=== PATIENT | female | born 1955 | race Caucasian/White ===

== ENCOUNTER 2023-11-01 14:22 | Outpatient (OUT) | payer OTHER, SELFPAY ==
--- NOTE | 2023-11-01 | CONS_ITS ---
CONSULTATION DATE: 11/01/2023 TO: Christi Galvan M.D. CHIEF COMPLAINT: Includes severe left sided buttock pain, left leg pain. HISTORY OF PRESENT ILLNESS: Review of systems, past medical/surgical history were obtained and documented on the health questionnaire and is available upon request. She is a 68-year-old female, reports having pain over the last one and a half years. It occurred spontaneously and increased gradually to its present state. She now has 5-7/10 pain which is sharp, burning in character, increased with activities such as standing and walking and performing transitioning maneuvers. She feels most comfortable in the semi-recumbent position. Denies any change in bowel and bladder habits. Reports that she has some progressive tingling and numbness, as well as weakness of her left lower extremity. This is not new but slightly progressive since the onset of her symptoms one and a half years ago. Since her symptoms started, she has been undergoing a home supervised exercise program. She has undergone activity modification. She is intolerant to nonsteroidal agents and has been using nabumetone and Flexeril to help control pain symptoms, as well as Tylenol intermittently. Her TIO on today?s visit was 28%. She has also been undergoing physical therapy in [place] for her current pain symptoms. EXAM: Her examination is notable for patient having hypoesthesia along the right L5 dermatome, 3/5 strength of her right extensor hallucis. Straight leg raise is positive at approximately 90 degrees. No signs consistent with myelopathy. She had dysesthesia and hypoesthesia over the distribution of the left superior gluteal nerve, and she had significant myofascial spasm of the lumbar paravertebral muscles occurring bilaterally. IMPRESSION: Our impression is patient with chronic pain secondary to left L5 radiculopathy, left superior gluteal nerve neuritis. RECOMMENDATIONS: I have recommended left superior gluteal nerve injection under fluoroscopic guidance. Proceed with a lumbosacral MRI to determine if there is a mechanical etiology to her L5 radicular process. I have asked her to start aquatic therapy, and I have gone over the details of the procedure with the patient. All her questions answered. She agrees to proceed with the outlined plan. As part of providing excellent, safe, comprehensive care, the following was completed at our patient's visit: 1. A medication reconciliation and review to ensure accurate knowledge of current/active medications, including asking our patients to inform us about any ifoy-lcj-xorabxn medications or herbal remedies/nutritional supplements/alternative remedies. 2. A review to specifically ensure our patients have had annual screening for: elevated body mass index (BMI, see intake chart for exact total), tobacco use, screening for depression, and screening for unhealthy alcohol use. When screening is concerning, patients are provided with education and the specific recommendation to discuss the concerning health issue and treatment options with their primary care provider. SHAHEED
== END 2023-11-01 14:23 | disposition home or self-care (01) ==
LOC: PM 14:23
PROVIDERS: Visit Provider Anesthesiology Pain Medicine
DX: M54.16 Radiculopathy, lumbar region (principal); G62.9 Polyneuropathy, unspecified
CPT/HCPCS: G0463

== ENCOUNTER 2023-11-15 14:47 | Outpatient (OUT) | payer OTHER, SELFPAY ==
--- NOTE | 2023-11-15 14:50 | MR_ITS ---
[address] [address] Patient Name: KAMALJIT ZAVALA MRN: [id number]:[id number] date: 1955 Sex: F Assigned Patient Location: MRI Current Patient Location: Accession/Order Number: [id number] Exam Date: 11/15/2023 15:00 Report Date: 11/16/2023 07:09 At the request of: OLIVIA MCLEAN Procedure: MR lumbar spine wo con EXAMINATION: MR lumbar spine wo con HISTORY: Lumbar Neuritis COMPARISON: No relevant comparison available. TECHNIQUE: A variety of imaging planes and parameters were utilized for visualization of suspected pathology. FINDINGS: For the purposes of numbering, sagittal T2 image # 8 extends from the T10 vertebral body superiorly to the S2 level inferiorly. PARASPINAL AREA: Normal with no visible mass. BONES: Normal alignment with no acute fracture or spondylolisthesis. Mild heterogeneous marrow signal likely age-related changes. Extension of intervertebral disc through the superior endplate of T11, Schmorl's node. Mild to moderate degenerative spondylosis and facet osteoarthropathy CORD/CAUDA EQUINA: Normal caliber, contour, and signal intensity. DISC LEVELS: 12-L1: Early degenerative disc disease is present without focal protrusion or neural impingement. L1-L2: Moderate degenerative disc disease is present without visible neural impingement. L2-L3: Moderate degenerative disc disease is present without visible neural impingement. L3-L4: Moderate degenerative disc disease is present without visible neural impingement. L4-L5: Moderate degenerative disc disease is present without visible neural impingement. L5-S1: Severe disc space narrowing and disc desiccation. Posterior broad-based disc herniation of the protrusion type extending posteriorly up to 4.8 mm. This abuts but does not efface the nerves. No central or foraminal stenosis MR/MR lumbar spine wo con IMPRESSION: Moderate degenerative changes most significant at L5-S1 where there is a moderate-sized posterior broad-based disc herniation Electronically authenticated by: CATHIE REED Date: 11/16/2023 07:09
== END 2023-11-15 14:48 | disposition home or self-care (01) ==
LOC: MRI 14:47
PROVIDERS: Visit Provider Anesthesiology Pain Medicine
DX: M54.16 Radiculopathy, lumbar region (principal); M51.36 Other intervertebral disc degeneration, lumbar region
CPT/HCPCS: 72148

== ENCOUNTER 2023-11-22 08:48 | Day surgery (SDC) | payer OTHER, SELFPAY ==
[2023-11-22 09:02] VITALS: BP 135/91; PULSE 74; TEMP 36.2; O2SAT 98
[2023-11-22 09:55] VITALS: BP 119/61; PULSE 74; O2SAT 98
[2023-11-22] MEDS: BUPIVACAINE HCL 0.25% PF 25 MG/10 ML VIAL 4 ML INJ (09:57)
[2023-11-22 09:58] VITALS: BP 116/64; PULSE 74; O2SAT 98
--- NOTE | 2023-11-22 10:15 | W.PM.PROCNOT ---
Date of procedure: 11/22/23 Pre-op diagnosis: Left superior gluteal neuritis Post-op diagnosis: same as pre-op Procedure: left Superior gluteal nerve block, diagnostic Performed under fluoroscopic guidance Immediate complications none Anesthesia: none Solution used for injection: In each syringe, 2 milliliters 0.25% Marcaine 2.5 mL is used for injection for each side Time out process compliant After informed consent obtained patient was brought to the procedure room placed in the prone position skin overlying the area was prepped and draped in a sterile fashion using betadine. 25 gauge spinal needle Insert over each of the target areas identified in fluoroscopy corresponding needles were advanced Under fluoroscopic guidance until the target/targets encountered, no indication of intravascular or Intraneuronal needle tip placement. Solution injected.needles removed post procedurally. patient transferred to recovery room in stable condition to be discharged home after meeting criteria Anesthesia: Local Surgeon: Jerry Concepcion Condition: stable
== END 2023-11-22 10:02 | disposition home or self-care (01) ==
PROVIDERS: Visit Provider Anesthesiology Pain Medicine
DX: G57.82 Other specified mononeuropathies of left lower limb (principal)
CPT/HCPCS: 64450

== ENCOUNTER 2023-12-01 09:31 | Outpatient (OUT) | payer OTHER, SELFPAY ==
--- NOTE | 2023-12-01 09:30 | P.CN_ITS ---
Consult Note: HPI Data of Consult Patient: known to practice within the last 3 years Requesting Physician: Guerda Reyes NP Primary Care Provider: Non-Staff Physician, MD Consult Narrative Narrative: She is a 68-year-old female, reports having pain over the last one and a half years. It occurred spontaneously and increased gradually to its present state. She now has 5-7/10 pain which is sharp, burning in character, increased with activities such as standing and walking and performing transitioning maneuvers. She feels most comfortable in the semi-recumbent position. Denies any change in bowel and bladder habits. Reports that she has some progressive tingling and numbness, as well as weakness of her left lower extremity. This is not new but slightly progressive since the onset of her symptoms one and a half years ago. Since her symptoms started, she has been undergoing a home supervised exercise program. She has undergone activity modification. She is intolerant to nonsteroidal agents and has been using nabumetone and Flexeril to help control pain symptoms, as well as Tylenol intermittently. Her TIO on today?s visit was 29%. She has also been undergoing physical therapy in [place] for her current pain symptoms. Recently underwent left superior gluteal nerve block with no significant improvement. Recently underwent lumbar MRI which is consistent with multilevel degenerative changes and disc degeneration, most significant at L5-S1 with broad based disc herniation. cc:: CC: Guerda Reyes NP [facility] Medical History (Updated 12/01/23 @ 10:27 by Guerda Reyes NP) Acid reflux ?K21.9 - Gastro-esophageal reflux disease without esophagitis (ICD-10) Irregular heart beat ?I49.9 - Cardiac arrhythmia, unspecified (ICD-10) Surgical History History of repair of left rotator cuff ?Z98.890 - Other specified postprocedural states (ICD-10) History of total left knee replacement ?Z96.652 - Presence of left artificial knee joint (ICD-10) History of total right knee replacement ?Z96.651 - Presence of right artificial knee joint (ICD-10) History of section ?Z98.891 - History of uterine scar from previous surgery (ICD-10) Meds Home Medications and Allergies Home Medications ?Medication ?Instructions ?Recorded ?Confirmed ?Type cyclobenzaprine 10 mg tablet 10 mg PO DAILY 11/02/23 11/22/23 History multivitamin 1 tab PO DAILY 11/02/23 11/22/23 History nabumetone 500 mg tablet 500 mg PO BID 11/02/23 11/22/23 History omega-3 fatty acids 500 mg PO DAILY 11/02/23 11/02/23 History omeprazole 20 mg capsule,delayed 20 mg PO DAILY 11/02/23 11/22/23 History release Allergies Allergy/AdvReac Type Severity Reaction Status Date / Time Sulfa (Sulfonamide Allergy Unknown Verified 11/22/23 09:07 Antibiotics) Exam Constitutional Documenting provider has reviewed patient's vital signs: yes Common normals: no apparent distress, oriented x3, healthy appearing, alert and well nourished General appearance: cooperative HENMT Common normals: normocephalic, hearing grossly normal bilaterally and moist oral mucous membranes Head and scalp: normocephalic Eye Common normals: PERRL Pupil: PERRL Neck & C-Spine Common normals: full ROM General: normal visual inspection Chest Common normals: inspection of chest normal Respiratory Common normals: normal respiratory effort, no retractions and no use of accessory muscles Back & Pelvis Lumbar spine/lower back: ROM limited, pain with ROM and straight leg raise positive left Sacroiliac joints: SI joint(s) abnormal Other: left positive wilfredo(patricks), gaenslens, thigh thrust, compression test decreased sensation following left L4,5 and S1 pattern strength 5/5 in BLE Extremity Common normals: normal to inspection and full ROM Neuro Common normals: oriented x3, CN's II-XII intact bilaterally, moves all extremities, no focal motor deficits, no sensory deficits noted and deep tendon reflexes 2+ bilaterally Sensorium/orientation: alert Motor exam: strength 5/5 throughout and no movement abnormalities noted Psych Common normals: mental status grossly normal, thought process normal, cooperative, affect normal, speech normal and activity/motor behavior normal Speech: normal speech Thought process: normal thought process Assessment and Plan Assessment and Plan (1) Lumbar radiculopathy: (2) Lumbar degenerative disc disease: (3) Unspecified mononeuropathy of left lower limb: Plan L5-S1 PRATIK under fluoroscopy, risks vs benefits reviewed. all questions answered continue HEP as tolerated continue current medications f/u 2 weeks after PRATIK
== END 2023-12-01 09:32 | disposition home or self-care (01) ==
LOC: PM 09:31
PROVIDERS: Visit Provider Nurse Practitioner
DX: M54.16 Radiculopathy, lumbar region (principal); M51.36 Other intervertebral disc degeneration, lumbar region
CPT/HCPCS: G0463

== ENCOUNTER 2023-12-06 08:36 | Day surgery (SDC) | payer OTHER, SELFPAY ==
[2023-12-06 08:48] VITALS: BP 140/95; PULSE 84; TEMP 36.1; O2SAT 95
[2023-12-06 09:40] VITALS: BP 140/77; PULSE 75; O2SAT 93
[2023-12-06] MEDS: LIDOCAINE HCL 2% PF 100 MG/5 ML VIAL 2 ML INJ (09:42)
[2023-12-06] MEDS: 0.9 % SODIUM CHLORIDE 10 ML SYRINGE - SALINE FLUSH 2 ML INJ (09:42)
[2023-12-06] MEDS: IOHEXOL 240 MG/ML - 10 ML VIAL 24 MG INJ (09:42)
[2023-12-06] MEDS: METHYLPREDNISOLONE ACETATE 40 MG/ML VIAL 10 MG INJ (09:42)
[2023-12-06] MEDS: BUPIVACAINE HCL 0.25% PF 25 MG/10 ML VIAL 2 ML INJ (09:42)
[2023-12-06 09:43] VITALS: BP 141/83; PULSE 78; O2SAT 91
--- NOTE | 2023-12-06 09:49 | P.ON_ITS ---
Date of procedure: 12/06/23 Pre-op diagnosis: Lumbar radiculopathy Post-op diagnosis: same as pre-op Procedure: Lumbar 5/Sacral 1 Epidural Steroid Injection Under fluoroscopic guidance Immediate complications none Solution used for injection: Marcaine 0.25% 2mL, 2cc Normal saline, Depo-Medrol 80mg Omnipaque 3 mL Anesthesia local 2% lidocaine up to 4ml Timeout process compliant After informed consent obtained. Patient brought to the procedure room placed in the prone position. Skin overlying the area was prepped and draped in a sterile fashion using betadine. 25 gauge needle used to raise a skin wheel with local anesthetic over the target area identified under fluoroscopy. A 17 gauge Touhy needle Was inserted over the anesthetized area and directed towards the inter- space under fluoroscopic guidance. Epidural space was identified with loss of resistance technique to air. Needle Tip placement confirmed with injection of contrast solution. Steroid solution was then injected. Anesthesia: Local Surgeon: Jerry Concepcion Condition: stable Disposition: PACU
== END 2023-12-06 09:48 | disposition home or self-care (01) ==
LOC: SURGOUT 08:37
PROVIDERS: Visit Provider Anesthesiology Pain Medicine
DX: M54.16 Radiculopathy, lumbar region (principal)
CPT/HCPCS: 62323; J1010; Q9966

== ENCOUNTER 2023-12-14 13:32 | Outpatient (OUT) | payer OTHER, SELFPAY ==
--- NOTE | 2023-12-14 13:57 | P.CN_ITS ---
Consult Note: HPI Data of Consult Patient: known to practice within the last 3 years Requesting Physician: Guerda Reyes NP Primary Care Provider: Non-Staff Physician, MD Consult Narrative Narrative: She is a 68-year-old female, reports having pain over the last one and a half years. It occurred spontaneously and increased gradually to its present state. She now has 5-7/10 pain which is sharp, burning in character, increased with activities such as standing and walking and performing transitioning maneuvers. She feels most comfortable in the semi-recumbent position. Denies any change in bowel and bladder habits. Since her symptoms started, she has been undergoing a home supervised exercise program. She has undergone activity modification. She is intolerant to nonsteroidal agents and has been using nabumetone and Flexeril to help control pain symptoms, as well as Tylenol intermittently. Her TIO on today?s visit was 26%. She has also been undergoing physical therapy in [place] for her current pain symptoms. Recently underwent left superior gluteal nerve block with no significant improvement. Recently underwent lumbar MRI which is consistent with multilevel degenerative changes and disc degeneration, most significant at L5-S1 with broad based disc herniation. Reporting 60% improvement in pain and functional ability as a result of L5/S1 PRATIK. Continues to have moderate to severe intermittent axial low back pain. Today pain 6/10, increasing to 10/10 riding in the car and standing for extended periods of time. cc:: CC: Guerda Reyes NP Review of Systems ROS Status of ROS 10 or more systems reviewed and unremark able except as noted in history and below [facility] Medical History (Updated 12/14/23 @ 13:59 by Guerda Reyes NP) Acid reflux ?K21.9 - Gastro-esophageal reflux disease without esophagitis (ICD-10) Irregular heart beat ?I49.9 - Cardiac arrhythmia, unspecified (ICD-10) Surgical History History of repair of left rotator cuff ?Z98.890 - Other specified postprocedural states (ICD-10) History of total left knee replacement ?Z96.652 - Presence of left artificial knee joint (ICD-10) History of total right knee replacement ?Z96.651 - Presence of right artificial knee joint (ICD-10) History of section ?Z98.891 - History of uterine scar from previous surgery (ICD-10) Meds Home Medications and Allergies Home Medications ?Medication ?Instructions ?Recorded ?Confirmed ?Type cyclobenzaprine 10 mg tablet 10 mg PO DAILY 11/02/23 12/06/23 History multivitamin 1 tab PO DAILY 11/02/23 12/06/23 History nabumetone 500 mg tablet 500 mg PO BID 11/02/23 12/06/23 History omega-3 fatty acids 500 mg PO DAILY 11/02/23 12/06/23 History omeprazole 20 mg capsule,delayed 20 mg PO DAILY 11/02/23 12/06/23 History release glucosamine-chondroitin 500 mg-400 1 cap PO DAILY 12/01/23 12/06/23 History mg capsule biotin 1 mg capsule 1 mg PO DAILY 12/06/23 12/06/23 History lactobacillus combination no.4 3 3,000 mmu cells PO DAILY 12/06/23 12/06/23 History billion cell capsule (Probiotic) Allergies Allergy/AdvReac Type Severity Reaction Status Date / Time Sulfa (Sulfonamide Allergy Unknown Verified 12/06/23 08:51 Antibiotics) Exam Constitutional Documenting provider has reviewed patient's vital signs: yes Common normals: no apparent distress, oriented x3, healthy appearing, alert and well nourished General appearance: cooperative HENAL Common normals: normocephalic, hearing grossly normal bilaterally and moist oral mucous membranes Head and scalp: normocephalic Eye Common normals: PERRL Pupil: PERRL Neck & C-Spine Common normals: full ROM General: normal visual inspection Chest Common normals: inspection of chest normal Respiratory Common normals: normal respiratory effort, no retractions and no use of accessory muscles Back & Pelvis Lumbar spine/lower back: normal to inspection, ROM limited, pain with ROM and straight leg raise negative bilaterally Sacroiliac joints: SI joints normal Other: bilateral positive facet loading strength 5/5 in BLE sensation intact BLE Neuro Common normals: oriented x3, CN's II-XII intact bilaterally, moves all extremities, no focal motor deficits, no sensory deficits noted and deep tendon reflexes 2+ bilaterally Sensorium/orientation: alert Motor exam: strength 5/5 throughout and no movement abnormalities noted Psych Common normals: mental status grossly normal, thought process normal, cooperative, affect normal, speech normal and activity/motor behavior normal Speech: normal speech Thought process: normal thought process Results Additional Findings Additional findings: If on a controlled substance or opioids, I have checked an [place] report on this patient and there are no aberrancies noted in the prescribing history.??If on a controlled substance or opioid a drug screen was completed and reviewed within the last year, and if there has not been a drug screen completed we ordered one today to monitor higher risk, state monitored pain medication use. As part of providing excellent, safe, comprehensive care, the following was completed at our patient's visit: 1. A medication reconciliation and review to ensure accurate knowledge of current/active medications, including asking our patients to inform us about any [id number] medications or herbal remedies/nutritional supplements/alternative remedies. 2. A review to specifically ensure our patients have had annual screening for screening for depression, screening for tobacco use, and screening for unhealthy alcohol use. For concerning screenings had a discussion with the patient, provided patient education, and recommended follow-up with primary care provider when appropriate. If patient noted with a risk of falling, they received education on strength, gait, and balance training to prevent future risk of falling. Assessment and Plan Assessment and Plan (1) Lumbar spondylosis: (2) Myofascial pain: (3) Lumbar degenerative disc disease: (4) Lumbar radiculopathy: Plan bilateral L4-5 L5-S1 facet medial branch block x2 under fluoroscopy, risks vs benefits reviewed, working towards thermal RFA continue flexeril 10mg BID, 90 day supply provided, for myofascial pain/spasms f/u after each injection
== END 2023-12-14 13:33 | disposition home or self-care (01) ==
PROVIDERS: Visit Provider Nurse Practitioner
DX: M47.816 Spondylosis without myelopathy or radiculopathy, lumbar region (principal); M79.18 Myalgia, other site; M51.36 Other intervertebral disc degeneration, lumbar region; M54.16 Radiculopathy, lumbar region
CPT/HCPCS: G0463

== ENCOUNTER 2023-12-20 07:06 | Day surgery (SDC) | payer OTHER, SELFPAY ==
[2023-12-20 07:13] VITALS: BP 140/92; PULSE 78; TEMP 36.2; O2SAT 98
[2023-12-20 08:15] VITALS: BP 151/89; BP 157/89; PULSE 70; PULSE 75; O2SAT 98; O2SAT 99
[2023-12-20] MEDS: BUPIVACAINE HCL 0.25% PF 25 MG/10 ML VIAL 6 ML INJ (08:19)
--- NOTE | 2023-12-20 09:18 | W.PM.PROCNOT ---
Date of procedure: 12/20/23 Pre-op diagnosis: Lumbar spondylosis Post-op diagnosis: same as pre-op Procedure: Bilateral Lumbar 4/5, 5/sacral 1 medial branch block Preop diagnosis includes pain secondary to spondylosis, Postop diagnosis same Under fluoroscopic guidance Solution injected: 2milliliters Marcaine 0.25% Anesthesia :none Immediate complications none Time out process compliant After informed consent obtained from the patient placed in the Prone proposition . area was prepped and draped in a sterile fashion using betadine .25 gauge spinal needle inserted over each of the above mentioned target areas . [place] were directed towards the target under fluoroscopic guidance . after encountering each of the targets , no indication of intravascular intraneuronal or intrathecal needle tip placement. Then 0 .5 to 1 Milliliter was injected at each level. [place] removed postoperatively. patient transferred to recovery in stable condition to be discharged home after meeting criteria Anesthesia: Local Surgeon: Jerry Concepcion Condition: stable
== END 2023-12-20 08:23 | disposition home or self-care (01) ==
LOC: SURGOUT 07:07
PROVIDERS: Visit Provider Anesthesiology Pain Medicine
DX: M47.816 Spondylosis without myelopathy or radiculopathy, lumbar region (principal)
CPT/HCPCS: 64493; 64494; J0665

== ENCOUNTER 2023-12-22 10:10 | Outpatient (OUT) | payer OTHER, SELFPAY ==
--- OUTSIDE RECORDS SUMMARY | 2023-12-22 10:24 | XMS_ITS | CCD ---
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 Name Role Phone IAN, RYAN Unavailable Unavailable HOUSE, RYAN Unavailable Unavailable HOUSE, RYAN Unavailable Unavailable CATHIE REED V Unavailable Unavailable HOUSE, RYAN Unavailable Unavailable House Ryan PERERA Primary Care Provider VIJAYA HUNTER Admitting Unavailable VIJAYA HUNTER Attending Unavailable RYAN SOSA Primary Care Unavailable FEROZ COOK Attending Unavailable ROSY, NATALIE Primary Care Unavailable SUSAN MINER Attending Unavailable SKYLAR NÚÑEZ Attending Unavailable KAMALJIT ORR Attending Unavailable SUSAN MINER Attending Unavailable NIYASKYLAR SANABRIA Attending Unavailable SKYLAR NÚÑEZ Referring Unavailable [facility] Primary Care Unavailable VIJAYA HUNTER Referring Unavailable [facility] Primary Care Unavailable RYAN SOSA Referring Unavailable [facility] Primary Care Unavailable Allergies Allergy Classification Reported Allergen(s) Allergy Type Date of Onset Reaction(s) Facility (3 sources) Sulfonamides (Antibiotic); Translations: [SULFA (SULFONAMIDE ANTIBIOTICS)] Propensity to adverse reactions to drug 1 [facility] Medications Current Medications Medication Drug Class(es) Dates Sig (Normalized) Sig (Original) acetaminophen 325 mg oral tablet (1 source) take 1 tablet by mouth every six hours as needed for pain acetaminophen (TYLENOL) 325 mg tablet Take 1 tablet (325 mg total) by mouth every 6 (six) hours as needed for pain. 0 Active acetaminophen 325 mg / HYDROcodone bitartrate 5 mg oral tablet (1 source) Opioid Agonist Start: 09-28-2022 HYDROcodone-acetami nophen (NORCO) 5-325 mg per tablet Indications: Post-operative pain Take 1 tablet by mouth 2 (two) times a day as needed for pain. Max Daily Amount: 2 tablets 14 tablet 0 09/28/2022 Active ascorbic acid 100 mg oral tablet (1 source) Vitamin C take 1 tablet by mouth in the morning ascorbic acid, vitamin C, (VITAMIN C) 100 MG tablet Take 1 tablet (100 mg total) by mouth in the morning. 0 Active aspirin 81 mg delayed release oral tablet (1 source) Platelet Aggregation Inhibitor, Nonsteroidal Anti-inflammatory Drug Start: 08-29-2022 take 1 tablet by mouth once daily in the morning, then take 1 tablet by mouth once daily at bedtime aspirin 81 mg Indications: Primary osteoarthritis of right knee TAKE ONE TABLET BY MOUTH EVERY MORNING AND TAKE ONE TABLET BY MOUTH EVERY NIGHT AT BEDTIME START TAKING ONE DAY FOLLOWING YOUR JOINT REPLACEMENT 60 tablet 0 08/29/2022 Active b complex vitamins capsule (1 source) take 1 capsule by mouth in the morning b complex vitamins capsule Take 1 capsule by mouth in the morning. 0 Active biotin 1 mg chewable tablet (1 source) biotin 1,000 mcg tablet,chewable Chew 1 tablet and swallow daily. 0 Active Calcium Carbonate / vitamin D3 (1 source) take 1 tablet by mouth once daily calcium carbonate/vitamin D3 (CALCIUM 500 + D ORAL) Take 1 tablet by mouth daily. 0 Active chondroitin sulfates 400 mg / glucosamine hydrochloride 500 mg oral tablet (1 source) take 1 tablet by mouth in the morning glucosamine-chondro itin 500-400 mg tablet Take 1 tablet by mouth in the morning. 0 Active cyclobenzaprine hydrochloride 10 mg oral tablet (1 source) Muscle Relaxant Start: 02-01-2021 take 1 tablet by mouth in the morning cyclobenzaprine (FLEXERIL) 10 mg tablet Take 1 tablet (10 mg total) by mouth in the morning. 0 02/01/2021 Active famotidine 10 mg oral tablet (1 source) Histamine-2 Receptor Antagonist take 1 tablet by mouth once daily famotidine (PEPCID) 10 mg tablet Take 1 tablet (10 mg total) by mouth nightly. 0 Active flecainide acetate 50 mg oral tablet (1 source) Antiarrhythmic Start: 03-02-2023 flecainide (TAMBOCOR) 50 mg tablet Indications: SVT (supraventricular tachycardia) TAKE 1 TABLET IN THE MORNING AND 1 TABLET BEFOREBEDTIME 180 tablet 1 03/02/2023 Active lysine 500 mg oral tablet (1 source) take 1 tablet by mouth in the morning lysine 500 mg tablet Take 1 tablet (500 mg total) by mouth in the morning. 0 Active magnesium oxide 200 mg oral tablet (1 source) take 2 tablets by mouth in the morning magnesium oxide 200 mg magnesium tablet Take 2 tablets by mouth in the morning. 0 Active meloxicam 15 mg oral tablet (1 source) Nonsteroidal Anti-inflammatory Drug Start: 08-29-2022 meloxicam (MOBIC) 15 mg tablet Indications: Primary osteoarthritis of both knees TAKE ONE TABLET BY MOUTH EVERY MORNING STARTING DAY ONE FOLLOWING JOINT REPLACEMENT 30 tablet 0 08/29/2022 Active methocarbamol 500 mg oral tablet (1 source) Muscle Relaxant Start: 02-02-2021 take 1 tablet by mouth in the morning methocarbamoL (ROBAXIN) 500 mg tablet Take 1 tablet (500 mg total) by mouth in the morning. 0 02/02/2021 Active Multivitamin preparation (1 source) take 1 tablet by mouth once daily multivitamin (MULTIPLE VITAMINS ORAL) Take 1 tablet by mouth daily. 0 Active nabumetone 500 mg oral tablet (1 source) Nonsteroidal Anti-inflammatory Drug take 1 tablet by mouth in the morning, then take 1 tablet by mouth at bedtime nabumetone (RELAFEN) 500 mg tablet Take 1 tablet (500 mg total) by mouth in the morning and 1 tablet (500 mg total) before bedtime. 0 Active [id number]-DNP-FISH OIL-L.CASEI ORAL (1 source) take 1 capsule by mouth once daily [id number]-ROG-KRH-FISH OIL-L.CASEI ORAL Take 1 capsule by mouth daily. 0 Active omeprazole 20 mg delayed release oral capsule (1 source) Proton Pump Inhibitor take 1 capsule by mouth in the morning omeprazole (PriLOSEC) 20 mg capsule Take 1 capsule (20 mg total) by mouth in the morning. Takes in am. 0 Active potassium gluconate 2.5 meq oral tablet (1 source) take 1 tablet by mouth in the morning potassium 99 mg tablet Take 1 tablet (99 mg total) by mouth in the morning. 0 Active psyllium husk (METAMUCIL ORAL) (1 source) take 1 dose by mouth in the morning psyllium husk (METAMUCIL ORAL) Take 1 Dose by mouth in the morning. 0 Active Turmeric extract (1 source) take 1 tablet by mouth once daily as needed TURMERIC ORAL Take 1 tablet by mouth daily as needed. 0 Active vitamin a 2.4 mg oral capsule (1 source) Vitamin A take 1 capsule by mouth in the morning vitamin A 8000 UNIT capsule Take 1 capsule (8,000 Units total) by mouth in the morning. 0 Active Problems Active Problems Problem Classification Problem Date Documented Date Episodic/Chronic Cardiac dysrhythmias (3 sources) Supraventricular tachycardia; Translations: [SVT (supraventricular tachycardia)] Onset: 05-01-2021 05-01-2021 Chronic Genitourinary symptoms and ill-defined conditions (1 source) Stress incontinence (female) (male); Translations: [Stress incontinence (female) (male)] Onset: 10-07-2023 Chronic Genitourinary symptoms and ill-defined conditions (1 source) Other difficulties with micturition; Translations: [Other difficulties with micturition] Onset: 10-07-2023 Episodic Malaise and fatigue (1 source) Other fatigue; Translations: [Other fatigue] Onset: 10-07-2023 Episodic Osteoarthritis (2 sources) Primary gonarthrosis, bilateral; Translations: [Bilateral primary osteoarthritis of knee] Onset: 03-03-2021 03-03-2021 Chronic Other connective tissue disease (1 source) History of total knee arthroplasty; Translations: [Presence of left artificial knee joint] Onset: 09-30-2021 09-30-2021 Chronic Other connective tissue disease (1 source) Pain in right toe(s); Translations: [Pain in right toe(s)] Onset: 10-07-2023 Episodic Other connective tissue disease (1 source) Pain in left toe(s); Translations: [Pain in left toe(s)] Onset: 10-07-2023 Episodic Other nutritional; endocrine; and metabolic disorders (1 source) Body mass index 30+ - obesity; Translations: [Obesity, unspecified] Onset: 04-09-2021 04-09-2021 Chronic Other nutritional; endocrine; and metabolic disorders (1 source) Obesity; Translations: [Obesity, unspecified] Onset: 11-23-2021 11-23-2021 Chronic Other nutritional; endocrine; and metabolic disorders (1 source) Body mass index (BMI) 34.0-34.9, adult; Translations: [Body mass index (BMI) 34.0-34.9, adult] Onset: 10-07-2023 Chronic Unclassified (7 sources) Encounter for screening mammogram for malignant neoplasm of breast; Translations: [Encounter for screening for diabetes mellitus] Onset: 03-21-2018 Episodic Unclassified (1 source) Family history of malignant neoplasm of other organs or systems; Translations: [FAM HX MALIG NEOPLASM OTH ORGN/SYS] Onset: 04-03-2018 Episodic Unclassified (1 source) Supraventricular tachycardia, unspecified; Translations: [Supraventricular tachycardia, unspecified] Onset: 07-20-2023 Unclassified (1 source) Rapid Heart Rate Onset: 11-17-2023 Past or Other Problems Problem Classification Problem Date Documented Da te Episodic/Chronic Cardiac dysrhythmias (2 sources) Palpitations; Translations: [Palpitations] Onset: 02-27-2021 02-27-2021 Episodic Other lower respiratory disease (1 source) Dyspnea; Translations: [Shortness of breath] Onset: 02-27-2021 02-27-2021 Episodic Syncope (1 source) Vasovagal syncope; Translations: [Syncope and collapse] Onset: 02-27-2021 02-27-2021 Episodic Results Test Name Value Interpretation Reference Range Facil ity BASIC METABOLIC PANLon 11-03 Anion gap [Moles/Vol] 9 mmol/L Normal 5-15 [facility] Comment on above: Performed By: #### C FREDERIC [facility], #### [facility] ([id number]) [address], [address] [place] [address] Calcium [Mass/Vol] 9.4 mg/dL Normal 8.5-10.5 [facility] Comment on above: Performed By: #### C TRU DE LA GARZA, #### [facility] ([id number]) [address], [address] [place] [address] Chloride [Moles/Vol] 102 mmol/L Normal 98-109 [facility] Comment on above: Performed By: #### TRU Sousa BCA, #### [facility] ([id number]) [address], [address] [place] [address] CO2 [Moles/Vol] 28 mmol/L Normal 22-32 [facility] Comment on above: Performed By: #### C TRU DE LA GARZA, #### [facility] ([id number]) [address], [address] [place] [address] Creatinine [Mass/Vol] 0.79 mg/dL Normal 0.40-1.00 [facility] Comment on above: Result Comment: METH OD TRACEABLE TO IDMS STANDARD Performed By: #### C TRU DE LA GARZA, #### [facility] ([id number]) [address], [address] [place] [address] GFR/1.73 sq M.predicted among non-blacks MDRD (S/P/Bld) [Vol rate/Area] 82 mL/min/{1.73_m2} Normal >59 [facility] Comment on above: Result Comment: Reported eGFR is based on the CKD-EPI 2020 equation that does not use a race coefficient. Performed By: #### C TRU DE LA GARZA, #### [facility] ([id number]) [address], [address] [place] [address] Glucose [Mass/Vol] 80 mg/dL Normal 65-99 [facility] Comment on above: Performed By: #### TRU Sousa BCA, #### [facility] ([id number]) [address], [address] [place] [address] Potassium [Moles/Vol] 3.9 mmol/L Normal 3.5-5.0 [facility] Comment on above: Performed By: #### C TRU DE LA GARZA, #### [facility] ([id number]) [address], [address] [place] [address] Sodium [Moles/Vol] 139 mmol/L Normal 134-146 [facility] Comment on above: Performed By: #### TRU Sousa BCA, #### [facility] ([id number]) [address], [address] [place] [address] Urea nitrogen [Mass/Vol] 12 mg/dL Normal 5-27 [facility] Comment on above: Performed By: #### TRU Sousa BCA, 41191-8 #### [facility] ([id number]) [address], [address] [place] [address] CBC AND AUTO DIFFon 11-04-19 24 ABSOLUTE BASOPHIL 0.0 X10E9/L Normal 0.0-0.2 [facility] Comment on above: Performed By: #### TRU Sousa BCA, #### [facility] ([id number]) [address] [place] [address] ABSOLUTE NEUTROPHIL 5.9 X10E9/L Normal 1.5-6.6 [facility] Comment on above: Performed By: #### TRU Sousa BCA, #### [facility] ([id number]) [address], [facility] [address] [place] [address] Basophils/100 WBC (Bld) 0.4 % Normal [facility] Comment on above: Performed By: #### TRU Sousa BCA, #### [facility] ([id number]) [address] [address] [place] [address] Eosinophils (Bld) [#/Vol] 0.2 10*3/uL Normal 0.0-0.4 [facility] Comment on above: Performed By: #### TRU Sousa BCA, #### [facility] ([id number]) [address], [facility] [address] [place] [address] Eosinophils/100 WBC (Bld) 1.8 % Normal [facility] Comment on above: Performed By: #### TRU Sousa BCA, #### [facility] ([id number]) [address], [address] [place] [address] Erythrocyte distribution width (RBC) [Ratio] 14.0 % Normal 11.5-15.0 [facility] Comment on above: Performed By: #### Lars DE LA GARZA [facility], #### [facility] ([id number]) [address], [facility] [address] [place] [address] Hematocrit (Bld) [Volume fraction] 40.4 % Normal 35-47 [facility] Comment on above: Performed By: #### TRU Sousa BCA, #### [facility] ([id number]) [address], [facility] [address] [place] [address] Hemoglobin (Bld) [Mass/Vol] 13.7 g/dL Normal 11.7-15.5 [facility] Comment on above: Performed By: #### TRU Sousa BCA, #### [facility] ([id number]) [address], [facility] [address] [place] [address] Lymphocytes (Bld) [#/Vol] 1.7 10*3/uL Normal 1.0-3.5 [facility] Comment on above: Performed By: #### Lars DE LA GARZA [facility], #### [facility] ([id number]) [address], [facility] [address] [place] [address] Lymphocytes/100 WBC (Bld) 20.5 % Normal [facility] Comment on above: Performed By: #### TRU Sousa BCA, #### [facility] ([id number]) [address], [address] [place] [address] MCH (RBC) [Entitic mass] 32.4 pg Normal 27-34 [facility] Comment on above: Performed By: #### TRU Sousa BCA, #### [facility] ([id number]) [address], [address] [place] [address] MCHC (RBC) [Mass/Vol] 34.0 g/dL Normal 32-36 [facility] Comment on above: Performed By: #### TRU Sousa BCA, #### [facility] ([id number]) [address], [address] [place] [address] MCV (RBC) [Entitic vol] 95 fL Normal 80-100 [facility] Comment on above: Performed By: #### TRU Sousa BCA, #### [facility] ([id number]) [address], [address] [place] [address] Monocytes (Bld) [#/Vol] 0.7 10*3/uL Normal 0-0.9 [facility] Comment on above: Performed By: #### TRU Sousa BCA, #### [facility] ([id number]) [address], [address] [place] [address] Monocytes/100 WBC (Bld) 7.9 % Normal [facility] Comment on above: Performed By: #### TRU Sousa BCA, #### [facility] ([id number]) [address] [place] [address] Neutrophils/100 WBC (Bld) 69.4 % Normal [facility] Comment on above: Performed By: #### TRU Sousa BCA, #### [facility] ([id number]) [address], [address] [place] [address] Platelet mean volume (Bld) [Entitic vol] 8.1 fL Normal 7-12 [facility] Comment on above: Performed By: #### TRU Sousa BCA, #### [facility] ([id number]) [address], [address] [place] [address] Platelets (Bld) [#/Vol] 262 10*3/uL Normal 150-450 [facility] Comment on above: Performed By: #### Lars DE LA GARZA [facility], #### [facility] ([id number]) [address], [address] [place] [address] RBC COUNT 4.24 X10E12/L Normal 3.80-5.20 [facility] Comment on above: Performed By: #### Lars DE LA GARZA [facility], #### [facility] ([id number]) [address], [address] [place] [address] WBC (Bld) [#/Vol] 8.5 10*3/uL Normal 4.0-11.0 [facility] Comment on above: Performed By: #### TRU Sousa BCA, #### [facility] ([id number]) [address], [address] [place] [address] MAGNESIUMon 11-04-2023 Magnesium [Mass/Vol] 1.8 mg/dL Normal 1.8-2.6 [facility] Comment on above: Performed By: #### TRU Sousa BCA, 20587-4 #### [facility] ([id number]) [address], [address] [place] [address] COMPLETE BLOOD COUNTon 10-06 Erythrocyte distribution width (RBC) [Ratio] 14.1 % Normal 11.5-15.0 [facility] Comment on above: Performed By: #### C MARIA VICTORIA CMP, 42336-4, 3083-, THYR #### [facility] ([id number]) [address], [address] [place] [address] Hematocrit (Bld) [Volume fraction] 41.0 % Normal 35-47 [facility] Comment on above: Performed By: #### Lars BC CMP, 22837-9, 3084-1, THYR #### [facility] ([id number]) [address], [address] [place] [address] Hemoglobin (Bld) [Mass/Vol] 13.7 g/dL Normal 11.7-15.5 [facility] Comment on above: Performed By: #### C BC, CMP, 74506-2, 3084-1, THYR #### [facility] ([id number]) [address], [address] [place] [address] MCH (RBC) [Entitic mass] 32.1 pg Normal 27-34 [facility] Comment on above: Performed By: #### Lars BC, CMP, 00941-4, 4-, THYR #### [facility] ([id number]) [address], [address] [place] [address] MCHC (RBC) [Mass/Vol] 33.5 g/dL Normal 32-36 [facility] Comment on above: Performed By: #### Lars BC, CMP, 32383-4, 4-, THYR #### [facility] ([id number]) [address], [address] [place] [address] MCV (RBC) [Entitic vol] 96 fL Normal 80-100 [facility] Comment on above: Performed By: #### Lars BC, CMP, 61901-0, 4-, THYR #### [facility] ([id number]) [address], [address] [place] [address] Platelet mean volume (Bld) [Entitic vol] 7.9 fL Normal 7-12 [facility] Comment on above: Performed By: #### Lars BC, CMP, 15900-7, 3084-, THYR #### [facility] ([id number]) [address], [address] [place] [address] Platelets (Bld) [#/Vol] 240 10*3/uL Normal 150-450 [facility] Comment on above: Performed By: #### Lars BC, CMP, 41827-7, 3084-1, THYR #### [facility] ([id number]) [address], [address] [place] [address] RBC COUNT 4.29 X10E12/L Normal 3.80-5.20 [facility] Comment on above: Performed By: #### C BC, CMP, 09062-9, 3084-1, THYR #### [facility] ([id number]) [address], [address] [place] [address] WBC (Bld) [#/Vol] 4.2 10*3/uL Normal 4.0-11.0 [facility] Comment on above: Performed By: #### C BC, CMP, 47343-9, 3084-1, THYR #### [facility] ([id number]) [address] [place] [address] COMPREHENSIVE METABOLIC PANE Perfecto 10-07-2023 Albumin [Mass/Vol] 4.2 g/dL Normal 3.2-5.3 [facility] Comment on above: Performed By: #### C BC, CMP, 48013-0, 3084-1, THYR #### [facility] ([id number]) [address], [address] [place] [address] ALP [Catalytic activity/Vol] 69 U/L Normal 39-130 [facility] Comment on above: Performed By: #### C BC, CMP, 35286-1, 3084-1, THYR #### [facility] ([id number]) [address], [address] [place] [address] ALT [Catalytic activity/Vol] 22 U/L Normal 0-31 [facility] Comment on above: Performed By: #### C BC, CMP, 97971-1, 3084-1, THYR #### [facility] ([id number]) [address], [address] [place] [address] Anion gap [Moles/Vol] 6 mmol/L Normal 5-15 [facility] Comment on above: Performed By: #### C BC, [facility], 24071-7, 3084-1, THYR #### [facility] ([id number]) [address], [address] [place] [address] AST [Catalytic activity/Vol] 24 U/L Normal 0-41 [facility] Comment on above: Performed By: #### C BC, [facility], 41702-7, 4-, THYR #### [facility] ([id number]) [address], [address] [place] [address] Bilirubin [Mass/Vol] 0.5 mg/dL Normal 0.3-1.2 [facility] Comment on above: Performed By: #### C BC, CMP, 80595-7, 4-, THYR #### [facility] ([id number]) [address], [address] [place] [address] Calcium [Mass/Vol] 9.3 mg/dL Normal 8.5-10.5 [facility] Comment on above: Performed By: #### C MARIA VICTORIA, [facility], 89424-5, 3083-, THYR #### [facility] ([id number]) [address], [address] [place] [address] Chloride [Moles/Vol] 103 mmol/L Normal 98-109 [facility] Comment on above: Performed By: #### Lars BC, [facility], 54281-5, 3083-, THYR #### [facility] ([id number]) [address], [address] [place] [address] CO2 [Moles/Vol] 31 mmol/L Normal 22-32 [facility] Comment on above: Performed By: #### C BC, CMP, 92317-0, 3084-1, THYR #### [facility] ([id number]) [address], [address] [place] [address] Creatinine [Mass/Vol] 0.72 mg/dL Normal 0.40-1.00 [facility] Comment on above: Result Comment: METH OD TRACEABLE TO IDMS STANDARD Performed By: #### Lars IRENE CMP, 30628-6, 3083-, THYR #### [facility] ([id number]) [address], [address] [place] [address] eGFR (CKD-EPI) NON-RACE DEPENDENT >90 Normal >59 [facility] Comment on above: Result Comment: Reported eGFR is based on the CKD-EPI 2020 equation that does not use a race coefficient. Performed By: #### C ANGELICA IRENE, 59636-0, 3083-, THYR #### [facility] ([id number]) [address], [address] [place] [address] Glucose [Mass/Vol] 77 mg/dL Normal 65-99 [facility] Comment on above: Performed By: #### Lars IRENE CMP, 64695-2, 3083-07, THYR #### [facility] ([id number]) [address], [address] [place] [address] Potassium [Moles/Vol] 3.9 mmol/L Normal 3.5-5.0 [facility] Comment on above: Performed By: #### Lars IRENE CMP, 37950-2, 3083-, THYR #### [facility] ([id number]) [address], [address] [place] [address] Protein [Mass/Vol] 6.9 g/dL Normal 6.0-8.0 [facility] Comment on above: Performed By: #### Lars IRENE CMP, 26551-0, 3083-, THYR #### [facility] ([id number]) [address], [address] [place] [address] Sodium [Moles/Vol] 140 mmol/L Normal 134-146 [facility] Comment on above: Performed By: #### Lars IRENE CMP, 03009-6, 3083-, THYR #### [facility] ([id number]) [address], [address] [place] [address] Urea nitrogen [Mass/Vol] 13 mg/dL Normal 5-27 [facility] Comment on above: Performed By: ###Deborah Sousa BC, CMP, 37375-1, 3084-, THYR #### [facility] ([id number]) [address] [place] [address] Lipid 1996 panelon 4 Cholesterol [Mass/Vol] 197 mg/dL Normal 150-200 [facility] Comment on above: Performed By: ###Deborah IRENE, [facility], 97321-6, 3083-, THYR #### [facility] ([id number]) [address] [place] [address] Cholesterol in HDL [Mass/Vol] 76 mg/dL Normal >39 [facility] Comment on above: Result Comment: HDL <40 mg/dL - High Risk HDL > or = 40mg/dL- Desirable HDL >60 mg/dL - Negative Risk Performed By: ###Deborah Sousa BC, CMP, 24434-4, 3083-, THYR #### [facility] ([id number]) [address] [place] [address] Cholesterol in LDL [Mass/Vol] 108 mg/dL Normal <130 [facility] Comment on above: Result Comment: LDL <100 mg/dL - Desirable LDL >160 mg/dL - High Risk Performed By: #### Lars BC, CMP, 84880-9, 4-, THYR #### [facility] ([id number]) [address], [address] [place] [address] Cholesterol in VLDL [Mass/Vol] 13 mg/dL Normal 0-30 [facility] Comment on above: Performed By: #### Lars BC, [facility], 50090-3, 3084-1, THYR #### [facility] ([id number]) [address], [address] [place] [address] CHOLESTEROL:HDL 2.6 Normal 1.0-5.0 [facility] Comment on above: Performed By: #### Lars IRENE, [facility], 42454-6, 3084-1, THYR #### [facility] ([id number]) [address], [address] [place] [address] Triglyceride [Mass/Vol] 65 mg/dL Normal 27-150 [facility] Comment on above: Performed By: #### Lars BC, [facility], 88602-9, 3084-1, THYR #### [facility] ([id number]) [address], [address] [place] [address] THYROID PROFILEon 10-07-2023 Free T4 [Mass/Vol] 1.05 ng/dL Normal 0.61-1.60 [facility] Comment on above: Performed By: #### Lars IRENE, [facility], 41034-8, 3084-1, THYR #### [facility] ([id number]) [address], [address] [place] [address] TSH 1.03 uIU/mL Normal 0.49-4.67 [facility] Comment on above: Performed By: #### Lars BC, [facility], 16193-3, 3084-1, THYR #### [facility] ([id number]) [address], [address] [place] [address] URIC ACIDon 10-07-2023 Urate [Mass/Vol] 6.4 mg/dL Normal 2.6-7.2 [facility] Comment on above: Performed By: #### C BC, CMP, 74919-2, 3084-1, THYR #### [facility] ([id number]) [address], [address] [place] [address] URINALYSISon 10-07-2023 Bilirubin Ql (U) Negative Normal NEG [facility] BLOOD/HGB Negative Normal NEG [facility] Color (U) YELLOW Normal YELLOW [facility] Glucose Ql (U) Negative Normal NEG [facility] Ketones Ql (U) Negative Normal NEG [facility] Leukocyte esterase Test strip Ql (U) Negative Normal NEG [facility] MUCOUS PRESENT Abnormal NONE [facility] Nitrite Ql (U) Negative Normal NEG [facility] pH (U) 8.0 [pH] Normal 5.0-8.5 [facility] Protein Ql (U) Negative Normal NEG [facility] R.B.CELLS 1 /hpf Normal 0-5 [facility] Specific gravity (U) [Rel density] 1.013 Normal 1.003-1.035 [facility] SQUAMOUS EPITHELIUM <1 Normal 0-5 [facility] TURBIDITY HAZY Abnormal CLEAR [facility] Urobilinogen (U) [Mass/Vol] mg/dL Normal <1.1 [facility] W.B.CELLS 0 /hpf Normal 0-5 [facility] XR Hip Bilateral w/Pelvison 11-12-2022 XR Hip Bilateral w/Pelvis COMPARISON: NONE. PELVIS FINDINGS: There are no lytic or sclerotic bone lesions. The femoral heads are located. There is no acute fracture or subluxation. There are no radiopaque foreign bodies. IMPRESSION: There are no acute osseous changes. Report reported and signed by JOSE JUAN LEWIS on 11/12/2022 0956 Normal [facility] XR Spine Lumbar 4+ Views*on 11-12-2022 XR Spine Lumbar 4+ Views* COMPARISON: NONE. FINDINGS: There are no lytic or sclerotic lesions. There is no acute fracture or subluxation. The humeral head is located. The AC joint and the clavicle are unremarkable. The visualized portions of the lung, ribs, and chest wall soft tissues are unremarkable. IMPRESSION: There are no acute osseous changes. Report reported and signed by JOSE JUAN LEWIS on 11/12/2022 1023 Normal [facility] MG MAMM SCREEN NIEVES W CADon 0 03-21-2018 MG MAMM SCREEN NIEVES W CAD [address] [place] [address] Patient: KAMALJIT ZAVALA Exam Date: 03/21/2018DOB: 1955 Gender:F : DR RYAN SOSA Admission #: [id number] : Order #: [id number] HERE TO VIEW EXAM RADIOLOGY REPORT PROCEDURE: MAMMOGRAM BILATERAL SCREENING DIGITAL WITH COMPUTER AIDED DETECTION COMPARISON: MG MAMM SCREEN NIEVES W CAD, 09/11/2013. MG MAMM SCREEN NIEVES W CAD, 07/03/2015. INDICATIONS: Screening mammography Calculator Name NCI Breast Cancer Risk Assessment Tool 5 Year Breast Cancer Risk 2.00%Lifetime Breast Cancer Risk 9.70%Personal Breast Cancer NoPersonal Ovarian Cancer NoTreatments NoneFamily Cancers Sister with bile duct cancer at age 59. LOCATION: [facility] BREAST COMPOSITION: Scattered fibroglandular densities (25-50% glandular). FINDINGS: DIAGNOSTIC CATEGORY 1--NEGATIVE ASSESSMENT. Scattered benign-appearing calcifications are present. RIGHT BREAST: No significant suspicious finding. LEFT BREAST: No significant suspicious finding. RECOMMENDATIONS: ROUTINE MAMMOGRAM AND CLINICAL EVALUATION. PLEASE NOTE: A NORMAL MAMMOGRAM DOES NOT EXCLUDE THE POSSIBILITY OF BREAST CANCER. A CLINICALLY SUSPICIOUS PALPABLE LUMP SHOULD BE BIOPSIED. Dictated by: Cathie Reed M.D. on 03/21/2018 at 15:22 Approved by: Cathie Reed M.D. on 03/21/2018 at 15:25 [facility] Encounters Encounter Date Encounter Type Care Provider Facility Start: 11-17-2023 End: 11-17-2023 ambulatory RYAN SOSA [facility] Start: 11-11-2023 End: 11-11-2023 ambulatory SKYLAR NÚÑEZ Not Available Start: 11-10-2023 End: 11-10-2023 [facility] Start: 11-10-2023 End: 11-10-2023 ambulatory VIJAYA HUNTER [facility] Start: 11-04-2023 End: 11-05-2023 ambulatory VIJAYA HUNTER [facility] Start: 11-04-2023 Encounter for prepro cedural cardiovascular examination SKYLARTIKA NÚÑEZ [facility] Start: 10-07-2023 End: 10-08-2023 ambulatory SKYLAR NÚÑEZ [facility] Start: 09-01-2023 End: 09-01-2023 ambulatory SUSAN MINER Not Available Start: 08-02-2023 End: 08-02-2023 ambulatory SKYLAR NÚÑEZ Not Available Start: 07-18-2023 Telephone encounter Neva Low LPN [facility] Comment on above: EP Surgery Start: 06-08-2023 End: 06-08-2023 ambulatory KAMALJIT ORR Not Available Start: 05-18-2023 End: 05-18-2023 ambulatory SUSAN MINER Not Available Start: 09-07-2021 Patient encounter status Neva torres LPN [facility] Work Phone: Start: 03-21-2018 End: 03-22-2018 Patient encounter [facility] Facility: Plan of Treatment Date Care Activity Detail Author Start: 11-16-2025 DTaP,Tdap and Td Vaccines (2 - Td or Tdap) DTaP,Tdap and Td Vaccines (2 - Td or Tdap) [facility] Start: 02-05-2024 Adult BMI Screening Adult BMI Screening [facility] Start: 10-26-2023 Tobacco Screening Tobacco Screening [facility] Start: 03-04-2023 COVID-19 Vaccine ( season) COVID-19 Vaccine ( season) [facility] Start: 03-04-2023 Influenza vaccination Influenza Vaccine [facility] Start: 12-03-2022 Administration of varicella zoster vaccine Zoster (Shingles) Vaccine (2 of 2) [facility] Start: 2021 Fall Risk Screening Fall Risk Screening [facility] Start: 1974 Adult BMI Follow Up Plan Adult BMI Follow Up Plan [facility] Start: 1968 [facility] Start: 1955 Medicare Annual Wellness Visit Medicare Annual Wellness Visit [facility] Immunizations Immunization Date Immunization Notes Care Provider Wanda kim 10-08-2022 influenza virus vacc ine, unspecified formulation Neva Low [employer] [facility] 10-08-2022 zoster vaccine, unspecified formulation Neva Low [facility] Payers Date Payer Category Payer Medicare [id number] 2021 Medicare ANTH MEDICARE ANTH MEDICARE ADVANTAGE [id number] 2021-Present [phone] [address] [place] [address] [id number] 2021 Medicare [id number] 1955 Unknown [id number] 1955 Unknown [id number] [id number] 1955 Unknown [id number] [id number] 1955 Unknown [id number] 1955 Unknown [id number] [id number] 1955 Unknown [id number] [id number] 1955 Unknown [id number] [id number] 1955 Unknown [id number] [id number] 1955 Unknown [id number] [id number] 1955 Unknown [id number] [id number] 1955 Unknown [id number] [id number] Unknown [id number] Social History Date Type Detail Facility Start: [facility]12[facility]22 [facility] Start: 08-12-2022 Tobacco use and exposure Smokeless tobacco non-user [facility] Start: 02-04-2023 Alcohol intake Lifetime non-d marissa (finding) [facility] Start: 08-14-2020 End: 10-25-2022 History of Social function [facility] Start: 08-14-2020 End: 10-25-2022 Tobacco use panel [facility] Housing Instability Unknown [facility] Start: 1955 Sex Assigned At Female [facility] Start: 08-26-2022 Gender identity Identifies as female gender (finding) [facility] Start: 08-26-2022 Sexual orientation Heterosexual (fin ding) [facility] Medical Equipment Procedure Code Equipment Code Equipment Origin al Text Equipment Identifier Dates Cement Bn Bio 40 gm Rpl [id number] - [id number] - [id number] Start: 09-15-2021 Cement Bn Bio 40 gm Rpl [id number] - [id number] Start: 08-26-2022 Surface Artc 11m m Persona 6-9 Cd Kn Lt Pe Post Stab - [id number] - [id number] Start: 09-15-2021 Surface Artc 11m m Persona 6-9 Cd Kn Rt Vivacit-E Post Stab - [id number] Start: 08-26-2022 Baseplate Tib 5d D Kn Lt Cmnt Stm Persona Tiv Strl - [id number] - [id number] Start: 09-15-2021 Baseplate Tib 5d D Kn Rt Cmnt Stm Persona Tiv Strl - [id number] Start: 08-26-2022 Goals Date Patient Goal Desired Activity /State Personal health goal Comment on above: Formatting of this n ote might be different from the original. Evaluation of progress towards goal: Current discharge plan is home with [facility] and support of spouse. - Mckenna Najera RN 09/15/21 12:29 PM Note 07-18-2023 Telephone Encounter - Neva Low LPN - 07/18/2023 1:33 PM ESTTelephone Encounter - Vijaya Hunter MD - 07/18/2023 1:33 PM EST Note Date & Type Note Facility 07-18-2023 Miscellaneous Notes Formattin g of this note might be different from the original. JRANDELL Received a call from pt and she would like to proceed with ablation you discussed. Please review and advise thank you Okay to schedule SVT ablation with me, next available. NPO after midnight, okay for clear 6 hours prior, MAC sedation, routine preoperative labs, CARTO EAM. Hold flecainide for 3 days prior to procedure. No other meds held. documented in this encounter [facility] Telephone encounter Note 07-18-2023 Telephone Encounter - Neva Low LPN - 07/18/2023 1:33 PM EST Note Date & Type Note Facility 07-18-2023 Telephone encount er Note RO Received a call from pt and she would like to proceed with ablation you discussed. Please review and advise thank you [facility] Telephone encounter Note 07-18-2023 Telephone Encounter - Vijaya Hunter MD - 07/18/2023 1:33 PM EST Note Date & Type Note Facility 07-18-2023 Telephone encounter Note Okay to schedule SVT ablation with me, next available. NPO after midnight, okay for clear 6 hours prior, MAC sedation, routine preoperative labs, CARTO EAM. Hold flecainide for 3 days prior to procedure. No other meds held. [facility] Work Phone: Instructions Note Date & Type Note Facility Instructions Not on filedocumented in this en counter [facility] Summary Purpose Family History No Family History Records FoundNo Family History Records FoundNo Family History Records FoundNo Family History Records FoundNo Family History Records Found Advance Directives No Advanced Directives Records FoundNo Advanced Directives Records FoundNo Advanced Directives Records FoundNo Advanced Directives Records FoundNo Advanced Directives Records Found Additional Source Comments INFORMATION SOURCE (unrecogn ized section and content) DATE CREATED AUTHOR 04/17/2018 [facility] pital DATE CREATED AUTHOR AUTHOR'S ORGANIZ ATION 11/13/2022 [facility] DATE CREATED AUTHOR AUTHOR'S ORGANIZ ATION 11/12/2023 [facility] DATE CREATED AUTHOR AUTHOR'S ORGANIZ ATION 11/13/2023 [facility] EPIC DATE CREATED AUTHOR AUTHOR'S ORGANIZ ATION 11/20/2023 [facility] Reason for Visit (unrecogniz ed section and content) Reason Onset Date Comments EP Surgery 07/18/2023 Care Teams (unrecognized sec tion and content) 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 This clinical summary was aggregated from multiple sources. Caution should be exercised in using it in the provision of clinical care. This summary normalizes information from multiple sources, and as a consequence, information in this document may materially change the coding, format and clinical context of patient data. In addition, data may be omitted in some cases. CLINICAL DECISIONS SHOULD BE BASED ON THE PRIMARY CLINICAL RECORDS. [facility] [employer] [facility]. provides no warranty or guarantee of the accuracy or completeness of information in this document.
--- NOTE | 2023-12-22 10:35 | P.CN_ITS ---
Consult Note: HPI Data of Consult Patient: known to practice within the last 3 years Requesting Physician: Guerda Reyes NP Primary Care Provider: Non-Staff Physician, MD Consult Narrative Narrative: She is a 68-year-old female, reports having pain over the last one and a half years. It occurred spontaneously and increased gradually to its present state. She now has 5-7/10 pain which is sharp, burning in character, increased with activities such as standing and walking and performing transitioning maneuvers. She feels most comfortable in the semi-recumbent position. Denies any change in bowel and bladder habits. Since her symptoms started, she has been undergoing a home supervised exercise program. She has undergone activity modification. She is intolerant to nonsteroidal agents and has been using nabumetone and Flexeril to help control pain symptoms, as well as Tylenol intermittently. Her TIO on today?s visit was 33%. She has also been undergoing physical therapy in [place] for her current pain symptoms. Recently underwent lumbar MRI which is consistent with multilevel degenerative changes and disc degeneration, most significant at L5-S1 with broad based disc herniation. Reporting 60% improvement in pain and functional ability as a result of L5/S1 PRATIK. Continues to have moderate to severe intermittent axial low back pain. Today pain 4/10, increasing to 10/10 riding in the car and standing for extended periods of time. Most recent bilateral l4-5 l5-s1 mbb #1 provided >80% improvement in pain and functional ability immediately following and hours after. cc:: CC: Guerda Reyes NP Review of Systems ROS Status of ROS 10 or more systems reviewed and unremark able except as noted in history and below Musculoskeletal Reports: back pain and joint pain PFSH PFS Medical History (Updated 12/14/23 @ 13:59 by Guerda Reyes NP) Acid reflux ?K21.9 - Gastro-esophageal reflux disease without esophagitis (ICD-10) Irregular heart beat ?I49.9 - Cardiac arrhythmia, unspecified (ICD-10) Surgical History History of repair of left rotator cuff ?Z98.890 - Other specified postprocedural states (ICD-10) History of total left knee replacement ?Z96.652 - Presence of left artificial knee joint (ICD-10) History of total right knee replacement ?Z96.651 - Presence of right artificial knee joint (ICD-10) History of section ?Z98.891 - History of uterine scar from previous surgery (ICD-10) Meds Home Medications and Allergies Home Medications ?Medication ?Instructions ?Recorded ?Confirmed ?Type multivitamin 1 tab PO DAILY 11/02/23 12/20/23 History nabumetone 500 mg tablet 500 mg PO BID 11/02/23 12/20/23 History omega-3 fatty acids 500 mg PO DAILY 11/02/23 12/20/23 History omeprazole 20 mg capsule,delayed 20 mg PO DAILY 11/02/23 12/20/23 History release glucosamine-chondroitin 500 mg-400 1 cap PO DAILY 12/01/23 12/20/23 History mg capsule biotin 1 mg capsule 1 mg PO DAILY 12/06/23 12/20/23 History lactobacillus combination no.4 3 3,000 mmu cells PO DAILY 12/06/23 12/20/23 History billion cell capsule (Probiotic) cyclobenzaprine 10 mg tablet 10 mg PO BID #180 tabs 12/14/23 12/20/23 Rx Allergies Allergy/AdvReac Type Severity Reaction Status Date / Time Sulfa (Sulfonamide Allergy Unknown Verified 12/20/23 07:17 Antibiotics) Exam Constitutional Documenting provider has reviewed patient's vital signs: yes Common normals: no apparent distress, oriented x3, healthy appearing, alert and well nourished General appearance: cooperative [facility] Common normals: normocephalic, hearing grossly normal bilaterally and moist oral mucous membranes Head and scalp: normocephalic Eye Common normals: PERRL Pupil: PERRL Neck & C-Spine Common normals: full ROM General: normal visual inspection Chest Common normals: inspection of chest normal Respiratory Common normals: normal respiratory effort, no retractions and no use of accessory muscles Back & Pelvis Lumbar spine/lower back: normal to inspection, ROM limited, pain with ROM and straight leg raise negative bilaterally Sacroiliac joints: SI joints normal Other: bilateral positive facet loading strength 5/5 in BLE sensation intact BLE Neuro Common normals: oriented x3, CN's II-XII intact bilaterally, moves all extremities, no focal motor deficits, no sensory deficits noted and deep tendon reflexes 2+ bilaterally Sensorium/orientation: alert Motor exam: strength 5/5 throughout and no movement abnormalities noted Psych Common normals: mental status grossly normal, thought process normal, cooperative, affect normal, speech normal and activity/motor behavior normal Speech: normal speech Thought process: normal thought process Results Additional Findings Additional findings: If on a controlled substance or opioids, I have checked an [place] report on this patient and there are no aberrancies noted in the prescribing history.??If on a controlled substance or opioid a drug screen was completed and reviewed within the last year, and if there has not been a drug screen completed we ordered one today to monitor higher risk, state monitored pain medication use. As part of providing excellent, safe, comprehensive care, the following was completed at our patient's visit: 1. A medication reconciliation and review to ensure accurate knowledge of current/active medications, including asking our patients to inform us about any [id number] medications or herbal remedies/nutritional montes pplements/alternative remedies. 2. A review to specifically ensure our patients have had annual screening for screening for depression, screening for tobacco use, and screening for unhealthy alcohol use. For concerning screenings had a discussion with the patient, provided patient education, and recommended follow-up with primary care provider when appropriate. If patient noted with a risk of falling, they received education on strength, gait, and balance training to prevent future risk of falling. Assessment and Plan Assessment and Plan (1) Lumbar spondylosis: (2) Myofascial pain: (3) Lumbar degenerative disc disease: (4) Lumbar radiculopathy: Plan bilateral L4-5 L5-S1 facet medial branch block x2 under fluoroscopy, risks vs benefits reviewed, working towards thermal RFA continue flexeril 10mg BID, 90 day supply provided, for myofascial pain/spasms start gabapentin 100mg HS f/u after each injection
== END 2023-12-22 10:11 | disposition home or self-care (01) ==
PROVIDERS: Visit Provider Nurse Practitioner
DX: M47.816 Spondylosis without myelopathy or radiculopathy, lumbar region (principal); M79.18 Myalgia, other site; M51.36 Other intervertebral disc degeneration, lumbar region; M54.16 Radiculopathy, lumbar region
CPT/HCPCS: G0463

== ENCOUNTER 2024-01-17 08:25 | Day surgery (SDC) | payer OTHER, SELFPAY ==
--- OUTSIDE RECORDS SUMMARY | 2024-01-17 08:32 | XMS_ITS | CCD ---
Author Organization [facility] Care Team Providers Care House Supervisor Name Role Phone IAN, RYAN Unavailable Unavailable HOUSE, RYAN Unavailable Unavailable HOUSE, RYAN Unavailable Unavailable CATHIE REED V Unavailable Unavailable HOUSE, RYAN Unavailable Unavailable House Ryan PERERA Primary Care Provider VIJAYA HUNTER Admitting Unavailable VIJAYA HUNTER Attending Unavailable RYAN SOSA Primary Care Unavailable FEROZ COKO Attending Unavailable ROSY, NATALIE B Primary Care Unavailable SUSAN MINER Attending Unavailable NIYA, SKYLAR Pacheco Attending Unavailable KAMALJIT ORR Attending Unavailable RUSSUSAN HAWTHORNE Attending Unavailable NIYA, SKYLAR Pacheco Attending Unavailable SKYLAR NÚÑEZ Referring Unavailable WONDERLY, NATALIE B Primary Care Unavailable VIJAYA HUNTER Referring Unavailable WONDERLY, NATALIE B Primary Care Unavailable RYAN SOSA Referring Unavailable WONDERLY, NATALIE B Primary Care Unavailable WONDERLY, NATALIE B Referring Unavailable WONDERLY, NATALIE B Primary Care Unavailable Allergies Allergy Classification Reported Allergen(s) Allergy Type Date of Onset Reaction(s) Facility (3 sources) Sulfonamides (Antibiotic); Translations: [SULFA (SULFONAMIDE ANTIBIOTICS)] Propensity to adverse reactions to drug 1 [facility] Medications Current Medications Medication Drug Class(es) [...] (500 mg total) before bedtime. 0 Active [id number]-CMO-FISH OIL-L.CASEI ORAL (1 source) take 1 capsule by mouth once daily [id number]-SPN-JCR-FISH OIL-L.CASEI ORAL Take 1 capsule by mouth [...] [Stress incontinence (female) (male)] Onset: 10-07-2023 Chronic Osteoarthritis (2 sources) Primary gonarthrosis, bilateral; Translations: [Bilateral primary osteoarthritis of knee] Onset: 03-03-2021 03-03-2021 Chronic Other connective tissue disease (1 source) History of total knee arthroplasty; Translations: [Presence of left artificial knee joint] Onset: 09-30-2021 09-30-2021 Chronic Other nutritional; endocrine; and metabolic disorders (1 source) Body mass index 30+ - obesity; Translations: [Obesity, unspecified] Onset: 04-09-2021 04-09-2021 Chronic Other nutritional; endocrine; and metabolic disorders (1 source) Obesity; Translations: [Obesity, unspecified] Onset: 11-23-2021 11-23-2021 Chronic Other nutritional; endocrine; and metabolic disorders (1 source) Body mass index (BMI) 34.0-34.9, adult; Translations: [Body mass index (BMI) 34.0-34.9, adult] Onset: 10-07-2023 Chronic Residual codes; unclassified (1 source) Asymptomatic menopausal state; Translations: [Asymptomatic menopausal state] Onset: 01-09-2024 Episodic Unclassified (1 source) Family history of [...] Palpitations; Translations: [Palpitations] Onset: 02-27-2021 02-27-2021 Episodic Genitourinary symptoms and ill-defined conditions (1 source) Other difficulties with micturition; Translations: [Other difficulties with micturition] Onset: 10-07-2023 Episodic Malaise and fatigue (1 source) Other fatigue; Translations: [Other fatigue] Onset: 10-07-2023 Episodic Other connective tissue disease (1 source) Pain in right toe(s); Translations: [Pain in right toe(s)] Onset: 10-07-2023 Episodic Other connective tissue disease (1 source) Pain in left toe(s); Translations: [Pain in left toe(s)] Onset: 10-07-2023 Episodic Other lower respiratory disease (1 source) Dyspnea; Translations: [Shortness of breath] Onset: 02-27-2021 02-27-2021 Episodic Syncope (1 source) Vasovagal syncope; Translations: [Syncope and collapse] Onset: 02-27-2021 02-27-2021 Episodic Unclassified (7 sources) Encounter for screening mammogram for malignant neoplasm of breast; Translations: [Encounter for screening for diabetes mellitus] Onset: 03-21-2018 Episodic Results Test Name Value Interpretation Reference Range Facil ity DEXA SCAN CENTRAL SKELETALon 01-10-2024 DEXA SCAN CENTRAL SKELETAL DEXA SCAN CENTRAL SKELETAL Bone densitometry: HISTORY: Postmenopausal osteoporosis screening. L1-L4 T score is 0.3 and Z score is 1.0. Left femoral neck T score is -0.4 and Z score is 0.7. Right femoral neck T score is -0.1 and Z score is 0.9. 10 year probability of osteoid fractures 7%. 10 year probability hip fracture 0.3%. IMPRESSION: Negative exam. Finalized by Tio Peterson MD on 01/10/2024 1:35 PM Normal [facility] BASIC METABOLIC PANLon 11-03 Anion gap [Moles/Vol] 9 mmol/L Normal 5-15 [facility] Comment on above: Performed By: #### C BCA, BMP, #### [facility] ([id number]) [address], [address] [place] [address] Calcium [Mass/Vol] 9.4 mg/dL Normal 8.5-10.5 [facility] Comment on above: Performed By: #### C [facility] [place], #### [facility] ([id number]) [address], [address] [place] [address] Chloride [Moles/Vol] 102 mmol/L Normal 98-109 [facility] Comment on above: Performed By: #### C [facility] [place], #### [facility] ([id number]) [address], [address] [place] [address] CO2 [Moles/Vol] 28 mmol/L Normal 22-32 [facility] Comment on above: Performed By: #### Lars DE LA GARZA [facility] [place], #### [facility] ([id number]) [address], [address] [place] [address] Creatinine [Mass/Vol] 0.79 mg/dL Normal 0.40-1.00 [facility] Comment on above: Result Comment: METH OD TRACEABLE TO IDMS STANDARD Performed By: #### Lars DE LA GARZA [facility] [place], #### [facility] ([id number]) [address], [address] [place] [address] GFR/1.73 sq M.predicted among non-blacks MDRD (S/P/Bld) [Vol rate/Area] 82 mL/min/{1.73_m2} Normal >59 [facility] Comment on above: Result Comment: Reported eGFR is based on the CKD-EPI 2020 equation that does not use a race coefficient. Performed By: #### C TRU DE LA GARZA, #### [facility] ([id number]) [address], [address] [place] [address] Glucose [Mass/Vol] 80 mg/dL Normal 65-99 [facility] Comment on above: Performed By: #### C [facility] [place], #### [facility] ([id number]) [address], [address] [place] [address] Potassium [Moles/Vol] 3.9 mmol/L Normal 3.5-5.0 [facility] Comment on above: Performed By: #### Lars DE LA GARZA [facility] [place], #### [facility] ([id number]) [address], [address] [place] [address] Sodium [Moles/Vol] 139 mmol/L Normal 134-146 [facility] Comment on above: Performed By: #### Lars DE LA GARZA [facility] [place], #### [facility] ([id number]) [address], [address] [place] [address] Urea nitrogen [Mass/Vol] 12 mg/dL Normal 5-27 [facility] Comment on above: Performed By: #### Lars DE LA GARZA [facility] [place], #### [facility] ([id number]) [address], [address] [place] [address] CBC AND AUTO DIFFon 05-03-20 24 ABSOLUTE BASOPHIL 0.0 X10E9/L Normal 0.0-0.2 [facility] Comment on above: Performed By: #### Lars DE LA GARZA [facility] [place], #### [facility] ([id number]) [address], [address] [place] [address] ABSOLUTE NEUTROPHIL 5.9 X10E9/L Normal 1.5-6.6 [facility] Comment on above: Performed By: #### TRU Sousa BCA, #### [facility] ([id number]) [address], [address] [place] [address] Basophils/100 WBC (Bld) 0.4 % Normal [facility] Comment on above: Performed By: #### C TRU DE LA GARZA, #### [facility] ([id number]) [address] [address] [place] [address] Eosinophils (Bld) [#/Vol] 0.2 10*3/uL Normal 0.0-0.4 [facility] Comment on above: Performed By: #### Lars DE LA GARZA [facility] [place], #### [facility] ([id number]) [address], [facility] [address] [place] [address] Eosinophils/100 WBC (Bld) 1.8 % Normal [facility] Comment on above: Performed By: #### C [facility], [facility] [place], #### [facility] ([id number]) [address] [address] [address] [place] [address] Erythrocyte distribution width (RBC) [Ratio] 14.0 % Normal 11.5-15.0 [facility] Comment on above: Performed By: #### Lars DE LA GARZA [facility] [place], #### [facility] ([id number]) [address] [address] [place] [address] Hematocrit (Bld) [Volume fraction] 40.4 % Normal 35-47 [facility] Comment on above: Performed By: #### Lars DE LA GARZA [facility] [place], #### [facility] ([id number]) [address] [address] [place] [address] Hemoglobin (Bld) [Mass/Vol] 13.7 g/dL Normal 11.7-15.5 [facility] Comment on above: Performed By: #### C [facility], [facility] [place], #### [facility] ([id number]) [address] [address] [place] [address] Lymphocytes (Bld) [#/Vol] 1.7 10*3/uL Normal 1.0-3.5 [facility] Comment on above: Performed By: #### Lars DE LA GARZA [facility] [place], #### [facility] ([id number]) [address], [address] [place] [address] Lymphocytes/100 WBC (Bld) 20.5 % Normal [facility] Comment on above: Performed By: #### Lars DE LA GARZA [facility] [place], #### [facility] ([id number]) [address], [address] [place] [address] MCH (RBC) [Entitic mass] 32.4 pg Normal 27-34 [facility] Comment on above: Performed By: #### TRU Sousa BCA, #### [facility] ([id number]) [address] [place] [address] MCHC (RBC) [Mass/Vol] 34.0 g/dL Normal 32-36 [facility] Comment on above: Performed By: #### TRU Sousa BCA, #### [facility] ([id number]) [address] [place] [address] MCV (RBC) [Entitic vol] 95 fL Normal 80-100 [facility] Comment on above: Performed By: #### TRU Sousa BCA, #### [facility] ([id number]) [address], [address] [place] [address] Monocytes (Bld) [#/Vol] 0.7 10*3/uL Normal 0-0.9 [facility] Comment on above: Performed By: #### TRU Sousa BCA, #### [facility] ([id number]) [address], [address] [place] [address] Monocytes/100 WBC (Bld) 7.9 % Normal [facility] Comment on above: Performed By: #### TRU Sousa BCA, #### [facility] ([id number]) [address], [address] [place] [address] Neutrophils/100 WBC (Bld) 69.4 % Normal [facility] Comment on above: Performed By: #### TRU Sousa BCA, #### [facility] ([id number]) [address], [facility] [address] [place] [address] Platelet mean volume (Bld) [Entitic vol] 8.1 fL Normal 7-12 [facility] Comment on above: Performed By: #### TRU Sousa BCA, #### [facility] ([id number]) [address], [facility] [address] [place] [address] Platelets (Bld) [#/Vol] 262 10*3/uL Normal 150-450 [facility] Comment on above: Performed By: #### TRU Sousa BCA, #### [facility] ([id number]) [address], [facility] [address] [place] [address] RBC COUNT 4.24 X10E12/L Normal 3.80-5.20 [facility] Comment on above: Performed By: #### TRU Sousa BCA, #### [facility] ([id number]) [address], [facility] [address] [place] [address] WBC (Bld) [#/Vol] 8.5 10*3/uL Normal 4.0-11.0 [facility] Comment on above: Performed By: #### TRU Sousa BCA, #### [facility] ([id number]) [address], [facility] [address] [place] [address] MAGNESIUMon 11-04-2023 Magnesium [Mass/Vol] 1.8 mg/dL Normal 1.8-2.6 [facility] Comment on above: Performed By: #### TRU Sousa BCA, #### [facility] ([id number]) [address], [address] [place] [address] COMPLETE BLOOD COUNTon 10-06 Erythrocyte distribution width (RBC) [Ratio] 14.1 % Normal 11.5-15.0 [facility] Comment on above: Performed By: #### C BC, CMP, 80304-6, 3083-, THYR #### [facility] ([id number]) [address], [address] [place] [address] Hematocrit (Bld) [Volume fraction] 41.0 % Normal 35-47 [facility] Comment on above: Performed By: #### C BC, CMP, 68291-3, 3083-, THYR #### [facility] ([id number]) [address], [facility] [address] [place] [address] Hemoglobin (Bld) [Mass/Vol] 13.7 g/dL Normal 11.7-15.5 [facility] Comment on above: Performed By: #### Lars BC, CMP, 38415-2, 3083-07, THYR #### [facility] ([id number]) [address], [address] [place] [address] MCH (RBC) [Entitic mass] 32.1 pg Normal 27-34 [facility] Comment on above: Performed By: #### Lars BC, CMP, 59318-0, 3083-07, THYR #### [facility] ([id number]) [address], [address] [place] [address] MCHC (RBC) [Mass/Vol] 33.5 g/dL Normal 32-36 [facility] Comment on above: Performed By: #### C BC, CMP, 75324-1, 3083-, THYR #### [facility] ([id number]) [address], [address] [place] [address] MCV (RBC) [Entitic vol] 96 fL Normal 80-100 [facility] Comment on above: Performed By: #### C BC, CMP, 55721-1, 3083-, THYR #### [facility] ([id number]) [address], [address] [place] [address] Platelet mean volume (Bld) [Entitic vol] 7.9 fL Normal 7-12 [facility] Comment on above: Performed By: #### C BC, CMP, 45685-7, 3084-1, THYR #### [facility] ([id number]) [address], [address] [place] [address] Platelets (Bld) [#/Vol] 240 10*3/uL Normal 150-450 [facility] Comment on above: Performed By: #### Lars BC, CMP, 07664-7, 3084-1, THYR #### [facility] ([id number]) [address] [address] [place] [address] RBC COUNT 4.29 X10E12/L Normal 3.80-5.20 [facility] Comment on above: Performed By: #### Lars BC, CMP, 85613-8, 3084-1, THYR #### [facility] ([id number]) [address] [address] [place] [address] WBC (Bld) [#/Vol] 4.2 10*3/uL Normal 4.0-11.0 [facility] Comment on above: Performed By: #### Lars BC, CMP, 93577-9, 3084-1, THYR #### [facility] ([id number]) [address], [address] [place] [address] COMPREHENSIVE METABOLIC PANE Perfecto 10-07-2023 Albumin [Mass/Vol] 4.2 g/dL Normal 3.2-5.3 [facility] Comment on above: Performed By: #### C BC, CMP, 66388-3, 3084-1, THYR #### [facility] ([id number]) [address], [address] [place] [address] ALP [Catalytic activity/Vol] 69 U/L Normal 39-130 [facility] Comment on above: Performed By: #### C BC, CMP, 94376-8, 3084-1, THYR #### [facility] ([id number]) [address], [address] [place] [address] ALT [Catalytic activity/Vol] 22 U/L Normal 0-31 [facility] Comment on above: Performed By: #### C BC, CMP, 20761-8, 3084-1, THYR #### [facility] ([id number]) [address], [address] [place] [address] Anion gap [Moles/Vol] 6 mmol/L Normal 5-15 [facility] Comment on above: Performed By: #### Lars BC, CMP, 68969-4, 3084-1, THYR #### [facility] ([id number]) [address], [address] [place] [address] AST [Catalytic activity/Vol] 24 U/L Normal 0-41 [facility] Comment on above: Performed By: #### C BC, CMP, 52141-6, 3084-1, THYR #### [facility] ([id number]) [address], [address] [place] [address] Bilirubin [Mass/Vol] 0.5 mg/dL Normal 0.3-1.2 [facility] Comment on above: Performed By: #### C BC, CMP, 72662-9, 3084-1, THYR #### [facility] ([id number]) [address], [address] [place] [address] Calcium [Mass/Vol] 9.3 mg/dL Normal 8.5-10.5 [facility] Comment on above: Performed By: #### C BC, CMP, 67605-4, 3084-1, THYR #### [facility] ([id number]) [address], [address] [place] [address] Chloride [Moles/Vol] 103 mmol/L Normal 98-109 [facility] Comment on above: Performed By: #### Lars IRENE [facility], 91083-4, 3083-, THYR #### [facility] ([id number]) [address], [address] [place] [address] CO2 [Moles/Vol] 31 mmol/L Normal 22-32 [facility] Comment on above: Performed By: #### Lars IRENE [facility], 57282-2, 3083-, THYR #### [facility] ([id number]) [address], [address] [place] [address] Creatinine [Mass/Vol] 0.72 mg/dL Normal 0.40-1.00 [facility] Comment on above: Result Comment: METH OD TRACEABLE TO IDMS STANDARD Performed By: #### Lars IRENE [facility], 63346-2, 3083-07, THYR #### [facility] ([id number]) [address], [address] [place] [address] eGFR (CKD-EPI) NON-RACE DEPENDENT >90 Normal >59 [facility] Comment on above: Result Comment: Reported eGFR is based on the CKD-EPI 2020 equation that does not use a race coefficient. Performed By: #### Lars IRENE [facility], 20781-2, 3083-07, THYR #### [facility] ([id number]) [address], [address] [place] [address] Glucose [Mass/Vol] 77 mg/dL Normal 65-99 [facility] Comment on above: Performed By: #### Lars IRENE [facility], 43420-0, 3083-07, THYR #### [facility] ([id number]) [address], [address] [place] [address] Potassium [Moles/Vol] 3.9 mmol/L Normal 3.5-5.0 [facility] Comment on above: Performed By: #### C BC, [facility], 86985-5, 3084-1, THYR #### [facility] ([id number]) [address], [facility] [address] [place] [address] Protein [Mass/Vol] 6.9 g/dL Normal 6.0-8.0 [facility] Comment on above: Performed By: #### Lars BC, [facility], 54701-8, 3084-1, THYR #### [facility] ([id number]) [address], [address] [place] [address] Sodium [Moles/Vol] 140 mmol/L Normal 134-146 [facility] Comment on above: Performed By: #### Lars BC, [facility], 51609-1, 3084-1, THYR #### [facility] ([id number]) [address], [facility] [address] [place] [address] Urea nitrogen [Mass/Vol] 13 mg/dL Normal 5-27 [facility] Comment on above: Performed By: #### Lars IRENE, [facility], 04338-4, 3084-1, THYR #### [facility] ([id number]) [address], [address] [place] [address] Lipid 1996 panelon 4 Cholesterol [Mass/Vol] 197 mg/dL Normal 150-200 [facility] Comment on above: Performed By: #### Lars BC, [facility], 24075-3, 3084-1, THYR #### [facility] ([id number]) [address], [address] [place] [address] Cholesterol in HDL [Mass/Vol] 76 mg/dL Normal >39 [facility] Comment on above: Result Comment: HDL <40 mg/dL - High Risk HDL > or = 40mg/dL- Desirable HDL >60 mg/dL - Negative Risk Performed By: #### Lars BC, CMP, 07840-5, 3084-1, THYR #### [facility] ([id number]) [address], [address] [place] [address] Cholesterol in LDL [Mass/Vol] 108 mg/dL Normal <130 [facility] Comment on above: Result Comment: LDL <100 mg/dL - Desirable LDL >160 mg/dL - High Risk Performed By: #### Lars BC, CMP, 56354-7, 3084-1, THYR #### [facility] ([id number]) [address], [address] [place] [address] Cholesterol in VLDL [Mass/Vol] 13 mg/dL Normal 0-30 [facility] Comment on above: Performed By: #### Lars BC, [facility], 52350-5, 3084-1, THYR #### [facility] ([id number]) [address], [facility] [address] [place] [address] CHOLESTEROL:HDL 2.6 Normal 1.0-5.0 [facility] Comment on above: Performed By: #### Lars BC, [facility], 82621-0, 3084-1, THYR #### [facility] ([id number]) [address], [address] [place] [address] Triglyceride [Mass/Vol] 65 mg/dL Normal 27-150 [facility] Comment on above: Performed By: #### Lars BC, CMP, 19726-9, 3084-1, THYR #### [facility] ([id number]) [address], [address] [place] [address] THYROID PROFILEon 10-07-2023 Free T4 [Mass/Vol] 1.05 ng/dL Normal 0.61-1.60 [facility] Comment on above: Performed By: #### C BC, [facility], 16403-9, 3084-1, THYR #### [facility] ([id number]) [address], [address] [place] [address] TSH 1.03 uIU/mL Normal 0.49-4.67 [facility] Comment on above: Performed By: #### C , [facility], 61462-7, 3084-1, THYR #### [facility] ([id number]) [address] [place] [address] URIC ACIDon 10-07-2023 Urate [Mass/Vol] 6.4 mg/dL Normal 2.6-7.2 [facility] Comment on above: Performed By: #### C MARIA VICTORIA, [facility], 11201-4, 3084-1, THYR #### [facility] ([id number]) [address] [place] [address] URINALYSISon 10-07-2023 Bilirubin Ql (U) Negative Normal NEG [facility] BLOOD/HGB Negative Normal NEG [facility] Color (U) YELLOW Normal YELLOW [facility] Glucose Ql (U) Negative Normal NEG [facility] Ketones Ql (U) Negative Normal NEG [facility] Leukocyte esterase Test strip Ql (U) Negative Normal NEG [facility] MUCOUS PRESENT Abnormal NONE [facility] Nitrite Ql (U) Negative Normal NEG [facility] pH (U) 8.0 [pH] Normal 5.0-8.5 [facility] Protein Ql (U) Negative Normal NEG [facility] R.B.CELLS 1 /hpf Normal 0-5 [facility] Specific gravity (U) [Rel density] 1.013 Normal 1.003-1.035 [facility] SQUAMOUS EPITHELIUM <1 Normal 0-5 [facility] TURBIDITY HAZY Abnormal CLEAR [facility] Urobilinogen (U) [Mass/Vol] mg/dL Normal <1.1 [facility] W.B.CELLS 0 /hpf Normal 0-5 [facility] XR Hip Bilateral w/Pelvison 11-12-2022 XR Hip Bilateral w/Pelvis COMPARISON: NONE. PELVIS FINDINGS: There are no lytic or sclerotic bone lesions. The femoral heads are located. There is no acute fracture or subluxation. There are no radiopaque foreign bodies. IMPRESSION: There are no acute osseous changes. Report reported and signed by JOSE JUAN LEWIS on 11/12/2022 0956 Normal [facility] XR Spine Lumbar 4+ Views*on 11-12-2022 XR [...] JOSE JUAN LEWIS on 11/12/2022 1023 Normal [facility] [employer] MG MAMM SCREEN NIEVES W CADon 0 03-21-2018 MG MAMM SCREEN NIEVES W CAD [address] [place] [address] Patient: KAMALJIT ZAVALA Exam Date: 03/21/2018DOB: 1955 Gender:F : DR RYAN SOSA Admission #: [id number] : Order #: [id number] HERE TO VIEW EXAM RADIOLOGY REPORT PROCEDURE: [...] bile duct cancer at age 60. LOCATION: [facility] BREAST COMPOSITION: Scattered fibroglandular densities (25-50% glandular). [...] Cathie Reed M.D. on 03/21/2018 at 15:25 [facility] Encounters Encounter Date Encounter Type Care Provider Facility Start: 01-09-2024 End: 01-09-2024 ambulatory NATALIE GALLEGOS [facility] Start: 11-17-2023 End: 11-17-2023 ambulatory RYAN SOSA [facility] Start: 11-11-2023 End: 11-11-2023 ambulatory SKYLAR NÚÑEZ Not Available Start: 11-10-2023 End: 11-10-2023 [facility] Start: 11-10-2023 End: 11-10-2023 ambulatory VIJAYA Cornell [facility] Start: 11-04-2023 End: 11-04-2023 ambulatory VIJAYA Cornell [facility] Start: 11-04-2023 Encounter for prepro cedural cardiovascular examination [facility] Start: 10-07-2023 End: 10-07-2023 [facility] Start: 09-01-2023 End: 09-01-2023 ambulatory SUSAN MINER Not Available Start: 08-02-2023 End: 08-02-2023 ambulatory SKYLAR NÚÑEZ Not Available Start: 07-18-2023 Telephone encounter Neva Low CLINIC LPN [facility] Comment on above: EP Surgery Start: 06-08-2023 End: 06-08-2023 ambulatory KAMALJIT ORR Not Available Start: 05-18-2023 End: 05-18-2023 ambulatory SUSAN MINER Not Available Start: 09-07-2021 Patient encounter status Neva torres LPN [facility] Work Phone: Start: 03-21-2018 End: 03-22-2018 Patient encounter [facility] Facility:H1 Plan of Treatment Date Care Activity Detail Author Start: 11-16-2025 DTaP,Tdap and Td Vaccines (2 - Td or Tdap) DTaP,Tdap and Td Vaccines (2 - Td or Tdap) [facility] Start: 02-05-2024 Adult BMI Screening Adult BMI Screening [facility] Start: 10-26-2023 Tobacco Screening Tobacco Screening [facility] Start: 03-04-2023 COVID-19 Vaccine ( season) COVID-19 Vaccine ( season) [facility] Start: 03-04-2023 Influenza vaccination Influenza Vaccine [facility] Start: 12-03-2022 Administration of varicella zoster vaccine Zoster (Shingles) Vaccine (2 of 2) [facility] Start: 2021 Fall Risk Screening Fall Risk Screening [facility] Start: 1974 Adult BMI Follow Up Plan Adult BMI Follow Up Plan [facility] Start: 1968 Depression Screening Depression Screening [facility] Start: 1955 Medicare Annual Wellness Visit Medicare Annual Wellness Visit [facility] Immunizations Immunization Date Immunization Notes Care Provider Fa cility 10-08-2022 influenza virus vacc ine, unspecified formulation Neva Low LPN [facility] 10-08-2022 zoster vaccine, unspecified formulation [facility] Payers Date Payer Category Payer Medicare [id number] 2021 Medicare ANTHEM MEDICARE [facility] MEDICARE ADVANTAGE [id number] 2021-Present [phone] [address] [place] [address] [id number] 2021 Medicare [id number] 1955 Unknown [id number] 1955 Unknown [id number] [id number] 1955 Unknown [id number] [id number]86 1955 Unknown [id number] [id number]59 1955 Unknown [id number] 2.16.840.1.712629.3.579.2.1259 1955 Unknown [id number] 2.16.840.1.435927.3.579.2.1259 1955 Unknown [id number] 2.16.840.1.171062.3.579.2.1259 1955 Unknown [id number] 2.16.840.1.155509.3.579.2.1259 1955 Unknown [id number] 2.16.840.1.651725.3.579.2.1286 1955 Unknown [id number] 2.16.840.1.413465.3.579.2.1286 1955 Unknown [id number] 2.16.840.1.793423.3.579.2.1286 1955 Unknown [id number] [id number] Unknown [id number] Social History Date Type Detail Facility Start: 08-12-2022 Tobacco smoking stat [facility] Never smoked tobacco [facility] Start: 08-12-2022 Tobacco use and exposure Smokeless tobacco non-user [facility] Start: 02-04-2023 Alcohol intake Lifetime non-d marissa (finding) [facility] Start: 08-14-2020 End: 10-25-2022 History of Social function [facility] Start: 08-14-2020 End: 10-25-2022 Tobacco use panel [facility] Housing Instability Unknown [facility] Start: 1955 Sex Assigned At Female [facility] Start: 08-26-2022 Gender identity Identifies as female gender (finding) [facility] Start: 08-26-2022 Sexual orientation Heterosexual (fin ding) [facility] Medical Equipment Procedure Code Equipment Code Equipment Origin al Text Equipment Identifier Dates Cement Bn Bio 40 gm Rpl [id number] - [id number] - [id number] Start: 09-15-2021 Cement Bn Bio 40 gm Rpl [id number] - [id number] Start: 08-26-2022 Surface Artc 11m m Persona 6-9 Cd Kn Lt Pe Post Stab - [id number] - [id number] Start: 09-15-2021 Surface Artc 11m m Persona 6-9 Cd Kn Rt Vivacit-E Post Stab - [id number] Start: 08-26-2022 Baseplate Tib 5d D Kn Lt Cmnt Stm Persona Tiv Strl - [id number] - [id number] Start: 09-15-2021 Baseplate Tib 5d D Kn Rt Cmnt Stm Persona Tiv Strl - [id number] Start: 08-26-2022 Goals Date Patient Goal Desired Activity /State Personal health goal Comment on above: Formatting of this n ote might be different from the original. Evaluation of progress towards goal: Current discharge plan is home with [facility] and support of spouse. - Mckenna Najera RN 09/15/21 12:29 PM Note 07-18-2023 Telephone Encounter - Neva Low LPN - 07/18/2023 1:33 PM ESTTelephone Encounter - Vijaya Hunter MD - 07/18/2023 1:33 PM EST Note Date & Type Note Facility 07-18-2023 Miscellaneous Notes Formattin g of this note might be different from the original. [facility] Received a call from pt and she would like to proceed with ablation you discussed. Please review and advise thank you Okay to schedule SVT ablation with me, next available. NPO after midnight, okay for clear 6 hours prior, MAC sedation, routine preoperative labs, CARTO EAM. Hold flecainide for 3 days prior to procedure. No other meds held. documented in this encounter [facility] Telephone encounter Note 07-18-2023 Telephone Encounter - Neva Low LPN - 07/18/2023 1:33 PM EST Note Date & Type Note Facility 07-18-2023 Telephone encount er Note JZL Received a call from pt and she would like to proceed with ablation you discussed. Please review and advise thank you [facility] Telephone encounter Note 07-18-2023 Telephone Encounter - Vijaya Hunter MD - 07/18/2023 1:33 PM EST Note Date & Type Note Facility 07-18-2023 Telephone encounter Note Okay to schedule SVT ablation with me, next available. NPO after midnight, okay for clear 6 hours prior, MAC sedation, routine preoperative labs, CARTO EAM. Hold flecainide for 3 days prior to procedure. No other meds held. [facility] Work Phone: Instructions Note Date & Type Note Facility Instructions Not on filedocumented in this en counter [facility] Summary Purpose Family History No Family [...] and content) DATE CREATED AUTHOR 04/17/2018 [facility] DATE CREATED AUTHOR AUTHOR'S ORGANIZ ATION 11/13/2022 [facility] DATE CREATED AUTHOR AUTHOR'S ORGANIZ ATION 11/12/2023 [facility] DATE CREATED AUTHOR AUTHOR'S ORGANIZ ATION 11/13/2023 [facility] DATE CREATED AUTHOR AUTHOR'S ORGANIZ ATION 01/16/2024 [facility] Reason for Visit (unrecogniz ed section and content) Reason Onset Date Comments EP Surgery 07/18/2023 Care Teams (unrecognized sec tion and content) House Supervisor Relationship Specialty Start Date End Date Ryan Sosa DO [address] [place] [address] PCP - General 05/02/18 FOR RECORDS PERTAINING [...] BE BASED ON THE PRIMARY CLINICAL RECORDS. [employer] [facility]. provides no warranty or guarantee of the accuracy or completeness of information in this document.
[2024-01-17 08:50] VITALS: BP 135/94; PULSE 76; TEMP 36.2; O2SAT 98
[2024-01-17 09:34] VITALS: BP 152/84; PULSE 79; O2SAT 95
[2024-01-17] MEDS: BUPIVACAINE HCL 0.25% PF 25 MG/10 ML VIAL 6 ML INJ (09:37)
[2024-01-17 09:38] VITALS: BP 146/85; PULSE 74; O2SAT 94
--- NOTE | 2024-01-17 09:48 | W.PM.PROCNOT ---
Date of procedure: 01/17/24 Pre-op diagnosis: lumbar spondylosis Post-op diagnosis: same as pre-op Procedure: Bilateral Lumbar 4/5, 5/sacral 1 medial branch block Preop diagnosis includes pain secondary to spondylosis, Postop diagnosis same Under fluoroscopic guidance Solution injected: 2milliliters Marcaine 0.25% Anesthesia :none Immediate complications none Time out process compliant After informed consent obtained from the patient placed in the Prone proposition . area was prepped and draped in a sterile fashion using betadine .25 gauge spinal needle inserted over each of the above mentioned target areas . [place] were directed towards the target under fluoroscopic guidance . after encountering each of the targets , no indication of intravascular intraneuronal or intrathecal needle tip placement. Then 0 .5 to 1 Milliliter was injected at each level. [place] removed postoperatively. patient transferred to recovery in stable condition to be discharged home after meeting criteria Anesthesia: Local Surgeon: Jerry Concepcion Condition: stable
== END 2024-01-17 09:44 | disposition home or self-care (01) ==
LOC: SURGOUT 08:25
PROVIDERS: Visit Provider Anesthesiology Pain Medicine
DX: M47.816 Spondylosis without myelopathy or radiculopathy, lumbar region (principal)
CPT/HCPCS: 64493; 64494; J0665

== ENCOUNTER 2024-01-18 09:21 | Outpatient (OUT) | payer OTHER, SELFPAY ==
--- OUTSIDE RECORDS SUMMARY | 2024-01-18 09:39 | XMS_ITS | CCD ---
Author Organization [facility] ion Partnership [facility] Care Team Providers Care Registered Public Surveyor Name Role Phone IAN, RYAN Unavailable Unavailable HOUSE, RYAN Unavailable Unavailable HOUSE, RYAN Unavailable Unavailable CATHIE REED V Unavailable Unavailable HOUSE, RYAN Unavailable Unavailable House Ryan PERERA Primary Care Provider VIJAYA HUNTER Admitting Unavailable VIJAYA HUNTER Attending Unavailable RYAN SOSA Primary Care Unavailable FEROZ COOK Attending Unavailable ROSY, NATALIE B Primary Care [...] Propensity to adverse reactions to drug 1 [facility] Medications Current Medications Medication Drug Class(es) [...] (500 mg total) before bedtime. 0 Active [id number]-ENA-FISH OIL-L.CASEI ORAL (1 source) take 1 capsule by mouth once daily RIYO6-XPQ-HIU-FISH OIL-L.CASEI ORAL Take 1 capsule by mouth [...] Peterson MD on 01/10/2024 1:35 PM Normal [facility] BASIC METABOLIC PANLon 11-03 Anion gap [Moles/Vol] 9 mmol/L Normal 5-[address] [facility] Comment on above: Performed By: #### C BCA, BMP, #### [facility] ([id number]) [address], [address] [place] [address] Calcium [Mass/Vol] 9.4 mg/dL Normal 8.5-10.5 [facility] Comment on above: Performed By: #### C FREDERIC [facility], #### [facility] ([id number]) [address], [address] [place] [address] Chloride [Moles/Vol] 102 mmol/L Normal 98-[address] [facility] Comment on above: Performed By: #### C FREDERIC [facility], #### [facility] ([id number]) [address], [address] [place] [address] CO2 [Moles/Vol] 28 mmol/L Normal 22-[address] [facility] Comment on above: Performed By: #### Lars DE LA GARZA [facility], #### [facility] ([id number]) [address], [address] [place] [address] Creatinine [Mass/Vol] 0.79 mg/dL Normal 0.40-1.[address] [facility] Comment on above: Result Comment: METH OD TRACEABLE TO IDMS STANDARD Performed By: #### Lars DE LA GARZA [facility], #### [facility] ([id number]) [address], [address] [place] [address] GFR/1.73 sq M.predicted among non-blacks MDRD (S/P/Bld) [Vol rate/Area] 82 mL/min/{1.73_m2} Normal >[address] [facility] Comment on above: Result Comment: Reported eGFR is based on the CKD-EPI 2020 equation that does not use a race coefficient. Performed By: #### C TRU DE LA GARZA, #### [facility] ([id number]) [address], [address] [place] [address] Glucose [Mass/Vol] 80 mg/dL Normal 65-99 [facility] Comment on above: Performed By: #### C FREDERIC [facility], #### [facility] ([id number]) [address], [address] [place] [address] Potassium [Moles/Vol] 3.9 mmol/L Normal 3.5-5.[address] [facility] Comment on above: Performed By: #### Lars DE LA GARZA [facility], #### [facility] ([id number]) [address], [address] [place] [address] Sodium [Moles/Vol] 139 mmol/L Normal 134-146 [facility] Comment on above: Performed By: #### Lars DE LA GARZA [facility], #### [facility] ([id number]) [address], [address] [place] [address] Urea nitrogen [Mass/Vol] 12 mg/dL Normal 5-[address] [facility] Comment on above: Performed By: #### Lars DE LA GARZA [facility], #### [facility] ([id number]) [address], [address] [place] [address] CBC AND AUTO DIFFon 05-03-20 24 ABSOLUTE BASOPHIL 0.0 X10E9/L Normal 0.0-0.2 [facility] Comment on above: Performed By: #### Lars DE LA GARZA [facility], #### [facility] ([id number]) [address], [address] [place] [address] ABSOLUTE NEUTROPHIL 5.9 X10E9/L Normal 1.5-6.6 [facility] Comment on above: Performed By: #### TRU Sousa BCA, #### [facility] ([id number]) [address], [address] [place] [address] Basophils/100 WBC (Bld) 0.4 % Normal [facility] Comment on above: Performed By: #### C TRU DE LA GARZA, #### [facility] ([id number]) [address] [address] [place] [address] Eosinophils (Bld) [#/Vol] 0.2 10*3/uL Normal 0.0-0.[address] [facility] Comment on above: Performed By: #### Lars DE LA GARZA [facility], #### [facility] ([id number]) [address], [facility] [address] [place] [address] Eosinophils/100 WBC (Bld) 1.8 % Normal [facility] Comment on above: Performed By: #### C FREDERIC, [facility], #### [facility] ([id number]) [address] [address] [place] [address] Erythrocyte distribution width (RBC) [Ratio] 14.0 % Normal 11.5-15.[address] [facility] Comment on above: Performed By: #### Lars DE LA GARZA [facility], #### [facility] ([id number]) [address] [address] [place] [address] Hematocrit (Bld) [Volume fraction] 40.4 % Normal 35-[address] [facility] Comment on above: Performed By: #### Lars DE LA GARZA [facility], #### [facility] ([id number]) [address] [address] [place] [address] Hemoglobin (Bld) [Mass/Vol] 13.7 g/dL Normal 11.7-15.[address] [facility] Comment on above: Performed By: #### C FREDERIC, [facility], #### [facility] ([id number]) [address] [address] [place] [address] Lymphocytes (Bld) [#/Vol] 1.7 10*3/uL Normal 1.0-3.[address] [facility] Comment on above: Performed By: #### Lars DE LA GARZA [facility], #### [facility] ([id number]) [address], [address] [place] [address] Lymphocytes/100 WBC (Bld) 20.5 % Normal [facility] Comment on above: Performed By: #### Lars DE LA GARZA [facility], #### [facility] ([id number]) [address], [address] [place] [address] MCH (RBC) [Entitic mass] 32.4 pg Normal 27-[address] [facility] Comment on above: Performed By: #### TRU Sousa BCA, #### [facility] ([id number]) [address], [address] [place] [address] MCHC (RBC) [Mass/Vol] 34.0 g/dL Normal 32-[address] [facility] Comment on above: Performed By: #### TRU Sousa BCA, #### [facility] ([id number]) [address], [address] [place] [address] MCV (RBC) [Entitic vol] 95 fL Normal 80-[address] [facility] Comment on above: Performed By: #### TRU Sousa BCA, #### [facility] ([id number]) [address], [address] [place] [address] Monocytes (Bld) [#/Vol] 0.7 10*3/uL Normal 0-0.[address] [facility] Comment on above: Performed By: #### TRU Sousa BCA, #### [facility] ([id number]) [address], [address] [place] [address] Monocytes/100 WBC (Bld) 7.9 % Normal [facility] Comment on above: Performed By: #### TRU Sousa BCA, #### [facility] ([id number]) [address], [address] [place] [address] Neutrophils/100 WBC (Bld) 69.4 % Normal [facility] Comment on above: Performed By: #### TRU Sousa BCA, #### [facility] ([id number]) [address], [facility] [address] [place] [address] Platelet mean volume (Bld) [Entitic vol] 8.1 fL Normal 7-[address] [facility] Comment on above: Performed By: #### TRU Sousa BCA, #### [facility] ([id number]) [address], [facility] [address] [place] [address] Platelets (Bld) [#/Vol] 262 10*3/uL Normal 150-[address] [facility] Comment on above: Performed By: #### TRU Sousa BCA, #### [facility] ([id number]) [address], [facility] [address] [place] [address] RBC COUNT 4.24 X10E12/L Normal 3.80-5.[address] [facility] Comment on above: Performed By: #### TRU Sousa BCA, #### [facility] ([id number]) [address], [facility] [address] [place] [address] WBC (Bld) [#/Vol] 8.5 10*3/uL Normal 4.0-11.0 [facility] Comment on above: Performed By: #### TRU Sousa BCA, #### [facility] ([id number]) [address], [facility] [address] [place] [address] MAGNESIUMon 11-04-2023 Magnesium [Mass/Vol] 1.8 mg/dL Normal 1.8-2.[address] [facility] Comment on above: Performed By: #### TRU Sousa BCA, #### [facility] ([id number]) [address], [address] [place] [address] COMPLETE BLOOD COUNTon 10-06 Erythrocyte distribution width (RBC) [Ratio] 14.1 % Normal 11.5-15.[address] [facility] Comment on above: Performed By: #### C BC, CMP, 22537-7, 3083-, THYR #### [facility] ([id number]) [address], [address] [place] [address] Hematocrit (Bld) [Volume fraction] 41.0 % Normal 35-[address] [facility] Comment on above: Performed By: #### C BC, CMP, 06401-9, 3083-, THYR #### [facility] ([id number]) [address], [facility] [address] [place] [address] Hemoglobin (Bld) [Mass/Vol] 13.7 g/dL Normal 11.7-15.[address] [facility] Comment on above: Performed By: #### Lars BC, CMP, 33092-2, 3083-07, THYR #### [facility] ([id number]) [address], [address] [place] [address] MCH (RBC) [Entitic mass] 32.1 pg Normal 27-[address] [facility] Comment on above: Performed By: #### Lars BC, CMP, 37197-3, 3083-07, THYR #### [facility] ([id number]) [address], [address] [place] [address] MCHC (RBC) [Mass/Vol] 33.5 g/dL Normal 32-[address] [facility] Comment on above: Performed By: #### C BC, CMP, 18226-4, 3083-, THYR #### [facility] ([id number]) [address], [address] [place] [address] MCV (RBC) [Entitic vol] 96 fL Normal 80-[address] [facility] Comment on above: Performed By: #### C BC, CMP, 61452-0, 3083-, THYR #### [facility] ([id number]) [address], [address] [place] [address] Platelet mean volume (Bld) [Entitic vol] 7.9 fL Normal 7-[address] [facility] Comment on above: Performed By: #### C BC, CMP, 80941-8, 3084-1, THYR #### [facility] ([id number]) [address], [address] [place] [address] Platelets (Bld) [#/Vol] 240 10*3/uL Normal 150-[address] [facility] Comment on above: Performed By: #### Lars BC, CMP, 39419-1, 3084-1, THYR #### [facility] ([id number]) [address] [address] [place] [address] RBC COUNT 4.29 X10E12/L Normal 3.80-5.[address] [facility] Comment on above: Performed By: #### Lars BC, CMP, 20816-9, 3084-1, THYR #### [facility] ([id number]) [address] [address] [place] [address] WBC (Bld) [#/Vol] 4.2 10*3/uL Normal 4.0-11.0 [facility] Comment on above: Performed By: #### Lars BC, CMP, 05444-3, 3084-1, THYR #### [facility] ([id number]) [address], [address] [place] [address] COMPREHENSIVE METABOLIC PANE Perfecto 10-07-2023 Albumin [Mass/Vol] 4.2 g/dL Normal 3.2-5.3 [facility] Comment on above: Performed By: #### C BC, CMP, 28856-0, 3084-1, THYR #### [facility] ([id number]) [address], [address] [place] [address] ALP [Catalytic activity/Vol] 69 U/L Normal 39-[address] [facility] Comment on above: Performed By: #### C BC, CMP, 32477-7, 3084-1, THYR #### [facility] ([id number]) [address], [address] [place] [address] ALT [Catalytic activity/Vol] 22 U/L Normal 0-[address] [facility] Comment on above: Performed By: #### C BC, CMP, 65898-6, 3084-1, THYR #### [facility] ([id number]) [address], [address] [place] [address] Anion gap [Moles/Vol] 6 mmol/L Normal 5-[address] [facility] Comment on above: Performed By: #### Lars BC, CMP, 41714-3, 3084-1, THYR #### [facility] ([id number]) [address], [address] [place] [address] AST [Catalytic activity/Vol] 24 U/L Normal 0-[address] [facility] Comment on above: Performed By: #### C BC, CMP, 30457-4, 3084-1, THYR #### [facility] ([id number]) [address], [address] [place] [address] Bilirubin [Mass/Vol] 0.5 mg/dL Normal 0.3-1.[address] [facility] Comment on above: Performed By: #### C BC, CMP, 17839-3, 3084-1, THYR #### [facility] ([id number]) [address], [address] [place] [address] Calcium [Mass/Vol] 9.3 mg/dL Normal 8.5-10.5 [facility] Comment on above: Performed By: #### C BC, CMP, 93013-3, 3084-1, THYR #### [facility] ([id number]) [address], [address] [place] [address] Chloride [Moles/Vol] 103 mmol/L Normal 98-[address] [facility] Comment on above: Performed By: #### Lars IRENE [facility], 10430-7, 3083-, THYR #### [facility] ([id number]) [address], [address] [place] [address] CO2 [Moles/Vol] 31 mmol/L Normal 22-[address] [facility] Comment on above: Performed By: #### Lars IRENE [facility], 39430-9, 3083-, THYR #### [facility] ([id number]) [address], [address] [place] [address] Creatinine [Mass/Vol] 0.72 mg/dL Normal 0.40-1.[address] [facility] Comment on above: Result Comment: METH OD TRACEABLE TO IDMS STANDARD Performed By: #### Lars IRENE [facility], 90720-4, 3083-07, THYR #### [facility] ([id number]) [address], [address] [place] [address] eGFR (CKD-EPI) NON-RACE DEPENDENT >90 Normal >[address] [facility] Comment on above: Result Comment: Reported eGFR is based on the CKD-EPI 2020 equation that does not use a race coefficient. Performed By: #### Lars IRENE [facility], 37082-9, 3083-07, THYR #### [facility] ([id number]) [address], [address] [place] [address] Glucose [Mass/Vol] 77 mg/dL Normal 65-99 [facility] Comment on above: Performed By: #### Lars IRENE [facility], 27628-4, 3083-07, THYR #### [facility] ([id number]) [address], [address] [place] [address] Potassium [Moles/Vol] 3.9 mmol/L Normal 3.5-5.[address] [facility] Comment on above: Performed By: #### C BC, [facility], 18277-0, 3084-1, THYR #### [facility] ([id number]) [address], [facility] [address] [place] [address] Protein [Mass/Vol] 6.9 g/dL Normal 6.0-8.0 [facility] Comment on above: Performed By: #### Lars BC, [facility], 26859-8, 3084-1, THYR #### [facility] ([id number]) [address], [address] [place] [address] Sodium [Moles/Vol] 140 mmol/L Normal 134-146 [facility] Comment on above: Performed By: #### Lars BC, [facility], 54728-6, 3084-1, THYR #### [facility] ([id number]) [address], [facility] [address] [place] [address] Urea nitrogen [Mass/Vol] 13 mg/dL Normal 5-[address] [facility] Comment on above: Performed By: #### Lars IRENE, [facility], 54845-6, 3084-1, THYR #### [facility] ([id number]) [address], [address] [place] [address] Lipid 1996 panelon 4 Cholesterol [Mass/Vol] 197 mg/dL Normal 150-[address] [facility] Comment on above: Performed By: #### Lars BC, [facility], 33352-9, 3084-1, THYR #### [facility] ([id number]) [address], [address] [place] [address] Cholesterol in HDL [Mass/Vol] 76 mg/dL Normal >[address] [facility] Comment on above: Result Comment: HDL <40 mg/dL - High Risk HDL > or = 40mg/dL- Desirable HDL >60 mg/dL - Negative Risk Performed By: #### Lars BC, CMP, 93189-8, 3084-1, THYR #### [facility] ([id number]) [address], [address] [place] [address] Cholesterol in LDL [Mass/Vol] 108 mg/dL Normal <[address] [facility] Comment on above: Result Comment: LDL <100 mg/dL - Desirable LDL >160 mg/dL - High Risk Performed By: #### Lars BC, CMP, 04413-8, 3084-1, THYR #### [facility] ([id number]) [address], [address] [place] [address] Cholesterol in VLDL [Mass/Vol] 13 mg/dL Normal 0-[address] [facility] Comment on above: Performed By: #### Lars BC, [facility], 14955-3, 3084-1, THYR #### [facility] ([id number]) [address], [facility] [address] [place] [address] CHOLESTEROL:HDL 2.6 Normal 1.0-5.[address] [facility] Comment on above: Performed By: #### Lars BC, [facility], 45077-1, 3084-1, THYR #### [facility] ([id number]) [address], [address] [place] [address] Triglyceride [Mass/Vol] 65 mg/dL Normal 27-[address] [facility] Comment on above: Performed By: #### Lars BC, CMP, 59196-1, 3084-1, THYR #### [facility] ([id number]) [address], [address] [place] [address] THYROID PROFILEon 10-07-2023 Free T4 [Mass/Vol] 1.05 ng/dL Normal 0.61-1.60 [facility] Comment on above: Performed By: #### C BC, [facility], 82720-8, 3084-1, THYR #### [facility] ([id number]) [address], [address] [place] [address] TSH 1.03 uIU/mL Normal 0.49-4.[address] [facility] Comment on above: Performed By: #### C , [facility], 77646-5, 3084-1, THYR #### [facility] ([id number]) [address] [facility], [address] [place] [address] URIC ACIDon 10-07-2023 Urate [Mass/Vol] 6.4 mg/dL Normal 2.6-7.2 [facility] Comment on above: Performed By: #### C MARIA VICTORIA, [facility], 19989-6, 3084-1, THYR #### [facility] ([id number]) [address], [address] [place] [address] URINALYSISon 10-07-2023 Bilirubin Ql (U) Negative Normal NEG [facility] BLOOD/HGB Negative Normal NEG [facility] Color (U) YELLOW Normal YELLOW [facility] Glucose Ql (U) Negative Normal NEG [facility] Ketones Ql (U) Negative Normal NEG [facility] Leukocyte esterase Test strip Ql (U) Negative Normal NEG [facility] MUCOUS PRESENT Abnormal NONE [facility] Nitrite Ql (U) Negative Normal NEG [facility] pH (U) 8.0 [pH] Normal 5.0-8.[address] [facility] Protein Ql (U) Negative Normal NEG [facility] R.B.CELLS 1 /hpf Normal 0-[address] [facility] Specific gravity (U) [Rel density] 1.013 Normal 1.003-1.[address] [facility] SQUAMOUS EPITHELIUM <1 Normal 0-5 [facility] TURBIDITY HAZY Abnormal CLEAR [facility] Urobilinogen (U) [Mass/Vol] mg/dL Normal <1.[address] [facility] W.B.CELLS 0 /hpf Normal 0-[address] [facility] XR Hip Bilateral w/Pelvison 11-12-2022 XR Hip Bilateral w/Pelvis COMPARISON: NONE. PELVIS FINDINGS: There are no lytic or sclerotic bone lesions. The femoral heads are located. There is no acute fracture or subluxation. There are no radiopaque foreign bodies. IMPRESSION: There are no acute osseous changes. Report reported and signed by JOSE JUAN LEWIS on 11/12/2022 0956 Normal [facility] XR Spine Lumbar 4+ Views*on 11-12-2022 XR [...] JOSE JUAN LEWIS on 11/12/2022 1023 Normal [facility] Home Demonstration Agent MG MAMM SCREEN NIEVES W CADon 0 03-21-2018 MG MAMM SCREEN NIEVES W CAD [address] [place] [address] Patient: KAMALJIT ZAVALA Exam Date: 03/21/2018DOB: 1955 Gender:F : DR RYAN SOSA Admission #: [id number] : Order #: [id number] HERE TO VIEW EXAM RADIOLOGY REPORT PROCEDURE: [...] bile duct cancer at age 60. LOCATION: [facility] BREAST COMPOSITION: Scattered fibroglandular densities (25-50% glandular). [...] Cathie Reed M.D. on 03/21/2018 at 15:25 [facility] Encounters Encounter Date Encounter Type Care Provider Facility Start: 01-09-2024 End: 01-09-2024 ambulatory NATALIE GALLEGOS [facility] Start: 11-17-2023 End: 11-17-2023 ambulatory RYAN SOSA [facility] Start: 11-11-2023 End: 11-11-2023 ambulatory SKYLAR NÚÑEZ Not Available Start: 11-10-2023 End: 11-10-2023 [facility] Start: 11-10-2023 End: 11-10-2023 ambulatory VIJAYA [facility] Start: 11-04-2023 End: 11-04-2023 ambulatory VIJAYA [facility] Start: 11-04-2023 Encounter for prepro cedural cardiovascular examination [facility] Start: 10-07-2023 End: 10-07-2023 [facility] Start: 09-01-2023 End: 09-01-2023 ambulatory SUSAN MINER Not Available Start: 08-02-2023 End: 08-02-2023 ambulatory SKYLAR NÚÑEZ Not Available Start: 07-18-2023 Telephone encounter Neva Low [employer] OPERATOR [facility] Comment on above: EP Surgery Start: 06-08-2023 End: 06-08-2023 ambulatory KAMALJIT ORR Not Available Start: 05-18-2023 End: 05-18-2023 ambulatory SUSAN MINER Not Available Start: 09-07-2021 Patient encounter status Neva torres LPN [facility] [employer] Work Phone: Start: 03-21-2018 End: 03-22-2018 Patient encounter [facility] Facility:[id number] Plan of Treatment Date Care Activity Detail Author Start: 11-16-2025 DTaP,Tdap and Td Vaccines (2 - Td or Tdap) DTaP,Tdap and Td Vaccines (2 - Td or Tdap) [facility] Start: 02-05-2024 Adult BMI Screening Adult BMI Screening [facility] Start: 10-26-2023 Tobacco Screening Tobacco Screening [facility] Start: 03-04-2023 COVID-19 Vaccine ( season) COVID-19 Vaccine ( season) [facility] Start: 03-04-2023 Influenza vaccination Influenza Vaccine [facility] Start: 12-03-2022 Administration of varicella zoster vaccine Zoster (Shingles) Vaccine (2 of 2) [facility] Start: 2021 Fall Risk Screening Fall Risk Screening [facility] Start: 1974 Adult BMI Follow Up Plan Adult BMI Follow Up Plan [facility] Start: 1968 Depression Screening Depression Screening [facility] Start: 1955 Medicare Annual Wellness Visit Medicare Annual Wellness Visit [facility] Immunizations Immunization Date Immunization Notes Care Provider Fa cility 10-08-2022 influenza virus vacc ine, unspecified formulation Neva Low LPN [facility] 10-08-2022 zoster vaccine, unspecified formulation [facility] Payers Date Payer Category Payer Medicare [id number] 2021 Medicare ANTHEM MEDICARE [facility] MEDIC[facility] ADVANTAGE [id number] 2021-Present [phone] [address] [place] [address] [id number] 2021 Medicare [id number] 1955 Unknown [id number] [id number]86 1955 Unknown [id number] 2.16.840.1.702485.3.579.2.1286 1956 Unknown [id number] 2.16.840.1.857121.3.579.2.1286 1956 Unknown [id number] 2.16.840.1.325554.3.579.2.1259 1956 Unknown [id number] 2.16.840.1.426897.3.579.2.1259 1956 Unknown [id number] 2.16.840.1.298023.3.579.2.1259 1956 Unknown [id number] 2.16.840.1.799941.3.579.2.1259 1956 Unknown [id number] 2.16.840.1.161982.3.579.2.1259 1956 Unknown [id number] 2.16.840.1.722898.3.579.2.1286 1956 Unknown [id number] 2.16.840.1.445159.3.579.2.1286 1956 Unknown [id number] 2.16.840.1.636002.3.579.2.1286 1956 Unknown [id number] 2.16.840.1.153065.3.579.2.1286 Unknown [id number] Social History Date Type Detail Facility Start: 08-12-[address] [facility] Never smoked tobacco [facility] Start: 08-12-2022 Tobacco use and exposure Smokeless tobacco non-user [facility] Start: 02-04-2023 Alcohol intake Lifetime non-d marissa (finding) [facility] Start: 08-14-2020 End: 10-25-2022 History of Social function [facility] Start: 08-14-2020 End: 10-25-2022 Tobacco use panel [facility] Housing Instability Unknown [facility] Start: 1955 Sex Assigned At Female [facility] Start: 08-26-2022 Gender identity Identifies as female gender (finding) [facility] Start: 08-26-2022 Sexual orientation Heterosexual (fin ding) [facility] Medical Equipment Procedure Code Equipment Code Equipment Origin al Text Equipment Identifier Dates Cement Bn Bio 40 gm Rpl [id number] - [id number] - [id number] Start: 09-15-2021 Cement Bn Bio 40 gm Rpl [id number] - [id number] Start: 08-26-2022 Surface Artc 11m m Persona 6-9 Cd Kn Lt Pe Post Stab - [id number] - [id number] Start: 09-15-2021 Surface Artc 11m m Persona 6-9 Cd Kn Rt Vivacit-E Post Stab - [id number] Start: 08-26-2022 Baseplate Tib 5d D Kn Lt Cmnt Stm Persona Tiv Strl - [id number] - [id number] Start: 09-15-2021 Baseplate Tib 5d D Kn Rt Cmnt Stm Persona Tiv Strl - [id number] Start: 08-26-2022 Goals Date Patient Goal Desired Activity /State Personal health goal Comment on above: Formatting of this n ote might be different from the original. Evaluation of progress towards goal: Current discharge plan is home with [facility] and support of spouse. - Mckenna Najera [...] other meds held. documented in this encounter [employer] Telephone encounter Note 07-18-2023 Telephone Encounter - Neva Low LPN - 07/18/2023 1:33 PM EST Note Date & Type Note Facility 07-18-2023 Telephone encount er Note [facility] Received a call from pt and she would like to proceed with ablation you discussed. Please review and advise thank you [employer] Telephone encounter Note 07-18-2023 Telephone Encounter - Vijaya Hunter MD - 07/18/2023 1:33 PM EST Note Date & Type Note Facility 07-18-2023 Telephone encounter Note Okay to schedule SVT ablation with me, next available. NPO after midnight, okay for clear 6 hours prior, MAC sedation, routine preoperative labs, CARTO EAM. Hold flecainide for 3 days prior to procedure. No other meds held. [employer] Work Phone: Instructions Note Date & Type Note Facility Instructions Not on filedocumented in this en counter [employer] Summary Purpose Family History No Family [...] content) DATE CREATED AUTHOR 04/17/2018 [facility] pitmi DATE CREATED AUTHOR AUTHOR'S ORGANIZ ATION 11/13/2022 [facility] dical Specialist DATE CREATED AUTHOR AUTHOR'S ORGANIZ ATION 11/12/2023 [facility] DATE CREATED AUTHOR AUTHOR'S ORGANIZ ATION 11/13/2023 [facility] dical Specialists [facility] DATE CREATED AUTHOR AUTHOR'S ORGANIZ ATION 01/16/2024 [facility] Reason for Visit (unrecogniz ed section and content) Reason Onset Date Comments EP Surgery 07/18/2023 Care Teams (unrecognized sec tion and content) Registered Public Surveyor Relationship Specialty Start Date End Date Ryan Sosa DO [address] [place] [address] PCP - General 05/02/18 FOR RECORDS PERTAINING [...] BE BASED ON THE PRIMARY CLINICAL RECORDS. [employer]. provides no warranty or guarantee of the accuracy or completeness of information in this document.
--- NOTE | 2024-01-18 09:43 | PM.CN ---
Consult Note: HPI Data of Consult Patient: known to practice within the last 3 years Requesting Physician: Guerda Reyes NP Primary Care Provider: Non-Staff Physician, MD Consult Narrative Narrative: She is a 68-year-old female, reports having pain over the last one and a half years. It occurred spontaneously and increased gradually to its present state. She now has 5-7/10 pain which is sharp, burning in character, increased with activities such as standing and walking and performing transitioning maneuvers. She feels most comfortable in the semi-recumbent position. Denies any change in bowel and bladder habits. Since her symptoms started, she has been undergoing a home supervised exercise program. She has undergone activity modification. She is intolerant to nonsteroidal agents and has been using nabumetone and Flexeril to help control pain symptoms, as well as Tylenol intermittently. Her TOI on today?s visit was 33%. She has also been undergoing physical therapy in [place] for her current pain symptoms. Recently underwent lumbar MRI which is consistent with multilevel degenerative changes and disc degeneration, most significant at L5-S1 with broad based disc herniation. Continues to have moderate to severe intermittent axial low back pain. Today pain 4/10, increasing to 10/10 riding in the car and standing for extended periods of time. Most recent bilateral l4-5 l5-s1 mbb #1 and #2 provided >80% improvement in pain and functional ability immediately following and hours after. cc:: CC: Guerda Reyes NP Review of Systems ROS Status of ROS 10 or more systems reviewed and unremarkable except as noted in history and below Musculoskeletal Reports: back pain PFSH PFSH Medical History Acid reflux ?K21.9 - Gastro-esophageal reflux disease without esophagitis (ICD-10) Irregular heart beat ?I49.9 - Cardiac arrhythmia, unspecified (ICD-10) Surgical History History of repair of left rotator cuff ?Z98.890 - Other specified postprocedural states (ICD-10) History of total left knee replacement ?Z96.652 - Presence of left artificial knee joint (ICD-10) History of total right knee replacement ?Z96.651 - Presence of right artificial knee joint (ICD-10) History of section ?Z98.891 - History of uterine scar from previous surgery (ICD-10) Meds Home Medications and Allergies Home Medications ?Medication ?Instructions ?Recorded ?Confirmed ?Type multivitamin 1 tab PO DAILY 11/02/23 01/17/24 History nabumetone 500 mg tablet 500 mg PO BID 11/02/23 01/17/24 History omega-3 fatty acids 500 mg PO DAILY 11/02/23 01/17/24 History omeprazole 20 mg capsule,delayed 20 mg PO DAILY 11/02/23 01/17/24 History release glucosamine-chondroitin 500 mg-400 1 cap PO DAILY 12/01/23 01/17/24 History mg capsule biotin 1 mg capsule 1 mg PO DAILY 12/06/23 01/17/24 History lactobacillus combination no.4 3 3,000 mmu cells PO DAILY 12/06/23 01/17/24 History billion cell capsule (Probiotic) cyclobenzaprine 10 mg tablet 10 mg PO BID #180 tabs 12/14/23 01/17/24 Rx gabapentin 100 mg capsule 100 mg PO .qhs #30 caps 12/22/23 01/17/24 Rx gabapentin 100 mg capsule 100 mg PO BEDTIME #30 caps 12/22/23 01/17/24 Rx Allergies Allergy/AdvReac Type Severity Reaction Status Date / Time Sulfa (Sulfonamide Allergy Unknown Hives Verified 01/17/24 08:45 Antibiotics) Exam Constitutional Documenting provider has reviewed patient's vital signs: yes Common normals: no apparent distress, oriented x3, healthy appearing, alert and well nourished General appearance: cooperative [facility] Common normals: normocephalic, hearing grossly normal bilaterally and moist oral mucous membranes Head and scalp: normocephalic Eye Common normals: PERRL Pupil: PERRL Neck & C-Spine Common normals: full ROM General: normal visual inspection Chest Common normals: inspection of chest normal Respiratory Common normals: normal respiratory effort, no retractions and no use of accessory muscles Back & Pelvis Lumbar spine/lower back: normal to inspection, ROM limited, pain with ROM and straight leg raise negative bilaterally Sacroiliac joints: SI joints normal Other: bilateral positive facet loading strength 5/5 in BLE sensation intact BLE Neuro Common normals: oriented x3, CN's II-XII intact bilaterally, moves all extremities, no focal motor deficits, no sensory deficits noted and deep tendon reflexes 2+ bilaterally Sensorium/orientation: alert Motor exam: strength 5/5 throughout and no movement abnormalities noted Psych Common normals: mental status grossly normal, thought process normal, cooperative, affect normal, speech normal and activity/motor behavior normal Speech: normal speech Thought process: normal thought process Results Additional Findings Additional findings: If on a controlled substance or opioids, I have checked an [place]AR[place] report on this patient and there are no aberrancies noted in the prescribing history.??If on a controlled substance or opioid a drug screen was completed and reviewed within the last year, and if there has not been a drug screen completed we ordered one today to monitor higher risk, state monitored pain medication use. As part of providing excellent, safe, comprehensive care, the following was completed at our patient's visit: 1. A medication reconciliation and review to ensure accurate knowledge of current/active medications, including asking our patients to inform us about any fcal-abd-uhhyucr medications or herbal remedies/nutritional supplements/alternative remedies. 2. A review to specifically ensure our patients have had annual screening for screening for depression, screening for tobacco use, and screening for unhealthy alcohol use. For concerning screenings had a discussion with the patient, provided patient education, and recommended follow-up with primary care provider when appropriate. If patient noted with a risk of falling, they received education on strength, gait, and balance training to prevent future risk of falling. Assessment and Plan Assessment and Plan (1) Lumbar spondylosis: (2) Myofascial pain: (3) Lumbar degenerative disc disease: (4) Lumbar radiculopathy: Plan left then right L4-5 L5-S1 facet medial branch thermal RFA under fluoroscopy, to be completed with 10mg PO valium 30-60mins prior to procedure increase gabapentin 100mg BID continue flexeril 10mg BID, 90 day supply provided, for myofascial pain/spasms f/u 1 month after RFAs complete
== END 2024-01-18 09:22 | disposition home or self-care (01) ==
LOC: PM 09:21
PROVIDERS: Visit Provider Nurse Practitioner
DX: M47.816 Spondylosis without myelopathy or radiculopathy, lumbar region (principal); M79.18 Myalgia, other site; M51.36 Other intervertebral disc degeneration, lumbar region; M54.16 Radiculopathy, lumbar region
CPT/HCPCS: G0463

== ENCOUNTER 2024-01-31 09:10 | Day surgery (SDC) | payer OTHER, SELFPAY ==
--- OUTSIDE RECORDS SUMMARY | 2024-01-31 09:21 | XMS_ITS | CCD ---
Author Organization [facility] Care Team Providers Care Federal Appellate Clerk Name Role Phone IAN, RYAN Unavailable Unavailable [...] Propensity to adverse reactions to drug 1 [facility] Medications Current Medications Medication Drug Class(es) [...] (500 mg total) before bedtime. 0 Active KRVI2-QKW-FFG-FISH OIL-L.CASEI ORAL (1 source) take 1 capsule by mouth once daily DQLF9-MXL-GTC-FISH OIL-L.CASEI ORAL Take 1 capsule by mouth [...] Peterson MD on 01/10/2024 1:35 PM Normal [facility] BASIC METABOLIC PANLon 11-03 Anion gap [Moles/Vol] 9 mmol/L Normal 5-15 [facility] Comment on above: Performed By: #### C BCA, BMP, #### [facility] ([id number]) [address], [address] [place] [address] Calcium [Mass/Vol] 9.4 mg/dL Normal 8.5-10.[address] [facility] Comment on above: Performed By: #### C FREDERIC [facility], #### [facility] ([id number]) [address], [address] [place] [address] Chloride [Moles/Vol] 102 mmol/L Normal 98-109 [facility] Comment on above: Performed By: #### C FR[facility]ERIC [facility], #### [facility] ([id number]) [address], [address] [place] [address] CO2 [Moles/Vol] 28 mmol/L Normal 22-32 [facility] Comment on above: Performed By: #### Lars DE LA GARZA [facility], #### [facility] ([id number]) [address], [address] [place] [address] Creatinine [Mass/Vol] 0.79 mg/dL Normal 0.40-1.00 [facility] Comment on above: Result Comment: METH OD TRACEABLE TO IDMS STANDARD Performed By: #### Lars DE LA GARZA [facility], #### [facility] ([id number]) [address], [address] [place] [address] GFR/1.73 sq M.predicted among non-blacks MDRD (S/P/Bld) [Vol rate/Area] 82 mL/min/{1.73_m2} Normal >59 [facility] Comment on above: Result Comment: Reported eGFR is based on the CKD-EPI 2020 equation that does not use a race coefficient. Performed By: #### C TRU DE LA GARZA, #### [facility] ([id number]) [address], [address] [place] [address] Glucose [Mass/Vol] 80 mg/dL Normal 65-[address] [facility] Comment on above: Performed By: #### C FR[facility]ERIC [facility], #### [facility] ([id number]) [address], [address] [place] [address] Potassium [Moles/Vol] 3.9 mmol/L Normal 3.5-5.0 [facility] Comment on above: Performed By: #### Lars DE LA GARZA [facility], #### [facility] ([id number]) [address], [address] [place] [address] Sodium [Moles/Vol] 139 mmol/L Normal 134-[address] [facility] Comment on above: Performed By: #### Lars DE LA GARZA [facility], #### [facility] ([id number]) [address], [address] [place] [address] Urea nitrogen [Mass/Vol] 12 mg/dL Normal 5-27 [facility] Comment on above: Performed By: #### Lars DE LA GARZA [facility], #### [facility] ([id number]) [address], [address] [place] [address] CBC AND AUTO DIFFon 05-03-20 24 ABSOLUTE BASOPHIL 0.0 X10E9/L Normal 0.0-0.[address] [facility] Comment on above: Performed By: #### Lars DE LA GARZA [facility], #### [facility] ([id number]) [address], [address] [place] [address] ABSOLUTE NEUTROPHIL 5.9 X10E9/L Normal 1.5-6.6 [facility] Comment on above: Performed By: #### TRU Sousa BCA, #### [facility] ([id number]) [address], [address] [place] [address] Basophils/100 WBC (Bld) 0.4 % Normal [facility] Comment on above: Performed By: #### C TRU DE LA GARZA, #### [facility] ([id number]) [address] [address] [place] [address] Eosinophils (Bld) [#/Vol] 0.2 10*3/uL Normal 0.0-0.4 [facility] Comment on above: Performed By: #### Lars DE LA GARZA [facility], #### [facility] ([id number]) [address], [facility] [address] [place] [address] Eosinophils/100 WBC (Bld) 1.8 % Normal [facility] Comment on above: Performed By: #### C FREDERIC, [facility], #### [facility] ([id number]) [address] [address] [place] [address] Erythrocyte distribution width (RBC) [Ratio] 14.0 % Normal 11.5-15.0 [facility] Comment on above: Performed By: #### Lars DE LA GARZA [facility], #### [facility] ([id number]) [address] [address] [place] [address] Hematocrit (Bld) [Volume fraction] 40.4 % Normal 35-47 [facility] Comment on above: Performed By: #### Lars DE LA GARZA [facility], #### [facility] ([id number]) [address] [address] [place] [address] Hemoglobin (Bld) [Mass/Vol] 13.7 g/dL Normal 11.7-15.5 [facility] Comment on above: Performed By: #### C FREDERIC, [facility], #### [facility] ([id number]) [address] [address] [place] [address] Lymphocytes (Bld) [#/Vol] 1.7 10*3/uL Normal 1.0-3.5 [facility] Comment on above: Performed By: #### Lars DE LA GARZA [facility], #### [facility] ([id number]) [address], [address] [place] [address] Lymphocytes/100 WBC (Bld) 20.5 % Normal [facility] Comment on above: Performed By: #### Lars DE LA GARZA [facility], #### [facility] ([id number]) [address], [address] [place] [address] MCH (RBC) [Entitic mass] 32.4 pg Normal 27-34 [facility] Comment on above: Performed By: #### TRU Sousa BCA, #### [facility] ([id number]) [address], [address] [place] [address] MCHC (RBC) [Mass/Vol] 34.0 g/dL Normal 32-36 [facility] Comment on above: Performed By: #### TRU Sousa BCA, #### [facility] ([id number]) [address], [address] [place] [address] MCV (RBC) [Entitic vol] 95 fL Normal 80-100 [facility] Comment on above: Performed By: #### TRU Sousa BCA, #### [facility] ([id number]) [address], [address] [place] [address] Monocytes (Bld) [#/Vol] 0.7 10*3/uL Normal 0-0.9 [facility] Comment on above: Performed By: #### TRU Sousa BCA, #### [facility] ([id number]) [address], [address] [place] [address] Monocytes/100 WBC (Bld) 7.9 % Normal [facility] Comment on above: Performed By: #### TRU Sousa BCA, #### [facility] ([id number]) [address], [address] [place] [address] Neutrophils/100 WBC (Bld) 69.4 % Normal [facility] Comment on above: Performed By: #### TRU Sousa BCA, #### [facility] ([id number]) [address], [facility] [address] [place] [address] Platelet mean volume (Bld) [Entitic vol] 8.1 fL Normal 7-12 [facility] Comment on above: Performed By: #### TRU Sousa BCA, #### [facility] ([id number]) [address], [facility] [address] [place] [address] Platelets (Bld) [#/Vol] 262 10*3/uL Normal 150-450 [facility] Comment on above: Performed By: #### TRU Sousa BCA, #### [facility] ([id number]) [address], [facility] [address] [place] [address] RBC COUNT 4.24 X10E12/L Normal 3.80-5.20 [facility] Comment on above: Performed By: #### TRU Sousa BCA, #### [facility] ([id number]) [address], [facility] [address] [place] [address] WBC (Bld) [#/Vol] 8.5 10*3/uL Normal 4.0-11.[address] [facility] Comment on above: Performed By: #### TRU Sousa BCA, #### [facility] ([id number]) [address], [facility] [address] [place] [address] MAGNESIUMon 11-04-2023 Magnesium [Mass/Vol] 1.8 mg/dL Normal 1.8-2.6 [facility] Comment on above: Performed By: #### TRU Sousa BCA, #### [facility] ([id number]) [address], [address] [place] [address] COMPLETE BLOOD COUNTon 10-06 Erythrocyte distribution width (RBC) [Ratio] 14.1 % Normal 11.5-15.0 [facility] Comment on above: Performed By: #### C BC, CMP, 74601-7, 3083-, THYR #### [facility] ([id number]) [address], [address] [place] [address] Hematocrit (Bld) [Volume fraction] 41.0 % Normal 35-47 [facility] Comment on above: Performed By: #### C BC, CMP, 74619-9, 3083-, THYR #### [facility] ([id number]) [address], [facility] [address] [place] [address] Hemoglobin (Bld) [Mass/Vol] 13.7 g/dL Normal 11.7-15.5 [facility] Comment on above: Performed By: #### Lars BC, CMP, 76570-6, 3083-07, THYR #### [facility] ([id number]) [address], [address] [place] [address] MCH (RBC) [Entitic mass] 32.1 pg Normal 27-34 [facility] Comment on above: Performed By: #### Lars BC, CMP, 10507-0, 3083-07, THYR #### [facility] ([id number]) [address], [address] [place] [address] MCHC (RBC) [Mass/Vol] 33.5 g/dL Normal 32-36 [facility] Comment on above: Performed By: #### C BC, CMP, 16935-4, 3083-, THYR #### [facility] ([id number]) [address], [address] [place] [address] MCV (RBC) [Entitic vol] 96 fL Normal 80-100 [facility] Comment on above: Performed By: #### C BC, CMP, 43849-6, 3083-, THYR #### [facility] ([id number]) [address], [address] [place] [address] Platelet mean volume (Bld) [Entitic vol] 7.9 fL Normal 7-12 [facility] Comment on above: Performed By: #### C BC, CMP, 97343-9, 3084-1, THYR #### [facility] ([id number]) [address], [address] [place] [address] Platelets (Bld) [#/Vol] 240 10*3/uL Normal 150-450 [facility] Comment on above: Performed By: #### Lars BC, CMP, 33261-3, 3084-1, THYR #### [facility] ([id number]) [address] [address] [place] [address] RBC COUNT 4.29 X10E12/L Normal 3.80-5.20 [facility] Comment on above: Performed By: #### Lars BC, CMP, 76172-2, 3084-1, THYR #### [facility] ([id number]) [address] [address] [place] [address] WBC (Bld) [#/Vol] 4.2 10*3/uL Normal 4.0-11.[address] [facility] Comment on above: Performed By: #### Lars BC, CMP, 61765-9, 3084-1, THYR #### [facility] ([id number]) [address], [address] [place] [address] COMPREHENSIVE METABOLIC PANE Perfecto 10-07-2023 Albumin [Mass/Vol] 4.2 g/dL Normal 3.2-5.[address] [facility] Comment on above: Performed By: #### C BC, CMP, 63474-4, 3084-1, THYR #### [facility] ([id number]) [address], [address] [place] [address] ALP [Catalytic activity/Vol] 69 U/L Normal 39-130 [facility] Comment on above: Performed By: #### C BC, CMP, 34460-0, 3084-1, THYR #### [facility] ([id number]) [address], [address] [place] [address] ALT [Catalytic activity/Vol] 22 U/L Normal 0-31 [facility] Comment on above: Performed By: #### C BC, CMP, 40210-0, 3084-1, THYR #### [facility] ([id number]) [address], [address] [place] [address] Anion gap [Moles/Vol] 6 mmol/L Normal 5-15 [facility] Comment on above: Performed By: #### Lars BC, CMP, 11284-0, 3084-1, THYR #### [facility] ([id number]) [address], [address] [place] [address] AST [Catalytic activity/Vol] 24 U/L Normal 0-41 [facility] Comment on above: Performed By: #### C BC, CMP, 94640-0, 3084-1, THYR #### [facility] ([id number]) [address], [address] [place] [address] Bilirubin [Mass/Vol] 0.5 mg/dL Normal 0.3-1.2 [facility] Comment on above: Performed By: #### C BC, CMP, 09062-8, 3084-1, THYR #### [facility] ([id number]) [address], [address] [place] [address] Calcium [Mass/Vol] 9.3 mg/dL Normal 8.5-10.[address] [facility] Comment on above: Performed By: #### C BC, CMP, 96267-2, 3084-1, THYR #### [facility] ([id number]) [address], [address] [place] [address] Chloride [Moles/Vol] 103 mmol/L Normal 98-109 [facility] Comment on above: Performed By: #### Lars IRENE [facility], 89930-9, 3083-, THYR #### [facility] ([id number]) [address], [address] [place] [address] CO2 [Moles/Vol] 31 mmol/L Normal 22-32 [facility] Comment on above: Performed By: #### Lars IRENE [facility], 81827-7, 3083-, THYR #### [facility] ([id number]) [address] [place] [address] Creatinine [Mass/Vol] 0.72 mg/dL Normal 0.40-1.00 [facility] Comment on above: Result Comment: METH OD TRACEABLE TO IDMS STANDARD Performed By: #### Lars IRENE [facility], 20785-8, 3083-07, THYR #### [facility] ([id number]) [address], [address] [place] [address] eGFR (CKD-EPI) NON-RACE DEPENDENT >90 Normal >59 [facility] Comment on above: Result Comment: Reported eGFR is based on the CKD-EPI 2020 equation that does not use a race coefficient. Performed By: #### Lars IRENE [facility], 06719-4, 3083-07, THYR #### [facility] ([id number]) [address] [place] [address] Glucose [Mass/Vol] 77 mg/dL Normal 65-[address] [facility] Comment on above: Performed By: #### Lars IRENE [facility], 21972-3, 3083-07, THYR #### [facility] ([id number]) [address], [address] [place] [address] Potassium [Moles/Vol] 3.9 mmol/L Normal 3.5-5.0 [facility] Comment on above: Performed By: #### C BC, [facility], 85231-9, 3084-1, THYR #### [facility] ([id number]) [address], [facility] [address] [place] [address] Protein [Mass/Vol] 6.9 g/dL Normal 6.0-8.[address] [facility] Comment on above: Performed By: #### Lars BC, [facility], 02131-1, 3084-1, THYR #### [facility] ([id number]) [address] [place] [address] Sodium [Moles/Vol] 140 mmol/L Normal 134-[address] [facility] Comment on above: Performed By: #### Lars BC, [facility], 95954-6, 3084-1, THYR #### [facility] ([id number]) [address], [facility] [address] [place] [address] Urea nitrogen [Mass/Vol] 13 mg/dL Normal 5-27 [facility] Comment on above: Performed By: #### Lars IRENE, [facility], 44364-1, 3084-1, THYR #### [facility] ([id number]) [address], [address] [place] [address] Lipid 1996 panelon 4 Cholesterol [Mass/Vol] 197 mg/dL Normal 150-200 [facility] Comment on above: Performed By: #### Lars BC, [facility], 37991-5, 3084-1, THYR #### [facility] ([id number]) [address] [place] [address] Cholesterol in HDL [Mass/Vol] 76 mg/dL Normal >39 [facility] Comment on above: Result Comment: HDL <40 mg/dL - High Risk HDL > or = 40mg/dL- Desirable HDL >60 mg/dL - Negative Risk Performed By: #### Lars BC, CMP, 51678-7, 3084-1, THYR #### [facility] ([id number]) [address] [place] [address] Cholesterol in LDL [Mass/Vol] 108 mg/dL Normal <130 [facility] Comment on above: Result Comment: LDL <100 mg/dL - Desirable LDL >160 mg/dL - High Risk Performed By: #### Lars BC, CMP, 07715-2, 3084-1, THYR #### [facility] ([id number]) [address], [address] [place] [address] Cholesterol in VLDL [Mass/Vol] 13 mg/dL Normal 0-30 [facility] Comment on above: Performed By: #### Lars BC, [facility], 89381-2, 3084-1, THYR #### [facility] ([id number]) [address], [facility] [address] [place] [address] CHOLESTEROL:HDL 2.6 Normal 1.0-5.0 [facility] Comment on above: Performed By: #### Lars BC, [facility], 93962-4, 3084-1, THYR #### [facility] ([id number]) [address] [place] [address] Triglyceride [Mass/Vol] 65 mg/dL Normal 27-150 [facility] Comment on above: Performed By: #### Lars BC, CMP, 69121-4, 3084-1, THYR #### [facility] ([id number]) [address], [address] [place] [address] THYROID PROFILEon 10-07-2023 Free T4 [Mass/Vol] 1.05 ng/dL Normal 0.61-1.[address] [facility] Comment on above: Performed By: #### C BC, [facility], 41690-1, 3084-1, THYR #### [facility] ([id number]) [address] [place] [address] TSH 1.03 uIU/mL Normal 0.49-4.67 [facility] Comment on above: Performed By: #### C , [facility], 46373-9, 3084-1, THYR #### [facility] ([id number]) [address] [facility], [address] [place] [address] URIC ACIDon 10-07-2023 Urate [Mass/Vol] 6.4 mg/dL Normal 2.6-7.2 [facility] Comment on above: Performed By: #### C MARIA VICTORIA, [facility], 97194-8, 3084-1, THYR #### [facility] ([id number]) [address] [place] [address] URINALYSISon 10-07-2023 Bilirubin Ql (U) Negative Normal NEG [facility] BLOOD/HGB Negative Normal NEG [facility] Color (U) YELLOW Normal YELLOW [facility] Glucose Ql (U) Negative Normal NEG [facility] Ketones Ql (U) Negative Normal NEG [facility] Leukocyte esterase Test strip Ql (U) Negative Normal NEG [facility] MUCOUS PRESENT Abnormal NONE [facility] Nitrite Ql (U) Negative Normal NEG [facility] pH (U) 8.0 [pH] Normal 5.0-8.5 [facility] Protein Ql (U) Negative Normal NEG [facility] R.B.CELLS 1 /hpf Normal 0-5 [facility] Specific gravity (U) [Rel density] 1.013 Normal 1.003-1.035 [facility] SQUAMOUS EPITHELIUM <1 Normal 0-5 [facility] TURBIDITY HAZY Abnormal CLEAR [facility] Urobilinogen (U) [Mass/Vol] mg/dL Normal <1.1 [facility] W.B.CELLS 0 /hpf Normal 0-5 [facility] XR Hip Bilateral w/Pelvison 11-12-2022 XR Hip Bilateral w/Pelvis COMPARISON: NONE. PELVIS FINDINGS: There are no lytic or sclerotic bone lesions. The femoral heads are located. There is no acute fracture or subluxation. There are no radiopaque foreign bodies. IMPRESSION: There are no acute osseous changes. Report reported and signed by JOSE JUAN LEWIS on 11/12/2022 0956 Normal [facility] XR Spine Lumbar 4+ Views*on 11-12-2022 [...] JOSE JUAN LEWIS on 11/12/2022 1023 Normal [facility] [employer] Person MG MAMM SCREEN NIEVES W CADon 0 03-21-2018 MG MAMM SCREEN NIEVES W CAD [address] [place] [address] Patient: KAMALJIT ZAVALA Exam Date: 03/21/2018DOB: 1955 Gender:F : DR RYAN SOSA Admission #: [id number] : Order #: [id number] HERE TO VIEW EXAM RADIOLOGY REPORT PROCEDURE: [...] bile duct cancer at age 60. LOCATION: [facility] BREAST COMPOSITION: Scattered fibroglandular densities (25-50% [...] Cathie Reed M.D. on 03/21/2018 at 15:25 [facility] Encounters Encounter Date Encounter Type Care Provider Facility Start: 01-09-2024 End: 01-09-2024 ambulatory NATALIE GALLEGOS [facility] Start: 11-17-2023 End: 11-17-2023 ambulatory RYAN SOSA [facility] Start: 11-11-2023 End: 11-11-2023 ambulatory SKYLAR NÚÑEZ Not Available Start: 11-10-2023 End: 11-10-2023 [facility] Start: 11-10-2023 End: 11-10-2023 ambulatory VIJAYA [facility] Start: 11-04-2023 End: 11-04-2023 ambulatory VIJAYA [facility] Start: 11-04-2023 Encounter for prepro cedural cardiovascular examination [facility] Start: 10-07-2023 End: 10-07-2023 [facility] Start: 09-01-2023 End: 09-01-2023 ambulatory SUSAN MINER Not Available Start: 08-02-2023 End: 08-02-2023 ambulatory SKYLAR NÚÑEZ Not Available Start: 07-18-2023 Telephone encounter Neva Low CYLINDER FILLER [facility] Comment on above: EP Surgery Start: 06-08-2023 End: 06-08-2023 ambulatory KAMALJIT ORR Not Available Start: 05-18-2023 End: 05-18-2023 ambulatory SUSAN MINER Not Available Start: 09-07-2021 Patient encounter status Neva torres LPN [facility] [employer] Work Phone: Start: 03-21-2018 End: 03-22-2018 Patient encounter [facility] Facility:[facility] Plan of Treatment Date Care Activity Detail Author Start: 11-16-2025 DTaP,Tdap and Td Vaccines (2 - Td or Tdap) DTaP,Tdap and Td Vaccines (2 - Td or Tdap) [facility] Start: 02-05-2024 Adult BMI Screening [facility] [place] Start: 10-26-2023 Tobacco Screening Tobacco Screening [facility] Start: 03-04-2023 COVID-19 Vaccine ( season) COVID-19 Vaccine ( season) [facility] Start: 03-04-2023 Influenza vaccination Influenza Vaccine [facility] Start: 12-03-2022 Administration of varicella zoster vaccine Zoster (Shingles) Vaccine (2 of 2) [facility] Start: 2021 Fall Risk Screening Fall Risk Screening [facility] Start: 1974 Adult BMI Follow Up Plan Adult BMI Follow Up Plan [facility] Start: 1968 Depression Screening Depression Screening [facility] Start: 1955 Medicare Annual Wellness Visit Medicare Annual Wellness Visit [facility] Immunizations Immunization Date Immunization Notes Care Provider Fa cility 10-08-2022 influenza virus vacc ine, unspecified formulation Neva Low LPN [facility] 10-08-2022 zoster vaccine, unspecified formulation [facility] Payers Date Payer Category Payer Medicare [id number] 2021 Medicare ANTHEM MEDICARE [facility] MEDICARE ADVANTAGE [id number] 2021-Present [phone] [address] [place] [address] [id number] 2021 Medicare [id number] 1955 Unknown [id number] [id number]86 1956 Unknown [id number] 2.16.840.1.869340.3.579.2.1286 1956 Unknown [id number] 2.16.840.1.829128.3.579.2.1286 1956 Unknown [id number] 2.16.840.1.157002.3.579.2.1259 1956 Unknown [id number] 2.16.840.1.972837.3.579.2.1259 1956 Unknown [id number] 2.16.840.1.136170.3.579.2.1259 1956 Unknown [id number] 2.16.840.1.315722.3.579.2.1259 1956 Unknown [id number] 2.16.840.1.482747.3.579.2.1259 1956 Unknown [id number] 2.16.840.1.095403.3.579.2.1286 1956 Unknown [id number] 2.16.840.1.281614.3.579.2.1286 1956 Unknown [id number] 2.16.840.1.089247.3.579.2.1286 1956 Unknown [id number] 2.16.840.1.105968.3.579.2.1286 Unknown [id number] Social History Date Type Detail Facility Start: 08-12-2022 Tobacco smoking stat [facility] Never smoked tobacco [facility] Start: 08-12-2022 Tobacco use and exposure Smokeless tobacco non-user [facility] Start: 02-04-2023 Alcohol intake Lifetime non-d marissa (finding) [facility] Start: 08-14-2020 End: 10-25-2022 History of Social function [facility] Start: 08-14-2020 End: 10-25-2022 Tobacco use panel [facility] Housing Instability Unknown [facility] Start: 1955 Sex Assigned At Female P [facility] Start: 08-26-2022 Gender identity Identifies as female gender (finding) [facility] Start: 08-26-2022 Sexual orientation Heterosexual (fin ding) [facility] Medical Equipment Procedure Code Equipment Code Equipment Origin al Text Equipment Identifier Dates Cement Bn Bio 40 gm Rpl [id number] - [id number] - [id number] Start: 09-15-2021 Cement Bn Bio 40 gm Rpl [id number] - [id number] Start: 08-26-2022 Surface Artc 11m m Persona 6-9 Cd Kn Lt Pe Post Stab - [id number] - [id number] Start: 09-15-2021 Surface Artc 11m m Persona 6-9 Cd Kn Rt Vivacit-E Post Stab - [id number] Start: 08-26-2022 Baseplate Tib 5d D Kn Lt Cmnt Stm Persona Tiv Strl - [id number] - [id number] Start: 09-15-2021 Baseplate Tib 5d D Kn Rt Cmnt Stm Persona Tiv Strl - [id number] Start: 08-26-2022 Goals Date Patient Goal Desired Activity /State Personal health goal Comment on above: Formatting of this n ote might be different from the original. Evaluation of progress towards goal: Current discharge plan is home with [facility] and support of spouse. - Mckenna Najera [...] other meds held. documented in this encounter [employer] Telephone encounter Note 07-18-2023 Telephone Encounter - Neva Low LPN - 07/18/2023 1:33 PM EST Note Date & Type Note Facility 07-18-2023 Telephone encount er Note [facility] Received a call from pt and she would like to proceed with ablation you discussed. Please review and advise thank you [employer] Telephone encounter Note 07-18-2023 Telephone Encounter - Vijaya Hunter MD - 07/18/2023 1:33 PM EST Note Date & Type Note Facility 07-18-2023 Telephone encounter Note Okay to schedule SVT ablation with me, next available. NPO after midnight, okay for clear 6 hours prior, MAC sedation, routine preoperative labs, CARTO EAM. Hold flecainide for 3 days prior to procedure. No other meds held. [employer] Work Phone: Instructions Note Date & Type Note Facility Instructions Not on filedocumented in this en counter [employer] Summary Purpose Family History No Family [...] content) DATE CREATED AUTHOR 04/17/2018 [facility] DATE CREATED AUTHOR AUTHOR'S ORGANIZ ATION 11/13/2022 [facility] dical Specialist DATE CREATED AUTHOR AUTHOR'S ORGANIZ ATION 11/12/2023 [facility] DATE CREATED AUTHOR AUTHOR'S ORGANIZ ATION 11/13/2023 [facility] dical Specialists [facility] DATE CREATED AUTHOR AUTHOR'S ORGANIZ ATION 01/16/[address] [facility] Reason for Visit (unrecogniz ed section and content) Reason Onset Date Comments EP Surgery 07/18/2023 Care Teams (unrecognized sec tion and content) [employer] Appellate [employer] Relationship Specialty Start Date End Date Ryan Sosa DO [address] [place] [address] PCP - General 05/02/18 FOR RECORDS PERTAINING [...] BE BASED ON THE PRIMARY CLINICAL RECORDS. [employer] [facility]. provides no warranty or guarantee of the accuracy or completeness of information in this document.
[2024-01-31 09:23] VITALS: BP 137/98; PULSE 75; TEMP 36.1; O2SAT 97
[2024-01-31 10:01] VITALS: BP 156/88; PULSE 76; O2SAT 96
[2024-01-31 10:02] VITALS: BP 148/81; PULSE 74; O2SAT 97
[2024-01-31] MEDS: BUPIVACAINE HCL 0.25% PF 25 MG/10 ML VIAL 4 ML INJ (10:14)
[2024-01-31] MEDS: METHYLPREDNISOLONE ACETATE 40 MG/ML VIAL INJ (10:14)
[2024-01-31] MEDS: LIDOCAINE HCL 2% 400 MG/20 ML MDV 6 ML INJ (10:15)
--- NOTE | 2024-01-31 10:31 | W.PM.PROCNOT ---
Date of procedure: 01/31/24 Pre-op diagnosis: Lumbar spondylosis Post-op diagnosis: same as pre-op Procedure: Left lumbar 4-5, 5-S1 Radiofrequency ablation Under fluoroscopic guidance Rhizotomy was created using radio frequency ablation at 80?C for 90 seconds 1 to 2 lesions created at each site. Post lesioning injection of 2 mL each of 0.25% Marcaine and 2% lidocaine with Depo-Medrol 40mg. 0.5 to 1 mL injected at each site Anesthesia local 2% lidocaine for Anesthesia Other: local Timeout process compliant After informed consent obtained.Patient brought to the procedure room placed in the prone position skin overlying the area was prepped and draped in a sterile fashion using betadine. 25 gauge needle was used to create a skin wheal over each of the targeted areas utilizing 2% lidocaine. A rhizotomy needle with a 10 mm active tip was inserted over each of the anesthetized areas and directed towards each of the medial branches accomplished under fluoroscopic guidance. after encountering the same we had positive sensory stimulation, negative motor stimulation was noted. lesions were then created. Post lesioning, steroid solution was injected needles removed. Patient was transferred to recovery room in stable condition to be discharged home after meeting criteria. Anesthesia: Local Surgeon: Jerry Concepcion Condition: stable Disposition: PACU
== END 2024-01-31 10:18 | disposition home or self-care (01) ==
LOC: SURGOUT 09:11
PROVIDERS: Visit Provider Anesthesiology Pain Medicine
DX: M47.816 Spondylosis without myelopathy or radiculopathy, lumbar region (principal)
CPT/HCPCS: 64635; 64636; J0665; J1010

== ENCOUNTER 2024-02-07 08:52 | Day surgery (SDC) | payer OTHER, SELFPAY ==
--- OUTSIDE RECORDS SUMMARY | 2024-02-07 08:55 | XMS_ITS | CCD ---
Author Organization [facility] ion Partnership [facility] Care Team Providers Care Assistant Professor Of Anthropology Name Role Phone IAN, RYAN Unavailable Unavailable [...] to adverse reactions to drug 1 [facility] Medications Current Medications Medication [...] (500 mg total) before bedtime. 0 Active DQLL2-VSP-OYD-FISH OIL-L.CASEI ORAL (1 source) take 1 capsule by mouth once daily WHCS7-CVH-NAG-FISH OIL-L.CASEI ORAL Take 1 capsule by mouth [...] Peterson MD on 01/10/2024 1:35 PM Normal [facility] BASIC METABOLIC PANLon 11-03 Anion gap [Moles/Vol] 9 mmol/L Normal 5-15 [facility] Comment on above: Performed By: #### C BCA, BMP, #### [facility] ([id number]) [address], [address] [place] [address] Calcium [Mass/Vol] 9.4 mg/dL Normal 8.5-10.5 [facility] Comment on above: Performed By: #### C FREDERIC [facility], #### [facility] ([id number]) [address], [address] [place] [address] Chloride [Moles/Vol] 102 mmol/L Normal 98-109 [facility] Comment on above: Performed By: #### C [facility]IC [facility], #### [facility] ([id number]) [address], [address] [place] [address] CO2 [Moles/Vol] 28 mmol/L Normal 22-32 [facility] Comment on above: Performed By: #### Lars DE LA GARZA [facility], #### [facility] ([id number]) [address], [address] [place] [address] Creatinine [Mass/Vol] 0.79 mg/dL Normal 0.40-1.00 [facility] Comment on above: Result Comment: METH OD TRACEABLE TO IDMS STANDARD Performed By: #### Lars DE LA GARZA [facility], #### [facility] ([id number]) [address], [address] [place] [address] GFR/1.73 sq M.predicted among non-blacks MDRD (S/P/Bld) [Vol rate/Area] 82 mL/min/{1.73_m2} Normal >59 [facility] Comment on above: Result Comment: Reported eGFR is based on the CKD-EPI 2020 equation that does not use a race coefficient. Performed By: #### C TRU DE LA GARZA, #### [facility] ([id number]) [address], [address] [place] [address] Glucose [Mass/Vol] 80 mg/dL Normal 65-99 [facility] Comment on above: Performed By: #### C [facility], #### [facility] ([id number]) [address], [address] [place] [address] Potassium [Moles/Vol] 3.9 mmol/L Normal 3.5-5.0 [facility] Comment on above: Performed By: #### Lars DE LA GARZA [facility], #### [facility] ([id number]) [address], [address] [place] [address] Sodium [Moles/Vol] 139 mmol/L Normal 134-146 [facility] Comment on above: Performed By: #### Lars DE LA GARZA [facility], #### [facility] ([id number]) [address], [address] [place] [address] Urea nitrogen [Mass/Vol] 12 mg/dL Normal 5-27 [facility] Comment on above: Performed By: #### Lars DE LA GARZA [facility], #### [facility] ([id number]) [address], [address] [place] [address] CBC AND AUTO DIFFon 05-03-20 24 ABSOLUTE BASOPHIL 0.0 X10E9/L Normal 0.0-0.2 [facility] Comment on above: Performed By: #### Lars DE LA GARZA [facility], #### [facility] ([id number]) [address], [address] [place] [address] ABSOLUTE NEUTROPHIL 5.9 X10E9/L Normal 1.5-6.6 [facility] Comment on above: Performed By: #### TRU Sousa BCA, #### [facility] ([id number]) [address], [address] [place] [address] Basophils/100 WBC (Bld) 0.4 % Normal [facility] Comment on above: Performed By: #### C TRU DE LA GARZA, #### [facility] ([id number]) [address] [address] [place] [address] Eosinophils (Bld) [#/Vol] 0.2 10*3/uL Normal 0.0-0.4 [facility] Comment on above: Performed By: #### Lars DE LA GARZA [facility], #### [facility] ([id number]) [address], [facility] [address] [place] [address] Eosinophils/100 WBC (Bld) 1.8 % Normal [facility] Comment on above: Performed By: #### C FREDERIC, [facility], #### [facility] ([id number]) [address] [address] [place] [address] Erythrocyte distribution width (RBC) [Ratio] 14.0 % Normal 11.5-15.0 [facility] Comment on above: Performed By: #### Lars DE LA GARZA [facility], #### [facility] ([id number]) [address] [address] [place] [address] Hematocrit (Bld) [Volume fraction] 40.4 % Normal 35-47 [facility] Comment on above: Performed By: #### Lars DE LA GARZA [facility], #### [facility] ([id number]) [address] [address] [place] [address] Hemoglobin (Bld) [Mass/Vol] 13.7 g/dL Normal 11.7-15.5 [facility] Comment on above: Performed By: #### C FREDERIC, [facility], #### [facility] ([id number]) [address] [address] [place] [address] Lymphocytes (Bld) [#/Vol] 1.7 10*3/uL Normal 1.0-3.5 [facility] Comment on above: Performed By: #### Lars DE LA GARZA [facility], #### [facility] ([id number]) [address], [address] [place] [address] Lymphocytes/100 WBC (Bld) 20.5 % Normal [facility] Comment on above: Performed By: #### Lars DE LA GARZA [facility], #### [facility] ([id number]) [address], [address] [place] [address] MCH (RBC) [Entitic mass] 32.4 pg Normal 27-34 [facility] Comment on above: Performed By: #### TRU Sousa BCA, #### [facility] ([id number]) [address], [address] [place] [address] MCHC (RBC) [Mass/Vol] 34.0 g/dL Normal 32-36 [facility] Comment on above: Performed By: #### TRU Sousa BCA, #### [facility] ([id number]) [address] [place] [address] MCV (RBC) [Entitic vol] 95 fL Normal 80-100 [facility] Comment on above: Performed By: #### TRU Sousa BCA, #### [facility] ([id number]) [address], [address] [place] [address] Monocytes (Bld) [#/Vol] 0.7 10*3/uL Normal 0-0.9 [facility] Comment on above: Performed By: #### TRU Sousa BCA, #### [facility] ([id number]) [address], [address] [place] [address] Monocytes/100 WBC (Bld) 7.9 % Normal [facility] Comment on above: Performed By: #### TRU Sousa BCA, #### [facility] ([id number]) [address], [address] [place] [address] Neutrophils/100 WBC (Bld) 69.4 % Normal [facility] Comment on above: Performed By: #### TRU Sousa BCA, #### [facility] ([id number]) [address], [facility] [address] [place] [address] Platelet mean volume (Bld) [Entitic vol] 8.1 fL Normal 7-12 [facility] Comment on above: Performed By: #### TRU Sousa BCA, #### [facility] ([id number]) [address], [facility] [address] [place] [address] Platelets (Bld) [#/Vol] 262 10*3/uL Normal 150-450 [facility] Comment on above: Performed By: #### TRU Sousa BCA, #### [facility] ([id number]) [address], [facility] [address] [place] [address] RBC COUNT 4.24 X10E12/L Normal 3.80-5.20 [facility] Comment on above: Performed By: #### TRU Sousa BCA, #### [facility] ([id number]) [address], [facility] [address] [place] [address] WBC (Bld) [#/Vol] 8.5 10*3/uL Normal 4.0-11.0 [facility] Comment on above: Performed By: #### TRU Sousa BCA, #### [facility] ([id number]) [address], [facility] [address] [place] [address] MAGNESIUMon 11-04-2023 Magnesium [Mass/Vol] 1.8 mg/dL Normal 1.8-2.6 [facility] Comment on above: Performed By: #### TRU Sousa BCA, #### [facility] ([id number]) [address], [address] [place] [address] COMPLETE BLOOD COUNTon 10-06 Erythrocyte distribution width (RBC) [Ratio] 14.1 % Normal 11.5-15.0 [facility] Comment on above: Performed By: #### C BC, CMP, 74503-9, 3083-, THYR #### [facility] ([id number]) [address], [address] [place] [address] Hematocrit (Bld) [Volume fraction] 41.0 % Normal 35-47 [facility] Comment on above: Performed By: #### C BC, CMP, 86121-2, 3083-, THYR #### [facility] ([id number]) [address], [facility] [address] [place] [address] Hemoglobin (Bld) [Mass/Vol] 13.7 g/dL Normal 11.7-15.5 [facility] Comment on above: Performed By: #### Lars BC, CMP, 51641-5, 3083-07, THYR #### [facility] ([id number]) [address], [address] [place] [address] MCH (RBC) [Entitic mass] 32.1 pg Normal 27-34 [facility] Comment on above: Performed By: #### Lars BC, CMP, 95214-2, 3083-07, THYR #### [facility] ([id number]) [address], [address] [place] [address] MCHC (RBC) [Mass/Vol] 33.5 g/dL Normal 32-36 [facility] Comment on above: Performed By: #### C BC, CMP, 19688-7, 3083-, THYR #### [facility] ([id number]) [address], [address] [place] [address] MCV (RBC) [Entitic vol] 96 fL Normal 80-100 [facility] Comment on above: Performed By: #### C BC, CMP, 75309-7, 3083-, THYR #### [facility] ([id number]) [address], [address] [place] [address] Platelet mean volume (Bld) [Entitic vol] 7.9 fL Normal 7-12 [facility] Comment on above: Performed By: #### C BC, CMP, 56873-8, 3084-1, THYR #### [facility] ([id number]) [address], [address] [place] [address] Platelets (Bld) [#/Vol] 240 10*3/uL Normal 150-450 [facility] Comment on above: Performed By: #### Lars BC, CMP, 21914-3, 3084-1, THYR #### [facility] ([id number]) [address] [address] [place] [address] RBC COUNT 4.29 X10E12/L Normal 3.80-5.20 [facility] Comment on above: Performed By: #### Lars BC, CMP, 89792-1, 3084-1, THYR #### [facility] ([id number]) [address] [address] [place] [address] WBC (Bld) [#/Vol] 4.2 10*3/uL Normal 4.0-11.0 [facility] Comment on above: Performed By: #### Lars BC, CMP, 13455-5, 3084-1, THYR #### [facility] ([id number]) [address], [address] [place] [address] COMPREHENSIVE METABOLIC PANE Perfecto 10-07-2023 Albumin [Mass/Vol] 4.2 g/dL Normal 3.2-5.3 [facility] Comment on above: Performed By: #### C BC, CMP, 77305-2, 3084-1, THYR #### [facility] ([id number]) [address], [address] [place] [address] ALP [Catalytic activity/Vol] 69 U/L Normal 39-130 [facility] Comment on above: Performed By: #### C BC, CMP, 34037-2, 3084-1, THYR #### [facility] ([id number]) [address], [address] [place] [address] ALT [Catalytic activity/Vol] 22 U/L Normal 0-31 [facility] Comment on above: Performed By: #### C BC, CMP, 53326-5, 3084-1, THYR #### [facility] ([id number]) [address], [address] [place] [address] Anion gap [Moles/Vol] 6 mmol/L Normal 5-15 [facility] Comment on above: Performed By: #### Lars BC, CMP, 90625-4, 3084-1, THYR #### [facility] ([id number]) [address], [address] [place] [address] AST [Catalytic activity/Vol] 24 U/L Normal 0-41 [facility] Comment on above: Performed By: #### C BC, CMP, 22910-4, 3084-1, THYR #### [facility] ([id number]) [address], [address] [place] [address] Bilirubin [Mass/Vol] 0.5 mg/dL Normal 0.3-1.2 [facility] Comment on above: Performed By: #### C BC, CMP, 87645-6, 3084-1, THYR #### [facility] ([id number]) [address], [address] [place] [address] Calcium [Mass/Vol] 9.3 mg/dL Normal 8.5-10.5 [facility] Comment on above: Performed By: #### C BC, CMP, 51456-3, 3084-1, THYR #### [facility] ([id number]) [address], [address] [place] [address] Chloride [Moles/Vol] 103 mmol/L Normal 98-109 [facility] Comment on above: Performed By: #### Lars IRENE [facility], 95471-4, 3083-, THYR #### [facility] ([id number]) [address], [address] [place] [address] CO2 [Moles/Vol] 31 mmol/L Normal 22-32 [facility] Comment on above: Performed By: #### Lars IRENE [facility], 25342-3, 3083-, THYR #### [facility] ([id number]) [address], [address] [place] [address] Creatinine [Mass/Vol] 0.72 mg/dL Normal 0.40-1.00 [facility] Comment on above: Result Comment: METH OD TRACEABLE TO IDMS STANDARD Performed By: #### Lars IRENE [facility], 29331-5, 3083-07, THYR #### [facility] ([id number]) [address], [address] [place] [address] eGFR (CKD-EPI) NON-RACE DEPENDENT >90 Normal >59 [facility] Comment on above: Result Comment: Reported eGFR is based on the CKD-EPI 2020 equation that does not use a race coefficient. Performed By: #### Lars IRENE [facility], 16411-9, 3083-07, THYR #### [facility] ([id number]) [address], [address] [place] [address] Glucose [Mass/Vol] 77 mg/dL Normal 65-99 [facility] Comment on above: Performed By: #### Lars IRENE [facility], 36985-5, 3083-07, THYR #### [facility] ([id number]) [address], [address] [place] [address] Potassium [Moles/Vol] 3.9 mmol/L Normal 3.5-5.0 [facility] Comment on above: Performed By: #### C BC, [facility], 18441-2, 3084-1, THYR #### [facility] ([id number]) [address], [facility] [address] [place] [address] Protein [Mass/Vol] 6.9 g/dL Normal 6.0-8.0 [facility] Comment on above: Performed By: #### Lars BC, [facility], 82308-4, 3084-1, THYR #### [facility] ([id number]) [address] [place] [address] Sodium [Moles/Vol] 140 mmol/L Normal 134-146 [facility] Comment on above: Performed By: #### Lars BC, [facility], 66713-2, 3084-1, THYR #### [facility] ([id number]) [address], [facility] [address] [place] [address] Urea nitrogen [Mass/Vol] 13 mg/dL Normal 5-27 [facility] Comment on above: Performed By: #### Lars IRENE, [facility], 63683-4, 3084-1, THYR #### [facility] ([id number]) [address], [address] [place] [address] Lipid 1996 panelon 4 Cholesterol [Mass/Vol] 197 mg/dL Normal 150-200 [facility] Comment on above: Performed By: #### Lars BC, [facility], 20628-7, 3084-1, THYR #### [facility] ([id number]) [address], [address] [place] [address] Cholesterol in HDL [Mass/Vol] 76 mg/dL Normal >39 [facility] Comment on above: Result Comment: HDL <40 mg/dL - High Risk HDL > or = 40mg/dL- Desirable HDL >60 mg/dL - Negative Risk Performed By: #### Lars BC, CMP, 06938-1, 3084-1, THYR #### [facility] ([id number]) [address], [address] [place] [address] Cholesterol in LDL [Mass/Vol] 108 mg/dL Normal <130 [facility] Comment on above: Result Comment: LDL <100 mg/dL - Desirable LDL >160 mg/dL - High Risk Performed By: #### Lars BC, CMP, 16114-1, 3084-1, THYR #### [facility] ([id number]) [address], [address] [place] [address] Cholesterol in VLDL [Mass/Vol] 13 mg/dL Normal 0-30 [facility] Comment on above: Performed By: #### Lars BC, [facility], 03416-6, 3084-1, THYR #### [facility] ([id number]) [address], [facility] [address] [place] [address] CHOLESTEROL:HDL 2.6 Normal 1.0-5.0 [facility] Comment on above: Performed By: #### Lars BC, [facility], 02323-8, 3084-1, THYR #### [facility] ([id number]) [address], [address] [place] [address] Triglyceride [Mass/Vol] 65 mg/dL Normal 27-150 [facility] Comment on above: Performed By: #### Lars BC, CMP, 06480-4, 3084-1, THYR #### [facility] ([id number]) [address], [address] [place] [address] THYROID PROFILEon 10-07-2023 Free T4 [Mass/Vol] 1.05 ng/dL Normal 0.61-1.60 [facility] Comment on above: Performed By: #### C BC, [facility], 20447-9, 3084-1, THYR #### [facility] ([id number]) [address], [address] [place] [address] TSH 1.03 uIU/mL Normal 0.49-4.67 [facility] Comment on above: Performed By: #### C , [facility], 02409-6, 3084-1, THYR #### [facility] ([id number]) [address] [facility] [place] [address] URIC ACIDon 10-07-2023 Urate [Mass/Vol] 6.4 mg/dL Normal 2.6-7.2 [facility] Comment on above: Performed By: #### C MARIA VICTORIA, [facility], 48157-0, 3084-1, THYR #### [facility] ([id number]) [address] [place] [address] URINALYSISon 10-07-2023 Bilirubin Ql (U) Negative Normal NEG [facility] BLOOD/HGB Negative Normal NEG [facility] Color (U) YELLOW Normal YELLOW [facility] Glucose Ql (U) Negative Normal NEG [facility] Ketones Ql (U) Negative Normal NEG [facility] Leukocyte esterase Test strip Ql (U) Negative Normal NEG [facility] MUCOUS PRESENT Abnormal NONE [facility] Nitrite Ql (U) Negative Normal NEG [facility] pH (U) 8.0 [pH] Normal 5.0-8.5 [facility] Protein Ql (U) Negative Normal NEG [facility] R.B.CELLS 1 /hpf Normal 0-5 [facility] Specific gravity (U) [Rel density] 1.013 Normal 1.003-1.035 [facility] SQUAMOUS EPITHELIUM <1 Normal 0-5 [facility] TURBIDITY HAZY Abnormal CLEAR [facility] Urobilinogen (U) [Mass/Vol] mg/dL Normal <1.1 [facility] W.B.CELLS 0 /hpf Normal 0-5 [facility] XR Hip Bilateral w/Pelvison 11-12-2022 XR Hip Bilateral w/Pelvis COMPARISON: NONE. PELVIS FINDINGS: There are no lytic or sclerotic bone lesions. The femoral heads are located. There is no acute fracture or subluxation. There are no radiopaque foreign bodies. IMPRESSION: There are no acute osseous changes. Report reported and signed by JOSE JUAN LEWIS on 11/12/2022 0956 Normal [facility] XR Spine Lumbar 4+ Views*on 11-12-2022 XR [...] JOSE JUAN LEWIS on 11/12/2022 1023 Normal [facility] Special Education Administrator MG MAMM SCREEN NIEVES W CADon 0 03-21-2018 MG MAMM SCREEN NIEVES W CAD [address] [place] [address] Patient: KAMALJIT ZAVALA Exam Date: 03/21/2018DOB: 1955 Gender:F : DR RYAN SOSA Admission #: [id number] : Order #: [id number] HERE TO VIEW EXAM RADIOLOGY REPORT PROCEDURE: [...] bile duct cancer at age 60. LOCATION: [facility] BREAST COMPOSITION: Scattered fibroglandular densities (25-50% glandular). [...] Cathie Reed M.D. on 03/21/2018 at 15:25 [facility] Encounters Encounter Date Encounter Type Care Provider Facility Start: 01-09-2024 End: 01-09-2024 ambulatory NATALIE GALLEGOS [facility] Start: 11-17-2023 End: 11-17-2023 ambulatory RYAN SOSA [facility] Start: 11-11-2023 End: 11-11-2023 ambulatory SKYLAR NÚÑEZ Not Available Start: 11-10-2023 End: 11-10-2023 [facility] Start: 11-10-2023 End: 11-10-2023 ambulatory VIJAYA [facility] Start: 11-04-2023 End: 11-04-2023 ambulatory VIJAYA [facility] Start: 11-04-2023 Encounter for prepro cedural cardiovascular examination [facility] Start: 10-07-2023 End: 10-07-2023 [facility] Start: 09-01-2023 End: 09-01-2023 ambulatory SUSAN MINER Not Available Start: 08-02-2023 End: 08-02-2023 ambulatory SKYLAR NÚÑEZ Not Available Start: 07-18-2023 Telephone encounter Neva Low SENIOR PROGRAM MANAGER [facility] Comment on above: EP Surgery Start: 06-08-2023 End: 06-08-2023 ambulatory KAMALJIT ORR Not Available Start: 05-18-2023 End: 05-18-2023 ambulatory SUSAN MINER Not Available Start: 09-07-2021 Patient encounter status Neva torres LPN [facility] [facility] Work Phone: Start: 03-21-2018 End: 03-22-2018 Patient encounter [facility] Facility:H1 Plan of Treatment Date Care Activity Detail Author Start: 11-16-2025 DTaP,Tdap and Td Vaccines (2 - Td or Tdap) DTaP,Tdap and Td Vaccines (2 - Td or Tdap) [facility] Start: 02-05-2024 Adult BMI Screening Adult BMI Screening [facility] Start: 10-26-2023 Tobacco Screening Tobacco Screening [facility] Start: 03-04-2023 COVID-19 Vaccine ( season) COVID-19 Vaccine ( season) [facility] Start: 03-04-2023 Influenza vaccination Influenza Vaccine [facility] Start: 12-03-2022 Administration of varicella zoster vaccine Zoster (Shingles) Vaccine (2 of 2) [facility] Start: 2021 Fall Risk Screening Fall Risk Screening [facility] Start: 1974 Adult BMI Follow Up Plan Adult BMI Follow Up Plan [facility] Start: 1968 Depression Screening Depression Screening [facility] Start: 1955 Medicare Annual Wellness Visit Medicare Annual Wellness Visit [facility] Immunizations Immunization Date Immunization Notes Care Provider Fa cility 10-08-2022 influenza virus vacc ine, unspecified formulation Neva Low LPN [facility] 10-08-2022 zoster vaccine, unspecified formulation [facility] Payers Date Payer Category Payer Medicare [id number] 2021 Medicare ANTHEM MEDICARE [facility] MEDICARE ADVANTAGE [id number] 2021-Present [phone] [id number] [place] [address] [id number] 2021 Medicare [id number] 1955 Unknown [id number] 1956 Unknown [id number] 2.16.840.1.811571.3.579.2.1286 1956 Unknown [id number] 2.16.840.1.333844.3.579.2.1286 1956 Unknown [id number] 2.16.840.1.631365.3.579.2.1259 1956 Unknown [id number] 2.16.840.1.039489.3.579.2.1259 1956 Unknown [id number] 2.16.840.1.632519.3.579.2.1259 1956 Unknown [id number] 2.16.840.1.587795.3.579.2.1259 1956 Unknown [id number] 2.16.840.1.768333.3.579.2.1259 1956 Unknown [id number] 1955 Unknown [id number] 1955 Unknown [id number] 1955 Unknown [id number] Unknown [id number] Social History Date Type Detail Facility Start: 08-12-2022 Tobacco smoking stat [facility] Never smoked tobacco [facility] Start: 08-12-2022 Tobacco use and exposure Smokeless tobacco non-user [facility] Start: 02-04-2023 Alcohol intake Lifetime non-d marissa (finding) [facility] Start: 08-14-2020 End: 10-25-2022 History of Social function [facility] Start: 08-14-2020 End: 10-25-2022 Tobacco use panel [facility] Housing Instability Unknown [facility] Start: 1955 Sex Assigned At Female P [facility] Start: 08-26-2022 Gender identity Identifies as female gender (finding) [facility] Start: 08-26-2022 Sexual orientation Heterosexual (fin ding) [facility] Medical Equipment Procedure Code Equipment Code Equipment Origin al Text Equipment Identifier Dates Cement Bn Bio 40 gm Rpl [id number] - [id number] - [id number] Start: 09-15-2021 Cement Bn Bio 40 gm Rpl [id number] - [id number] Start: 08-26-2022 Surface Artc 11m m Persona 6-9 Cd Kn Lt Pe Post Stab - [id number] - [id number] Start: 09-15-2021 Surface Artc 11m m Persona 6-9 Cd Kn Rt Vivacit-E Post Stab - [id number] Start: 08-26-2022 Baseplate Tib 5d D Kn Lt Cmnt Stm Persona Tiv Strl - [id number] - [id number] Start: 09-15-2021 Baseplate Tib 5d D Kn Rt Cmnt Stm Persona Tiv Strl - [id number] Start: 08-26-2022 Goals Date Patient Goal Desired Activity /State Personal health goal Comment on above: Formatting of this n ote might be different from the original. Evaluation of progress towards goal: Current discharge plan is home with [facility] and support of spouse. - Mckenna Najera [...] other meds held. documented in this encounter [employer] Telephone encounter Note 07-18-2023 Telephone Encounter - Neva Low LPN - 07/18/2023 1:33 PM EST Note Date & Type Note Facility 07-18-2023 Telephone encount er Note [facility] Received a call from pt and she would like to proceed with ablation you discussed. Please review and advise thank you [facility] Telephone encounter Note 07-18-2023 Telephone Encounter - Vijaya Hunter MD - 07/18/2023 1:33 PM EST Note Date & Type Note Facility 07-18-2023 Telephone encounter Note Okay to schedule SVT ablation with me, next available. NPO after midnight, okay for clear 6 hours prior, MAC sedation, routine preoperative labs, CARTO EAM. Hold flecainide for 3 days prior to procedure. No other meds held. [employer] Work Phone: Instructions Note Date & Type Note Facility Instructions Not on filedocumented in this en counter [facility] Summary Purpose Family History No Family [...] content) DATE CREATED AUTHOR 04/17/2018 [facility] pitri DATE CREATED AUTHOR AUTHOR'S ORGANIZ ATION 11/13/2022 [facility] dical Specialist DATE CREATED AUTHOR AUTHOR'S ORGANIZ ATION 11/12/2023 [facility] DATE CREATED AUTHOR AUTHOR'S ORGANIZ ATION 11/13/2023 [facility] dical Specialists [facility] DATE CREATED AUTHOR AUTHOR'S ORGANIZ ATION 01/16/2024 [facility] Reason for Visit (unrecogniz ed section and content) Reason Onset Date Comments EP Surgery 07/18/2023 Care Teams (unrecognized sec tion and content) 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 [employer] [facility]. provides no warranty or guarantee of the accuracy or completeness of information in this document.
[2024-02-07 09:00] VITALS: BP 131/82; PULSE 69; TEMP 36.4; O2SAT 98
[2024-02-07 09:27] VITALS: BP 138/88; PULSE 74; O2SAT 95
[2024-02-07 09:29] VITALS: BP 139/88; PULSE 72; O2SAT 93
[2024-02-07] MEDS: METHYLPREDNISOLONE ACETATE 40 MG/ML VIAL INJ (09:41)
[2024-02-07] MEDS: BUPIVACAINE HCL 0.25% PF 25 MG/10 ML VIAL 4 ML INJ (09:41)
[2024-02-07] MEDS: LIDOCAINE HCL 2% 400 MG/20 ML MDV 11 ML INJ (09:41)
--- NOTE | 2024-02-07 09:44 | W.PM.PROCNOT ---
Date of procedure: 02/07/24 Pre-op diagnosis: Lumbar spondylosis Post-op diagnosis: same as pre-op Procedure: Right Lumbar 4/5, 5/sacral 1 Radiofrequency ablation Under fluoroscopic guidance Rhizotomy was created using radio frequency ablation at 80?C for 90 seconds 1 to 2 lesions created at each site. Post lesioning injection of 2 mL each of 0.25% Marcaine and 2% lidocaine with Depo-Medrol 40mg. 0.5 to 1 mL injected at each site IV in place no If Intravenous fluids: NS at KVO Anesthesia local 2% lidocaine for Anesthesia Other: local Timeout process compliant After informed consent obtained.Patient brought to the procedure room placed in the prone position skin overlying the area was prepped and draped in a sterile fashion using betadine. 25 gauge needle was used to create a skin wheal over each of the targeted areas utilizing 2% lidocaine. A rhizotomy needle with a 10 mm active tip was inserted over each of the anesthetized areas and directed towards each of the medial branches accomplished under fluoroscopic guidance. after encountering the same we had positive sensory stimulation, negative motor stimulation was noted. lesions were then created. Post lesioning, steroid solution was injected needles removed. Patient was transferred to recovery room in stable condition to be discharged home after meeting criteria. Anesthesia: Local Surgeon: Jerry Concepcion Condition: stable
== END 2024-02-07 09:47 | disposition home or self-care (01) ==
LOC: SURGOUT 08:52
PROVIDERS: Visit Provider Anesthesiology Pain Medicine
DX: M47.816 Spondylosis without myelopathy or radiculopathy, lumbar region (principal)
CPT/HCPCS: 64635; 64636; J0665; J1010

== ENCOUNTER 2024-03-14 13:59 | Outpatient (OUT) | payer OTHER, SELFPAY ==
--- NOTE | 2024-03-14 15:27 | PM.CN ---
Consult Note: HPI Data of Consult Patient: known to practice within the last 3 years Requesting Physician: Guerda Reyes NP Primary Care Provider: Non-Staff Physician, MD Consult Narrative Narrative: She is a 68-year-old female, reports having pain over the last one and a half years. It occurred spontaneously and increased gradually to its present state. She now has 5-7/10 pain which is sharp, burning in character, increased with activities such as standing and walking and performing transitioning maneuvers. She feels most comfortable in the semi-recumbent position. Denies any change in bowel and bladder habits. Since her symptoms started, she has been undergoing a home supervised exercise program. She has undergone activity modification. She is intolerant to nonsteroidal agents and has been using nabumetone and Flexeril to help control pain symptoms, as well as Tylenol intermittently. Her TIO on today?s visit was 33%. She has also been undergoing physical therapy in [place] for her current pain symptoms. Recently underwent lumbar MRI which is consistent with multilevel degenerative changes and disc degeneration, most significant at L5-S1 with broad based disc herniation. Continues to have moderate to severe intermittent axial low back pain. Today pain 7/10, increasing to 10/10 riding in the car and standing for extended periods of time. Most recent right and left L4-5 L5-S1 rfa providing 30% improvement ongoing. patient noticing increase in left buttock and leg pain as well as sharp shock pains in LLE. pt has a hx of lumbar radiculopathy that responds well the L5-S1 PRATIK, >50% improvement for 3 months from prior injection. cc:: CC: Guerda Reyes NP Review of Systems ROS Status of ROS 10 or more systems reviewed and unremarkable except as noted in history and below Musculoskeletal Reports: back pain and extremity pain PFSH PFSH Medical History Acid reflux ?K21.9 - Gastro-esophageal reflux disease without esophagitis (ICD-10) Irregular heart beat ?I49.9 - Cardiac arrhythmia, unspecified (ICD-10) Surgical History History of repair of left rotator cuff ?Z98.890 - Other specified postprocedural states (ICD-10) History of total left knee replacement ?Z96.652 - Presence of left artificial knee joint (ICD-10) History of total right knee replacement ?Z96.651 - Presence of right artificial knee joint (ICD-10) History of section ?Z98.891 - History of uterine scar from previous surgery (ICD-10) Meds Home Medications and Allergies Home Medications ?Medication ?Instructions ?Recorded ?Confirmed ?Type multivitamin 1 tab PO DAILY 11/02/23 02/07/24 History nabumetone 500 mg tablet 500 mg PO BID 11/02/23 02/07/24 History omega-3 fatty acids 500 mg PO DAILY 11/02/23 02/07/24 History omeprazole 20 mg capsule,delayed 20 mg PO DAILY 11/02/23 02/07/24 History release glucosamine-chondroitin 500 mg-400 1 cap PO DAILY 12/01/23 02/07/24 History mg capsule biotin 1 mg capsule 1 mg PO DAILY 12/06/23 02/07/24 History lactobacillus combination no.4 3 3,000 mmu cells PO DAILY 12/06/23 02/07/24 History billion cell capsule (Probiotic) cyclobenzaprine 10 mg tablet 10 mg PO BID #180 tabs 12/14/23 02/07/24 Rx gabapentin 100 mg capsule 100 mg PO BEDTIME #30 caps 12/22/23 02/07/24 Rx diazepam 10 mg tablet (Valium) 10 mg PO ONCE PRN sedation 01/31/24 02/07/24 History Allergies Allergy/AdvReac Type Severity Reaction Status Date / Time Sulfa (Sulfonamide Allergy Unknown Hives Verified 02/07/24 09:05 Antibiotics) Exam Constitutional Documenting provider has reviewed patient's vital signs: yes Common normals: no apparent distress, oriented x3, healthy appearing, alert and well nourished General appearance: cooperative [facility] Common normals: normocephalic, hearing grossly normal bilaterally and moist oral mucous membranes Head and scalp: normocephalic Eye Common normals: PERRL Pupil: PERRL Neck & C-Spine Common normals: full ROM General: normal visual inspection Chest Common normals: inspection of chest normal Respiratory Common normals: normal respiratory effort, no retractions and no use of accessory muscles Back & Pelvis Lumbar spine/lower back: ROM limited, pain with ROM and straight leg raise positive left Sacroiliac joints: SI joint(s) abnormal Other: left positive wilfredo(patricks), gaenslens, thigh thrust, compression test decreased sensation following left L4,5 and S1 pattern strength 5/5 in BLE Extremity Common normals: normal to inspection and full ROM Neuro Common normals: oriented x3, CN's II-XII intact bilaterally, moves all extremities, no focal motor deficits, no sensory deficits noted and deep tendon reflexes 2+ bilaterally Sensorium/orientation: alert Motor exam: strength 5/5 throughout and no movement abnormalities noted Psych Common normals: mental status grossly normal, thought process normal, cooperative, affect normal, speech normal and activity/motor behavior normal Speech: normal speech Thought process: normal thought process Results Additional Findings Additional findings: If on a controlled substance or opioids, I have checked an [place] report on this patient and there are no aberrancies noted in the prescribing history.??If on a controlled substance or opioid a drug screen was completed and reviewed within the last year, and if there has not been a drug screen completed we ordered one today to monitor higher risk, state monitored pain medication use. As part of providing excellent, safe, comprehensive care, the following was completed at our patient's visit: 1. A medication reconciliation and review to ensure accurate knowledge of current/active medications, including asking our patients to inform us about any [id number] medications or herbal remedies/nutritional supplements/alternative remedies. 2. A review to specifically ensure our patients have had annual screening for screening for depression, screening for tobacco use, and screening for unhealthy alcohol use. For concerning screenings had a discussion with the patient, provided patient education, and recommended follow-up with primary care provider when appropriate. If patient noted with a risk of falling, they received education on strength, gait, and balance training to prevent future risk of falling. Assessment and Plan Assessment and Plan (1) Lumbar radiculopathy: (2) Lumbar degenerative disc disease: (3) Lumbar spondylosis: (4) Myofascial pain: Plan at this time increase flexeril 10mg TID PRN pain spasms increase gabapentin 100mg BID repeat L5-S1 PRATIK under fluoroscopy, previous l5-s1 PRATIK provided >50% improvement greater than 3 months, risks vs benefits reviewed handicap plaque provided as patient is not able to walk more than 150 feet without severe pain f/u 2 weeks after PRATIK
== END 2024-03-14 14:00 | disposition home or self-care (01) ==
LOC: PM 13:59
PROVIDERS: Visit Provider Nurse Practitioner
DX: M54.16 Radiculopathy, lumbar region (principal); M51.36 Other intervertebral disc degeneration, lumbar region; M47.816 Spondylosis without myelopathy or radiculopathy, lumbar region; M79.18 Myalgia, other site
CPT/HCPCS: G0463

== ENCOUNTER 2024-04-03 07:56 | Day surgery (SDC) | payer OTHER, SELFPAY ==
--- OUTSIDE RECORDS SUMMARY | 2024-04-03 08:02 | XMS_ITS | CCD ---
Author Organization [facility] Care Team Providers Care Technical Programs Manager Name Role Phone HOUSE, RYAN Unavailable Unavailable HOUSE, RYAN Unavailable Unavailable HOUSE, RYAN Unavailable Unavailable CATHIE REED V Unavailable Unavailable HOUSE, RYAN Unavailable Unavailable House Ryan PERERA Primary Care Provider VIJAYA HUNTER Admitting Unavailable VIJAYA HUNTER Attending Unavailable HOUSE, RYAN Montalvo Primary Care Unavailable FEROZ COOK Attending Unavailable WONDERLY, NATALIE B Primary Care Unavailable SUSAN MINER Attending Unavailable NIYA, SKYLAR Pacheco Attending Unavailable KAMALJIT ORR Attending Unavailable RUSHER, SUSAN Pacheco Attending Unavailable NIYA, SKYLAR Pacheco Attending Unavailable SKYLAR NÚÑEZ Referring Unavailable WONDERLY, NATALIE B Primary Care Unavailable VIJAYA HUNTER Referring Unavailable WONDERLY, NATALIE B Primary Care Unavailable IAN, RYAN Montalvo Referring Unavailable WONDERLY, NATALIE B Primary Care Unavailable WONDERLY, NATALIE B Referring Unavailable WONDERLY, NATALIE B Primary Care Unavailable VIJAYA HUNTER Attending Unavailable HOUSERYAN Referring Unavailable WONDERLY, NATALIE B Primary Care Unavailable VIJAYA HUNTER Attending Unavailable VIJAYA HUNTER Referring Unavailable WONDERLY, NATALIE B Primary Care Unavailable Allergies Allergy Classification Reported Allergen(s) Allergy Type Date of Onset Reaction(s) Facility (3 sources) Sulfonamides (Antibiotic); Translations: [SULFA (SULFONAMIDE ANTIBIOTICS)] Propensity to adverse reactions to drug 1 Rash [facility] Medications Current Medications Medication Drug Class(es) [...] (500 mg total) before bedtime. 0 Active SROU1-IHK-ZNE-FISH OIL-L.CASEI ORAL (1 source) take 1 capsule by mouth once daily CHWV9-QHR-CLY-FISH OIL-L.CASEI ORAL Take 1 capsule by mouth [...] [SVT (supraventricular tachycardia)] Onset: 05-01-2021 05-01-2021 Chronic Cardiac dysrhythmias (5 sources) Palpitations; Translations: [Palpitations] Onset: 02-27-2021 02-27-2021 [...] knee joint] Onset: 09-30-2021 09-30-2021 Chronic Other lower respiratory disease (2 sources) Dyspnea; Translations: [Shortness of breath] Onset: 02-27-2021 02-27-2021 Episodic Other nutritional; endocrine; and metabolic disorders [...] NEOPLASM OTH ORGN/SYS] Onset: 04-03-2018 Episodic Unclassified (2 sources) Supraventricular tachycardia, unspecified; Translations: [Supraventricular tachycardia, unspecified] Onset: 07-20-2023 Unclassified (1 source) Rapid Heart Rate Onset: 11-17-2023 Past or Other Problems Problem Classification Problem Date Documented Da te Episodic/Chronic Genitourinary symptoms and ill-defined conditions (1 source) [...] [Pain in left toe(s)] Onset: 10-07-2023 Episodic Syncope (1 source) Vasovagal syncope; Translations: [...] Peterson MD on 01/10/2024 1:35 PM Normal [facility] BASIC METABOLIC PANLon 11-03 Anion gap [Moles/Vol] 9 mmol/L Normal 5-15 [facility] Comment on above: Performed By: #### C TRU DE LA GARZA, #### [facility] ([id number]) [address], [address] [place] [address] Calcium [Mass/Vol] 9.4 mg/dL Normal 8.5-10.5 [facility] Comment on above: Performed By: #### C TRU DE LA GARZA, #### [facility] ([id number]) [address], [address] [place] [address] Chloride [Moles/Vol] 102 mmol/L Normal 98-109 [facility] Comment on above: Performed By: #### TRU Sousa BCA, #### [facility] ([id number]) [address], [address] [place] [address] CO2 [Moles/Vol] 28 mmol/L Normal 22-32 [facility] Comment on above: Performed By: #### TRU Sousa BCA, #### [facility] ([id number]) [address], [address] [place] [address] Creatinine [Mass/Vol] 0.79 mg/dL Normal 0.40-1.00 [facility] Comment on above: Result Comment: METH OD TRACEABLE TO IDMS STANDARD Performed By: #### TRU Sousa BCA, #### [facility] ([id number]) [address], [address] [place] [address] GFR/1.73 sq M.predicted among non-blacks MDRD (S/P/Bld) [Vol rate/Area] 82 mL/min/{1.73_m2} Normal >59 [facility] Comment on above: Result Comment: Reported eGFR is based on the CKD-EPI 2020 equation that does not use a race coefficient. Performed By: #### TRU Sousa BCA, #### [facility] ([id number]) [address], [address] [place] [address] Glucose [Mass/Vol] 80 mg/dL Normal 65-99 [facility] Comment on above: Performed By: #### Lars DE LA GARZA [facility], 22616-7 #### [facility] ([id number]) [address], [address] [place] [address] Potassium [Moles/Vol] 3.9 mmol/L Normal 3.5-5.0 [facility] Comment on above: Performed By: #### TRU Sousa BCA, 22277-6 #### [facility] ([id number]) [address], [address] [place] [address] Sodium [Moles/Vol] 139 mmol/L Normal 134-146 [facility] Comment on above: Performed By: #### TRU Sousa BCA, #### [facility] ([id number]) [address], [address] [place] [address] Urea nitrogen [Mass/Vol] 12 mg/dL Normal 5-27 [facility] Comment on above: Performed By: #### TRU Sousa BCA, #### [facility] ([id number]) [address], [address] [place] [address] CBC AND AUTO DIFFon 11-04-19 24 ABSOLUTE BASOPHIL 0.0 X10E9/L Normal 0.0-0.2 [facility] Comment on above: Performed By: #### TRU Sousa BCA, #### [facility] ([id number]) [address], [address] [place] [address] ABSOLUTE NEUTROPHIL 5.9 X10E9/L Normal 1.5-6.[address] [facility] Comment on above: Performed By: #### TRU Sousa BCA, #### [facility] ([id number]) [address], [address] [place] [address] Basophils/100 WBC (Bld) 0.4 % Normal [facility] Comment on above: Performed By: #### TRU Sousa BCA, #### [facility] ([id number]) [address], [facility] [address] [place] [address] Eosinophils (Bld) [#/Vol] 0.2 10*3/uL Normal 0.0-0.4 [facility] Comment on above: Performed By: #### TRU Sousa BCA, #### [facility] ([id number]) [address], [facility] [address] [place] [address] Eosinophils/100 WBC (Bld) 1.8 % Normal [facility] Comment on above: Performed By: #### TRU Sousa BCA, #### [facility] ([id number]) [address], [facility] [address] [place] [address] Erythrocyte distribution width (RBC) [Ratio] 14.0 % Normal 11.5-15.0 [facility] Comment on above: Performed By: #### TRU Sousa BCA, #### [facility] ([id number]) [address], [facility] [address] [place] [address] Hematocrit (Bld) [Volume fraction] 40.4 % Normal 35-47 [facility] Comment on above: Performed By: #### TRU Sousa BCA, #### [facility] ([id number]) [address], [facility] [address] [place] [address] Hemoglobin (Bld) [Mass/Vol] 13.7 g/dL Normal 11.7-15.5 [facility] Comment on above: Performed By: #### TRU Sousa BCA, #### [facility] ([id number]) [address], [facility] [address] [place] [address] Lymphocytes (Bld) [#/Vol] 1.7 10*3/uL Normal 1.0-3.5 [facility] Comment on above: Performed By: #### TRU Sousa BCA, #### [facility] ([id number]) [address], [address] [place] [address] Lymphocytes/100 WBC (Bld) 20.5 % Normal [facility] Comment on above: Performed By: #### TRU Sousa BCA, #### [facility] ([id number]) [address] [place] [address] MCH (RBC) [Entitic mass] 32.4 pg Normal 27-34 [facility] Comment on above: Performed By: #### TRU Sousa BCA, #### [facility] ([id number]) [address], [address] [place] [address] MCHC (RBC) [Mass/Vol] 34.0 g/dL Normal 32-36 [facility] Comment on above: Performed By: #### TRU Sousa BCA, #### [facility] ([id number]) [address], [address] [place] [address] MCV (RBC) [Entitic vol] 95 fL Normal 80-100 [facility] Comment on above: Performed By: #### TRU Sousa BCA, #### [facility] ([id number]) [address], [address] [place] [address] Monocytes (Bld) [#/Vol] 0.7 10*3/uL Normal 0-0.9 [facility] Comment on above: Performed By: #### TRU Sousa BCA, #### [facility] ([id number]) [address], [address] [place] [address] Monocytes/100 WBC (Bld) 7.9 % Normal [facility] Comment on above: Performed By: #### TRU Suosa BCA, #### [facility] ([id number]) [address], [address] [place] [address] Neutrophils/100 WBC (Bld) 69.4 % Normal [facility] Comment on above: Performed By: #### TRU Sousa BCA, #### [facility] ([id number]) [address], [facility] [address] [place] [address] Platelet mean volume (Bld) [Entitic vol] 8.1 fL Normal 7-12 [facility] Comment on above: Performed By: #### TRU Sousa BCA, #### [facility] ([id number]) [address], [facility] [address] [place] [address] Platelets (Bld) [#/Vol] 262 10*3/uL Normal 150-450 [facility] Comment on above: Performed By: #### TRU Sousa BCA, #### [facility] ([id number]) [address] [address] [place] [address] RBC COUNT 4.24 X10E12/L Normal 3.80-5.20 [facility] Comment on above: Performed By: #### TRU Sousa BCA, #### [facility] ([id number]) [address] [address] [place] [address] WBC (Bld) [#/Vol] 8.5 10*3/uL Normal 4.0-11.0 [facility] Comment on above: Performed By: #### TRU Sousa BCA, #### [facility] ([id number]) [address] [address] [place] [address] MAGNESIUMon 11-04-2023 Magnesium [Mass/Vol] 1.8 mg/dL Normal 1.8-2.6 [facility] Comment on above: Performed By: #### TRU Sousa BCA, #### [facility] ([id number]) [address], [address] [place] [address] COMPLETE BLOOD COUNTon 10-06 Erythrocyte distribution width (RBC) [Ratio] 14.1 % Normal 11.5-15.0 [facility] Comment on above: Performed By: #### Lars BC, [facility], 99631-3, 3084-1, THYR #### [facility] ([id number]) [address], [address] [place] [address] Hematocrit (Bld) [Volume fraction] 41.0 % Normal 35-47 [facility] Comment on above: Performed By: #### Lars BC, [facility], 68874-4, 3084-, THYR #### [facility] ([id number]) [address], [facility] [address] [place] [address] Hemoglobin (Bld) [Mass/Vol] 13.7 g/dL Normal 11.7-15.5 [facility] Comment on above: Performed By: #### Lars IRENE, [facility], 53390-8, 4-, THYR #### [facility] ([id number]) [address], [address] [place] [address] MCH (RBC) [Entitic mass] 32.1 pg Normal 27-34 [facility] Comment on above: Performed By: #### Lars BC, CMP, 75788-3, 3083-, THYR #### [facility] ([id number]) [address], [address] [place] [address] MCHC (RBC) [Mass/Vol] 33.5 g/dL Normal 32-36 [facility] Comment on above: Performed By: #### Lars BC, CMP, 30852-7, 3084-1, THYR #### [facility] ([id number]) [address], [address] [place] [address] MCV (RBC) [Entitic vol] 96 fL Normal 80-100 [facility] Comment on above: Performed By: #### C BC, CMP, 30393-9, 3084-1, THYR #### [facility] ([id number]) [address], [address] [place] [address] Platelet mean volume (Bld) [Entitic vol] 7.9 fL Normal 7-12 [facility] Comment on above: Performed By: #### C BC, CMP, 34325-4, 3084-1, THYR #### [facility] ([id number]) [address], [facility] [address] [place] [address] Platelets (Bld) [#/Vol] 240 10*3/uL Normal 150-450 [facility] Comment on above: Performed By: #### Lars BC, CMP, 74518-2, 3084-1, THYR #### [facility] ([id number]) [address], [address] [place] [address] RBC COUNT 4.29 X10E12/L Normal 3.80-5.20 [facility] Comment on above: Performed By: #### Lars BC, CMP, 13600-4, 3084-1, THYR #### [facility] ([id number]) [address] [address] [place] [address] WBC (Bld) [#/Vol] 4.2 10*3/uL Normal 4.0-11.0 [facility] Comment on above: Performed By: #### C BC, CMP, 86798-7, 3084-1, THYR #### [facility] ([id number]) [address], [facility] [address] [place] [address] COMPREHENSIVE METABOLIC PANE Perfecto 10-07-2023 Albumin [Mass/Vol] 4.2 g/dL Normal 3.2-5.3 [facility] Comment on above: Performed By: #### C BC, CMP, 68417-6, 3084-1, THYR #### [facility] ([id number]) [address], [address] [place] [address] ALP [Catalytic activity/Vol] 69 U/L Normal 39-130 [facility] Comment on above: Performed By: #### C BC, CMP, 27497-3, 3084-1, THYR #### [facility] ([id number]) [address], [address] [place] [address] ALT [Catalytic activity/Vol] 22 U/L Normal 0-31 [facility] Comment on above: Performed By: #### C BC, CMP, 84816-4, 3084-1, THYR #### [facility] ([id number]) [address], [address] [place] [address] Anion gap [Moles/Vol] 6 mmol/L Normal 5-15 [facility] Comment on above: Performed By: #### Lars BC, CMP, 49559-8, 3084-1, THYR #### [facility] ([id number]) [address], [address] [place] [address] AST [Catalytic activity/Vol] 24 U/L Normal 0-41 [facility] Comment on above: Performed By: #### Lars BC, CMP, 01659-1, 3084-1, THYR #### [facility] ([id number]) [address], [address] [place] [address] Bilirubin [Mass/Vol] 0.5 mg/dL Normal 0.3-1.2 [facility] Comment on above: Performed By: #### C BC, CMP, 41151-2, 3084-1, THYR #### [facility] ([id number]) [address], [address] [place] [address] Calcium [Mass/Vol] 9.3 mg/dL Normal 8.5-10.5 [facility] Comment on above: Performed By: #### C BC, CMP, 81554-7, 3084-1, THYR #### [facility] ([id number]) [address], [address] [place] [address] Chloride [Moles/Vol] 103 mmol/L Normal 98-109 [facility] Comment on above: Performed By: #### C BC, CMP, 22065-2, 3084-1, THYR #### [facility] ([id number]) [address], [address] [place] [address] CO2 [Moles/Vol] 31 mmol/L Normal 22-32 [facility] Comment on above: Performed By: #### C BC, CMP, 19211-2, 3084-1, THYR #### [facility] ([id number]) [address], [address] [place] [address] Creatinine [Mass/Vol] 0.72 mg/dL Normal 0.40-1.00 [facility] Comment on above: Result Comment: METH OD TRACEABLE TO IDMS STANDARD Performed By: #### C BC, [facility], 43786-1, 3084-1, THYR #### [facility] ([id number]) [address], [address] [place] [address] eGFR (CKD-EPI) NON-RACE DEPENDENT >90 Normal >59 [facility] Comment on above: Result Comment: Reported eGFR is based on the CKD-EPI 2020 equation that does not use a race coefficient. Performed By: #### C BC, CMP, 50092-7, 3084-1, THYR #### [facility] ([id number]) [address], [address] [place] [address] Glucose [Mass/Vol] 77 mg/dL Normal 65-99 [facility] Comment on above: Performed By: #### C BC, CMP, 25921-0, 3084-1, THYR #### [facility] ([id number]) [address], [address] [place] [address] Potassium [Moles/Vol] 3.9 mmol/L Normal 3.5-5.0 [facility] Comment on above: Performed By: #### Lars BC, [facility], 16897-4, 3084-1, THYR #### [facility] ([id number]) [address], [address] [place] [address] Protein [Mass/Vol] 6.9 g/dL Normal 6.0-8.0 [facility] Comment on above: Performed By: #### Lars BC, [facility], 16436-5, 3084-1, THYR #### [facility] ([id number]) [address], [address] [place] [address] Sodium [Moles/Vol] 140 mmol/L Normal 134-146 [facility] Comment on above: Performed By: #### Lars BC, [facility], 02489-8, 3084-1, THYR #### [facility] ([id number]) [address], [address] [place] [address] Urea nitrogen [Mass/Vol] 13 mg/dL Normal 5-27 [facility] Comment on above: Performed By: #### Lars BC, [facility], 98218-2, 3084-1, THYR #### [facility] ([id number]) [address], [address] [place] [address] Lipid 1996 panelon 4 Cholesterol [Mass/Vol] 197 mg/dL Normal 150-200 [facility] Comment on above: Performed By: #### Lars BC, [facility], 46147-1, 3084-1, THYR #### [facility] ([id number]) [address], [address] [place] [address] Cholesterol in HDL [Mass/Vol] 76 mg/dL Normal >39 [facility] Comment on above: Result Comment: HDL <40 mg/dL - High Risk HDL > or = 40mg/dL- Desirable HDL >60 mg/dL - Negative Risk Performed By: #### Lars BC, [facility], 48508-2, 3084-1, THYR #### [facility] ([id number]) [address] [place] [address] Cholesterol in LDL [Mass/Vol] 108 mg/dL Normal <130 [facility] Comment on above: Result Comment: LDL <100 mg/dL - Desirable LDL >160 mg/dL - High Risk Performed By: ###Deborah Sousa BC, [facility], 10818-2, 3084-1, THYR #### [facility] ([id number]) [address] [place] [address] Cholesterol in VLDL [Mass/Vol] 13 mg/dL Normal 0-30 [facility] Comment on above: Performed By: ###Deborah Sousa BC, [facility], 37481-4, 3084-1, THYR #### [facility] ([id number]) [address] [place] [address] CHOLESTEROL:HDL 2.6 Normal 1.0-5.0 [facility] Comment on above: Performed By: #### Lars BC, [facility], 84806-0, 3084-1, THYR #### [facility] ([id number]) [address], [address] [place] [address] Triglyceride [Mass/Vol] 65 mg/dL Normal 27-150 [facility] Comment on above: Performed By: ###Deborah Sousa BC, CMP, 26852-8, 3084-1, THYR #### [facility] ([id number]) [address], [address] [place] [address] THYROID PROFILEon 10-07-2023 Free T4 [Mass/Vol] 1.05 ng/dL Normal 0.61-1.60 [facility] Comment on above: Performed By: #### C MARIA VICTORIA, [facility], 80459-9, 3084-1, THYR #### [facility] ([id number]) [address], [address] [place] [address] TSH 1.03 uIU/mL Normal 0.49-4.67 [facility] Comment on above: Performed By: #### C , [facility], 86470-4, 3084-1, THYR #### [facility] ([id number]) [address], [address] [place] [address] URIC ACIDon 10-07-2023 Urate [Mass/Vol] 6.4 mg/dL Normal 2.6-7.2 [facility] Comment on above: Performed By: #### C , [facility], 19073-2, 3084-1, THYR #### [facility] ([id number]) [address], [address] [place] [address] URINALYSISon 10-07-2023 Bilirubin Ql (U) Negative Normal NEG [facility] BLOOD/HGB Negative Normal NEG [facility] Color (U) YELLOW Normal YELLOW [facility] Glucose Ql (U) Negative Normal NEG [facility] Ketones Ql (U) Negative Normal NEG [facility] Leukocyte esterase Test strip Ql (U) Negative Normal NEG [facility] MUCOUS PRESENT Abnormal NONE [facility] Nitrite Ql (U) Negative Normal NEG [facility] pH (U) 8.0 [pH] Normal 5.0-8.5 [facility] Protein Ql (U) Negative Normal NEG [facility] R.B.CELLS 1 /hpf Normal 0-5 [facility] Specific gravity (U) [Rel density] 1.013 Normal 1.003-1.035 [facility] SQUAMOUS EPITHELIUM <1 Normal 0-5 [facility] TURBIDITY HAZY Abnormal CLEAR [facility] Urobilinogen (U) [Mass/Vol] mg/dL Normal <1.1 [facility] W.B.CELLS 0 /hpf Normal 0-5 [facility] XR Hip Bilateral w/Pelvison 11-12-2022 XR Hip Bilateral w/Pelvis COMPARISON: NONE. PELVIS FINDINGS: There are no lytic or sclerotic bone lesions. The femoral heads are located. There is no acute fracture or subluxation. There are no radiopaque foreign bodies. IMPRESSION: There are no acute osseous changes. Report reported and signed by JOSE JUAN LEWIS on 11/12/2022 0956 Normal [facility] [employer] XR Spine Lumbar 4+ Views*on 11-12-2022 XR [...] JOSE JUAN LEWIS on 11/12/2022 1023 Normal [facility] [employer] MG MAMM SCREEN NIEVES W CADon 0 03-21-2018 MG MAMM SCREEN NIEVES W [address] [place] [address] Patient: KAMALJIT ZAVALA Exam Date: 03/21/2018DOB: 1955 Gender:F : DR RYAN SOSA Admission #: [id number] : Order #: [id number] HERE TO VIEW EXAM RADIOLOGY REPORT PROCEDURE: [...] bile duct cancer at age 60. LOCATION: [facility] BREAST COMPOSITION: Scattered fibroglandular densities (25-50% [...] Cathie Reed M.D. on 03/21/2018 at 15:25 [facility] Encounters Encounter Date Encounter Type Care Provider Facility Start: 03-16-2024 End: 03-16-[address] [facility] Start: 02-22-2024 End: 02-22-2024 [facility] VIJAYA [facility] Start: 01-09-2024 End: 01-09-[address] [facility] Start: 11-17-2023 End: 11-17-[address] [facility] Start: 11-11-2023 End: 11-11-2023 ambulatory SKYLAR NÚÑEZ Not Available Start: 11-10-2023 End: 11-10-2023 ambulatory FEROZ Al[place] [facility] Start: 11-10-2023 End: 11-10-2023 ambulatory VIJAYA [facility] Start: 11-04-2023 End: 11-04-[address] [facility] Start: 11-04-2023 Encounter for prepro cedural cardiovascular examination SKYLAR [facility] Start: 10-07-2023 End: 10-07-2023 [place]ulatory [place] [facility] Start: 09-01-2023 End: 09-01-2023 ambulatory SUSAN MINER Not Available Start: 08-02-2023 End: 08-02-2023 ambulatory SKYLAR NÚÑEZ Not Available Start: 07-18-2023 Telephone encounter Neva Low LPN [facility] Comment on above: EP Surgery Start: 06-08-2023 End: 06-08-2023 ambulatory KAMALJIT ORR Not Available Start: 05-18-2023 End: 05-18-2023 ambulatory SUSAN MINER Not Available Start: 09-07-2021 Patient encounter status Neva Hawa torres LPN [facility] Work Phone: Start: 03-21-2018 End: 03-22-2018 Patient encounter [facility] Facility: Procedures Date Procedure Procedure Detail Performing Clinician Start: 02-22-2024 Follow-up visit Follow-up VIJAYA HUNTER Plan of Treatment Date Care Activity Detail Author Start: 11-16-2025 DTaP,Tdap and Td Vaccines (2 - Td or Tdap) DTaP,Tdap and Td Vaccines (2 - Td or Tdap) [facility] Start: 02-05-2024 Adult BMI Screening Adult BMI Screening [facility] Start: 10-26-2023 Tobacco Screening Tobacco Screening [facility] Start: 03-04-2023 COVID-19 Vaccine ( season) COVID-19 Vaccine ( season) [facility] Start: 03-04-2023 Influenza vaccination Influenza Vaccine [facility] Start: 12-03-2022 Administration of varicella zoster vaccine Zoster (Shingles) Vaccine (2 of 2) [facility] Start: 2021 Fall Risk Screening Fall Risk Screening [facility] Start: 1974 Adult BMI Follow Up Plan Adult BMI Follow Up Plan [facility] Start: 1968 Depression Screening [facility] [facility]: 1955 Medicare Annual Wellness Visit Medicare Annual Wellness Visit [facility] Immunizations Immunization Date Immunization Notes Care Provider Fa cility 10-08-2022 influenza virus vacc ine, unspecified formulation Neva Low LPN [facility] 10-08-2022 zoster vaccine, unspecified formulation Neva Low LPN [facility] Payers Date Payer Category Payer Medicare [id number] 2021 Medicare ANTH MEDICARE ANTHEM MEDICARE ADVANTAGE [id number] 2021-Present [phone] [address] [place] [address] [id number] 2021 Medicare [id number] 1955 Unknown [id number] 2.16.840.1.442690.3.579.2.1286 1956 Unknown [id number] 2.16.840.1.355623.3.579.2.128 1956 Unknown [id number] 2.16.840.1.662901.3.579.2.1286 1956 Unknown [id number] 2.16.840.1.115568.3.579.2.1258 1956 Unknown [id number] 2.16.840.1.157173.3.579.2.9 1956 Unknown [id number] 2.16.840.1.335287.3.579.2.1258 1956 Unknown [id number] 2.16.840.1.222995.3.579.2.1259 1956 Unknown [id number] 2.16.840.1.631437.3.579.2.125 1956 Unknown [id number] 2.16.840.1.543999.3.579.2.1286 1956 Unknown [id number] 2.16.840.1.779812.3.579.2.128 1956 Unknown [id number] 2.16.840.1.375255.3.579.2.128 1956 Unknown [id number] 2.16.840.1.283501.3.579.2.1285 1956 Unknown [id number] 2.16.840.1.736200.3.579.2.1286 1956 Unknown [id number] 2.16.840.1.162280.3.579.2.1286 Unknown [id number] Social History Date Type Detail Facility Start: 08-12-2022 Tobacco smoking stat us NHIS Never smoked tobacco [facility] Start: 08-12-2022 Tobacco use and exposure Smokeless tobacco non-user [facility] Start: 02-04-2023 Alcohol intake Lifetime non-d marissa (finding) [facility] Start: 08-14-2020 End: 10-25-2022 History of Social function [facility] Start: 08-14-2020 End: 10-25-2022 Tobacco use panel [facility] Housing Instability Unknown [facility] Start: 1955 Sex Assigned At Female P [facility] Start: 08-26-2022 Gender identity Identifies as female gender (finding) [facility] Start: 08-26-2022 Sexual orientation Heterosexual (susanne mason) [facility] Medical Equipment Procedure Code Equipment Code Equipment Origin al Text Equipment Identifier Dates Cement Bn Bio 40 gm Rpl [id number] - [id number] - [id number] Start: 09-15-2021 Cement Bn Bio 40 gm Rpl [id number] - [id number] Start: 08-26-2022 Surface Artc 11m m Persona 6-9 Cd Kn Lt Pe Post Stab - [id number] - [id number] Start: 09-15-2021 Surface Artc 11m m Persona 6-9 Cd Kn Rt Vivacit-E Post Stab - [id number] Start: 08-26-2022 Baseplate Tib 5d D Kn Lt Cmnt Stm Persona Tiv Strl - [id number] - [id number] Start: 09-15-2021 Baseplate Tib 5d D Kn Rt Cmnt Stm Persona Tiv Strl - [id number] Start: 08-26-2022 Goals Date Patient Goal Desired Activity /State Personal health goal Comment on above: Formatting of this n ote might be different from the original. Evaluation of progress towards goal: Current discharge plan is home with [facility] and support of spouse. - Mckenna Najera RN 09/15/21 12:29 PM Note 07-18-2023 Telephone Encounter - Neva Low LPN - 07/18/2023 1:33 PM ESTTelephone Encounter - Vijaya Hunter MD - 07/18/2023 1:33 PM EST Note Date & Type Note Facility 07-18-2023 Miscellaneous Notes Formattin g of this note might be different from the original. RO Received a call from pt and she would like to proceed with ablation you discussed. Please review and advise thank you Okay to schedule SVT ablation with me, next available. NPO after midnight, okay for clear 6 hours prior, MAC sedation, routine preoperative labs, CARTO EAM. Hold flecainide for 3 days prior to procedure. No other meds held. [facility] Note 07-18-2023 Telephone Encounter - Neva Low LPN - 07/18/2023 1:33 PM EST Note Date & Type Note Facility 07-18-2023 Telephone encount er Note RO Received a call from pt and she would like to proceed with ablation you discussed. Please review and advise [facility] you [facility] Tele[facility] encounter Note 07-18-2023 Telephone Encounter - Vijaya Hunter MD - 07/18/2023 1:33 PM EST Note Date & Type Note Facility 07-18-2023 Telephone encounter Note Okay to schedule SVT ablation with me, next available. NPO after midnight, okay for clear 6 hours prior, MAC sedation, routine preoperative labs, CARTO EAM. Hold flecainide for 3 days prior to procedure. No other meds held. [email or web address] Work Phone: Instructions Note Date & Type Note Facility Instructions Not on filedocumented in this en counter [facility] Summary Purpose Family History No Family [...] and content) DATE CREATED AUTHOR 04/17/2018 [facility] DATE CREATED AUTHOR AUTHOR'S ORGANIZ ATION 11/13/2022 [facility] dical Specialist DATE CREATED AUTHOR AUTHOR'S ORGANIZ ATION 11/12/2023 [facility] DATE CREATED AUTHOR AUTHOR'S ORGANIZ ATION 11/13/2023 [facility] dical Specialists EPIC DATE CREATED AUTHOR AUTHOR'S ORGANIZ ATION 03/18/2024 [facility] Reason for Visit (unrecogniz ed section and content) Reason Onset Date Comments EP Surgery 07/18/2023 Care Teams (unrecognized sec tion and content) 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 [facility] [employer] [facility]. provides no warranty or guarantee of the accuracy or completeness of information in this document.
[2024-04-03 08:13] VITALS: BP 135/93; PULSE 90; TEMP 36.3; O2SAT 97
[2024-04-03 08:57] VITALS: BP 137/89; PULSE 86; O2SAT 92
[2024-04-03 09:00] VITALS: BP 131/82; PULSE 83; O2SAT 91
[2024-04-03] MEDS: 0.9 % SODIUM CHLORIDE 10 ML SYRINGE - SALINE FLUSH 2 ML INJ (09:03)
[2024-04-03] MEDS: BUPIVACAINE HCL 0.25% PF 25 MG/10 ML VIAL 2 ML INJ (09:03)
[2024-04-03] MEDS: IOHEXOL 240 MG/ML - 10 ML VIAL 24 MG INJ (09:03)
[2024-04-03] MEDS: METHYLPREDNISOLONE ACETATE 80 MG/ML VIAL INJ (09:04)
[2024-04-03] MEDS: LIDOCAINE HCL 2% PF 100 MG/5 ML VIAL 1 ML INJ (09:04)
--- NOTE | 2024-04-03 09:42 | P.ON_ITS ---
Date of procedure: 04/03/24 Pre-op diagnosis: Lumbar radiculopathy Post-op diagnosis: same as pre-op Procedure: Lumbar 5/sacral 1 Epidural Steroid Injection Under fluoroscopic guidance Immediate complications none Solution used for injection: Marcaine 0.25% 2mL, 2cc Normal saline, Depo-Medrol 80mg Omnipaque 3 mL Anesthesia local 2% lidocaine up to 4ml Timeout process compliant After informed consent obtained. Patient brought to the procedure room placed in the prone position. Skin overlying the area was prepped and draped in a sterile fashion using betadine. 25 gauge needle used to raise a skin wheel with local anesthetic over the target area identified under fluoroscopy. A 17 gauge Touhy needle Was inserted over the anesthetized area and directed towards the inter- space under fluoroscopic guidance. Epidural space was identified with loss of resistance technique to air. Needle Tip placement confirmed with injection of contrast solution in AP and Lateral views. Steroid solution was then injected. Anesthesia: Local Surgeon: Jerry Concepcion Condition: stable
== END 2024-04-03 09:07 | disposition home or self-care (01) ==
LOC: SURGOUT 07:57
PROVIDERS: Visit Provider Anesthesiology Pain Medicine
DX: M54.16 Radiculopathy, lumbar region (principal)
CPT/HCPCS: 62323; J0665; J1010; Q9966

== ENCOUNTER 2024-04-12 14:03 | Outpatient (OUT) | payer OTHER, SELFPAY ==
--- OUTSIDE RECORDS SUMMARY | 2024-04-12 14:19 | XMS_ITS | CCD ---
Author Organization [facility] Care Team Providers Care Monitoring Manager Name Role Phone HOUSE, RYAN Unavailable [...] (500 mg total) before bedtime. 0 Active [id number]-JID-CSN-FISH OIL-L.CASEI ORAL (1 source) take 1 capsule by mouth once daily OKCX8-JIZ-EVW-FISH OIL-L.CASEI ORAL Take 1 capsule by mouth [...] 0.3%. IMPRESSION: Negative exam. Finalized by Tio Peetrson MD on 01/10/2024 1:35 PM Normal [facility] BASIC METABOLIC PANLon 11-03 Anion gap [Moles/Vol] 9 mmol/L Normal 5-15 [facility] Comment on above: Performed By: #### C TRU DE LA GARZA, #### [facility] ([id number]) [address], [address] [place] [address] Calcium [Mass/Vol] 9.4 mg/dL Normal 8.5-10.5 [facility] Comment on above: Performed By: #### C TRU DE LA GARZA, #### [facility] ([id number]) [address], [address] [place] [address] Chloride [Moles/Vol] 102 mmol/L Normal 98-109 [facility] Comment on above: Performed By: #### TRU Sousa BCA, #### [facility] ([id number]) [address], [address] [place] [address] CO2 [Moles/Vol] 28 mmol/L Normal 22-32 [facility] Comment on above: Performed By: #### TRU Sousa BCA, #### [facility] ([id number]) [address], [address] [place] [address] Creatinine [Mass/Vol] 0.79 mg/dL Normal 0.40-1.00 [facility] Comment on above: Result Comment: METH OD TRACEABLE TO IDMS STANDARD Performed By: #### TRU Sousa BCA, #### [facility] ([id number]) [address], [address] [place] [address] GFR/1.73 sq M.predicted among non-blacks MDRD (S/P/Bld) [Vol rate/Area] 82 mL/min/{1.73_m2} Normal >59 [facility] Comment on above: Result Comment: Reported eGFR is based on the CKD-EPI 2020 equation that does not use a race coefficient. Performed By: #### TRU Sousa BCA, #### [facility] ([id number]) [address], [address] [place] [address] Glucose [Mass/Vol] 80 mg/dL Normal 65-99 [facility] Comment on above: Performed By: #### Lars DE LA GARZA [facility], 60553-5 #### [facility] ([id number]) [address], [address] [place] [address] Potassium [Moles/Vol] 3.9 mmol/L Normal 3.5-5.0 [facility] Comment on above: Performed By: #### TRU Sousa BCA, 44714-4 #### [facility] ([id number]) [address] [place] [address] Sodium [Moles/Vol] 139 mmol/L Normal 134-146 [facility] Comment on above: Performed By: #### TRU Sousa BCA, #### [facility] ([id number]) [address], [address] [place] [address] Urea nitrogen [Mass/Vol] 12 mg/dL Normal 5-27 [facility] Comment on above: Performed By: #### TRU Sousa BCA, #### [facility] ([id number]) [address] [place] [address] CBC AND AUTO DIFFon 11-04-19 24 ABSOLUTE BASOPHIL 0.0 X10E9/L Normal 0.0-0.2 [facility] Comment on above: Performed By: #### TRU Sousa BCA, #### [facility] ([id number]) [address], [address] [place] [address] ABSOLUTE NEUTROPHIL 5.9 X10E9/L Normal 1.5-6.6 [facility] Comment on above: Performed By: #### TRU Sousa BCA, #### [facility] ([id number]) [address], [address] [place] [address] Basophils/100 WBC (Bld) 0.4 % Normal [facility] Comment on above: Performed By: #### TRU Sousa BCA, #### [facility] ([id number]) [address], [facility] [address] [place] [address] Eosinophils (Bld) [#/Vol] 0.2 10*3/uL Normal 0.0-0.4 [facility] Comment on above: Performed By: #### TRU Sousa BCA, #### [facility] ([id number]) [address], [facility] [address] [place] [address] Eosinophils/100 WBC (Bld) 1.8 % Normal [facility] Comment on above: Performed By: #### TRU Sousa BCA, #### [facility] ([id number]) [address], [facility] [address] [place] [address] Erythrocyte distribution width (RBC) [Ratio] 14.0 % Normal 11.5-15.0 [facility] Comment on above: Performed By: #### TRU Sousa BCA, #### [facility] ([id number]) [address], [facility] [address] [place] [address] Hematocrit (Bld) [Volume fraction] 40.4 % Normal 35-47 [facility] Comment on above: Performed By: #### TRU Sousa BCA, #### [facility] ([id number]) [address], [facility] [address] [place] [address] Hemoglobin (Bld) [Mass/Vol] 13.7 g/dL Normal 11.7-15.5 [facility] Comment on above: Performed By: #### TRU Sousa BCA, #### [facility] ([id number]) [address], [facility] [address] [place] [address] Lymphocytes (Bld) [#/Vol] 1.7 10*3/uL Normal 1.0-3.5 [facility] Comment on above: Performed By: #### TRU Sousa BCA, #### [facility] ([id number]) [address], [address] [place] [address] Lymphocytes/100 WBC (Bld) 20.5 % Normal [facility] Comment on above: Performed By: #### TRU Sousa BCA, #### [facility] ([id number]) [address], [address] [place] [address] MCH (RBC) [Entitic mass] 32.4 pg Normal 27-34 [facility] Comment on above: Performed By: #### TRU Sousa BCA, #### [facility] ([id number]) [address], [address] [place] [address] MCHC (RBC) [Mass/Vol] 34.0 g/dL Normal 32-36 [facility] Comment on above: Performed By: #### TRU Sousa BCA, #### [facility] ([id number]) [address], [address] [place] [address] MCV (RBC) [Entitic vol] 95 fL Normal 80-100 [facility] Comment on above: Performed By: #### TRU Sousa BCA, #### [facility] ([id number]) [address], [address] [place] [address] Monocytes (Bld) [#/Vol] 0.7 10*3/uL Normal 0-0.9 [facility] Comment on above: Performed By: #### TRU Sousa BCA, #### [facility] ([id number]) [address], [address] [place] [address] Monocytes/100 WBC (Bld) 7.9 % Normal [facility] Comment on above: Performed By: #### TRU Sousa BCA, #### [facility] ([id number]) [address], [address] [place] [address] Neutrophils/100 WBC (Bld) 69.4 % Normal [facility] Comment on above: Performed By: #### TRU Sousa BCA, #### [facility] ([id number]) [address], [facility] [address] [place] [address] Platelet mean volume (Bld) [Entitic vol] 8.1 fL Normal 7-12 [facility] Comment on above: Performed By: #### TRU Sousa BCA, #### [facility] ([id number]) [address], [facility] [address] [place] [address] Platelets (Bld) [#/Vol] 262 10*3/uL Normal 150-450 [facility] Comment on above: Performed By: #### TRU Sousa BCA, #### [facility] ([id number]) [address] [address] [place] [address] RBC COUNT 4.24 X10E12/L Normal 3.80-5.20 [facility] Comment on above: Performed By: #### TRU Sousa BCA, #### [facility] ([id number]) [address] [address] [place] [address] WBC (Bld) [#/Vol] 8.5 10*3/uL Normal 4.0-11.0 [facility] Comment on above: Performed By: #### TRU Sousa BCA, #### [facility] ([id number]) [address] [address] [place] [address] MAGNESIUMon 11-04-2023 Magnesium [Mass/Vol] 1.8 mg/dL Normal 1.8-2.6 [facility] Comment on above: Performed By: #### TRU Sousa BCA, #### [facility] ([id number]) [address], [address] [place] [address] COMPLETE BLOOD COUNTon 10-06 Erythrocyte distribution width (RBC) [Ratio] 14.1 % Normal 11.5-15.0 [facility] Comment on above: Performed By: #### Lars BC, [facility], 05489-9, 3084-1, THYR #### [facility] ([id number]) [address], [address] [place] [address] Hematocrit (Bld) [Volume fraction] 41.0 % Normal 35-47 [facility] Comment on above: Performed By: #### Lars BC, [facility], 43561-2, 3084-, THYR #### [facility] ([id number]) [address], [facility] [address] [place] [address] Hemoglobin (Bld) [Mass/Vol] 13.7 g/dL Normal 11.7-15.5 [facility] Comment on above: Performed By: #### Lars IRENE, [facility], 34847-2, 4-, THYR #### [facility] ([id number]) [address], [address] [place] [address] MCH (RBC) [Entitic mass] 32.1 pg Normal 27-34 [facility] Comment on above: Performed By: #### Lars BC, CMP, 43077-6, 3083-, THYR #### [facility] ([id number]) [address], [address] [place] [address] MCHC (RBC) [Mass/Vol] 33.5 g/dL Normal 32-36 [facility] Comment on above: Performed By: #### Lars BC, CMP, 49249-1, 3084-1, THYR #### [facility] ([id number]) [address], [address] [place] [address] MCV (RBC) [Entitic vol] 96 fL Normal 80-100 [facility] Comment on above: Performed By: #### C BC, CMP, 25567-5, 3084-1, THYR #### [facility] ([id number]) [address], [address] [place] [address] Platelet mean volume (Bld) [Entitic vol] 7.9 fL Normal 7-12 [facility] Comment on above: Performed By: #### C BC, CMP, 69620-7, 3084-1, THYR #### [facility] ([id number]) [address], [facility] [address] [place] [address] Platelets (Bld) [#/Vol] 240 10*3/uL Normal 150-450 [facility] Comment on above: Performed By: #### Lars BC, CMP, 25006-1, 3084-1, THYR #### [facility] ([id number]) [address], [address] [place] [address] RBC COUNT 4.29 X10E12/L Normal 3.80-5.20 [facility] Comment on above: Performed By: #### Lars BC, CMP, 15340-1, 3084-1, THYR #### [facility] ([id number]) [address] [address] [place] [address] WBC (Bld) [#/Vol] 4.2 10*3/uL Normal 4.0-11.0 [facility] Comment on above: Performed By: #### C BC, CMP, 47075-1, 3084-1, THYR #### [facility] ([id number]) [address], [facility] [address] [place] [address] COMPREHENSIVE METABOLIC PANE Perfecto 10-07-2023 Albumin [Mass/Vol] 4.2 g/dL Normal 3.2-5.3 [facility] Comment on above: Performed By: #### C BC, CMP, 17769-5, 3084-1, THYR #### [facility] ([id number]) [address], [address] [place] [address] ALP [Catalytic activity/Vol] 69 U/L Normal 39-130 [facility] Comment on above: Performed By: #### C BC, CMP, 57571-3, 3084-1, THYR #### [facility] ([id number]) [address], [address] [place] [address] ALT [Catalytic activity/Vol] 22 U/L Normal 0-31 [facility] Comment on above: Performed By: #### C BC, CMP, 76595-3, 3084-1, THYR #### [facility] ([id number]) [address], [address] [place] [address] Anion gap [Moles/Vol] 6 mmol/L Normal 5-15 [facility] Comment on above: Performed By: #### Lars BC, CMP, 86688-9, 3084-1, THYR #### [facility] ([id number]) [address], [address] [place] [address] AST [Catalytic activity/Vol] 24 U/L Normal 0-41 [facility] Comment on above: Performed By: #### Lars BC, CMP, 80677-8, 3084-1, THYR #### [facility] ([id number]) [address], [address] [place] [address] Bilirubin [Mass/Vol] 0.5 mg/dL Normal 0.3-1.2 [facility] Comment on above: Performed By: #### C BC, CMP, 67114-0, 3084-1, THYR #### [facility] ([id number]) [address], [address] [place] [address] Calcium [Mass/Vol] 9.3 mg/dL Normal 8.5-10.5 [facility] Comment on above: Performed By: #### C BC, CMP, 56881-1, 3084-1, THYR #### [facility] ([id number]) [address], [address] [place] [address] Chloride [Moles/Vol] 103 mmol/L Normal 98-109 [facility] Comment on above: Performed By: #### C BC, CMP, 41296-2, 3084-1, THYR #### [facility] ([id number]) [address], [address] [place] [address] CO2 [Moles/Vol] 31 mmol/L Normal 22-32 [facility] Comment on above: Performed By: #### C BC, CMP, 51352-0, 3084-1, THYR #### [facility] ([id number]) [address], [address] [place] [address] Creatinine [Mass/Vol] 0.72 mg/dL Normal 0.40-1.00 [facility] Comment on above: Result Comment: METH OD TRACEABLE TO IDMS STANDARD Performed By: #### C BC, [facility], 33713-1, 3084-1, THYR #### [facility] ([id number]) [address], [address] [place] [address] eGFR (CKD-EPI) NON-RACE DEPENDENT >90 Normal >59 [facility] Comment on above: Result Comment: Reported eGFR is based on the CKD-EPI 2020 equation that does not use a race coefficient. Performed By: #### C BC, CMP, 66707-9, 3084-1, THYR #### [facility] ([id number]) [address], [address] [place] [address] Glucose [Mass/Vol] 77 mg/dL Normal 65-99 [facility] Comment on above: Performed By: #### C BC, CMP, 46095-9, 3084-1, THYR #### [facility] ([id number]) [address], [address] [place] [address] Potassium [Moles/Vol] 3.9 mmol/L Normal 3.5-5.0 [facility] Comment on above: Performed By: #### Lars BC, [facility], 23572-1, 3084-1, THYR #### [facility] ([id number]) [address], [address] [place] [address] Protein [Mass/Vol] 6.9 g/dL Normal 6.0-8.0 [facility] Comment on above: Performed By: #### Lars BC, [facility], 02152-5, 3084-1, THYR #### [facility] ([id number]) [address], [address] [place] [address] Sodium [Moles/Vol] 140 mmol/L Normal 134-146 [facility] Comment on above: Performed By: #### Lars BC, [facility], 23304-0, 3084-1, THYR #### [facility] ([id number]) [address], [address] [place] [address] Urea nitrogen [Mass/Vol] 13 mg/dL Normal 5-27 [facility] Comment on above: Performed By: #### Lars BC, [facility], 56081-4, 3084-1, THYR #### [facility] ([id number]) [address], [address] [place] [address] Lipid 1996 panelon 4 Cholesterol [Mass/Vol] 197 mg/dL Normal 150-200 [facility] Comment on above: Performed By: #### Lars BC, [facility], 04036-1, 3084-1, THYR #### [facility] ([id number]) [address], [address] [place] [address] Cholesterol in HDL [Mass/Vol] 76 mg/dL Normal >39 [facility] Comment on above: Result Comment: HDL <40 mg/dL - High Risk HDL > or = 40mg/dL- Desirable HDL >60 mg/dL - Negative Risk Performed By: #### Lars BC, [facility], 64969-9, 3084-1, THYR #### [facility] ([id number]) [address], [address] [place] [address] Cholesterol in LDL [Mass/Vol] 108 mg/dL Normal <130 [facility] Comment on above: Result Comment: LDL <100 mg/dL - Desirable LDL >160 mg/dL - High Risk Performed By: ###Deborah Sousa BC, [facility], 42791-9, 3084-1, THYR #### [facility] ([id number]) [address], [address] [place] [address] Cholesterol in VLDL [Mass/Vol] 13 mg/dL Normal 0-30 [facility] Comment on above: Performed By: ###Deborah Sousa BC, [facility], 85524-0, 3084-1, THYR #### [facility] ([id number]) [address], [address] [place] [address] CHOLESTEROL:HDL 2.6 Normal 1.0-5.0 [facility] Comment on above: Performed By: #### Lars BC, [facility], 82626-7, 3084-1, THYR #### [facility] ([id number]) [address], [address] [place] [address] Triglyceride [Mass/Vol] 65 mg/dL Normal 27-150 [facility] Comment on above: Performed By: ###Deborah Sousa BC, CMP, 07386-6, 3084-1, THYR #### [facility] ([id number]) [address], [address] [place] [address] THYROID PROFILEon 10-07-2023 Free T4 [Mass/Vol] 1.05 ng/dL Normal 0.61-1.60 [facility] Comment on above: Performed By: #### C MARIA VICTORIA, [facility], 98083-2, 3084-1, THYR #### [facility] ([id number]) [address], [address] [place] [address] TSH 1.03 uIU/mL Normal 0.49-4.67 [facility] Comment on above: Performed By: #### C , [facility], 04762-6, 3084-1, THYR #### [facility] ([id number]) [address], [address] [place] [address] URIC ACIDon 10-07-2023 Urate [Mass/Vol] 6.4 mg/dL Normal 2.6-7.2 [facility] Comment on above: Performed By: #### C , [facility], 96561-8, 3084-1, THYR #### [facility] ([id number]) [address], [address] [place] [address] URINALYSISon 10-07-2023 Bilirubin Ql (U) Negative Normal NEG [facility] BLOOD/HGB Negative Normal NEG [facility] Color (U) YELLOW Normal YELLOW [facility] Glucose Ql (U) Negative Normal NEG [facility] Ketones Ql (U) Negative Normal NEG [facility] Leukocyte esterase Test strip Ql (U) Negative Normal NEG [facility] MUCOUS PRESENT Abnormal NONE [facility] Nitrite Ql (U) Negative Normal NEG [facility] pH (U) 8.0 [pH] Normal 5.0-8.5 [facility] Protein Ql (U) Negative Normal NEG [facility] R.B.CELLS 1 /hpf Normal 0-5 [facility] Specific gravity (U) [Rel density] 1.013 Normal 1.003-1.035 [facility] SQUAMOUS EPITHELIUM <1 Normal 0-5 [facility] TURBIDITY HAZY Abnormal CLEAR [facility] Urobilinogen (U) [Mass/Vol] mg/dL Normal <1.1 [facility] W.B.CELLS 0 /hpf Normal 0-5 [facility] XR Hip Bilateral w/Pelvison 11-12-2022 XR Hip Bilateral w/Pelvis COMPARISON: NONE. PELVIS FINDINGS: There are no lytic or sclerotic bone lesions. The femoral heads are located. There is no acute fracture or subluxation. There are no radiopaque foreign bodies. IMPRESSION: There are no acute osseous changes. Report reported and signed by JOSE JUAN LEWIS on 11/12/2022 0956 Normal [facility] XR Spine Lumbar 4+ Views*on 11-12-2022 XR [...] JOSE JUAN LEWIS on 11/12/2022 1023 Normal [facility] MG MAMM SCREEN NIEVES W CADon 0 03-21-2018 MG MAMM SCREEN NIEVES W [address] [place] [address] Patient: KAMALJIT ZAVALA Exam Date: 03/21/2018DOB: 1955 Gender:F : DR RYAN SOSA Admission #: [id number] : Order #: [id number] HERE TO VIEW EXAM RADIOLOGY REPORT PROCEDURE: [...] bile duct cancer at age 60. LOCATION: [facility] BREAST COMPOSITION: Scattered fibroglandular densities (25-50% [...] Cathie Reed M.D. on 03/21/2018 at 15:25 [facility] Encounters Encounter Date Encounter Type Care Provider Facility Start: 03-16-2024 End: 03-16-2024 ambulatory VIJAYA [facility] Start: 02-22-2024 End: 02-22-2024 [facility] VIJAYA [facility] Start: 01-09-2024 End: 01-09-2024 ambulatory NATALIE GALLEGOS [facility] Start: 11-17-2023 End: 11-17-2023 ambulatory RYAN SOSA [facility] Start: 11-11-2023 End: 11-11-2023 ambulatory SKYLAR NÚÑEZ Not Available Start: 11-10-2023 End: 11-10-2023 ambulatory FEROZ Alton [facility] Start: 11-10-2023 End: 11-10-2023 ambulatory VIJAYA [facility] Start: 11-04-2023 End: 11-04-2023 ambulatory VIJAYA [facility] Start: 11-04-2023 Encounter for prepro cedural cardiovascular examination SKYLAR [facility] Start: 10-07-2023 End: 10-07-2023 ambulatory FULTON Tara [facility] Start: 09-01-2023 End: 09-01-2023 ambulatory SUSAN MINER Not Available Start: 08-02-2023 End: 08-02-2023 ambulatory SKYLAR NÚÑEZ Not Available Start: 07-18-2023 Telephone encounter Neva Low LPN [facility] Comment on above: EP Surgery Start: 06-08-2023 End: 06-08-2023 ambulatory KAMALJIT ORR Not Available Start: 05-18-2023 End: 05-18-2023 ambulatory SUSAN MINER Not Available Start: 09-07-2021 Patient encounter status Neva Hawa torres LPN [facility] Work Phone: Start: 03-21-2018 End: 03-22-2018 Patient encounter [facility] Facility: Procedures Date Procedure Procedure Detail Performing Clinician Start: 02-22-2024 Follow-up visit Follow-up VIJAYA HUNTER Plan of Treatment Date Care Activity Detail Author Start: 11-16-2025 DTaP,Tdap and Td Vaccines (2 - Td or Tdap) DTaP,Tdap and Td Vaccines (2 - Td or Tdap) [facility] Start: 02-05-2024 Adult BMI Screening Adult BMI Screening [facility] Start: 10-26-2023 Tobacco Screening Tobacco Screening [facility] Start: 03-04-2023 COVID-19 Vaccine ( season) COVID-19 Vaccine ( season) [facility] Start: 03-04-2023 Influenza vaccination Influenza Vaccine [facility] Start: 12-03-2022 Administration of varicella zoster vaccine Zoster (Shingles) Vaccine (2 of 2) [facility] Start: 2021 Fall Risk Screening Fall Risk Screening [facility] Start: 1974 Adult BMI Follow Up Plan Adult BMI Follow Up Plan [facility] Start: 1968 Depression Screening Depression Screening [facility] Start: 1955 Medicare Annual Wellness Visit Medicare Annual Wellness Visit [facility] Immunizations Immunization Date Immunization Notes Care Provider Fa cility 10-08-2022 influenza virus vacc ine, unspecified formulation Neva Low LPN [facility] 10-08-2022 zoster vaccine, unspecified formulation Neva Low LPN [facility] Payers Date Payer Category Payer Medicare [id number] 2021 Medicare ANTH MEDICARE ANTHEM MEDICARE ADVANTAGE [id number] 2021-Present [phone] [address] [place] [address] [id number] 2021 Medicare [id number] 1955 Unknown [id number] 2.16.840.1.351119.3.579.2.1286 1955 Unknown [id number] 2.16.840.1.011894.3.579.2.128 1955 Unknown [id number] 2.16.840.1.423085.3.579.2.1286 1955 Unknown [id number] 2.16.840.1.745643.3.579.2.1258 1955 Unknown [id number] 2.16.840.1.486986.3.579.2.9 1955 Unknown [id number] 2.16.840.1.882069.3.579.2.1258 1955 Unknown [id number] 2.16.840.1.061713.3.579.2.1259 1955 Unknown [id number] 2.16.840.1.436739.3.579.2.125 1956 Unknown [id number] 2.16.840.1.636827.3.579.2.1286 1956 Unknown [id number] 2.16.840.1.457349.3.579.2.128 1956 Unknown [id number] 2.16.840.1.092221.3.579.2.128 1956 Unknown [id number] 2.16.840.1.156102.3.579.2.1285 1956 Unknown [id number] 2.16.840.1.185871.3.579.2.1286 1956 Unknown [id number] 2.16.840.1.435019.3.579.2.1286 Unknown [id number] Social History Date Type Detail Facility Start: 08-12-2022 Tobacco smoking stat us NHIS Never smoked tobacco [facility] Start: 08-12-2022 Tobacco use and exposure Smokeless tobacco non-user [facility] Start: 02-04-2023 Alcohol intake Lifetime non-d marissa (finding) [facility] Start: 08-14-2020 End: 10-25-2022 History of Social function [facility] Start: 08-14-2020 End: 10-25-2022 Tobacco use panel [facility] Housing Instability Unknown [facility] Start: 1955 Sex Assigned At Female P [facility] Start: 08-26-2022 Gender identity Identifies as female gender (finding) [facility] Start: 08-26-2022 Sexual orientation Heterosexual (susanne mason) [facility] Medical Equipment Procedure Code Equipment Code Equipment Origin al Text Equipment Identifier Dates [employer] Bio 40 gm Rpl [id number] - [id number] - [id number] Start: 09-15-2021 Cement Bn Bio 40 gm Rpl [id number] - [id number] Start: 08-26-2022 Surface Artc 11m m Persona 6-9 Cd Kn Lt Pe Post Stab - [id number] - [id number] Start: 09-15-2021 Surface Artc 11m m Persona 6-9 Cd Kn Rt Vivacit-E Post Stab - [id number] Start: 08-26-2022 Baseplate Tib 5d D Kn Lt Cmnt Stm Persona Tiv Strl - [id number] - [id number] Start: 09-15-2021 Baseplate Tib 5d D Kn Rt Cmnt Stm Persona Tiv Strl - [id number] Start: 08-26-2022 Goals Date Patient Goal Desired Activity /State Personal health goal Comment on above: Formatting of this n ote might be different from the original. Evaluation of progress towards goal: Current discharge plan is home with [facility] and support of spouse. - Mckenna [...] other meds held. [facility] this encounter [facility] Note 07-18-2023 Telephone Encounter - Neva Low LPN - 07/18/2023 1:33 PM EST Note Date & Type Note Facility 07-18-2023 Telephone encount er Note RO Received a call from pt and she would like to proceed with ablation you discussed. Please review and advise thank you [facility] Tele[facility] encounter Note 07-18-2023 Telephone Encounter - Vijaya Hunter MD - 07/18/2023 1:33 PM EST Note Date & Type Note Facility 07-18-2023 Telephone encounter Note Okay to schedule SVT ablation with me, next available. NPO after midnight, okay for clear 6 hours prior, MAC sedation, routine preoperative labs, CARTO EAM. Hold flecainide for 3 days prior to procedure. No other meds held. [employer] Work Phone: Instructions Note Date & Type [...] content) DATE CREATED AUTHOR 04/17/2018 [facility] DATE CREATED AUTHOR AUTHOR'S ORGANIZ ATION 11/13/2022 [facility] DATE CREATED AUTHOR AUTHOR'S ORGANIZ ATION 11/12/2023 [facility] DATE CREATED AUTHOR AUTHOR'S ORGANIZ ATION 11/13/2023 [facility] EPIC DATE CREATED AUTHOR AUTHOR'S ORGANIZ ATION 03/18/2024 [facility] Reason for Visit (unrecogniz ed section and content) Reason Onset Date Comments EP Surgery 07/18/2023 Care Teams (unrecognized sec tion and content) Monitoring Manager Relationship Specialty Start Date End Date Ryan Sosa DO [address] [place] [address] PCP - General 05/02/18 FOR RECORDS PERTAINING [...] BE BASED ON THE PRIMARY CLINICAL RECORDS. [facility] [employer] [facility]. provides no warranty or guarantee of the accuracy or completeness of information in this document.
--- NOTE | 2024-04-12 14:31 | P.CN_ITS ---
Consult Note: HPI Data of Consult Patient: known to practice within the last 3 years Requesting Physician: Guerda Reyes NP Primary Care Provider: Non-Staff Physician, MD Consult Narrative Narrative: She is a 68-year-old female, reports having pain over the last 2 years. It occurred spontaneously and increased gradually to its present state. She now has 5-6/10 aching in low back and hips. She feels most comfortable in the semi- recumbent position. Denies any change in bowel and bladder habits. Since her symptoms started, she has been undergoing a home supervised exercise program. She has undergone activity modification. She is intolerant to nonsteroidal agents and has been using nabumetone and Flexeril to help control pain symptoms, as well as Tylenol intermittently. Her TIO on today?s visit was 26%. Recently underwent lumbar MRI which is consistent with multilevel degenerative changes and disc degeneration, most significant at L5-S1 with broad based disc herniation. Recent L5/S1 PRATIK providing 85% improvement ongoing per pt. cc:: CC: Guerda Reyes NP Review of Systems ROS Status of ROS 10 or more systems reviewed and unremark able except as noted in history and below Musculoskeletal Reports: back pain; Denies: extremity pain PFSH PFSH Medical History Acid reflux ?K21.9 - Gastro-esophageal reflux disease without esophagitis (ICD-10) Irregular heart beat ?I49.9 - Cardiac arrhythmia, unspecified (ICD-10) Surgical History History of repair of left rotator cuff ?Z98.890 - Other specified postprocedural states (ICD-10) History of total left knee replacement ?Z96.652 - Presence of left artificial knee joint (ICD-10) History of total right knee replacement ?Z96.651 - Presence of right artificial knee joint (ICD-10) History of section ?Z98.891 - History of uterine scar from previous surgery (ICD-10) Meds Home Medications and Allergies Home Medications ?Medication ?Instructions ?Recorded ?Confirmed ?Type multivitamin 1 tab PO DAILY 11/02/23 04/03/24 History nabumetone 500 mg tablet 500 mg PO BID 11/02/23 02/07/24 History omega-3 fatty acids 500 mg PO DAILY 11/02/23 04/03/24 History omeprazole 20 mg capsule,delayed 20 mg PO DAILY 11/02/23 04/03/24 History release glucosamine-chondroitin 500 mg-400 1 cap PO DAILY 12/01/23 04/03/24 History mg capsule biotin 1 mg capsule 1 mg PO DAILY 12/06/23 04/03/24 History lactobacillus combination no.4 3 3,000 mmu cells PO DAILY 12/06/23 04/03/24 History billion cell capsule (Probiotic) cyclobenzaprine 10 mg tablet 10 mg PO BID #180 tabs 12/14/23 04/03/24 Rx diazepam 10 mg tablet (Valium) 10 mg PO ONCE PRN sedation 01/31/24 04/03/24 History gabapentin 100 mg capsule 100 mg PO BID #30 caps 03/14/24 04/03/24 Rx Allergies Allergy/AdvReac Type Severity Reaction Status Date / Time Sulfa (Sulfonamide Allergy Unknown Hives Verified 04/03/24 08:23 Antibiotics) Exam Constitutional Documenting provider has reviewed patient's vital signs: yes Common normals: no apparent distress, oriented x3, healthy appearing, alert and well nourished General appearance: cooperative HENMT Common normals: normocephalic, hearing grossly normal bilaterally and moist oral mucous membranes Head and scalp: normocephalic Eye Common normals: PERRL Pupil: PERRL Neck & C-Spine Common normals: full ROM General: normal visual inspection Chest Common normals: inspection of chest normal Respiratory Common normals: normal respiratory effort, no retractions and no use of accessory muscles Back & Pelvis Lumbar spine/lower back: lumbar ROM normal, pain with ROM and straight leg raise negative bilaterally Sacroiliac joints: SI joints normal Other: sensation intact BLE strength 5/5 in BLE Extremity Common normals: normal to inspection and full ROM Neuro Common normals: oriented x3, CN's II-XII intact bilaterally, moves all extremities, no focal motor deficits, no sensory deficits noted, deep tendon reflexes 2+ bilaterally and gait normal Sensorium/orientation: alert Motor exam: strength 5/5 throughout and no movement abnormalities noted Psych Common normals: mental status grossly normal, thought process normal, cooperative, affect normal, speech normal and activity/motor behavior normal Speech: normal speech Thought process: normal thought process Results Additional Findings Additional findings: If on a controlled substance or opioids, I have checked an [place] report on this patient and there are no aberrancies noted in the prescribing history.??If on a controlled substance or opioid a drug screen was completed and reviewed within the last year, and if there has not been a drug screen completed we ordered one today to monitor higher risk, state monitored pain medication use. As part of providing excellent, safe, comprehensive care, the following was completed at our patient's visit: 1. A medication reconciliation and review to ensure accurate knowledge of current/active medications, including asking our patients to inform us about any [id number] medications or herbal remedies/nutritional supplements/alternative remedies. 2. A review to specifically ensure our patients have had annual screening for screening for depression, screening for tobacco use, and screening for unhealthy alcohol use. For concerning screenings had a discussion with the patient, provided patient education, and recommended follow-up with primary care provider when appropriate. If patient noted with a risk of falling, they received education on strength, gait, and balance training to prevent future risk of falling. Assessment and Plan Assessment and Plan (1) Lumbar radiculopathy: (2) Lumbar degenerative disc disease: (3) Lumbar spondylosis: (4) Myofascial pain: Plan continue current medications continue HEP as tolerated f/u 3 months, sooner if needed
== END 2024-04-12 14:04 | disposition home or self-care (01) ==
LOC: PM 14:03
PROVIDERS: Visit Provider Nurse Practitioner
DX: M54.16 Radiculopathy, lumbar region (principal); M51.369 Other intervertebral disc degeneration, lumbar region without mention of lumbar back pain or lower extremity pain; M47.816 Spondylosis without myelopathy or radiculopathy, lumbar region; M79.18 Myalgia, other site
CPT/HCPCS: G0463

== ENCOUNTER 2024-07-19 14:35 | Outpatient (OUT) | payer MEDICARE, SELFPAY ==
--- NOTE | 2024-07-19 14:50 | PM.CN ---
Consult Note: HPI Data of Consult Patient: known to practice within the last 3 years Requesting Physician: Guerda Reyes NP Primary Care Provider: Non-Staff Physician, MD Consult Narrative Reason for consult: f/u Narrative: Meka Dai a pleasant 68 year old female presents for evaluation of chronic low back and hip pain with intermittent radiculopathy. Pain today 2/10 increasing to 5/10 at times. Pt has found significant benefit to interventional therapy and current medications. TIO 16%. Since last visit pt has new insurance and her flexeril is now tier 4, she would like to trial something else due to cost. cc:: CC: Guerda Reyes NP Review of Systems ROS Musculoskeletal Reports: back pain and joint pain; Denies: extremity pain PFSH PFSH Medical History Acid reflux ?K21.9 - Gastro-esophageal reflux disease without esophagitis (ICD-10) Irregular heart beat ?I49.9 - Cardiac arrhythmia, unspecified (ICD-10) Surgical History History of repair of left rotator cuff ?Z98.890 - Other specified postprocedural states (ICD-10) History of total left knee replacement ?Z96.652 - Presence of left artificial knee joint (ICD-10) History of total right knee replacement ?Z96.651 - Presence of right artificial knee joint (ICD-10) History of section ?Z98.891 - History of uterine scar from previous surgery (ICD-10) Meds Home Medications and Allergies Home Medications ?Medication ?Instructions ?Recorded ?Confirmed ?Type multivitamin 1 tab PO DAILY 11/02/23 04/03/24 History nabumetone 500 mg tablet 500 mg PO BID 11/02/23 02/07/24 History omega-3 fatty acids 500 mg PO DAILY 11/02/23 04/03/24 History omeprazole 20 mg capsule,delayed 20 mg PO DAILY 11/02/23 04/03/24 History release glucosamine-chondroitin 500 mg-400 1 cap PO DAILY 12/01/23 04/03/24 History mg capsule biotin 1 mg capsule 1 mg PO DAILY 12/06/23 04/03/24 History lactobacillus combination no.4 3 3,000 mmu cells PO DAILY 12/06/23 04/03/24 History billion cell capsule (Probiotic) cyclobenzaprine 10 mg tablet 10 mg PO BID #180 tabs 12/14/23 04/03/24 Rx diazepam 10 mg tablet (Valium) 10 mg PO ONCE PRN sedation 01/31/24 04/03/24 History gabapentin 100 mg capsule 100 mg PO BID #30 caps 03/14/24 04/03/24 Rx Allergies Allergy/AdvReac Type Severity Reaction Status Date / Time Sulfa (Sulfonamide Allergy Unknown Hives Verified 04/03/24 08:23 Antibiotics) Exam Constitutional Documenting provider has reviewed patient's vital signs: yes Common normals: no apparent distress, oriented x3, healthy appearing, alert and well nourished General appearance: cooperative HENMT Common normals: normocephalic, hearing grossly normal bilaterally and moist oral mucous membranes Head and scalp: normocephalic Eye Common normals: PERRL Pupil: PERRL Neck & C-Spine Common normals: full ROM General: normal visual inspection Chest Common normals: inspection of chest normal Respiratory Common normals: normal respiratory effort, no retractions and no use of accessory muscles Back & Pelvis Lumbar spine/lower back: ROM limited, pain with ROM, lumbar spinal tenderness and straight leg raise negative bilaterally; no paraspinal muscle tenderness and no paraspinal muscle spasm Sacroiliac joints: SI joints normal Neuro Common normals: oriented x3, CN's II-XII intact bilaterally, moves all extremities, no focal motor deficits, no sensory deficits noted and deep tendon reflexes 2+ bilaterally Sensorium/orientation: alert Motor exam: strength 5/5 throughout and no movement abnormalities noted Psych Common normals: mental status grossly normal, thought process normal, cooperative, affect normal, speech normal and activity/motor behavior normal Speech: normal speech Thought process: normal thought process Assessment and Plan Assessment and Plan (1) Lumbar spondylosis: (2) Lumbar degenerative disc disease: (3) Lumbar radiculopathy: (4) Myofascial pain: Plan dc flexeril due to cost, start baclofen 5-10mg TID PRN pain/spasms. risks vs benefits reviewed continue gabapentin 100mg BID pt requesting medrol dose pack to have on hand in case of severe acute pain while traveling out of [facility], pt to call prior to traveling continue HEP as tolerated f/u 3 months, sooner if needed
== END 2024-07-19 14:36 | disposition home or self-care (01) ==
LOC: PM 14:36
PROVIDERS: Visit Provider Nurse Practitioner
DX: M47.816 Spondylosis without myelopathy or radiculopathy, lumbar region (principal); M51.369 Other intervertebral disc degeneration, lumbar region without mention of lumbar back pain or lower extremity pain; M54.16 Radiculopathy, lumbar region; M79.18 Myalgia, other site
CPT/HCPCS: G0463

== ENCOUNTER 2024-10-17 14:18 | Outpatient (OUT) | payer MEDICARE, SELFPAY ==
--- OUTSIDE RECORDS SUMMARY | 2024-10-17 14:46 | XMS_ITS | CCD ---
Author Organization [facility] Care Team Providers Care Manager Environmental Affairs Name Role Phone HOUSE, JACQUE Unavailable Unavailable HOUSE, JACQUE Unavailable Unavailable HOUSE, JACQUE Unavailable Unavailable CATHIE REED V Unavailable Unavailable HOUSE, JACQUE Unavailable Unavailable VIJAYA ROWAN Admitting Unavailable VIJAYA ROWAN Attending Unavailable JACQUE SOSA Primary Care Unavailable FEROZ COOK Attending Unavailable ROSY, CHRISTI Brewer Primary Care Unavailable ERNA BANEGAS Referring Unavailable ROSY, CHRISTI Brewer Primary Care Unavailable VIJAYA ROWAN Referring Unavailable ROSY, CHRISTI Brewer Primary Care Unavailable JACQUE SOSA Referring Unavailable WONDERLUIS, CHRISTI Brewer Primary Care Unavailable WONDERLUIS, CHRISTI Brewer Referring Unavailable WONDERLUIS, CHRISTI Brewer Primary Care Unavailable VIJAYA ROWAN Attending Unavailable JACQEU SOSA Referring Unavailable ROSY, CHRISTI Brewer Primary Care Unavailable VIJAYA ROWAN Attending Unavailable VIJAYA ROWAN Referring Unavailable CHRISTI GALLEGOS Primary Care Unavailable Christi Gallegos MD Primary Care Provider Christi Gallegos MD Unavailable Christi Gallegos MD Unavailable Christi Gallegos MD Primary Care Provider Christi Gallegos MD Unavailable Christi Gallegos MD Unavailable CASEY GAY Attending Unavailable ERNA BANEGAS Attending Unavailable ERNA BANEGAS Attending Unavailable Allergies Allergy Classification Reported Allergen(s) Allergy Type Date of Onset Reaction(s) Facility (2 sources) Sulfonamides (Antibiotic); Translations: [SULFA (SULFONAMIDE ANTIBIOTICS)] Propensity to adverse reactions to drug (disorder) 1 [facility] (10 sources) Sulfonamides (Antibiotic) Drug Intolerance 1 Rash [facility] Medications Current Medications Medication Drug Class(es) Dates Sig (Normalized) Sig (Original) calcium citrate 600 mg and vitamin D3 (Citrical & Minerals + Vit D) 600-200 MG-UNIT tablet (10 sources) calcium citrate 600 mg and vitamin D3 (Citrical & Minerals + Vit D) 600-200 MG-UNIT tablet Orally Active cyclobenzaprine hydrochloride 10 mg oral tablet (10 sources) Muscle Relaxant Start: 11-17-2023 take 1 tablet by mouth twice daily as needed for muscle spasms cyclobenzaprine (Flexeril) 10 MG tablet Indications: Muscle spasm TAKE 1 TABLET BY MOUTH 2 TIMES A DAY NEEDED FOR MUSCLE SPASMS 60 tablet 1 11/17/2023 Active docosahexaenoic acid 120 mg / eicosapentaenoic acid 180 mg oral capsule (10 sources) omega-3 (Fish Oi l) 1000 MG capsule 1 capsule 1 (one) time each day at the same time. Active famotidine 10 mg oral tablet (12 sources) Histamine-2 Receptor Antagonist Start: 06-15-2024 End: 06-15-2024 take 1 tablet by mouth at bedtime famotidine (Pepcid) 10 MG tablet Indications: Gastroesophageal reflux disease, unspecified whether esophagitis present Take 1 tablet (10 mg) by mouth at bedtime 90 tablet 1 06/15/2024 Active take 1 tablet by mouth at bedtim e famotidine (Pepcid) 10 MG tablet Take 10 mg by mouth at bedtime. Active gabapentin 100 mg oral capsule (6 sources) Anti-epileptic Agent Start: 01-23-2024 take 1 capsule by mouth in the morning gabapentin (Neurontin) 100 MG capsule Take 100 mg by mouth in the morning. 01/23/2024 Active lysine 500 mg oral tablet (10 sources) L-lysine 500 MG tablet Orally Active magnesium oxide 200 mg oral tablet (10 sources) take 2 tablets by mouth in the morning magnesium oxide 200 MG tablet Take 2 tablets by mouth in the morning. Active nabumetone 500 mg oral tablet (13 sources) Nonsteroidal Anti-inflammatory Drug Start: 12-27-2023 End: 08-13-2024 take 1 tablet by mouth once daily at bedtime nabumetone (Relafen) 500 MG tablet Indications: Primary osteoarthritis of both knees TAKE 1 TABLET BY MOUTH EVERY MORNING AND AT BEDTIME 60 tablet 2 08/13/2024 Active omeprazole 20 mg delayed release oral capsule (11 sources) Proton Pump Inhibitor Start: 11-01-2023 End: 05-08-2024 take 1 capsule by mouth before mealtime omeprazole (PriLOSEC) [address] capsule Indications: Gastroesophageal reflux disease, unspecified whether esophagitis present Take 1 capsule (20 mg) by mouth in the morning. Take before meals. 90 capsule 1 05/08/2024 Active potassium gluconate 2.6 meq oral tablet (10 sources) Potassium Glucon ate 2.5 MEQ tablet Take 99 mg by mouth in the morning. Active vitamin a 2.4 mg oral capsule (10 sources) Vitamin A vitamin A 2400 M CG (8000 UT) capsule Take 8,000 Units by mouth in the morning. Active Completed/Discontinued Medications Medication Drug Class(es) Dates Sig (Normalized) Sig (Original) chondroitin sulfates 400 mg / glucosamine sulfate 500 mg oral tablet (6 sources) End: 06-15-2024 take 1 tablet by mouth in the morning glucosamine-chondro itin 500-400 MG tablet Take 1 tablet by mouth in the morning. 06/15/2024 Discontinued (Therapy completed) flecainide acetate 50 mg oral tablet (6 sources) Antiarrhythmic Start: 09-20-2022 End: 06-15-2024 flecainide (Tambocor) 50 MG tablet Oral for 90 Days 09/20/2022 06/15/2024 Discontinued (Therapy completed) Problems Active Problems Problem Classification Problem Date Documented Date Episodic/Chronic Cardiac dysrhythmias (14 sources) Cardiac arrhythmia, unspecified; Translations: [Supraventricular tachycardia] Onset: 05-01-2021 03-04-2023 Chronic Esophageal disorders (13 sources) Gastroesophageal reflux disease; Translations: [Gastro-esophageal reflux disease without esophagitis] Onset: 03-04-2023 05-08-2024 Chronic Genitourinary symptoms and ill-defined conditions (1 source) Stress incontinence (female) (male); Translations: [Stress incontinence (female) (male)] Onset: 10-07-2023 Chronic Mycoses (1 source) Onychomycosis due to dermatophyte ; Translations: [Tinea unguium] 09-20-2024 Episodic Osteoarthritis (13 sources) Primary gonarthrosis, bilateral; Translations: [Bilateral primary osteoarthritis of knee] Onset: 08-31-2021 09-01-2023 Chronic Other circulatory disease (2 sources) Elevated blood pressure; Translations: [Elevated blood-pressure reading, without diagnosis of hypertension] 06-15-2024 Episodic Other connective tissue disease (10 sources) History of total knee arthroplasty; Translations: [Presence of left artificial knee joint] Onset: 09-30-2021 03-04-2023 Chronic Other connective tissue disease (10 sources) Artificial knee joint present; Translations: [Presence of right artificial knee joint] Onset: 08-26-2022 07-13-2023 Chronic Other connective tissue disease (1 source) Pain in toe; Translations: [Pain in unspecified toe(s)] 09-20-2024 Episodic Other ear and sense organ disorders (10 sources) Decreased hearing ; Translations: [Unspecified hearing loss, unspecified ear] Onset: 08-02-2023 08-02-2023 Chronic Other ear and sense organ disorders (1 source) Otalgia, left ear; Translations: [Otalgia, unspecified] 05-10-2024 Episodic Other nervous system disorders (10 sources) Difficulty walking; Translations: [Difficulty in walking, not elsewhere classified] Onset: 03-04-2023 03-04-2023 Chronic Other nutritional; endocrine; and metabolic disorders (1 source) Body mass index (BMI) 34.0-34.9, adult; Translations: [Body mass index (BMI) 34.0-34.9, adult] Onset: 10-07-2023 Chronic Other skin disorders (1 source) Dystrophia unguium; Translations: [Nail dystrophy] 09-20-2024 Episodic Other upper respiratory disease (2 sources) Nasal congestion; Translations: [Nasal congestion] 06-15-2024 Episodic Other upper respiratory infections (1 source) Acute maxillary sinusitis; Translations: [Acute maxillary sinusitis, unspecified] 05-10-2024 Episodic Residual codes; unclassified (1 source) Asymptomatic menopausal state; Translations: [Asymptomatic menopausal state] Onset: 01-09-2024 Episodic Spondylosis; intervertebral disc disorders; other back problems (8 sources) Lumbar spondylosis; Translations: [Spondylosis without myelopathy or radiculopathy, lumbar region] Onset: 06-15-2024 06-15-2024 Chronic Unclassified (1 source) Family history of malignant neoplasm of other organs or systems; Translations: [FAM HX MALIG NEOPLASM OTH ORGN/SYS] Onset: 04-03-2018 Episodic Unclassified (2 sources) Supraventricular tachycardia, unspecified; Translations: [Supraventricular tachycardia, unspecified] Onset: 07-20-2023 Unclassified (1 source) Rapid Heart Rate Onset: 11-17-2023 Past or Other Problems Problem Classification Problem Date Documented Date Episodic/Chronic Cardiac dysrhythmias (20 sources) Tachycardia, unspecified; Translations: [Palpitations] Onset: 02-27-2021 03-04-2023 Episodic Genitourinary symptoms and ill-defined conditions (1 [...] in left toe(s)] Onset: 10-07-2023 Episodic Other connective tissue disease (10 sources) Pain of left upper arm; Translations: [Pain in left upper arm] Onset: 08-02-2023 08-02-2023 Episodic Other lower respiratory disease (11 sources) Shortness of breath; Translations: [Dyspnea] Onset: 02-27-2021 03-04-2023 Episodic Other nervous system disorders (10 sources) Finding related to ability to move; Translations: [Other abnormalities of gait and mobility] Onset: 08-26-2022 07-13-2023 Episodic Residual codes; unclassified (10 sources) Postmenopausal state; Translations: [Asymptomatic menopausal state] Onset: 08-02-2023 08-02-2023 Episodic Syncope (10 sources) Vasovagal syncope; Translations: [Syncope and collapse] Onset: 02-27-2021 03-04-2023 Episodic Unclassified (7 sources) Encounter for screening mammogram for malignant neoplasm of breast; Translations: [Encounter for screening for diabetes mellitus] Onset: 03-21-2018 Episodic Results Test Name Value Interpretation Reference Range [facility]il [facility] CENTRAL SKELETAL DEXA SCAN [...] Peterson MD on 01/10/2024 1:35 PM Normal [facility] BASIC METABOLIC PANLon 11-03 Anion gap [Moles/Vol] 9 mmol/L Normal 5-15 [facility] Comment on above: Performed By: #### C TRU DE LA GARZA, 68923-7 #### [facility] ([id number]) [address], [address] [place] [address] Calcium [Mass/Vol] 9.4 mg/dL Normal 8.5-10.5 [facility] Comment on above: Performed By: #### C FREDERIC BMP, 33239-5 #### [facility] ([id number]) [address], [address] [place] [address] Chloride [Moles/Vol] 102 mmol/L Normal 98-109 [facility] Comment on above: Performed By: #### C FREDERIC BMP, #### [facility] ([id number]) [address], [address] [place] [address] CO2 [Moles/Vol] 28 mmol/L Normal 22-32 [facility] Comment on above: Performed By: #### C FREDERIC BMP, #### [facility] ([id number]) [address], [address] [place] [address] Creatinine [Mass/Vol] 0.79 mg/dL Normal 0.40-1.00 [facility] Comment on above: Result Comment: METH OD TRACEABLE TO IDMS STANDARD Performed By: #### C BCA, [facility], #### [facility] ([id number]) [address], [facility] [address] [place] [address] GFR/1.73 sq M.predicted among non-blacks MDRD (S/P/Bld) [Vol rate/Area] 82 mL/min/{1.73_m2} Normal >59 [facility] Comment on above: Result Comment: Reported eGFR is based on the CKD-EPI 2020 equation that does not use a race coefficient. Performed By: #### TRU Sousa BCA, #### [facility] ([id number]) [address], [facility] [address] [place] [address] Glucose [Mass/Vol] 80 mg/dL Normal 65-99 [facility] Comment on above: Performed By: #### TRU Sousa BCA, #### [facility] ([id number]) [address], [address] [place] [address] Potassium [Moles/Vol] 3.9 mmol/L Normal 3.5-5.0 [facility] Comment on above: Performed By: #### Lars DE LA GARZA [facility], #### [facility] ([id number]) [address] [address] [place] [address] Sodium [Moles/Vol] 139 mmol/L Normal 134-146 [facility] Comment on above: Performed By: #### Lars DE LA GARZA [facility], #### [facility] ([id number]) [address] [address] [place] [address] Urea nitrogen [Mass/Vol] 12 mg/dL Normal 5-27 [facility] Comment on above: Performed By: #### Lars DE LA GARZA [facility], 87895-8 #### [facility] ([id number]) [address] [address] [place] [address] CBC AND AUTO DIFFon 11-04-19 24 ABSOLUTE BASOPHIL 0.0 X10E9/L Normal 0.0-0.2 [facility] Comment on above: Performed By: #### TUR Sousa BCA, #### [facility] ([id number]) [address], [address] [place] [address] ABSOLUTE NEUTROPHIL 5.9 X10E9/L Normal 1.5-6.6 [facility] Comment on above: Performed By: #### TRU Sousa BCA, #### [facility] ([id number]) [address], [address] [place] [address] Basophils/100 WBC (Bld) 0.4 % Normal [facility] Comment on above: Performed By: #### TRU Sousa BCA, #### [facility] ([id number]) [address], [address] [place] [address] Eosinophils (Bld) [#/Vol] 0.2 10*3/uL Normal 0.0-0.4 [facility] Comment on above: Performed By: #### TRU Sousa BCA, #### [facility] ([id number]) [address], [address] [place] [address] Eosinophils/100 WBC (Bld) 1.8 % Normal [facility] Comment on above: Performed By: #### TRU Sousa BCA, #### [facility] ([id number]) [address], [address] [place] [address] Erythrocyte distribution width (RBC) [Ratio] 14.0 % Normal 11.5-15.0 [facility] Comment on above: Performed By: #### TRU Sousa BCA, #### [facility] ([id number]) [address], [address] [place] [address] Hematocrit (Bld) [Volume fraction] 40.4 % Normal 35-47 [facility] Comment on above: Performed By: #### Lars DE LA GARZA [facility], #### [facility] ([id number]) [address], [address] [place] [address] Hemoglobin (Bld) [Mass/Vol] 13.7 g/dL Normal 11.7-15.5 [facility] Comment on above: Performed By: #### Lars DE LA GARZA [facility], #### [facility] ([id number]) [address], [facility] [address] [place] [address] Lymphocytes (Bld) [#/Vol] 1.7 10*3/uL Normal 1.0-3.5 [facility] Comment on above: Performed By: #### Lars DE LA GARZA [facility], #### [facility] ([id number]) [address], [facility] [address] [place] [address] Lymphocytes/100 WBC (Bld) 20.5 % Normal [facility] Comment on above: Performed By: #### Lars DE LA GARZA [facility], #### [facility] ([id number]) [address], [facility] [address] [place] [address] MCH (RBC) [Entitic mass] 32.4 pg Normal 27-34 [facility] Comment on above: Performed By: #### Lars DE LA GARZA [facility], #### [facility] ([id number]) [address], [address] [place] [address] MCHC (RBC) [Mass/Vol] 34.0 g/dL Normal 32-36 [facility] Comment on above: Performed By: #### TRU Sousa BCA, #### [facility] ([id number]) [address], [address] [place] [address] MCV (RBC) [Entitic vol] 95 fL Normal 80-100 [facility] Comment on above: Performed By: #### TRU Sousa BCA, #### [facility] ([id number]) [address], [address] [place] [address] Monocytes (Bld) [#/Vol] 0.7 10*3/uL Normal 0-0.9 [facility] Comment on above: Performed By: #### TRU Sousa BCA, #### [facility] ([id number]) [address], [address] [place] [address] Monocytes/100 WBC (Bld) 7.9 % Normal [facility] Comment on above: Performed By: #### Lars DE LA GARZA BMP, #### [facility] ([id number]) [address], [address] [place] [address] Neutrophils/100 WBC (Bld) 69.4 % Normal [facility] Comment on above: Performed By: #### Lars DE LA GARZA BMP, #### [facility] ([id number]) [address], [address] [place] [address] Platelet mean volume (Bld) [Entitic vol] 8.1 fL Normal 7-12 [facility] Comment on above: Performed By: #### Lars DE LA GARZA BMP, #### [facility] ([id number]) [address], [address] [place] [address] Platelets (Bld) [#/Vol] 262 10*3/uL Normal 150-450 [facility] Comment on above: Performed By: #### Lars DE LA GARZA BMP, #### [facility] ([id number]) [address], [address] [place] [address] RBC COUNT 4.24 X10E12/L Normal 3.80-5.20 [facility] Comment on above: Performed By: #### Lars DE LA GARZA BMP, #### [facility] ([id number]) [address], [address] [place] [address] WBC (Bld) [#/Vol] 8.5 10*3/uL Normal 4.0-11.0 [facility] Comment on above: Performed By: #### TRU Sousa BCA, 62804-8 #### [facility] ([id number]) [address] [address] [place] [address] MAGNESIUMon 11-04-2023 Magnesium [Mass/Vol] 1.8 mg/dL Normal 1.8-2.6 [facility] Comment on above: Performed By: #### TRU Sousa BCA, 60308-6 #### [facility] ([id number]) [address] [address] [place] [address] COMPLETE BLOOD COUNTon 10-06 Erythrocyte distribution width (RBC) [Ratio] 14.1 % Normal 11.5-15.0 [facility] Comment on above: Performed By: #### C MARIA VICTORIA CMP, 34790-8, 4-, THYR #### [facility] ([id number]) [address] [address] [place] [address] Hematocrit (Bld) [Volume fraction] 41.0 % Normal 35-47 [facility] Comment on above: Performed By: #### Lars IRENE CMP, 82466-7, 4-, THYR #### [facility] ([id number]) [address] [address] [place] [address] Hemoglobin (Bld) [Mass/Vol] 13.7 g/dL Normal 11.7-15.5 [facility] Comment on above: Performed By: #### C BC, CMP, 28991-4, 3084-1, THYR #### [facility] ([id number]) [address] [address] [place] [address] MCH (RBC) [Entitic mass] 32.1 pg Normal 27-34 [facility] Comment on above: Performed By: #### C BC, CMP, 88904-2, 3084-1, THYR #### [facility] ([id number]) [address], [address] [place] [address] MCHC (RBC) [Mass/Vol] 33.5 g/dL Normal 32-36 [facility] Comment on above: Performed By: #### C BC, CMP, 10586-1, 3084-1, THYR #### [facility] ([id number]) [address], [address] [place] [address] MCV (RBC) [Entitic vol] 96 fL Normal 80-100 [facility] Comment on above: Performed By: #### C BC, CMP, 32058-5, 3084-1, THYR #### [facility] ([id number]) [address], [address] [place] [address] Platelet mean volume (Bld) [Entitic vol] 7.9 fL Normal 7-12 [facility] Comment on above: Performed By: #### Lars BC, CMP, 15117-8, 3084-1, THYR #### [facility] ([id number]) [address], [address] [place] [address] Platelets (Bld) [#/Vol] 240 10*3/uL Normal 150-450 [facility] Comment on above: Performed By: #### C BC, CMP, 35172-5, 4-, THYR #### [facility] ([id number]) [address], [address] [place] [address] RBC COUNT 4.29 X10E12/L Normal 3.80-5.20 [facility] Comment on above: Performed By: #### C BC, CMP, 11690-2, 3084-1, THYR #### [facility] ([id number]) [address], [address] [place] [address] WBC (Bld) [#/Vol] 4.2 10*3/uL Normal 4.0-11.0 [facility] Comment on above: Performed By: #### C BC, CMP, 70925-9, 3084-1, THYR #### [facility] ([id number]) [address], [address] [place] [address] COMPREHENSIVE METABOLIC PANE Perfecto 10-07-2023 Albumin [Mass/Vol] 4.2 g/dL Normal 3.2-5.3 [facility] Comment on above: Performed By: #### C BC, CMP, 58642-8, 3084-1, THYR #### [facility] ([id number]) [address], [address] [place] [address] ALP [Catalytic activity/Vol] 69 U/L Normal 39-130 [facility] Comment on above: Performed By: #### C BC, CMP, 90393-5, 3084-1, THYR #### [facility] ([id number]) [address], [address] [place] [address] ALT [Catalytic activity/Vol] 22 U/L Normal 0-31 [facility] Comment on above: Performed By: #### C BC, CMP, 62020-9, 3084-1, THYR #### [facility] ([id number]) [address], [address] [place] [address] Anion gap [Moles/Vol] 6 mmol/L Normal 5-15 [facility] Comment on above: Performed By: #### C BC, CMP, 29385-5, 3084-1, THYR #### [facility] ([id number]) [address], [address] [place] [address] AST [Catalytic activity/Vol] 24 U/L Normal 0-41 [facility] Comment on above: Performed By: #### C BC, CMP, 81864-1, 3084-1, THYR #### [facility] ([id number]) [address], [address] [place] [address] Bilirubin [Mass/Vol] 0.5 mg/dL Normal 0.3-1.2 [facility] Comment on above: Performed By: #### C MARIA VICTORIA, [facility], 55335-4, 3084-1, THYR #### [facility] ([id number]) [address], [address] [place] [address] Calcium [Mass/Vol] 9.3 mg/dL Normal 8.5-10.5 [facility] Comment on above: Performed By: #### C MARIA VICTORIA [facility], 82294-4, 3084-1, THYR #### [facility] ([id number]) [address], [address] [place] [address] Chloride [Moles/Vol] 103 mmol/L Normal 98-109 [facility] Comment on above: Performed By: #### Lars IRENE [facility], 82533-2, 3084-1, THYR #### [facility] ([id number]) [address], [address] [place] [address] CO2 [Moles/Vol] 31 mmol/L Normal 22-32 [facility] Comment on above: Performed By: #### Lars IRENE [facility], 29354-2, 3084-1, THYR #### [facility] ([id number]) [address], [address] [place] [address] Creatinine [Mass/Vol] 0.72 mg/dL Normal 0.40-1.00 [facility] Comment on above: Result Comment: METH OD TRACEABLE TO IDMS STANDARD Performed By: #### Lars IRENE, [facility], 42449-3, 3084-1, THYR #### [facility] ([id number]) [address], [address] [place] [address] eGFR (CKD-EPI) NON-RACE DEPENDENT >90 Normal >59 [facility] Comment on above: Result Comment: Reported eGFR is based on the CKD-EPI 2020 equation that does not use a race coefficient. Performed By: #### C MARIA VICTORIA, [facility], 43997-2, 3084-1, THYR #### [facility] ([id number]) [address], [address] [place] [address] Glucose [Mass/Vol] 77 mg/dL Normal 65-99 [facility] Comment on above: Performed By: #### Lars BC, [facility], 22031-7, 3083-, THYR #### [facility] ([id number]) [address], [address] [place] [address] Potassium [Moles/Vol] 3.9 mmol/L Normal 3.5-5.0 [facility] Comment on above: Performed By: #### Lars IRENE, [facility], 20178-4, 3083-, THYR #### [facility] ([id number]) [address], [address] [place] [address] Protein [Mass/Vol] 6.9 g/dL Normal 6.0-8.0 [facility] Comment on above: Performed By: #### Lars IRENE, [facility], 81459-4, 3083-, THYR #### [facility] ([id number]) [address] [address] [place] [address] Sodium [Moles/Vol] 140 mmol/L Normal 134-146 [facility] Comment on above: Performed By: #### Lars IRENE, [facility], 32049-5, 3083-, THYR #### [facility] ([id number]) [address] [address] [place] [address] Urea nitrogen [Mass/Vol] 13 mg/dL Normal 5-27 [facility] Comment on above: Performed By: #### Lars BC, [facility], 51975-2, 3084-1, THYR #### [facility] ([id number]) [address], [address] [place] [address] Lipid 1996 panelon 4 Cholesterol [Mass/Vol] 197 mg/dL Normal 150-200 [facility] Comment on above: Performed By: #### Lars IRENE, CMP, 06613-8, 3084-1, THYR #### [facility] ([id number]) [address], [address] [place] [address] Cholesterol in HDL [Mass/Vol] 76 mg/dL Normal >39 [facility] Comment on above: Result Comment: HDL <40 mg/dL - High Risk HDL > or = 40mg/dL- Desirable HDL >60 mg/dL - Negative Risk Performed By: ###Deborah IRENE, CMP, 06565-8, 3083-, THYR #### [facility] ([id number]) [address], [address] [place] [address] Cholesterol in LDL [Mass/Vol] 108 mg/dL Normal <130 [facility] Comment on above: Result Comment: LDL <100 mg/dL - Desirable LDL >160 mg/dL - High Risk Performed By: ###Deborah IRNEE, CMP, 36120-9, 3083-, THYR #### [facility] ([id number]) [address], [address] [place] [address] Cholesterol in VLDL [Mass/Vol] 13 mg/dL Normal 0-30 [facility] Comment on above: Performed By: ###Deborah IRENE, CMP, 57529-2, 3084-1, THYR #### [facility] ([id number]) [address], [address] [place] [address] CHOLESTEROL:HDL 2.6 Normal 1.0-5.0 [facility] Comment on above: Performed By: #### C BC, [facility], 10685-5, 3084-1, THYR #### [facility] ([id number]) [address], [address] [place] [address] Triglyceride [Mass/Vol] 65 mg/dL Normal 27-150 [facility] Comment on above: Performed By: #### Lars BC, [facility], 38596-6, 3084-1, THYR #### [facility] ([id number]) [address], [address] [place] [address] THYROID PROFILEon 10-07-2023 Free T4 [Mass/Vol] 1.05 ng/dL Normal 0.61-1.60 [facility] Comment on above: Performed By: #### Lars IRENE, [facility], 45317-4, 3084-1, THYR #### [facility] ([id number]) [address], [address] [place] [address] TSH 1.03 uIU/mL Normal 0.49-4.67 [facility] Comment on above: Performed By: #### Lars BC, [facility], 68202-7, 3084-1, THYR #### [facility] ([id number]) [address], [address] [place] [address] URIC ACIDon 10-07-2023 Urate [Mass/Vol] 6.4 mg/dL Normal 2.6-7.2 [facility] Comment on above: Performed By: #### Lars BC, [facility], 89139-1, 3084-1, THYR #### [facility] ([id number]) [address], [address] [place] [address] URINALYSISon 10-07-2023 Bilirubin Ql (U) Negative Normal NEG [facility] BLOOD/HGB Negative Normal NEG [facility] Color (U) YELLOW Normal YELLOW [facility] Glucose Ql (U) Negative Normal NEG [facility] Ketones Ql (U) Negative Normal NEG [facility] Leukocyte esterase Test strip Ql (U) Negative Normal NEG [facility] MUCOUS PRESENT Abnormal NONE [facility] Nitrite Ql (U) Negative Normal NEG [facility] pH (U) 8.0 [pH] Normal 5.0-8.5 [facility] Protein Ql (U) Negative Normal NEG [facility] R.B.CELLS 1 /hpf Normal 0-5 [facility] Specific gravity (U) [Rel density] 1.013 Normal 1.003-1.035 [facility] SQUAMOUS EPITHELIUM <1 Normal 0-5 [facility] TURBIDITY HAZY Abnormal CLEAR [facility] Urobilinogen (U) [Mass/Vol] mg/dL Normal <1.1 [facility] W.B.CELLS 0 /hpf Normal 0-5 [facility] XR Hip Bilateral w/Pelvison 11-12-2022 XR Hip Bilateral w/Pelvis COMPARISON: NONE. PELVIS FINDINGS: There are no lytic or sclerotic bone lesions. The femoral heads are located. There is no acute fracture or subluxation. There are no radiopaque foreign bodies. IMPRESSION: There are no acute osseous changes. Report reported and signed by JOSE JUAN LEWIS on 11/12/2022 0956 Normal [facility] XR Spine Lumbar 4+ Views*on 11-12-2022 XR [...] JOSE JUAN LEWIS on 11/12/2022 1023 Normal [facility] Body Technician MG MAMM SCREEN NIEVES W CADon 0 03-21-2018 MG MAMM SCREEN NIEVES [address] [place] [address] Patient: MEKA ZAVALA Exam Date: 03/21/2018DOB: 1955 Gender:F : DR JACQUE Garcia IAN Admission #: [id number] : Order #: [id number] HERE TO VIEW EXAM RADIOLOGY REPORT PROCEDURE: [...] bile duct cancer at age 60. LOCATION: [facility] BREAST COMPOSITION: Scattered fibroglandular densities (25-50% [...] Cathie Reed M.D. on 03/21/2018 at 15:25 Normal [facility] Vital Signs Date Time Vital Sign Value Performing Clinician Saad demarco 09-20-2024 14:03-0400 Body height 165.1 cm Casey Gay DPM Work Phone: [facility] 09-20-2024 14:03-0400 Body mass index (BMI) [Ratio] 34.11 kg/m2 Casey Gay DPM Work Phone: [facility] 09-20-2024 14:03-0400 Body weight 92.99 kg Casey Gay DPM Work Phone: [facility] 06-15-2024 10:40-0500 Body mass index (BMI) [Ratio] 34.11 kg/m2 Erna Banegas NP Work Phone: [facility] 06-15-2024 10:40-0500 Body weight 92.99 kg Erna Banegas NP Work Phone: [facility] 06-15-2024 10:40-0500 Diastolic blood pressure 78 mm[Hg] Erna Banegas [employer] Work Phone: [facility] Comment on above: Pt BP machine in off ice - 165/94 P 83 Lt arm 157/88 P 81 06-15-2024 10:40-0500 Heart rate 84 /min Erna Banegas [employer] Work Phone: [facility] 06-15-2024 10:40-0500 Systolic blood pressure 132 mm[Hg] Erna Banegas [employer] Work Phone: [facility] Comment on above: Pt BP machine in off ice - 165/94 P 83 Lt arm 157/88 P 81 Encounters Encounter Date Encounter Type Care Provider Facility Start: 09-20-2024 End: 09-20-2024 Office outpatient visit 15 minutes Casey Gay DPM Work Phone: [facility] Comment on above: Dermatophytosis of n ail (Primary Dx); Dystrophic nail; Pain around toenail Start: 09-20-2024 End: 09-20-2024 ambulatory CASEY GAY Not Available Start: 09-20-2024 End: 09-20-2024 Bamboo flowsheet Casey Gay DPM Work Phone: [facility] Start: 09-20-2024 End: 09-20-2024 Bamboo flowsheet Casey Gay DPM Work Phone: [facility] Start: 08-23-2024 End: 08-23-2024 Telephone encounter Christi Gallegos MD Work Phone: [facility] Start: 08-13-2024 End: 08-13-2024 Refill Erna Banegas [employer] Work Phone: [facility] Comment on above: Primary osteoarthrit is of both knees Start: 06-15-2024 End: 06-15-2024 Bamboo flowsheet Erna Banegas [employer] Work Phone: [facility] Start: 06-15-2024 End: 06-15-2024 Bamboo flowsheet Erna Banegas [employer] Work Phone: [facility] Start: 06-15-2024 End: 06-15-2024 Office outpatient visit 25 minutes Erna Banegas [employer] Work Phone: [facility] Comment on above: SVT (supraventricula r tachycardia) (CMS/HCC) (Primary Dx); Palpitations; Elevated blood pressure reading; Gastroesophageal reflux disease, unspecified whether esophagitis present; Spondylosis without myelopathy or radiculopathy, lumbar region; Nasal congestion Start: 06-15-2024 End: 06-15-2024 ambulatory ERNA BANEGAS Not Available Start: 05-09-2024 End: 05-10-2024 Refill Erna Banegas [employer] Work Phone: [facility] Comment on above: Acute maxillary sinu sitis, 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; Otalgia of left ear; Primary osteoarthritis of both knees Start: 05-08-2024 End: 05-09-2024 Refill Christi Gallegos MD Work Phone: [facility] Comment on above: Gastroesophageal ref lux disease, unspecified whether esophagitis present Start: 03-16-2024 End: 03-16-2024 ambulatory VIJAYA [facility] Start: 03-12-2024 End: 03-12-2024 Refill Christi Gallegos MD Work Phone: [facility] Comment on above: Primary osteoarthrit is of both knees Start: 02-22-2024 End: 02-22-2024 ambulatory VIJAYA [facility] Start: 01-09-2024 End: 01-09-2024 ambulatory CHRISTI GALLEGOS [facility] Start: 11-17-2023 End: 11-17-2023 ambulatory JACQUE SOSA [facility] Start: 11-11-2023 End: 11-11-2023 ambulatory ERNA BANEGAS Not Available Start: 11-10-2023 End: 11-10-2023 ambulatory FEROZ COOK [facility] Start: 11-10-2023 End: 11-10-2023 ambulatory VIJAYA ROWAN [facility] Start: 11-04-2023 End: 11-04-2023 ambulatory VIJAYA ROWAN [facility] Start: 11-04-2023 Encounter for prepro cedural cardiovascular examination [facility] Start: 10-07-2023 End: 10-07-2023 ambulatory VIROQUA T[facility] Start: 03-21-2018 End: 03-22-2018 Patient encounter [facility] Facility: Procedures Date Procedure Procedure Detail Performing Clinician Start: 02-22-2024 Follow-up visit Follow-up VIJAYA ROWAN Start: 11-18-2022 Mammography Christi damico MD Work Phone: Plan of Treatment Date Care Activity Detail Author Start: 10-26-2024 End: 10-26-2024 Patient encounter procedure 10/26/2024 9:30 AM EDT Office Visit [facility] [address] [facility] [phone] Erna Banegas [employer] [address] [place] [address] [facility] Start: 10-22-2024 End: 10-22-2024 Patient encounter procedure 10/22/2024 2:30 PM EDT Office Visit [facility] [address] [facility] [place] [phone] Erna Banegas [employer] [address] [place] [address] [facility] Start: 09-20-2024 End: 09-20-2024 Patient encounter procedure 09/20/2024 2:15 PM EDT Office Visit [facility] [address] [place] [id number] Casey Gay, DPVj [address] [place] [place], [place] [id number] Arrived [facility] Comment on above: Arrived Start: 08-10-2024 Influenza vaccination Influenza Vacc ine (#1) [facility] Comment on above: Postponed from 03/04 (Patient Refused) Start: 08-02-2024 Medicare Annual Well ness (AWV) Medicare Annual Wellness (AWV) [facility] Start: 06-15-2024 End: 06-15-2024 Patient encounter procedure 06/15/2024 10:30 AM EST Office Visit [facility] [address] [place] [id number] Erna Banegas NP [address] [place] [address] SVT (supraventricular tachycardia) (CMS/HCC) (Primary Dx); Palpitations [facility] Comment on above: SVT (supraventricula r tachycardia) (CMS/HCC) (Primary Dx); Palpitations Start: 03-04-2024 Influenza vaccination Influenza Vacc ine (#1) [facility] Start: 11-19-2023 Screening for malign ant neoplasm of breast Mammogram [facility] Start: 1955 Screening for malign ant neoplasm of colon [facility] Immunizations Immunization Date Immunization Notes Care Provider Fa cili 08-02-2023 Influenza, High-dose Seasonal, Quadrivalent, Preservative Free Christi Gallegos MD Work Phone: [facility] 08-02-2023 influenza virus vacc ine, unspecified formulation Christi Gallegos MD Work Phone: [facility] 06-10-2023 RSV, recombinant, pr otein subunit RSVpreF, adjuvant reconstitu, 120mcg/0.5mL, PF (Arexvy) Christi Gallegos MD Work Phone: [facility] 03-12-2023 zoster vaccine recombinant Christi Gallegos MD Work Phone: [facility] 10-08-2022 Influenza, High-dose Seasonal, Quadrivalent, Preservative Free Christi Gallegos MD Work Phone: [facility] 10-08-2022 Pneumococcal Conjuga te PCV 20 Christi Gallegos MD Work Phone: [facility] 10-08-2022 zoster vaccine recombinant Christi Gallegos MD Work Phone: [facility] 11-17-2015 tetanus toxoid, redu rosana diphtheria toxoid, and acellular pertussis vaccine, adsorbed Christi Gallegos MD Work Phone: [facility] 07-04-2004 tetanus and diphther ia toxoids, adsorbed, preservative free, for adult use (2 Lf of tetanus toxoid and 2 Lf of diphtheria toxoid) Christi Gallegos MD Work Phone: [facility] Payers Date Payer Category Payer Medicare [id number] 2023 Medicare (Managed Care) 1.2. [id number] 2023 Unknown [employer] [id number] 2023-Present [address] [place] [address] [id number] 2023 Medicare [id number] 1955 Unknown [id number] 286 1955 Unknown [id number] 286 1955 Unknown [id number] 286 1955 Unknown [id number] 286 1955 Unknown [id number] [id number] 286 1955 Unknown [id number] 286 1955 Unknown [id number] [id number] 286 1955 Unknown [id number] [id number] 286 1955 Unknown [id number] [id number] 286 1955 Unknown [id number] [id number] 259 1955 Unknown [id number] 259 1955 Unknown [id number] 259 Unknown [id number] Social History Date Type Detail Facility Start: 03-09-2023 Tobacco smoking stat [facility] Never smoked tobacco [facility] Start: 03-09-2023 Tobacco use and exposure Smoke less tobacco non-user [facility] Start: 11-11-2023 End: 09-20-2024 Alcoholic beverage intake Lifetime non-drinker (finding) [facility] Start: 03-08-2023 End: 06-12-2024 History of Social function [facility] Start: 03-08-2023 End: 06-12-2024 Humiliation, Afraid, Rape, and Kick questionnaire [HARK] [facility] Within the last year , have you been afraid of your partner or ex-partner? No [facility] Do you belong to any clubs or organizations such as gnosticist groups, unions, fraternal or athletic groups, or school groups? Yes [facility] Are you now , , , , never or living with a partner? [facility] How often to you hav e a drink containing alcohol? Never [facility] How many standard dr inks containing alcohol do you have on a typical day? Patient does not drink [facility] Do you feel stress - tense, restless, nervous, or anxious, or unable to sleep at night because your mind is troubled all the time - these days [OSQ] Only a little [facility] (I/We) worried partha dowell (my/our) food would run out before (I/we) got money to buy more. Never true [facility] Start: 05-17-2023 Alcohol Comment Caffeine intak e: 3-4 cups per day [facility] Start: 1955 Sex assigned at Not on file [facility] Do you feel stress - tense, restless, nervous, or anxious, or unable to sleep at night because your mind is troubled all the time - these days [OSQ] Not at all [facility] NEGATED: Highlighted rowStart: NINF History of tobacco use Passive smoker [facility] Clinical Notes 03-12-2024 to 09-20-2024 Casey Gay, ANTONY - 09/20/2024 2:15 PM EDTPatient InstructionsTelephone Encounter - [facility] - 08/23/2024 2:00 PM ESTTelephone Encounter - [facility] - 08/23/2024 2:00 PM EST Note Date & Type Note Facility 09-20-2024 History of Presen t illness Narrative Images from the original note were not included. Subjective Patient ID: Meka Zavala is a 69 y.o. female who presents for Fungus (Established pt presents today with concerns of fungal nails. Pt has been formula 7 which she got from our office at previous visit. ). HPI Patient last in clinic in August of 2023. Returns today for assessment of fungal toenail deformity; primarily digits 2, 5 bilateral. Reports good compliance with topical care measures and use of formula 7; which she feels has been effective for the 2nd digits. She notes recalcitrance and persistence of the 5th digit toenails bilateral. Relates a recent stubbing injury of the left great toe resulting in slough of nail plate. Presents with questions concerning new nail growth. Medications Current Outpatient Medications: calcium citrate 600 mg and vitamin D3 (Citrical & Minerals + Vit D) 600-200 MG-UNIT tablet, Orally, Disp: , Rfl: cyclobenzaprine (Flexeril) 10 MG tablet, TAKE 1 TABLET BY MOUTH 2 TIMES A DAY NEEDED FOR MUSCLE SPASMS (Patient taking differently: Sometimes takes 3 times a day per pain management), Disp: 60 tablet, Rfl: 1 famotidine (Pepcid) 10 MG tablet, Take 1 tablet (10 mg) by mouth at bedtime, Disp: 90 tablet, Rfl: 1 gabapentin (Neurontin) 100 MG capsule, Take 100 mg by mouth in the morning., Disp: , Rfl: L-lysine 500 MG tablet, Orally, Disp: , Rfl: magnesium oxide 200 MG tablet, Take 2 tablets by mouth in the morning., Disp: , Rfl: nabumetone (Relafen) 500 MG tablet, TAKE 1 TABLET BY MOUTH EVERY MORNING AND AT BEDTIME, Disp: 60 tablet, Rfl: 2 omega-3 (Fish Oil) 1000 MG capsule, 1 capsule 1 (one) time each day at the same time., Disp: , Rfl: omeprazole (PriLOSEC) [address] capsule, Take 1 capsule (20 mg) by mouth in the morning. Take before meals., Disp: 90 capsule, Rfl: 1 Potassium Gluconate 2.5 MEQ tablet, Take 99 mg by mouth in the morning., Disp: , Rfl: vitamin A 2400 MCG (8000 UT) capsule, Take 8,000 Units by mouth in the morning., Disp: , Rfl: Allergies Sulfa antibiotics Past Surgical History Past Surgical History: Procedure Laterality Date SECTION, LOW TRANSVERSE x2 CYSTOSCOPY JOINT REPLACEMENT BL total knee replacement 08/2022 Right/08/2021 Left LAPAROSCOPY DIAGNOSTIC / BIOPSY / ASPIRATION / LYSIS laproscopy ROTATOR CUFF REPAIR Left TOTAL KNEE ARTHROPLASTY Left Family History Family History Problem Relation Name Age of Onset Thyroid disease Mother Dementia Father Cuate Wu Hypertension Father Cuate Wu Stroke Father Cuate Wu Cancer Sister [facility] Heart disease Brother Johnathan Wu Objective General Examination: GENERAL EXAMINATION: Alert and oriented. Pleasant disposition.. Vascular: DORSALIS PEDIS PULSE: 2/4, bilaterally. POSTERIOR TIBIAL PULSE: 2/4, bilaterally. TEMPERATURE GRADIENT: warm to warm. EDEMA: telangiectasias bilateral ankles with no appreciable swelling. CALF: supple , nontender , bilateral. CAPILLARY FILLING TIME(sec): capillary fill intact bilateral digits less than 3 secs. Neurologic: TINELS SIGN: negative along the tarsal canal. SHARP SENSATION: tactile and light touch sensation intact. Dermatologic: SKIN FINDINGS: skin turgor is good. HYPERTROPHIC LESION: no forefoot or digital discrete keratotic pressure lesions are noted. NAIL PATHOLOGY: 2nd digits bilateral: Effective nail plate clearing is appreciated. Left great toe: 50% regrowth of the nail plate; which appears clear, well adhered and minimally dystrophic. Right great toe: Complete nail plate clearing. 5th digits bilateral: Toenail dystrophy and mild clinical mycosis. Digits 3, 4 bilateral: Toenails are clear, non-dystrophic. INTERDIGITAL MACERATION: clean, dry, non-inflamed. ULCER: no sign of ulceration or open wound. Orthopedic: FOOT MORPHOLOGY: symmetrical appearance, mildly pronated foot type. JOINT RANGE OF MOTION: passive ankle dorsiflexion is limited, consistent with mild gastrocnemius equinus. Otherwise maintains functional ankle, subtalar, midtarsal and MTP joint range of motion. DEFORMITIES: HAV deformity bilateral; flexible and reducible to rectus position. MUSCLE STRENGTH: no focal deficits. Radiology: Assessment/Plan 1. 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 2. Status post single 90 day course oral Lamisil therapy (completed January of 2023) . 2. Left knee endoprosthesis (September 2021). 3. Right knee endoprosthesis (August 2022). Plan: review of clinical findings, etiology and contributing/aggravating factors, response to date, treatment strategy and objectives. Continue topical care measures: Use of vinegar and/or Listerine as directed; followed by Formula 7 topical solution. Hygiene and skin care measures discussed. Procedure: Toenail Debridement: Aseptic technique: power/manual instrumentation: onychodebridement length and thickness, curretage of offending crypotic margins, lori-ungual debris, providing effective pressure and symptom relief, reducing shoe and digital trauma; reducing fungal reservoir. This note was created with the assistance of a speech recognition program. While intending to generate a timely document that accurately reflects the content of the visit, no guarantee can be provided that every grammatical or spelling mistake has been or will be identified or corrected. Thank you for your understanding. Casey Gay DPM documented in this encounter [facility] 09-20-2024 Instructions Casey Gay DPM - 09/20/2024 2:15 PM EDT Topical care measures as noted documented in this encounter [facility] 08-23-2024 Telephone encount er Note Patient scheduled her MAWV on October 22. Is she due for labwork? If so, she would like to do prior to this appt. Please advise pt. Thank you. [facility] 08-23-2024 Miscellaneous Notes Formattin g of this note might be different from the original. Patient scheduled her MAWV on October 22. Is she due for labwork? If so, she would like to do prior to this appt. Please advise pt. Thank you. documented in this encounter [facility] 08-13-2024 Telephone encount er Note Rx sent [facility] 08-13-2024 Miscellaneous Notes Formattin g of this note might be different from the original. Rx sent documented in this encounter [facility] 06-15-2024 History of Presen t illness Narrative Images from the original note were not included. Subjective Patient ID: Meka Zavala is a 68 y.o. female who presents for Hypertension (Has been checking for a couple weeks and has been elevated at times. Up to 150's systolic and in 90's at times diastolic ), sores on tongue (Seem to only be present at night. Wears mouth guard. Sores started about 2 weeks ago.), and Fatigue. Hypertension Pertinent negatives include no chest pain or headaches. Fatigue Associated symptoms include coughing and fatigue. Pertinent negatives include no abdominal pain, chest pain, chills, fever or headaches. HPI: See above. BP Mon 142/93 P 81, 135/85 P 81, and 151/92, P 70. Tues 126/81, P 74, Weds 152/90, P 76, 137/80, P 76, 141/74 P 74, 134/79 P 85, Tuesday 144/92 P 74. Last week sl higher. Works out almost every day, doesn't feel like she has energy, SOB often ronnie with stairs. Occ palpitations for 15-20 seconds, but not like they were. Had ablation, was told by Cardiology can take Flecanide PRN-but hasn't taken it. Some caffeine ie 1.5 cups of regular coffee in AM and 1 at lunch. Pt watches salt, and processed foods, no alcohol. I checked BP on pts cuff and it was 138/85 left arm. 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 Pt wakes up at 4 AM, takes 15 nap after work. In Bed at 8-8:30. Takes OTC sleep aide from [employer] 07/05 tab. Snores per . Pt does not think she stops breathing. She sleeps on stomach. Declined referral for sleep study. Taking Omeprazole 20mg every AM, Famotidine 10mg at night. Has not had EGD, thinks she saw someone years ago ie Dr Singh and he looked down throat. Review of Systems Constitutional: Positive for fatigue. Negative for appetite change, chills and fever. Mild fatigue HENT: Sl stuffy Respiratory: Positive for cough. Negative for chest tightness. Sl last night. Used sinus rinses last night, uses Bacitracin for some sore areas in nose Cardiovascular: Negative for chest pain. Occ palpitations. See HPI Gastrointestinal: Negative for abdominal pain. No change in bowels. No GERD Genitourinary: Negative for difficulty urinating and dysuria. Musculoskeletal: Usual Back discomfort. Has been taking Gapabentin at for couple of months per pain magagement in [place]. Has F/U appt in Jul. Taking 1 Tylenol TID usually Neurological: Negative for dizziness and headaches. Psychiatric/Behavioral: Sleeping ok 03/09/2023 2:23 PM 04/11/2023 2:07 PM 05/18/2023 2:16 PM 08/02/2023 2:05 PM 09/01/2023 3:17 PM 11/11/2023 11:36 AM 06/15/2024 10:40 AM Vitals BMI 35.02 kg/m2 35.02 kg/m2 34.48 kg/m2 34.45 kg/m2 34.11 kg/m2 BSA (m2) 2.04 m2 2.04 m2 2.08 m2 2.08 m2 2.07 m2 Systolic 120 118 132 152 132 Diastolic 72 76 82 84 78 Heart Rate 80 80 76 76 84 SpO2 99 % Temp 98.3 F Height (in) 5' 4 5' 4 5' 5 5' 5 Weight (lb) 204 204 207.2 207 205 Visit Report Report Report Report Report Report Objective Physical Exam Vitals reviewed. HENT: Ears: Comments: TM cloudy, no erythema Nose: Comments: sl edema and pink, no sinus tenderness Mouth/Throat: Mouth: Mucous membranes are moist. Pharynx: Oropharynx is clear. No posterior oropharyngeal erythema. Eyes: Extraocular Movements: Extraocular movements intact. Comments: Glasses on Cardiovascular: Rate and Rhythm: Normal rate and regular rhythm. Comments: No edema Pulmonary: Breath sounds: Normal breath sounds. Comments: Rare [employer] cough Abdominal: General: Bowel sounds are normal. Palpations: Abdomen is soft. Tenderness: There is no abdominal tenderness. Musculoskeletal: Comments: Gait sl off r/t hip/back issue Skin: General: Skin is warm and dry. Findings: No rash. Neurological: Mental Status: She is alert and oriented to person, place, and time. Psychiatric: Comments: Calm and cooperative well groomed I have reviewed and reconciled the history and medication list with the patient today. Assessment/Plan Diagnoses and all orders for this visit: SVT (supraventricular tachycardia) ([facility]): Pt sees Cardiology Palpitations Elevated blood pressure reading Comments: Good today. Enc pt to keep monitoring BP at home. Call if concerns. Goal is <140/90. Enc pt to watch salt, processed foods, caffeine. Pt does not drink lacohol. Enc to keep exercising routinely Gastroesophageal reflux disease, unspecified whether esophagitis present: Pt wanted refill on Famotidine. Discussed she has been taking medication for some time now. Omeprazole can thin bones. Could refer for further eval ie EGD. Pt would like to wait and discuss this further at next appt - famotidine (Pepcid) 10 MG tablet; Take 1 tablet (10 mg) by mouth at bedtime Spondylosis without myelopathy or radiculopathy, lumbar region: Seeing Pain Clinic Nasal congestion: Could add allergy tab ie Plain Claritin (Loratidine) 10mg daily. Last Flu vaccine 08/02/23, enc to get Flu vaccine. Pt does not plan to get covid vaccine. F/U 08/02/24 or later for Medicare Wellness, sooner if concerns. PVU documented in this encounter [facility] 05-10-2024 Telephone encount er Note I cancelled Amoxicillin Rx and sent Nabumetone Rx [facility] 05-10-2024 Miscellaneous Notes Formattin g of this note might be different from the original. I cancelled Amoxicillin Rx and sent Nabumetone Rx I called pt. She states she did not request this refill for an antibiotic and didn't need it. Pt then said that she did need a refill on her nabumetone to be sent in. I told pt I would send the request. documented in this encounter [facility] 05-09-2024 Telephone encount er Note I called pt. She states she did not request this refill for an antibiotic and didn't need it. Pt then said that she did need a refill on her nabumetone to be sent in. I told pt I would send the request. [facility] 03-12-2024 Telephone encount er Note Rx sent [facility] 03-12-2024 Miscellaneous Notes Formattin g of this note might be different from the original. Rx sent documented in this encounter [facility] Healthcare Evaluation note Diagnosis Gastroesophageal reflux disease, unspecified whether esophagitis present documented in this encounter [facility] HealthcareEvaluation note* Diagnosis Acute maxillary sinusitis, 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 Otalgia of left ear Primary osteoarthritis of both knees documented in this encounter [facility] HealthcareEvaluation note* Diagnosis SVT (supraventricular tachycardia) ([facility])- Primary Other specified cardiac dysrhythmias Palpitations Elevated blood pressure reading Elevated blood pressure reading without diagnosis of hypertension Gastroesophageal reflux disease, unspecified whether esophagitis present Spondylosis without myelopathy or radiculopathy, lumbar region Nasal congestion Other diseases of nasal cavity and sinuses documented in this encounter [facility] HealthcareEvaluation note* Diagnosis Primary osteoarthritis of both knees documented in this encounter [facility] HealthcareEvaluation note* Diagnosis Primary osteoarthritis of both knees documented in this encounter [facility] HealthcareEvaluation note* Diagnosis Dermatophytosis of nail- Primary Dystrophic nail Other specified disease of nail Pain around toenail documented in this encounter [facility] Healthcare Summary Purpose Family History No Family History Records FoundNo Family History Records FoundNo Family History Records FoundNo Family History Records FoundNo Family History Records Found Advance Directives No Advanced Directives Records FoundNo Advanced Directives Records FoundNo Advanced Directives Records FoundNo Advanced Directives Records FoundNo Advanced Directives Records Found Additional Source Comments INFORMATION SOURCE (unrecogn ized section and content) DATE CREATED AUTHOR 04/17/2018 [facility] DATE CREATED AUTHOR AUTHOR'S ORGANIZ ATION 11/13/2022 [facility] dical Specialist DATE CREATED AUTHOR AUTHOR'S ORGANIZ ATION 11/12/2023 [facility] DATE CREATED AUTHOR AUTHOR'S ORGANIZ ATION 03/18/2024 [facility] DATE CREATED AUTHOR AUTHOR'S ORGANIZ ATION 09/22/2024 [facility] dical Specialists [employer] Care Teams (unrecognized sec tion and content) Manager Environmental Affairs Relationship Specialty Start Date End Date Christi Gallegos MD [address] [place] [address] PCP - General Family Medicine 04/27/23 Christi Gallegos MD [address] [place] [address] PCP - Devoted 07/04/23 Manager Environmental Affairs Relationship Specialty Start Date End Date Christi Gallegos MD [address] [place] [address] PCP - General Family Medicine 04/27/23 Christi Gallegos MD [address] [place] [address] PCP - Devoted 07/04/23 Manager Environmental Affairs Relationship Specialty Start Date End Date Christi Gallegos MD [address] [place] [address] PCP - General Family Medicine 04/27/23 Christi Gallegos MD [address] [place] [address] PCP - Devoted 07/04/23 07/03/24 Manager Environmental Affairs Relationship Specialty Start Date End Date Christi Gallegos MD [address] [place] [address] PCP - General Family Medicine 04/27/23 Christi Gallegos MD [address] [place] [address] PCP - Devoted 07/04/23 07/03/24 Manager Environmental Affairs Relationship Specialty Start Date End Date Christi Gallegos MD [address] [place] [address] PCP - General Family Medicine 04/27/23 Christi Gallegos MD [address] [place] [address] PCP - Devoted 07/04/23 Manager Environmental Affairs Relationship Specialty Start Date End Date Christi Gallegos MD [address] [place] [address] PCP - General Family Medicine 04/27/23 Manager Environmental Affairs Relationship Specialty Start Date End Date Christi Gallegos MD [address] [place] [address] PCP - General Family Medicine 04/27/23 WonderChristi angulo MD [address] [facility] [place] [address] PCP - Medical [place] MA 07/04/2407/03 Manager Environmental Affairs Relationship Specialty Start Date End Date Christi Gallegos MD [address] [place] [address] PCP - General Family Medicine 04/27/23 Christi Gallegos MD [address] [place] [address] PCP - Medical [place] MA 07/04/2407/03 Reason for Visit (unrecogniz ed section and content) Reason Comments Med Refill Reason Comments Hypertension Has been checking fo r a couple weeks and has been elevated at times. Up to 150's systolic and in 90's at times diastolic . Pt brought her machine to the office to be checked against ours and is reading significantly higher than when checked with office equipment. sores on tongue Seem to only be pres ent at night. Wears mouth guard. Sores started about 2 weeks ago. Fatigue Reason Comments Fungus Established pt prese nts today with concerns of fungal nails. Pt has been formula 7 which she got from our office at previous visit. FOR RECORDS PERTAINING TO PATIENTS WHO ARE [...] BE BASED ON THE PRIMARY CLINICAL RECORDS. [employer] [facility]. provides no warranty or guarantee of the accuracy or completeness of information in this document.
--- NOTE | 2024-10-17 14:48 | P.CN_ITS ---
Consult Note: HPI Data of Consult Patient: known to practice within the last 3 years Requesting Physician: Guerda Reyes NP Primary Care Provider: Non-Staff Physician, MD Consult Narrative Reason for consult: f/u Narrative: Meka Dai a pleasant 69 year old female presents for evaluation of chronic low back and hip pain with intermittent radiculopathy. pain today 5/10 increasing to 10/10 with standing, walking, activity, and weather changes. pain improved with sitting, lying down. overall pain worse from prior visit per pt. prior injections have provided >50% improvement greater than 3 months and pt would like to revisit interventional therapy. currently taking tylenol otc PRN, baclofen 10mg TID PRN pain/spasms, gabapentin 100mg BID, nabumetone 500mg BID. denies side effects. cc:: CC: Guerda Reyes NP Review of Systems ROS Status of ROS 10 or more systems reviewed and unremark able except as noted in history and below Musculoskeletal Reports: back pain; Denies: extremity pain PFSH PFSH Medical History Acid reflux ?K21.9 - Gastro-esophageal reflux disease without esophagitis (ICD-10) Irregular heart beat ?I49.9 - Cardiac arrhythmia, unspecified (ICD-10) Surgical History History of repair of left rotator cuff ?Z98.890 - Other specified postprocedural states (ICD-10) History of total left knee replacement ?Z96.652 - Presence of left artificial knee joint (ICD-10) History of total right knee replacement ?Z96.651 - Presence of right artificial knee joint (ICD-10) History of section ?Z98.891 - History of uterine scar from previous surgery (ICD-10) Meds Home Medications and Allergies Home Medications ?Medication ?Instructions ?Recorded ?Confirmed ?Type multivitamin 1 tab PO DAILY 11/02/23 04/03/24 History nabumetone 500 mg tablet 500 mg PO BID 11/02/23 02/07/24 History omega-3 fatty acids 500 mg PO DAILY 11/02/23 04/03/24 History omeprazole 20 mg capsule,delayed 20 mg PO DAILY 11/02/23 04/03/24 History release glucosamine-chondroitin 500 mg-400 1 cap PO DAILY 12/01/23 04/03/24 History mg capsule biotin 1 mg capsule 1 mg PO DAILY 12/06/23 04/03/24 History lactobacillus combination no.4 3 3,000 mmu cells PO DAILY 12/06/23 04/03/24 History billion cell capsule (Probiotic) gabapentin 100 mg capsule 100 mg PO BID #30 caps 03/14/24 04/03/24 Rx baclofen 10 mg tablet 10 mg PO TID 07/19/24 07/19/24 History Allergies Allergy/AdvReac Type Severity Reaction Status Date / Time Sulfa (Sulfonamide Allergy Unknown Hives Verified 04/03/24 08:23 Antibiotics) Exam Constitutional Documenting provider has reviewed patient's vital signs: yes Common normals: no apparent distress, oriented x3, healthy appearing, alert and well nourished General appearance: cooperative HENMT Common normals: normocephalic, hearing grossly normal bilaterally and moist oral mucous membranes Head and scalp: normocephalic Eye Common normals: PERRL Pupil: PERRL Neck & C-Spine Common normals: full ROM General: normal visual inspection Chest Common normals: inspection of chest normal Respiratory Common normals: normal respiratory effort, no retractions and no use of accessory muscles Back & Pelvis Lumbar spine/lower back: pain with ROM, lumbar spinal tenderness Lumbar spinal tenderness location: L3, L4 and L5 and straight leg raise negative bilaterally Sacroiliac joints: SI joint(s) abnormal Other: left sij positive wilfredo(patricks), gaenslens, thigh thrust, compression test Neuro Common normals: oriented x3 Sensorium/orientation: alert Psych Common normals: mental status grossly normal, thought process normal, cooperative, affect normal, speech normal and activity/motor behavior normal Speech: normal speech Thought process: normal thought process Results Additional Findings Additional findings: If on a controlled substance or opioids, I have checked an [place] report on this patient and there are no aberrancies noted in the prescribing history.??If on a controlled substance or opioid a drug screen was completed and reviewed within the last year, and if there has not been a drug screen completed we ordered one today to monitor higher risk, state monitored pain medication use. As part of providing excellent, safe, comprehensive care, the following was completed at our patient's visit: 1. A medication reconciliation and review to ensure accurate knowledge of current/active medications, including asking our patients to inform us about any [id number] medications or herbal remedies/nutritional supplements/alternative remedies. 2. A review to specifically ensure our patients have had annual screening for screening for depression, screening for tobacco use, and screening for unhealthy alcohol use. For concerning screenings had a discussion with the patient, provided patient education, and recommended follow-up with primary care provider when appropriate. If patient noted with a risk of falling, they received education on strength, gait, and balance training to prevent future risk of falling. Portions of this note may have been carried over from the previous visit and updated as appropriate. Please note this office utilizes paper charting in addition to the electronic medical record. A list of current medications, vitals, and PMH is available there as the clinical staff outside of myself do not have access to [employer] charting during the clinic day operations. As part of providing quality comprehensive care the current medications, vitals, and PMH were reviewed in the paper chart. Assessment and Plan Assessment and Plan (1) Sacroiliitis: Assessment and Plan: The patient has had over 3 months of moderate to severe low back and left SIJ pain with functional impairment and inadequate response to conservative care including NSAIDS (unless there are contraindication such as concurrent blood thinners), multiple oral or topical pain medications, and home exercise program/physical therapy.? Patient has completed >6 weeks of guided home exercise program and/or formal physical therapy program without relief of their symptoms.? I have reviewed the imaging of the lumbosacral spine and no red flags were identified.? The Oswestry Disability Index was completed, and the patient scored a 32%.? The patient noted the following:?? moderate to severe pain impacting standing, lifting, ADLs We discussed the risks and benefits of the procedure with the patient, and we are NOT planning on using sedation as outlined in the guidelines from Medicare unless there is a documented reason that sedation would be strongly recommended.??The procedure will be completed with fluoroscopic guidance.? (2) Lumbar spondylosis: (3) Myofascial pain: (4) Lumbar radiculopathy: (5) Lumbar stenosis with neurogenic claudication: Plan left SIJ injection under fluoroscopy continue current medications continue HEP as tolerated f/u after injection
== END 2024-10-17 14:19 | disposition home or self-care (01) ==
LOC: PM 14:18
PROVIDERS: Visit Provider Nurse Practitioner
DX: M46.1 Sacroiliitis, not elsewhere classified (principal); M47.816 Spondylosis without myelopathy or radiculopathy, lumbar region; M79.18 Myalgia, other site; M54.16 Radiculopathy, lumbar region; M48.062 Spinal stenosis, lumbar region with neurogenic claudication
CPT/HCPCS: G0463

== ENCOUNTER 2024-12-17 11:11 | Day surgery (SDC) | payer MEDICARE, SELFPAY ==
--- OUTSIDE RECORDS SUMMARY | 2024-12-06 14:30 | XMS_ITS | Encounter Summary ---
Author Organization [facility] [employer] s tem Address [id number] [address] [place] [address] Care Team Providers Care Leaf Stripper Name Role Phone Christi Galvan MD Primary Care Provider [phone] Reason for Referral * Cardiology (Routine) - Pending Review Specialty Diagnoses / Procedures Referred By Contac t Referred To Contact Diagnoses SVT (supraventricular tachycardia) Procedures Event Monitor (In Office) Tuan Cotto MD [address] [place] [address] Phone: tel: fax: Referral ID Status Reason Start Date Expiration Date V isits Requested Visits Authorized [id number] Pending Review 12/06/2024 12/06/2025 1 1 Reason for Visit * Reason Comments Follow-up Tachycardia Encounter Details Date Type Department Care Team (Late st Contact Info) Description 12/06/2024 2:30 PM EDT [facility] [address] [place] [address] Tuan Cotto MD [address] [place] [address] SVT (supraventricular tachycardia) (Primary Dx); Tachycardia; Palpitations Social History Tobacco Use Types Packs/Day Years Used Date Smoking Tobacco: Never Smokeless Tobacco: Never Alcohol Use Standard Drinks/Week Comments Never 0 (1 standard drink = 0.6 oz pur e alcohol) Childcare Answer Date Recorded Childcare Unknown 12/13/2018 Employment Answer Date Recorded Employment Unknown 12/13/2018 Hunger Screening Answer Date Recorded Within the past 12 months we worried whether our food would run out before we got money to buy more. Never True 12/06/2024 Within the past 12 months th e food we bought just didn't last and we didn't have money to get more. Never True 12/06/2024 Purpose - Life Answer Date Recorded Purpose and direction in life Unknown Comments No Sex and Gender Information Value Date Recorded Sex Assigned at Female 08/26/2022 7:19 AM EST Legal Sex Female 11:42 AM EDT Gender Identity Female 08/26/2022 7:19 AM EST Sexual Orientation Straight 08/26/2022 7: 19 AM EST documented as of this encounter Last Filed Vital Signs Vital Sign Reading Time Taken Comments Blood Pressure 122/68 12/06/2024 2:17 PM EDT Pulse 74 12/06/2024 2:17 PM EDT Temperature - - Respiratory Rate - - Oxygen Saturation 96% 12/06/2024 2:17 PM EDT Inhaled Oxygen Concentration - - Weight 93.9 kg (207 lb) 12/06/2024 2:17 PM EDT Height 165.1 cm (5' 5 ) 12/06/2024 2:17 PM EDT Body Mass Index 34.45 12/06/2024 2:17 PM EDT documented in this encounter Progress Notes * Tuan Cotto MD - 12/06/2024 2:30 PM EDT Meka Dai Date of visit: 12/06/2024 Date of : 1955 Age: 69 y.o. Patient Active Problem List Diagnosis Neurocardiogenic syncope Palpitations Tachycardia Shortness of breath Primary osteoarthritis of both knees Obesity (BMI 30-39.9) Preop testing SVT (supraventricular tachycardia) S/P total knee replacement, left Class 1 obesity in adult Primary osteoarthritis of right knee Allergies Allergen Reactions Sulfa (Sulfonamide Antibiotics) Rash Current Outpatient Medications Medication Sig Dispense Refill acetaminophen (TYLENOL) 325 mg tablet Take 1 tablet (325 mg total) by mouth every 6 (six) hours as needed for pain. ascorbic acid, vitamin C, (VITAMIN C) 100 MG tablet Take 1 tablet (100 mg total) by mouth in the morning. b complex vitamins capsule Take 1 capsule by mouth in the morning. biotin 1,000 mcg tablet,chewable Chew 1 tablet and swallow in the morning. calcium carbonate/vitamin D3 (CALCIUM 500 + D ORAL) Take 1 tablet by mouth in the morning. cyclobenzaprine (FLEXERIL) 10 mg tablet Take 1 tablet (10 mg total) by mouth in the morning. famotidine (PEPCID) 10 mg tablet Take 1 tablet (10 mg total) by mouth nightly. gabapentin (NEURONTIN) 100 mg capsule Take 1 capsule (100 mg total) by mouth in the morning. glucosamine-chondroitin 500-400 mg tablet Take 1 tablet by mouth in the morning. loratadine (CLARITIN) 10 mg tablet Take 1 tablet (10 mg total) by mouth in the morning. lysine 500 mg tablet Take 1 tablet (500 mg total) by mouth in the morning. magnesium oxide 200 mg magnesium tablet Take 2 tablets by mouth in the morning. multivitamin (MULTIPLE VITAMINS ORAL) Take 1 tablet by mouth in the morning. nabumetone (RELAFEN) 500 mg tablet Take 1 tablet (500 mg total) by mouth in the morning and 1 tablet (500 mg total) before bedtime. CHAE6-AFG-LNR-FISH OIL-L.CASEI ORAL Take 1 capsule by mouth in the morning. omeprazole (PriLOSEC) 20 mg capsule Take 1 capsule (20 mg total) by mouth in the morning. Takes in am. potassium 99 mg tablet Take 1 tablet (99 mg total) by mouth in the morning. psyllium husk (METAMUCIL ORAL) Take 1 Dose by mouth in the morning. TURMERIC ORAL Take 1 tablet by mouth daily as needed. vitamin A 8000 UNIT capsule Take 1 capsule (8,000 Units total) by mouth in the morning. No current facility-administered medications for this visit. Chief Complaint Patient presents with Follow-up Tachycardia History of Present Illness 69-year-old female here in follow-up. This is the 1st time I meet her. She has a history of SVT/AT underwent ablation but feels like her palpitation did recur recently they initially were brief and have been lasting longer and longer longest was a couple of minutes Frequency once a week did not tolerant beta blockers in the past due to profound fatigue and weakness Her brother was also recently diagnosed with HCM. Not sure about genetic testing her echocardiogramas of last year did not have any evidence of HCM same or LVOT obstruction Past Medical History: Diagnosis Date Arrhythmia palpitations + tachycardia - saw Dr. Manzano 04-09-21 Dental disease crown; 2 caps GERD (gastroesophageal reflux disease) Osteoarthritis both knees; hips Right knee pain here for surgical work-up for right total knee replacement Slow urinary stream Tachycardia Varicose vein of leg Visual impairment wears corrective lenses No data recorded No data recorded No data recorded Past Surgical History: Procedure Laterality Date SECTION 1987 + 1990 COLONOSCOPY 2011 DILATION AND CURETTAGE OF UTERUS 1989 EXPLORATORY LAPAROTOMY 1989 REPLACEMENT TOTAL JOINT KNEE Right 08/26/2022 Performed by Sonido Prince MD at [facility] SURGERY REPLACEMENT TOTAL JOINT KNEE Left 09/15/2021 Performed by Sonido Prince MD at [facility] SURGERY ROTATOR CUFF REPAIR Left 2011 SVT Ablation, CARTO EAM N/A 11/10/2023 Performed by Logan Hunter MD at [facility] ([facility]) TUBAL LIGATION 1990 Family History Problem Relation Age of Onset Thyroid disease Mother Hypertension Father Stroke Father Other Father COVID Dementia Father Vickie bodi Cancer Sister bile duct, Liver disease Sister No Known Problems Sister Heart disease Brother No Known Problems Brother Breast cancer Neg Hx Social History Socioeconomic History Marital status: Spouse name: Not on file Number of children: Not on file Years of education: Not on file Highest education level: Not on file Occupational History Not on file Tobacco Use Smoking status: Never Smokeless tobacco: Never Vaping Use Vaping status: Never Used Substance and Sexual Activity Alcohol use: Never Drug use: Never Sexual activity: Defer Other Topics Concern Caffeine Use Yes Comment: half pot of coffee daily Social History Narrative Not on file Social Drivers of Health Financial Resource Strain: Low Risk (06/12/2024) Received from [facility] Overall Financial Resource Strain (CARDIA) Difficulty of Paying Living Expenses: Not hard at all Food Insecurity: No Food Insecurity (12/06/2024) Hunger Screening Food Insecurity - Worry: Never True Food Insecurity - Inability: Never True Transportation Needs: No Transportation Needs (06/12/2024) Received from [facility] PRAPARE - Transportation Lack of Transportation (Medical): No Lack of Transportation (Non-Medical): No Physical Activity: Sufficiently Active (06/12/2024) Received from [facility] Exercise Vital Sign Days of Exercise per Week: 7 days Minutes of Exercise per Session: 60 min Stress: No Stress Concern Present (06/12/2024) Received from [facility] [employer] - Occupational Stress Questionnaire Feeling of Stress : Not at all Social Connections: Socially Integrated (06/12/2024) Received from [facility] Social Connection and Isolation Panel [NHANES] Frequency of Communication with Friends and Family: More than three times a week Frequency of Social Gatherings with Friends and Family: Three times a week Attends Restorationist Services: More than 4 times per year Active Member of Clubs or Organizations: Yes Attends Club or Organization Meetings: More than 4 times per year Marital Status: Interpersonal Safety: Not At Risk (03/08/2023) Received from [facility] Humiliation, Afraid, Rape, and Kick questionnaire Fear of Current or Ex-Partner: No Emotionally Abused: No Physically Abused: No Sexually Abused: No Housing Instability: Unknown (06/12/2024) Received from [facility] Housing Stability Vital Sign Unable to Pay for Housing in the Last Year: No Number of Times Moved in the Last Year: Not on file Homeless in the Last Year: No Review of Systems Review of Systems Constitutional: Negative. HENT: Negative. Eyes: Negative. Cardiovascular: Negative. Respiratory: Negative. Hematologic/Lymphatic: Bruises/bleeds easily. Skin: Negative. Musculoskeletal: Positive for back pain. Gastrointestinal: Negative. Neurological: Negative. CARDIOVASCULAR: Please review HPI. Physical Examination General appearance: Alert, oriented and cooperative. In no acute distress. Skin: Warm and dry to touch. Head: Normocephalic, without obvious abnormality, atraumatic. Ears, Nose, Mouth, Throat: Throat clear without erythema or exudate. Dentition intact. Eyes: Conjunctivae unremarkable, EOM intact. Neck: No JVD, No carotid bruit. Neck supple, trachea midline. Respiratory: Clear to auscultation bilaterally, no use of accessory muscles. Cardiovascular: RRR with normal S1 and S2 with no murmurs. Gastrointestinal: Soft, non-tender. Bowel sounds normal. Musculoskeletal: No peripheral edema. Neurologic: Oriented to time, person and place, affect appropriate. No focal/major motor defects noted. Psychiatric: Appropriate mood, memory and judgement. VITAL SIGNS: BP 122/68 Pulse 74 Ht 165.1 cm (5' 5 ) Wt 93.9 kg (207 lb) SpO2 96% BMI 34.45 kg/m?? Orders Placed or Reconciled This Encounter Medications loratadine (CLARITIN) 10 mg tablet Sig: Take 1 tablet (10 mg total) by mouth in the morning. There are no discontinued medications. IMPRESSIONS/PLAN There are no diagnoses linked to this encounter. SVT/atrial tachycardia from RA septum status post ablation 11/09/24 (Dr Hunter) with recurrent palpitations currently Family history of hypertrophic cardiomyopathy Brother No evidence of HCM on her most recent echo in 2023 she is completely asymptomatic Intolerance to beta blockers 2 weeks event monitor Patient to start Cardizem after she returns a monitor 120 mg daily She was previously on flecainide She is not interested in a redo ablation if 80 recurs. I did ask her for genetic testing for her brother, if gene identified in him we will refer her for genetic testing as well TODAYS ORDERS No orders of the defined types were placed in this encounter. FOLLOW UP No follow-ups on file. PCP: Christi Galvan MD Referring Physician: Christi Galvan MD [address] [place] [address] documented in this encounter Plan of Treatment Upcoming Encounters Date Type Department Care Team (Late st Contact Info) Description 12/27/2024 1:45 PM EDT Appointment [facility] - Mammography/DEXA Imaging [address] [place] [address] 06/07/2025 2:00 PM EST Office Visit [facility] Cardiology [address] [place] [address] Tuan Cotto MD [address] [place] [address] Scheduled Orders Name Type Priority Associated Diagnoses Orde r Schedule Event Monitor (In Office) Cardiac Services Routine SVT (supraventricular tachycardia) ([facility]) Expected: 12/06/2024, Expires: 12/06/2025 documented as of this encounter Goals Goal Patient Goal Type Associated Problems Recent Progress Patient-Stated? Author Home with General Yes Mckenna Najera RN Note: Evaluation of progress towards goal: Current discharge plan is home with [facility] and support of spouse. - Mckenna Najera RN 09/15/21 12:29 PM documented as of this encounter Visit Diagnoses Diagnosis SVT (supraventricular tachycardia)- Primary Other specified cardiac dysrhythmias Tachycardia Unspecified tachycardia Palpitations documented in this encounter Care Teams Leaf Stripper Relationship Specialty Start Date End Date Christi Galvan MD [address] [place] [address] PCP - General Family Medicine 10/07/23 documented as of this encounter
--- OUTSIDE RECORDS SUMMARY | 2024-12-17 11:14 | XMS_ITS | Encounter Summary ---
Author Organization [facility] [employer] Address [facility] [id number] [address] [place] [address] Care Team Providers Care Securities Supervisor Name Role Phone Christi Galvan MD Primary Care Provider [phone] Encounter Details Date Type Department Care Team (Late Contact Info) Description 02/25/2021 Orders Only [facility] [address] [place] [phone] External, Scanning Provider Social History Tobacco Use Types Packs/Day Years Used Date Smoking Tobacco: Never Smokeless Tobacco: Never Childcare Answer Date Recorded Childcare Unknown 12/13/2018 Employment Answer Date Recorded Employment Unknown 12/13/2018 Purpose - Life Answer Date Recorded Purpose and direction in life Unknown Comments Unknown Sex and Gender Information Value Date Recorded Sex Assigned at Female 08/26/2022 7:19 AM EST Legal Sex Female 11:42 AM EDT Gender Identity Female 08/26/2022 7:19 AM EST Sexual Orientation Straight 08/26/2022 7: 19 AM EST COVID-19 Exposure Response Date Recorded In the last month, have you been in contact with someone who was confirmed or suspected to have Coronavirus / COVID-19? No / Unsure 02/27/2021 10:09 AM EDT documented as of this encounter Plan of Treatment Upcoming Encounters Date Type Department Care Team (Late Contact Info) Description 12/27/2024 1:45 PM EDT Appointment [facility] - Mammography/DEXA Imaging [address] [place] [address] 06/07/2025 2:00 PM EST Office Visit [facility] [address] [place] [phone] Tuan Cotto MD [address] [place] [address] documented as of this encounter Procedures Procedure Name Priority Date/Time Associated Diagnosis Comments ECG 12-LEAD Routine 11/14/2013 ECHO DOPPLER Routine 10/02/2013 EVENT MONITOR Routine 09/21/2013 documented in this encounter Results * ECG 12 lead (11/14/2013) us Scanning Provider External ECG ORDERABLES Final Result [facility] EXTERNAL NON-INTERFACED REF LAB [id number] [place] [address] * Echo Doppler (10/02/2013) Anatomical Region Laterality Modality Chest N/A Ultrasound us Scanning Provider External CV ECHO ORDERABLES Fi nal Result * Event monitor process supervisor and recording (09/21/2013) Anatomical Region Laterality Modality Chest N/A Other us Scanning Provider External CV CARDIAC SERVICES O RDERABLES Final Result documented in this encounter Visit Diagnoses Not on filedocumented in this encounter Care Teams Securities Supervisor Relationship Specialty Start Date End Date Wonderly, Christi Brewer MD [address] [place] [address] PCP - General Family Medicine 10/07/23 documented as of this encounter
--- OUTSIDE RECORDS SUMMARY | 2024-12-17 11:14 | XMS_ITS | Encounter Summary ---
Author Organization [facility] [employer] [facility] tem Address [id number] [address] [place] [address] Care Team Providers Care Commercial Or Institutional Cleaner Name Role Phone Christi Galvan MD Primary Care Provider [phone] Encounter Details Date Type Department Care Team (Late Contact Info) Description 03/26/[address] [facility] Cardiology [address] [facility] [address] [place] [address] Laura Sanchez, DENA Neurocardiogenic syncope; Palpitations; Tachycardia; Shortness of breath Social History Tobacco Use Types Packs/Day Years [...] or suspected to have Coronavirus / COVID-19? Unable to assess 03/17/2021 1:20 PM EDT documented as of this encounter Plan of Treatment Upcoming Encounters Date Type Department Care Team ([facility] Contact Info) Description 12/27/2024 1:45 PM EDT Appointment [facility] - Mammography/DEXA Imaging [address] [place] [address] 06/07/2025 2:00 PM EST Office Visit [facility] [address] [place] [address] Tuan Cotto MD [address] [place] [address] documented as of this encounter Procedures Procedure Name Priority Date/Time Associated Diagnosis Comments EVENT MONITOR Routine 03/28/2021 Neurocardiogenic syncope Palpitations Tachycardia Shortness of breath EVENT MONITOR Routine 03/26/2021 documented in this encounter Results * Event monitor wind farm support specialist and recording (03/28/2021) Anatomical Region Laterality Modality Chest N/A Other us Tariq Orosco MD CV CARDIAC SERVICES ORDE SARA Final Result * Event monitor wind farm support specialist and recording (03/26/2021) Anatomical Region Laterality Modality Chest N/A Other us Scanning Provider External CV CARDIAC SERVICES O RDERABLES Edited Result - Final documented in this encounter Visit Diagnoses Diagnosis Neurocardiogenic syncope Palpitations Tachycardia Unspecified tachycardia Shortness of breath documented in this encounter Care Teams Commercial Or Institutional Cleaner Relationship Specialty Start Date End Date Wonderly, Christi Brewer MD [address] [place] [address] PCP - General Family Medicine 10/07/23 documented as of this encounter
--- OUTSIDE RECORDS SUMMARY | 2024-12-17 11:14 | XMS_ITS | Encounter Summary ---
Author Organization [facility] [employer] Address [id number] [address] [place] [address] Care Team Providers Care Yard Jacker Name Role Phone Christi Galvan MD Primary Care Provider [phone] Encounter Details Date Type Department Care Team (Late Contact Info) Description 07/13/2022 Orders Only [facility] [address] [place] [phone] Radha Hollingsworth CMA SVT (supraventricular tachycardia) ([facility]) Social History Tobacco Use Types Packs/Day Years [...] AM EST documented as of this encounter Plan of Treatment Upcoming Encounters Date Type Department Care Team (Late Contact Info) Description 12/27/2024 1:45 PM EDT Appointment [facility] - Mammography/DEXA Imaging [address] [place] [address] 06/07/2025 2:00 PM EST Office Visit [facility] [address] [place] [phone] Tuan Cotto MD [address] [place] [address] documented as of this encounter Goals Goal Patient Goal Type Associated Problems Recent Progress Patient-Stated? Author Home with HC General Yes Mckenna Najera, CHARLIE Note: Evaluation of progress towards goal: Current discharge plan is home with [facility] and support of spouse. - Mckenna Najera RN 09/15/21 12:29 PM documented as of this encounter Procedures Procedure Name Priority Date/Time Associated Diagnosis Comments BASIC METABOLIC PANEL Routine 07/09/2022 SVT (supraventricular tachycardia) (CMS-HCC) documented in this encounter Results * Basic Metabolic Panel (07/09/2022) 07/09/2022 Roopa Larsen MERCHANDISE EXECUTION LEADER-AUTO SERVICE STATION ATTENDANT LAB BLOOD ORDERABLES F inal Result [facility] documented in this encounter Visit Diagnoses Diagnosis SVT (supraventricular tachycardia) Other specified cardiac dysrhythmias documented in this encounter Care Teams Yard Jacker Relationship Specialty Start Date End Date Wonderly, Christi Brewer MD [address] [place], [place] [address] PCP - General Family Medicine 10/07/23 documented as of this encounter
--- OUTSIDE RECORDS SUMMARY | 2024-12-17 11:14 | XMS_ITS | Encounter Summary ---
Author Organization [employer] Address [id number] [address] [place] [address] Care Team Providers Care Sausage Stringer Name Role Phone Christi Galvan MD Primary Care Provider [phone] Encounter Details Date Type Department Care Team (Late st Contact Info) Description 09/25/2021 Telephone [facility] [address] [facility] [address] [place] [phone] Roopa Stephenson, SHANTA Social History Tobacco Use Types Packs/Day Years [...] Exposure Response Date Recorded In the last 10 days, have yo u been in contact with someone who was confirmed or suspected to have Coronavirus/COVID-19? No / Unsure 09/24/2021 3:47 PM EDT documented as of this encounter Miscellaneous Notes * Telephone Encounter - Roopa Stephenson - 09/25/2021 9:06 AM EDT Patient of Dr Fercho. Left TKA 09/15/21 Patient is requesting a refill of pain medicine. She is fine with stepping down to [place]. Pharmacy confirmed in chart * Telephone Encounter - DAVY Thomson - 09/25/2021 9:06 AM EDT A prescription for norco was sent to the patient's pharmacy. The OARRS/MAPPS database was reviewed today and found to be appropriate. No indication of medication diversion, or non compliance. * Telephone Encounter - Roopa Stephenson - 09/25/2021 9:06 AM EDT Left a message for patient notifying her prescription was sent to pharmacy. documented in this encounter Plan of Treatment Upcoming Encounters Date Type Department Care Team (Late st Contact Info) Description 12/27/2024 1:45 PM EDT Appointment [facility] - Mammography/DEXA Imaging [address] [place] [phone] 06/07/2025 2:00 PM EST Office Visit [facility] Cardiology [address] [place] [address] Tuan Cotto MD [address] [place] [address] documented as of this encounter Goals Goal Patient Goal Type Associated Problems Recent Progress Patient-Stated? Author Home with General Yes Mckenna Najera RN Note: Evaluation of progress towards goal: Current discharge plan is home with [facility] and support of spouse. - Mckenna Najera RN 09/15/21 12:29 PM documented as of this encounter Visit Diagnoses Diagnosis Postoperative pain- Primary Other acute postoperative pain documented in this encounter Care Teams Sausage Stringer Relationship Specialty Start Date End Date Christi Galvan MD [address] [place] [address] PCP - General Family Medicine 10/07/23 documented as of this encounter
--- OUTSIDE RECORDS SUMMARY | 2024-12-17 11:14 | XMS_ITS | Encounter Summary ---
Author Organization [employer] tem Address [facility] [id number] [address] [place] [address] Care Team Providers Care Bushing And Broach Operator Name Role Phone Christi Galvan MD Primary Care Provider [phone] Encounter Details Date Type Department Care Team (Late st Contact Info) Description 11/07/2023 Telephone [facility] [address] [place] [address] Sajan Vasquez, RN Social History Tobacco Use Types Packs/Day Years [...] got money to buy more. Never True 02/04/2023 Within the past 12 months th e food we bought just didn't last and we didn't have money to get more. Never True 02/04/2023 Purpose - Life Answer Date Recorded Purpose and direction in life Unknown Comments No Sex and Gender Information Value Date Recorded Sex Assigned at Female 08/26/2022 7:19 AM EST Legal Sex Female 11:42 AM EDT Gender Identity Female 08/26/2022 7:19 AM EST Sexual Orientation Straight 08/26/2022 7: 19 AM EST documented as of this encounter Miscellaneous Notes * Telephone Encounter - Sajan Vasquez RN - 11/07/2023 2:01 PM EDT Patient calls to report that her ears are plugged on and off and she is experiencing some sinus issues . Patient denies fever. Patient took a home covid test and reports it was negative. Patient wants to make sure that this will not affect her upcoming ablation on 11/10/2023 with JZ[facility]. Patient advised it should not interfere as long as it doesn't progress. Patient advised I would forward a message to her provider just to be sure. Patient V/U. * Telephone Encounter - Logan Hunter MD - 11/07/2023 2:01 PM EDT Agree, should not affect ablation, proceed to ablation as scheduled on 11/10/2023 * Telephone Encounter - Sajan Vasquez RN - 11/07/2023 2:01 PM EDT Patient notified. Patient V/U. documented in this encounter Plan of Treatment Upcoming Encounters Date Type Department Care Team (Late st Contact Info) Description 12/27/2024 1:45 PM EDT Appointment [facility] - Mammography/DEXA Imaging [address] [place] [phone] 06/07/2025 2:00 PM EST Office Visit [facility] Card[facility] [address] [place] [address] Tuan Cotto MD [address] [place] [address] documented as of this encounter Goals Goal Patient Goal Type Associated Problems Recent Progress Patient-Stated? Author Home with General Yes Mckenna Najera, RN Note: Evaluation of progress towards goal: Current discharge plan is home with [facility] and support of spouse. - Mckenna Najera RN 09/15/21 12:29 PM documented as of this encounter Visit Diagnoses Not on filedocumented in this encounter Care Teams Bushing And Broach Operator Relationship Specialty Start Date End Date Wonderly, Christi Brewer MD [address] [place] [address] PCP - General Family Medicine 10/07/23 documented as of this encounter
--- OUTSIDE RECORDS SUMMARY | 2024-12-17 11:14 | XMS_ITS | Encounter Summary ---
Author Organization [facility] tem Address [facility] [id number] [address] [place] [address] Care Team Providers Care Manager Of Employee Relations Name Role Phone Christi Galvan MD Primary Care Provider [phone] Encounter Details Date Type Department Care Team (Latest Contact Info) Description 12/06/2024 Travel Social History Tobacco Use Types Packs/Day Years [...] Upcoming Encounters Date Type Department Care Team ( Contact Info) Description 12/27/2024 1:45 PM EDT Appointment [facility] - Mammography/DEXA Imaging [address] [place] [address] 06/07/2025 2:00 PM EST Office Visit [facility] [address] [place] [phone] Tuan Cotto MD [address] [place] [address] documented as of this encounter Goals Goal Patient Goal Type Associated Problems Recent Progress Patient-Stated? Author Home with HC General Yes Mckenna Najera, RN Note: Evaluation of progress towards goal: Current discharge plan is home with [facility] and support of spouse. - Mckenna Najera RN 09/15/21 12:29 PM documented as of this encounter Visit Diagnoses Not on filedocumented in this encounter Care Teams Manager Of Employee Relations Relationship Specialty Start Date End Date Wonderly, Christi Brewer MD [address] [place] [address] PCP - General Family Medicine 10/07/23 documented as of this encounter
--- OUTSIDE RECORDS SUMMARY | 2024-12-17 11:14 | XMS_ITS | Clinical Summary ---
Author Organization [employer] Address [facility] [id number] [address] [place] [address] Care Team Providers Care Avionic Technician Name Role Phone Christi Galvan MD Primary Care Provider [phone] Allergies Active Allergy Reactions Criticality Noted Date Comments Sulfa (Sulfonamide Antibiotics) Rash Low 02/01 Medications nabumetone (RELAFEN) 500 mg tablet Take 1 tablet (500 mg total) by mouth in the morning and 1 tablet (500 mg total) before bedtime. Active omeprazole (PriLOSEC) 20 mg capsule Take 1 capsule (20 mg total) by mouth in the morning. Takes in am. Active cyclobenzaprine (FLEXERIL) 10 mg tablet Take 1 tablet (10 mg total) by mouth in the morning. 02/01/2021 Active vitamin A 8000 UNIT capsule Take 1 capsule (8,000 Units total) by mouth in the morning. Active ascorbic acid, vitamin C, (VITAMIN C) 100 MG tablet Take 1 tablet (100 mg total) by mouth in the morning. Active magnesium oxide 200 mg magnesium tablet Take 2 tablets by mouth in the morning. Active [id number]-F GRECIA OIL-L.CASEI ORAL Take 1 capsule by mouth in the morning. Active calcium carbonate/vitam in D3 (CALCIUM 500 + D ORAL) Take 1 tablet by mouth in the morning. Active potassium 99 mg tablet Take 1 tablet (99 mg total) by mouth in the morning. Active famotidine (PEPCID) 10 mg tablet Take 1 tablet (10 mg total) by mouth nightly. Active glucosamine-cho ndroitin 500-400 mg tablet Take 1 tablet by mouth in the morning. Active biotin 1,000 mcg tablet,chewable Chew 1 tablet and swallow in the morning. Active lysine 500 mg tablet Take 1 tablet (500 mg total) by mouth in the morning. Active multivitamin (MULTIPLE VITAMINS ORAL) Take 1 tablet by mouth in the morning. Active b complex vitamins capsule Take 1 capsule by mouth in the morning. Active acetaminophen (TYLENOL) 325 mg tablet Take 1 tablet (325 mg total) by mouth every 6 (six) hours as needed for pain. Active TURMERIC ORAL Take 1 tablet by mouth daily as needed. Active psyllium husk (METAMUCIL ORAL) Take 1 Dose by mouth in the morning. Active gabapentin (NEURONTIN) 100 mg capsule Take 1 capsule (100 mg total) by mouth in the morning. 01/23/2024 Active loratadine (CLARITIN) 10 mg tablet Take 1 tablet (10 mg total) by mouth in the morning. Active dilTIAZem CD (CARDIZEM CD) 120 mg 24 hr capsuleIndicati ons:SVT (supraventricul ar tachycardia) Take 1 capsule (120 mg total) by mouth in the morning. 30 capsule 11 12/06/2024 Active Active Problems Problem Noted Date Diagnosed Date Primary osteoarthritis of right knee 04/12/2022 Overview (04/12/2022): Added automatically from request for surgery [id number] Class 1 obesity in adult 11/23/2021 S/P total knee replacement, left 09/30/2021 SVT (supraventricular tachycardia) 05/01/2021 Preop testing 04/10/2021 Obesity (BMI 30-39.9) 04/09/2021 Primary osteoarthritis of both knees 03/03/2021 Overview (03/03/2021): Added automatically from request for surgery [id number] Neurocardiogenic syncope 02/27/2021 Palpitations 02/27/2021 Tachycardia 02/27/2021 Shortness of breath 02/27/2021 Encounters Date Type Department Care Team Description 12/06/2024 2:30 PM EDT Office Visit [facility] [address] [place] [address] Tuan Cotto MD SVT (supraventricular tachycardia) (Primary Dx); Tachycardia; Palpitations 12/06/2024 Travel from Last 3 Months Family History Medical History Relation Name Comments Heart disease Brother 1 No Known Problems Brother 2 Dementia Father Vickie bodyoli Hypertension Father Other Father COVID Stroke Father Thyroid disease Mother Cancer Sister 1 bile duct, Liver disease Sister 1 No Known Problems Sister 2 Breast cancer Neg Hx Relation Name Status Comments Brother 1 Alive Brother 2 Alive Father Mother Alive Sister 1 Alive Sister 2 Alive Social History Tobacco Use Types Packs/Day Years Used Date Smoking Tobacco: Never Smokeless Tobacco: Never Tobacco Cessation:Counseling Given: Not Answered Alcohol Use Standard Drinks/Week Comments Never 0 [...] Orientation Straight 08/26/2022 7: 19 AM EST Last Filed Vital Signs Vital Sign Reading Time Taken Comments Blood Pressure 122/68 12/06/2024 2:17 PM EDT Pulse 74 12/06/2024 2:17 PM EDT Temperature 36.1 C (97 F) 11/10/2023 4:00 PM EDT Respiratory Rate 20 11/10/2023 5:00 PM EDT Oxygen Saturation 96% 12/06/2024 2:17 PM EDT Inhaled Oxygen Concentration - - Weight 93.9 kg (207 lb) 12/06/2024 2:17 PM EDT Height 165.1 cm (5' 5 ) 12/06/2024 2:17 PM EDT Body Mass Index 34.45 12/06/2024 2:17 PM EDT Plan of Treatment Upcoming Encounters Date Type Department Care Team (Late st Contact Info) Description 12/27/2024 1:45 PM EDT Appointment [facility] - Mammography/DEXA Imaging [address] [place] [address] 06/07/2025 2:00 PM EST Office Visit [facility] Card[facility] [address] [place] [address] Tuan Cotto MD [address] [place] [address] Health Maintenance Due Date Last Done Comments Depression Screening 1967 Adult BMI Follow Up Plan 1974 Fall Risk Screening 2021 COVID-19 Vaccine (2023- season) 03/04/202405/2021, 02/19/2021 Influenza Vaccine 03/04/2025 08/02/2023, 10/08/2022 DTaP,Tdap and Td Vaccines (3 - Td or Tdap) 11/16/2025 11/17/2015, 07/04/2004 Adult BMI Screening 12/06/2025 12/06/2024 Tobacco Screening 12/06/2025 12/06/2024 Zoster (Shingles) Vaccine Completed 03/12/2023, 01/2023 Goals Goal Patient Goal Type Associated Problems Recent Progress Patient-Stated? Author Home with General Yes Mckenna Najera RN Note: Evaluation of progress towards goal: Current discharge plan is home with [facility] and support of spouse. - Mckenna Najera RN 09/15/21 12:29 PM Medical Devices Implanted Type Area Superintendent Pipelines Device Identifier Shelf Expiration Date Model / Serial / Lot Cement Bn Bio 40gm Rpl [id number] - [id number] - [id number] Implanted:Qt y: 2 on 09/15/2021 by Sonido Prince MD at [facility] Cement Left: Knee [employer] 02/01/2024 [id number] / [id number] / [id number] Cement Bn Bio 40gm Rpl [id number] - [id number] Implanted:Qt y: 1 on 08/26/2022 by Sonido Prince MD at [facility] Cement Right: Knee Ivn [employer] 12/01/2024 [id number] / / [id number] Cement Bn Bio 40gm Rpl [id number] - [id number] Implanted:Qt y: 1 on 08/26/2022 by Sonido Prince MD at [facility] Cement Right: Knee [employer] 12/01/2024 [id number] / / [id number] Component Ptlr 35mm Persona Alply Kn Strl Lf - [id number] - [id number] Implanted:Qt y: 1 on 09/15/2021 by Sonido Prince MD at [facility] Orthopedic Implant Left: Knee [employer] 08/02/2029 [id number] / [id number] / [id number] Component Fem 6 Std Kn Lt Post Stab Cmnt Persona Cocr Strl - [id number] - [id number] Implanted:Qt y: 1 on 09/15/2021 by Sonido Prince MD at [facility] Orthopedic Implant Left: Knee [employer] 10/19/2030 [id number] / [id number] / [id number] Surface Artc 11mm Persona 6-9 Cd Kn Lt Pe Post Stab - [id number] - [id number] Implanted:Qt y: 1 on 09/15/2021 by Sonido Prince MD at [facility] Orthopedic Implant Left: Knee [employer] 08/14/2028 [id number] / [id number] / [id number] Surface Artc 11mm Persona 6-9 Cd Kn Rt Vivacit-E Post Stab - [id number] Implanted:Qt y: 1 on 08/26/2022 by Sonido Prince MD at [facility] Orthopedic Implant Right: Knee [employer] 05/03/2027 [id number] / / [id number] Component Fem 6 Std Kn Rt Post Stab Cmnt Persona Cocr Strl - [id number] Implanted:Qt y: 1 on 08/26/2022 by Sonido Prince MD at [facility] Orthopedic Implant Right: Femur Vin [employer] 05/17/2032 [id number] / / [id number] Component Ptlr 35mm Persona Alply Kn Strl Lf - [id number] Implanted:Qt y: 1 on 08/26/2022 by Sonido Prince MD at [facility] Orthopedic Implant Right: Patella Vin [employer] 07/18/2027 [id number] / / [id number] Stem Xtn 30+ Mm 14mm Persona Tpr Kn Tib - [id number] Implanted:Qt y: 1 on 08/26/2022 by Sonido Prince MD at [facility] Orthopedic Implant Right: Tibia [employer] 06/27/2032 [id number] / / [id number] Baseplate Tib 5d D Kn Lt Cmnt Stm Persona Tiv Strl - [id number] - [id number] Implanted:Qt y: 1 on 09/15/2021 by Sonido Prince MD at [facility] Plate Left: Knee [employer] 05/01/2030 [id number] / [id number] / [id number] Baseplate Tib 5d D Kn Rt Cmnt Stm Persona Tiv Strl - [id number] Implanted:Qt y: 1 on 08/26/2022 by Sonido Prince MD at [facility] Plate Right: Tibia [employer] 05/08/2032 [id number] / / [id number] Insurance [employer] Care Teams Avionic Technician Relationship Specialty Start Date End Date Isakly, Christi Brewer MD [address] [place] [address] PCP - General Family Medicine 10/07/23
--- OUTSIDE RECORDS SUMMARY | 2024-12-17 11:14 | XMS_ITS | Encounter Summary ---
Author Organization [facility] [employer] [facility] tem Address [facility] [id number] [address] [place] [address] Care Team Providers Care Chip Separator Name Role Phone Christi Galvan MD Primary Care Provider [phone] Encounter Details Date Type Department Care Team (Late Contact Info) Description 07/12/2022 Orders Only [facility] [address] [place] [address] Elisa Davis Tachycardia; SVT (supraventricular tachycardia) ([facility]) Social History Tobacco Use Types Packs/Day Years [...] Info) Description 12/27/2024 1:45 PM EDT Appointment [facility] - Mammography/DEXA Imaging [address] [place] [address] 06/07/2025 2:00 PM EST Office Visit [facility] [address] [facility] [address] [place] [address] Tuan Cotto MD [address] [place] [address] documented as of this encounter Goals Goal Patient Goal Type Associated Problems Recent Progress Patient-Stated? Author Home with HC General Yes Mckenna Najera RN Note: Evaluation of progress towards goal: Current discharge plan is home with [facility] and support of spouse. - Mckenna Najera RN 09/15/21 12:29 PM documented as of this encounter Procedures Procedure Name Priority Date/Time Associated Diagnosis Comments MAGNESIUM Routine 07/10/2022 Tachycardia SVT (supraventricular tachycardia) ([facility]) documented in this encounter Results * Magnesium (07/10/2022) 07/10/2022 us [place]ie [place] POLICE SERGEANT [employer] EXAMINER LAB BLOOD ORDERABLES F inal Result [employer] documented in this encounter Visit Diagnoses Diagnosis Tachycardia Unspecified tachycardia SVT (supraventricular tachycardia) Other specified cardiac dysrhythmias documented in this encounter Care Teams Chip Separator Relationship Specialty Start Date End Date Wonderly, Christi Brewer MD [address] [place] [address] PCP - General Family Medicine 10/07/23 documented as of this encounter
--- OUTSIDE RECORDS SUMMARY | 2024-12-17 11:14 | XMS_ITS | Encounter Summary ---
Author Organization [facility] Address [id number] [address] [place] [address] Care Team Providers Care Intelligence Chief Name Role Phone Christi Galvan MD Primary Care Provider [phone] Reason for Visit * Reason Onset Date Comments Cardiomyopathy 11/22/2023 Encounter Details Date Type Department Care Team (Late st Contact Info) Description 11/22/2023 Telephone [facility] Cardiology [address] [phone] Clarissa Rendon RN Cardiomyopathy Social History Tobacco Use Types Packs/Day Years [...] encounter Miscellaneous Notes * Telephone Encounter - Clarissa Rendon RN - 11/22/2023 3:19 PM EDT Pt calls stating that she had an ablation done on 11/10/[address] Hunter and she had mentioned that darryl had a fatty heart She checked with her brother and his actual dx is hypertrophic cardiomyopathy and she would like tomake Dr. Hunter aware as he stated he doesn't think she has ever been tested for that. Pupil Personnel Services Director will message Dr. Hunter to make aware * Telephone Encounter - Logan Hunter MD - 11/22/2023 3:19 PM EDT Please ask the patient if her brother has ever been genetically tested for hypertrophic cardiomyopathy. If so, that would warrant testing for the mutation in her. * Telephone Encounter - Clarissa Rendon RN - 11/22/2023 3:19 PM EDT Spoke with pt and she will speak with her brother and get back with our office. documented in this encounter Plan of Treatment Upcoming Encounters Date Type Department Care Team (Late st Contact Info) Description 12/27/2024 1:45 PM EDT Appointment [facility] - Mammography/DEXA Imaging [address] [place] [address] 06/07/2025 2:00 PM EST Office Visit [facility] Cardiology [address] [place] [address] Tuan Cotto MD [address] [place] [address] documented as of this encounter Goals Goal Patient Goal Type Associated Problems Recent Progress Patient-Stated? Author Home with General Yes Mckenna Najera RN Note: Evaluation of progress towards goal: Current discharge plan is home with [facility] and support of spouse. - Mckenna Najera RN 09/15/21 12:29 PM documented as of this encounter Visit Diagnoses Not on filedocumented in this encounter Care Teams Intelligence Chief Relationship Specialty Start Date End Date Wonderly, Christi Brewer MD [address] [place] [address] PCP - General Family Medicine 10/07/23 documented as of this encounter
[2024-12-17 11:28] VITALS: BP 138/85; PULSE 71; TEMP 36.7; O2SAT 97
--- OUTSIDE RECORDS SUMMARY | 2024-12-17 11:32 | XMS_ITS | CCD ---
Author Organization [facility] Care Team Providers Care Editorial Director Name Role Phone IAN RYAN Unavailable Unavailable HOUSE, RYAN Unavailable Unavailable HOUSE, RYAN Unavailable Unavailable CATHIE REED V Unavailable Unavailable IAN, RYAN Unavailable Unavailable LOGAN HUNTER Admitting Unavailable LOGAN HUNTER Attending Unavailable RYAN SOSA Primary Care Unavailable FEROZ COOK Attending Unavailable CHRISTI GALLEGOS Primary Care Unavailable Christi Gallegos MD Primary Care Provider Christi Gallegos MD Unavailable Christi Gallegos MD Unavailable [phone] Christi Gallgeos MD Primary Care Provider Christi Gallegos MD Unavailable Christi Gallegos MD Primary Care Provider Ryan Sosa DO Primary Care Provider Christi Gallegos MD Unavailable SUSAN GAY Attending Unavailable ERNA BANEGAS Attending Unavailable ERNA BANEGAS Attending Unavailable ADRIANNA REDDY Attending Unavailable CHRISTI GALLEGOS Referring Unavailable CHRISTI GALLEGOS Primary Care Unavailable LOGAN HUNTER Attending Unavailable RYAN SOSA Referring Unavailable CHRISTI GALLEGOS Primary Care Unavailable LOGAN HUNTER Attending Unavailable LOGAN HUNTER Referring Unavailable CHRISTI GALLEGOS Primary Care Unavailable TUAN JANE Attending Unavailable CHRISTI GALLEGOS Referring Unavailable CHRISTI GALLEGOS Primary Care Unavailable Christi Gallegos MD Primary Care Provider Allergies Allergy Classification Reported Allergen(s) Allergy Type Date of Onset Reaction(s) Facility (11 sources) Sulfonamides (Antibiotic); Translations: [SULFA (SULFONAMIDE ANTIBIOTICS)] Propensity to adverse reactions to drug (disorder) Rash [facility] (19 sources) Sulfonamides (Antibiotic) Drug Intolerance 1 Rash [facility] Medications Current Medications Medication Drug Class(es) Dates Sig (Normalized) Sig (Original) acetaminophen 325 mg oral tablet (9 sources) take 1 tablet by mouth every six hours as needed for pain acetaminophen (TYLENOL) 325 mg tablet Take 1 tablet (325 mg total) by mouth every 6 (six) hours as needed for pain. Active acetaminophen 325 mg / HYDROcodone bitartrate 5 mg oral tablet (3 sources) Opioid Agonist Start: 09-28-2022 HYDROcodone-acetami nophen (NORCO) 5-325 mg per tablet Indications: Post-operative pain Take 1 tablet by mouth 2 (two) times a day as needed for pain. Max Daily Amount: 2 tablets 14 tablet 09/28/2022 Active amoxicillin 875 mg / clavulanate 125 mg oral tablet (3 sources) Penicillin-class Antibacterial Start: 11-16-2024 End: 11-26-2024 take 1 tablet by mouth in the morning amoxicillin-clavula tere (Augmentin) 875-125 MG tablet Indications: Acute non-recurrent pansinusitis Take 1 tablet (875 mg) by mouth in the morning and 1 tablet (875 mg) before bedtime. Do all this for 10 days. 20 tablet 11/16/2024 11/26/2024 Active ascorbic acid 100 mg oral tablet (9 sources) Vitamin C take 1 tablet by mouth in the morning ascorbic acid, vitamin C, (VITAMIN C) 100 MG tablet Take 1 tablet (100 mg total) by mouth in the morning. Active aspirin 81 mg delayed release oral tablet (3 sources) Platelet Aggregation Inhibitor, Nonsteroidal Anti-inflammatory Drug Start: [...] DAY FOLLOWING YOUR JOINT REPLACEMENT 60 tablet 08/29/2022 Active b complex vitamins capsule (9 sources) take 1 capsule by mouth in the morning b complex vitamins capsule Take 1 capsule by mouth in the morning. Active take 1 capsule by mouth in the m orning b complex vitamins capsule Take 1 capsule by mouth in the morning. 0 Active biotin 1 mg chewable tablet (9 sources) biotin 1,000 mcg tablet,chewable Chew 1 tablet and swallow in the morning. Active calcium carbonate 1500 mg / cholecalciferol 200 unt oral tablet (9 sources) Vitamin D calcium citrate 600 mg and vitamin D3 (Citrical & Minerals + Vit D) 600-200 MG-UNIT tablet Orally Active Calcium Carbonate / vitamin D3 (9 sources) take 1 tablet by mouth once daily in the morning calcium carbonate/vitamin D3 (CALCIUM 500 + D ORAL) Take 1 tablet by mouth in the morning. Active take 1 tablet by mouth once ivan y calcium carbonate/vitamin D3 (CALCIUM 500 + D ORAL) Take 1 tablet by mouth daily. Active take 1 tablet by mouth once ivan y calcium carbonate/vitamin D3 (CALCIUM 500 + D ORAL) Take 1 tablet by mouth daily. 0 Active calcium citrate 600 mg and vitamin D3 (Citrical & Minerals + Vit D) 600-200 MG-UNIT tablet (10 sources) calcium citrate 600 mg and vitamin D3 (Citrical & Minerals + Vit D) 600-200 MG-UNIT tablet Orally Active chondroitin sulfates 400 mg / glucosamine hydrochloride 500 mg oral tablet (15 sources) take 1 tablet by alina th in the morning glucosamine-chondroitin 500-400 mg tablet Take 1 tablet by mouth in the morning. Active End: 06-15-2024 take 1 tablet by mouth in the morning glucosamine-chondroitin 500-400 MG table t Take 1 tablet by mouth in the morning. 06/15/2024 Discontinued (Therapy completed) cyclobenzaprine hydrochloride 10 mg oral tablet (20 sources) Muscle Relaxant Start: 02-01-2021 take 1 tablet by mouth in the morning cyclobenzaprine (FLEXERIL) 10 mg tablet Take 1 tablet (10 mg total) by mouth in the morning. 02/01/2021 Active 24 hr dilTIAZem hydrochloride 120 mg extended release oral capsule (1 source) Calcium Channel Mary Jo Start: 12-06-2024 take 1 capsule by mouth every twenty-four hours in the morning dilTIAZem CD (CARDIZEM CD) 120 mg 24 hr capsule Indications: SVT (supraventricular tachycardia) Take 1 capsule (120 mg total) by mouth in the morning. 30 capsule 11 12/06/2024 Active docosahexaenoic acid 120 mg / eicosapentaenoic acid 180 mg oral capsule (19 sources) omega-3 (Fish Oi l) 1000 MG capsule 1 capsule 1 (one) time each day at the same time. Active famotidine 10 mg oral tablet (20 sources) Histamine-2 Receptor Antagonist Start: 06-15-2024 End: 06-15-2024 take 1 tablet by mouth at bedtime famotidine (Pepcid) 10 MG tablet Indications: Gastroesophageal reflux disease, unspecified whether esophagitis present Take 1 tablet (10 mg) by mouth at bedtime 90 tablet 1 06/15/2024 Active flecainide acetate 50 mg oral tablet (10 sources) Antiarrhythmic Start: 10-19-2023 take 1 tablet by mouth in the morning, then take 1 tablet by mouth at bedtime flecainide (TAMBOCOR) 50 mg tablet Indications: SVT (supraventricular tachycardia) (CMS-HCC) Take 1 tablet (50 mg total) by mouth in the morning and 1 tablet (50 mg total) before bedtime. 60 tablet 10/19/2023 Active Start: 09-20-2022 End: 06-15-2024 flecainide (TAMBOCOR) 50 mg tablet Indications: SVT (supraventricular tachycardia) (CMS-HCC) TAKE 1 TABLET IN THE MORNING AND 1 TABLET BEFOREBEDTIME 180 tablet 1 03/02/2023 10/18/2023 Discontinued (Reorder) gabapentin 100 mg oral capsule (17 sources) Anti-epileptic Agent Start: 01-23-2024 take 1 capsule by mouth in the morning gabapentin (NEURONTIN) 100 mg capsule Take 1 capsule (100 mg total) by mouth in the morning. 01/23/2024 Active loratadine 10 mg oral tablet (9 sources) take 1 tablet by mouth in the morning loratadine (CLARITIN) 10 mg tablet Take 1 tablet (10 mg total) by mouth in the morning. Active lysine 500 mg oral tablet (20 sources) take 1 tablet by mouth in the morning lysine 500 mg tablet Take 1 tablet (500 mg total) by mouth in the morning. Active magnesium oxide 200 mg oral tablet (20 sources) take 2 tablets by mouth in the morning magnesium oxide 200 mg magnesium tablet Take 2 tablets by mouth in the morning. Active meloxicam 15 mg oral tablet (3 sources) Nonsteroidal Anti-inflammatory Drug Start: 08-29-2022 meloxicam (MOBIC) 15 mg tablet Indications: Primary osteoarthritis of both knees TAKE ONE TABLET BY MOUTH EVERY MORNING STARTING DAY ONE FOLLOWING JOINT REPLACEMENT 30 tablet 08/29/2022 Active methocarbamol 500 mg oral tablet (3 sources) Muscle Relaxant Start: 02-02-2021 take 1 tablet by mouth in the morning methocarbamoL (ROBAXIN) 500 mg tablet Take 1 tablet (500 mg total) by mouth in the morning. 02/02/2021 Active Multivitamin preparation (9 sources) take 1 tablet by mouth in the morning multivitamin (MULTIPLE VITAMINS ORAL) Take 1 tablet by mouth in the morning. Active take 1 tablet by mouth once ivan y multivitamin (MULTIPLE VITAMINS ORAL) Take 1 tablet by mouth daily. Active take 1 tablet by mouth once ivan y multivitamin (MULTIPLE VITAMINS ORAL) Take 1 tablet by mouth daily. 0 Active nabumetone 500 mg oral tablet (20 sources) Nonsteroidal Anti-inflammatory Drug Start: 12-27-2023 End: 11-30-2024 take 1 tablet by mouth in the morning nabumetone (Relafen) 500 MG tablet Indications: Primary osteoarthritis of both knees , Spondylosis without myelopathy or radiculopathy, lumbar region Take 1 tablet (500 mg) by mouth in the morning and 1 tablet (500 mg) before bedtime. 180 tablet 1 11/30/2024 Active [id number] SH OIL-L.CASEI ORAL (9 sources) take 1 capsule by mouth in the morning [id number] OIL-L.CASEI ORAL Take 1 capsule by mouth in the morning. Active take 1 capsule by mouth once anson ly [id number]-FISH OIL-L.CASEI ORAL Take 1 capsule by mouth daily. Active take 1 capsule by mouth once anson ly [id number]-FISH OIL-L.CASEI ORAL Take 1 capsule by mouth daily. 0 Active omeprazole 20 mg delayed release oral capsule (20 sources) Proton Pump Inhibitor Start: 11-01-2023 End: 11-16-2024 take 1 capsule by mouth before mealtime omeprazole (PriLOSEC) [address] capsule Indications: Gastroesophageal reflux disease, unspecified whether esophagitis present Take 1 capsule (20 mg) by mouth in the morning. Take before meals. 90 capsule 1 11/16/2024 Active potassium gluconate 2.5 meq oral tablet (20 sources) take 1 tablet by mouth in the morning potassium 99 mg tablet Take 1 tablet (99 mg total) by mouth in the morning. Active Potassium Glucon ate 2.5 MEQ tablet Take 99 mg by mouth in the morning. Active psyllium husk (METAMUCIL ORAL) (9 sources) take 1 dose by mouth in the morning psyllium husk (METAMUCIL ORAL) Take 1 Dose by mouth in the morning. Active take 1 dose by mouth in the morn ing psyllium husk (METAMUCIL ORAL) Take 1 Dose by mouth in the morning. 0 Active Turmeric extract (9 sources) take 1 tablet by alina th once daily as needed TURMERIC ORAL Take 1 tablet by mouth daily as needed. Active take 1 tablet by alina th once daily as needed TURMERIC ORAL Take 1 tablet by mouth anson ly as needed. 0 Active vitamin a 2.4 mg oral capsule (20 sources) Vitamin A take 1 capsule by mo uth in the morning vitamin A 8000 UNIT capsule Take 1 capsule (8,000 Units total) by mouth in the morning. Active Problems Active Problems Problem Classification Problem Date Documented Date Episodic/Chronic Cardiac dysrhythmias (20 sources) Cardiac arrhythmia, unspecified; Translations: [Supraventricular tachycardia] Onset: 05-01-2021 03-04-2023 Chronic Coma; stupor; and brain damage (4 sources) Daytime somnolence; Translations: [Somnolence] 10-28-2024 Episodic Esophageal disorders (20 sources) Gastroesophageal reflux disease; Translations: [Gastro-esophageal reflux disease without esophagitis] Onset: 03-04-2023 05-08-2024 Chronic Genitourinary symptoms and ill-defined conditions (2 sources) Urgent desire to urinate; Translations: [Urgency of urination] 10-26-2024 Episodic Mycoses (1 source) Onychomycosis due to dermatophyte ; Translations: [Tinea unguium] 09-20-2024 Episodic Osteoarthritis (20 sources) Primary gonarthrosis, bilateral; Translations: [Bilateral primary osteoarthritis of knee] Onset: 03-03-2021 03-04-2023 Chronic Other circulatory disease (2 sources) Elevated blood pressure; Translations: [Elevated blood-pressure reading, without diagnosis of hypertension] 06-15-2024 Episodic Other connective tissue disease (20 sources) History of total knee arthroplasty; Translations: [Presence of left artificial knee joint] Onset: 09-30-2021 03-04-2023 Chronic Other connective tissue disease (20 sources) Artificial knee joint present; Translations: [Presence of right artificial knee joint] Onset: 08-26-2022 07-13-2023 Chronic Other connective tissue disease (1 source) Pain in toe; Translations: [Pain in unspecified toe(s)] 09-20-2024 Episodic Other ear and sense organ disorders (20 sources) Decreased hearing ; Translations: [Unspecified hearing loss, unspecified ear] Onset: 08-02-2023 08-02-2023 Chronic Other ear and sense organ disorders (1 source) Otalgia, left ear; Translations: [Otalgia, unspecified] 05-10-2024 Episodic Other lower respiratory disease (4 sources) Snoring; Translations: [Snoring] 10-28-2024 Episodic Other lower respiratory disease (2 sources) Cough; Translations: [Acute cough] 11-16-2024 Episodic Other nervous system disorders (20 sources) Difficulty walking; Translations: [Difficulty in walking, not elsewhere classified] Onset: 03-04-2023 03-04-2023 Chronic Other nutritional; endocrine; and metabolic disorders (9 sources) Body mass index 30+ - obesity; Translations: [Obesity, unspecified] Onset: 04-09-2021 04-09-2021 Chronic Other nutritional; endocrine; and metabolic disorders (9 sources) Obesity; Translations: [Obesity, unspecified] Onset: 11-23-2021 11-23-2021 Chronic Other skin disorders (1 source) Dystrophia unguium; Translations: [Nail dystrophy] 09-20-2024 Episodic Other upper respiratory disease (2 sources) Nasal congestion; Translations: [Nasal congestion] 06-15-2024 Episodic Other upper respiratory disease (2 sources) Other specified disorders of nose and nasal sinuses; Translations: [Other disease of nasal cavity and sinuses] 11-16-2024 Episodic Other upper respiratory disease (2 sources) Nasal discharge; Translations: [Other specified disorders of nose and nasal sinuses] 11-16-2024 Episodic Other upper respiratory infections (5 sources) Acute maxillary sinusitis; Translations: [Acute maxillary sinusitis, unspecified] 05-10-2024 Episodic Spondylosis; intervertebral disc disorders; other back problems (20 sources) Lumbar spondylosis; Translations: [Spondylosis without myelopathy or radiculopathy, lumbar region] Onset: 06-15-2024 06-15-2024 Chronic Unclassified (6 sources) Encounter for screening mammogram for malignant neoplasm of breast; Translations: [Patient encounter status] Onset: 03-21-2018 10-28-2024 Episodic Unclassified (1 source) Family history of malignant neoplasm of other organs or systems; Translations: [FAM HX MALIG NEOPLASM OTH ORGN/SYS] Onset: 04-03-2018 Episodic Unclassified (2 sources) Supraventricular tachycardia, unspecified; Translations: [Supraventricular tachycardia, unspecified] Onset: 07-20-2023 Past or Other Problems Problem Classification Problem Date Documented Date Episodic/Chronic Cardiac dysrhythmias (20 sources) Palpitations; Translations: [Palpitations] Onset: 02-27-2021 03-04-2023 Episodic Other connective tissue disease (20 sources) Pain of left upper arm; Translations: [Pain in left upper arm] Onset: 08-02-2023 08-02-2023 Episodic Other lower respiratory disease (20 sources) Dyspnea; Translations: [Shortness of breath] Onset: 02-27-2021 Resolved: 10-28-2024 03-04-2023 Episodic Other nervous system disorders (19 sources) Finding related to ability to move; Translations: [Other abnormalities of gait and mobility] Onset: 08-26-2022 07-13-2023 Episodic Residual codes; unclassified (20 sources) Postmenopausal state; Translations: [Asymptomatic menopausal state] Onset: 08-02-2023 08-02-2023 Episodic Residual codes; unclassified (1 source) Asymptomatic menopausal state; Translations: [Asymptomatic menopausal state] Onset: 01-09-2024 Episodic Syncope (20 sources) Vasovagal syncope; Translations: [Syncope and collapse] Onset: 02-27-2021 03-04-2023 Episodic Results Test Name Value Interpretation Reference Range Facil ity POCT EKGon 02-22-2024 [facility] DEXA SCAN CENTRAL SKELETALon 01-10-2024 DEXA SCAN [...] Peterson MD on 01/10/2024 1:35 PM Normal [facility] XR Hip Bilateral w/Pelvison 11-12-2022 XR Hip Bilateral w/Pelvis COMPARISON: NONE. PELVIS FINDINGS: There are no lytic or sclerotic bone lesions. The femoral heads are located. There is no acute fracture or subluxation. There are no radiopaque foreign bodies. IMPRESSION: There are no acute osseous changes. Report reported and signed by JOSE JUAN LEWIS on 11/12/2022 0956 Normal [facility] XR Spine Lumbar 4+ Views*on 11-12-2022 [...] JOSE JUAN LEWIS on 11/12/2022 1023 Normal [facility] MG MAMM SCREEN NIEVES W CADon 0 03-21-2018 MG MAMM SCREEN NIEVES W CAD [address] [place] [address] Patient: MEKA ZAVALA Exam Date: 03/21/2018DOB: 1955 Gender:F : DR RYAN SOSA Admission #: [id number] : Order #: [id number] HERE TO VIEW EXAM RADIOLOGY REPORT PROCEDURE: [...] cancer at age 60. LOCATION: [facility] BREAST COMPOSITION: Scattered fibroglandular densities [...] Reed M.D. on 03/21/2018 at 15:25 Normal [facility] Vital Signs Date Time Vital Sign Value Performing Clinician Facility 12-06-2024 14:17-0400 Body height 165.1 cm Tuan Jane MD Work Phone: [facility] 12-06-2024 14:17-0400 Body mass index (BMI) [Ratio] 34.45 kg/m2 Tuan Jane MD Work Phone: [facility] 12-06-2024 14:17-0400 Body weight 93.89 kg Tuan Jane MD Work Phone: [facility] 12-06-2024 14:17-0400 Diastolic blood pressure 68 mm[Hg] Tuan Jane MD Work Phone: [facility] 12-06-2024 14:17-0400 Heart rate 74 /min Tuan Jane MD Work Phone: [facility] 12-06-2024 14:17-0400 SaO2% (BldA) [Mass fraction] 96 % Tuan Jane MD Work Phone: [facility] 12-06-2024 14:17-0400 Systolic blood pressure 122 mm[Hg] Tuan Jane MD Work Phone: [facility] 11-16-2024 10:35-0400 Body mass index (BMI) [Ratio] 34.21 kg/m2 Adrianna Reddy NP Work Phone: [facility] 11-16-2024 10:35-0400 Body weight 93.26 kg Adrianna Reddy EARTH MOVING TECHNICIAN Work Phone: [facility] 11-16-2024 10:35-0400 Diastolic blood pressure 80 mm[Hg] Adrianna Reddy EARTH MOVING TECHNICIAN Work Phone: [facility] 11-16-2024 10:35-0400 Heart rate 72 /min Adrianna Reddy EARTH MOVING TECHNICIAN Work Phone: [facility] 11-16-2024 10:35-0400 Systolic blood pressure 132 mm[Hg] Adrianna Reddy EARTH MOVING TECHNICIAN Work Phone: [facility] 10-26-2024 09:47-0400 Body height 165.1 cm Erna Viverosel EARTH MOVING TECHNICIAN Work Phone: [facility] 10-26-2024 09:47-0400 Body mass index (BMI) [Ratio] 34.35 kg/m2 Erna Makenzie EARTH MOVING TECHNICIAN Work Phone: [facility] 10-26-2024 09:47-0400 Body weight 93.62 kg Erna Viverosel EARTH MOVING TECHNICIAN Work Phone: [facility] 10-26-2024 09:47-0400 Diastolic blood pressure 64 mm[Hg] Ernacarmine Viverosel EARTH MOVING TECHNICIAN Work Phone: [facility] 10-26-2024 09:47-0400 Heart rate 72 /min Erna Viverosel EARTH MOVING TECHNICIAN Work Phone: [facility] 10-26-2024 09:47-0400 Systolic blood pressure 126 mm[Hg] Ernacarmine Viverosel EARTH MOVING TECHNICIAN Work Phone: [facility] 09-20-2024 14:03-0400 Body height 165.1 cm Susan Gay DPM Work Phone: [facility] 09-20-2024 14:03-0400 Body mass index (BMI) [Ratio] 34.11 kg/m2 Susan Gay DPM Work Phone: [facility] 09-20-2024 14:03-0400 Body weight 92.99 kg Susan Gay DPM Work Phone: [facility] 06-15-2024 10:40-0500 Body mass index (BMI) [Ratio] 34.11 kg/m2 Erna Banegas EARTH MOVING TECHNICIAN Work Phone: [facility] 06-15-2024 10:40-0500 Body weight 92.99 kg Erna Banegas EARTH MOVING TECHNICIAN Work Phone: [facility] 06-15-2024 10:40-0500 Diastolic blood pressure 78 mm[Hg] Eran Banegas EARTH MOVING TECHNICIAN Work Phone: [facility] Comment on above: Pt BP machine in off ice - 165/94 P 83 Lt arm 157/88 P 81 06-15-2024 10:40-0500 Heart rate 84 /min Erna Banegas EARTH MOVING TECHNICIAN Work Phone: [facility] 06-15-2024 10:40-0500 Systolic blood pressure 132 mm[Hg] Erna Banegas EARTH MOVING TECHNICIAN Work Phone: [facility] Comment on above: Pt BP machine in off ice - 165/94 P 83 Lt arm 157/88 P 81 02-22-2024 14:04-0400 Body height 165.1 cm Logan Hunter MD Work Phone: [facility] 02-22-2024 14:04-0400 Body mass index (BMI) [Ratio] 33.95 kg/m2 Logan Hunter MD Work Phone: [facility] 02-22-2024 14:04-0400 Body weight 92.53 kg Logan Hunter MD Work Phone: [facility] 02-22-2024 14:04-0400 Diastolic blood pressure 70 mm[Hg] Logan Hunter MD Work Phone: [facility] 02-22-2024 14:04-0400 Heart rate 86 /min Logan Hunter MD Work Phone: [facility] 02-22-2024 14:04-0400 SaO2% (BldA) [Mass fraction] 95 % Logan Hunter MD Work Phone: [facility] 02-22-2024 14:04-0400 Systolic blood pressure 114 mm[Hg] Logan Hunter MD Work Phone: [facility] 11-17-2023 14:35-0400 Diastolic blood pressure 84 mm[Hg] [facility] 11-17-2023 14:35-0400 Heart rate 84 /min [facility] 11-17-2023 14:35-0400 Systolic blood pressure 148 mm[Hg] [facility] Encounters Encounter Date Encounter Type Care Provider Facility Start: 12-06-2024 End: 12-06-2024 Office outpatient visit 25 minutes Tuan Jane MD Work Phone: [facility] Comment on above: SVT (supraventricula r tachycardia) (Primary Dx); Tachycardia; Palpitations Start: 12-06-2024 End: 12-06-2024 ambulatory [facility] Start: 11-30-2024 End: 11-30-2024 Refill Christi Gallegos MD Work Phone: [facility] Comment on above: Primary osteoarthrit is of both knees; Spondylosis without myelopathy or radiculopathy, lumbar region; Gastroesophageal reflux disease, unspecified whether esophagitis present Start: 11-16-2024 End: 11-16-2024 Refill Christi Gallegos MD Work Phone: [facility] Comment on above: Gastroesophageal ref lux disease, unspecified whether esophagitis present Start: 11-16-2024 End: 11-16-2024 Office outpatient visit 25 minutes Adrianna Reddy NP Work Phone: [facility] Comment on above: Acute non-recurrent pansinusitis (Primary Dx); Sinus pressure; Rhinorrhea; Acute cough; Sore throat Start: 11-01-2024 End: 11-09-2024 Telephone encounter Erna Banegas EAR[employer] MOVING TECHNICIAN Work Phone: [facility] Start: 10-28-2024 End: 10-30-2024 Telephone encounter Erna Banegas EARTH MOVING TECHNICIAN Work Phone: [facility] Start: 10-26-2024 End: 10-26-2024 Bamboo flowsheet Erna Banegas EARTH MOVING TECHNICIAN Work Phone: [facility] Start: 10-26-2024 End: 10-26-2024 Bamboo flowsheet Erna Banegas EARTH MOVING TECHNICIAN [facility] Start: 10-26-2024 End: 10-26-2024 Patient encounter procedure Erna Banegas EARTH MOVING TECHNICIAN Work Phone: [facility] Comment on above: Encounter for [facility] annual wellness exam; SVT (supraventricular tachycardia) ([facility]/HCC); Tachycardia; Gastroesophageal reflux disease, unspecified whether esophagitis present; Left upper arm pain; Presence of right artificial knee joint; Primary osteoarthritis of both knees; Spondylosis without myelopathy or radiculopathy, lumbar region; S/P total knee replacement, left; Vasovagal syncope; Post-menopausal; Decreased hearing, unspecified laterality; Urgency of urination; Palpitations; Snoring; Daytime sleepiness; Difficulty walking; Encounter for screening mammogram for breast cancer Start: 10-26-2024 End: 10-26-2024 ambulatory ERNA BANEGAS Not Available Start: 09-20-2024 End: 09-20-2024 Office outpatient visit 15 minutes Susan Gay DPM Work Phone: [facility] Comment on above: Dermatophytosis of n ail (Primary Dx); Dystrophic nail; Pain around toenail Start: 09-20-2024 End: 09-20-2024 ambulatory SUSAN GAY Not Available Start: 09-20-2024 End: 09-20-2024 Bamboo flowsheet Susan Gay DPM Work Phone: [facility] Start: 09-20-2024 End: 09-20-2024 Bamboo flowsheet Susan Gay DPM Work Phone: [facility] Start: 08-23-2024 End: 08-23-2024 Telephone encounter Christi Gallegos MD Work Phone: [facility] Start: 08-13-2024 End: 08-13-2024 Refill Erna Banegas [employer]ARTH MOVING TECHNICIAN Work Phone: [facility] Comment on above: Primary osteoarthrit is of both knees Start: 06-15-2024 End: 06-15-2024 Bamboo flowsheet Erna Banegas EARTH MOVING TECHNICIAN Work Phone: [facility] Start: 06-15-2024 End: 06-15-2024 Bamboo flowsheet Erna Banegas EARTH MOVING TECHNICIAN Work Phone: [facility] Start: 06-15-2024 End: 06-15-2024 Office outpatient visit 25 minutes Erna Banegas EARTH MOVING TECHNICIAN Work Phone: [facility] Comment on above: SVT (supraventricula r tachycardia) (CMS/HCC) (Primary Dx); Palpitations; Elevated blood pressure reading; Gastroesophageal reflux disease, unspecified whether esophagitis present; Spondylosis without myelopathy or radiculopathy, lumbar region; Nasal congestion Start: 06-15-2024 End: 06-15-2024 ambulatory ERNA BANEGAS Not Available Start: 05-09-2024 End: 05-10-2024 Refill Erna Banegas EARTH MOVING TECHNICIAN Work Phone: [facility] Comment on above: Acute maxillary sinu sitis, 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; Otalgia of left ear; Primary osteoarthritis of both knees Start: 05-08-2024 End: 05-09-2024 Refill Christi Gallegos MD Work Phone: [facility] Comment on above: Gastroesophageal ref lux disease, unspecified whether esophagitis present Start: 03-16-2024 End: 03-16-2024 ambulatory LOGAN Kraig [facility] Start: 03-12-2024 End: 03-12-2024 Refill Christi Gallegos MD Work Phone: [facility] Comment on above: Primary osteoarthrit is of both knees Start: 02-22-2024 End: 02-22-2024 Office outpatient visit 15 minutes Logan Hunter MD Work Phone: [facility] Comment on above: SVT (supraventricula r tachycardia) ([facility]-HCC) (Primary Dx); Tachycardia; Palpitations Start: 02-22-2024 End: 02-22-2024 ambulatory LOGAN HUNTER [facility] Start: 02-21-2024 End: 02-21-2024 Telephone encounter Laura Melton CMA [facility] Start: 01-09-2024 End: 01-09-2024 ambulatory CHRISTI GALLEGOS [facility] Start: 11-17-2023 End: 11-17-2023 Clinical Support Pmh Ppc Nurse [facility] Comment on above: SVT (supraventricula r tachycardia) ([facility]) (Primary Dx) Start: 11-16-2023 End: 11-16-2023 Telephone encounter Laura Melton CMA [facility] Start: 11-10-2023 End: 11-10-2023 ambulatory FEROZ Dang [facility] Start: 11-10-2023 End: 11-10-2023 ambulatory LOGAN HUNTER [facility] Start: 11-03-2023 End: 11-03-2023 Telephone encounter Norma Golden LPN [facility] Comment on above: PRE OP REMINDER CALL Start: 10-18-2023 End: 10-19-2023 Telephone encounter Elmira Luna RN [facility] Comment on above: med refill/ insuranc e question Start: 07-18-2023 Telephone encounter Neva Low LPN [facility] Comment on above: EP Surgery Start: 09-07-2021 Patient encounter status Neva torres LPN [facility] Work Phone: Start: 03-21-2018 End: 03-22-2018 Patient encounter [facility] Facility: Procedures Date Procedure Procedure Detail Performing Clinician Start: 02-22-2024 Ecg routine ecg w/le ast 12 lds w/i&r Logan Hunter MD Work Phone: Start: 02-22-2024 Follow-up visit Follow-up LOGAN HUNTER Start: 11-18-2022 Mammography Christi damico MD Work Phone: Start: 06-24-2011 Colonoscopy Erna Banegas NP Work Phone: Plan of Treatment Date Care Activity Detail Author Start: 12-06-2025 Adult BMI Screening Adult BMI Screening [facility] Start: 12-06-2025 Tobacco Screening Tobacco Screening [facility] Start: 11-16-2025 DTaP,Tdap and Td Vaccines (2 - Td or Tdap) DTaP,Tdap and Td Vaccines (2 - Td or Tdap) [facility] Start: 11-16-2025 DTaP,Tdap and Td Vaccines (3 - Td or Tdap) DTaP,Tdap and Td Vaccines (3 - Td or Tdap) [facility] Start: 10-26-2025 Medicare Annual Wellness (AWV) Medicare Annual Wellness (AWV) [facility] Start: 06-07-2025 End: 06-07-2025 Patient encounter procedure 06/07/2025 2:00 PM EST Office Visit [facility] [address] [place] [address] Tuan Jane MD [address] [place] [address] [facility] Start: 03-04-2025 Influenza vaccination [facility] Start: 02-21-2025 Adult BMI Screening Adult BMI Screening [facility] Start: 02-21-2025 Tobacco Screening Tobacco Screening [facility] Start: 12-27-2024 End: 12-27-2024 Patient encounter procedure 12/27/2024 1:45 PM EDT Appointment [facility] Mammography/DEXA Imaging [address] [place] [phone] [facility] Start: 12-06-2024 End: 12-06-2025 Event Monitor (In Office) Event Monitor (In Office) Cardiac Services Routine SVT (supraventricular tachycardia) ([facility]-HCC) Expected: 12/06/2024, Expires: 12/06/2025 [facility] Work Phone: Comment on above: Expected: 12/06/2024, Expires: Start: 11-09-2024 Adult BMI Screening Adult BMI Screening [facility] Start: 11-09-2024 Tobacco Screening Tobacco Screening [facility] Start: 10-28-2024 End: 12-28-2025 DBT Breast - bilateral screening Bilateral screening mammogram with tomosynthesis Imaging Routine Encounter for screening mammogram for breast cancer Expected: 10/28/2024, Expires: 12/28/2025 [facility] Work Phone: Comment on above: Expected: 10/28/2024, Expires: Start: 10-26-2024 End: 10-26-2024 Patient encounter procedure [facility] Comment on above: Encounter for Medicare annual wellness e xam (Primary Dx); SVT (supraventricular tachycardia) ([facility]); Tachycardia; Gastroesophageal reflux disease, unspecified whether esophagitis present; Left upper arm pain; Presence of right artificial knee joint; Primary osteoarthritis of both knees; Spondylosis without myelopathy or radiculopathy, lumbar region; S/P total knee replacement, left; Vasovagal syncope; Post-menopausal; Decreased hearing, unspecified laterality Start: 10-22-2024 End: 10-22-2024 Patient encounter procedure 10/22/2024 2:30 PM EDT Office Visit [facility] [address] [place] [phone] Erna Banegas NP [address] [place] [address] [facility] Start: 09-20-2024 End: 09-20-2024 Patient encounter procedure 09/20/2024 2:15 PM EDT Office Visit [facility] [address] [place] [phone] Susan Gay DPM [address] [place], [place] [phone] Arrived [facility] Comment on above: Arrived Start: 08-10-2024 Influenza vaccination Influenza Vaccine (#1) [facility] Comment on above: Postponed from 03/04/2024 (Patient Refus ed) Start: 08-02-2024 Medicare Annual Wellness (AWV) Medicare Annual Wellness (AWV) [facility] Start: 06-15-2024 End: 06-15-2024 Patient encounter procedure 06/15/2024 10:30 AM EST Office Visit [facility] [address] [place] [phone] Erna Banegas NP [address] [place], [place] [phone] SVT (supraventricular tachycardia) (CMS/HCC) (Primary Dx); Palpitations [facility] Comment on above: SVT (supraventricular tachycardia) (CMS/ HCC) (Primary Dx); Palpitations Start: 03-16-2024 End: 03-16-2024 Patient encounter procedure 03/16/2024 2:00 PM EDT Appointment [facility] Cardiovascular [address] [place] [address] Logan Hunter MD [address] [place] [address] [facility] Start: 03-04-2024 COVID-19 Vaccine ( season) COVID-19 Vaccine ( season) [facility] Start: 03-04-2024 Influenza vaccination [facility] Start: 02-22-2024 End: 02-22-2024 Patient encounter procedure 02/22/2024 2:15 PM EDT Office Visit [facility] [address] [phone] Logan Hunter MD [address] [place] [phone] [facility] Start: 02-22-2024 End: 02-21-2025 Echo complete W/ contrast Echo complete W/ contrast Echocardiography Routine Tachycardia Palpitations Expected: 02/22/2024, Expires: 02/21/2025 [facility] Work Phone: Comment on above: Expected: 02/22/2024, Expires: Start: 02-05-2024 Adult BMI Screening Adult BMI Screening [facility] Start: 11-19-2023 Screening for malignant neoplasm of breast Mammogram [facility] Start: 11-17-2023 End: 11-17-2023 Clinical Support 11/17/2023 2:30 PM EDT Clinical Support [facility] [address] [place] [address] [facility] Start: 11-10-2023 End: 11-10-2023 Admission to same day surgery center 11/10/2023 11:30 AM EDT - 11/10/2023 3:30 PM EDT Surgery [facility] [address] [place] [phone] Logan Hunter MD [address] [place] [phone] SVT Ablation, CARTO EAM [facility] Comment on above: SVT Ablation, CARTO EAM Start: 11-10-2023 Subsequent hospital visit by physician 11/10/2023 11:30 AM EDT Hospital Encounter [facility] [address] [place] [phone] Logan Hunter MD [address] [place] [phone] SVT (supraventricular tachycardia) [facility] Comment on above: SVT (supraventricular tachycardia) Start: 10-26-2023 Tobacco Screening Tobacco Screening [facility] Start: 03-04-2023 COVID-19 Vaccine ( season) COVID-19 Vaccine ( season) [facility] Start: 03-04-2023 Influenza vaccination Influenza Vaccine [facility] Start: 12-03-2022 Administration of varicella zoster vaccine Zoster (Shingles) Vaccine (2 of 2) [facility] Start: 2021 Fall Risk Screening Fall Risk Screening [facility] Start: 06-24-2021 Screening for malignant neoplasm of colon [facility] Start: 1974 Adult BMI Follow Up Plan Adult BMI Follow Up Plan [facility] Start: 1968 Depression Screening Depression Screening [facility] Start: 1956 Medicare Annual Wellness Visit Medicare Annual Wellness Visit [facility] Start: 1955 Screening for malignant neoplasm of colon [facility] Immunizations Immunization Date Immunization Notes Care Provider Fa cili 08-02-2023 Influenza, High-dose Seasonal, Quadrivalent, Preservative Free Christi Gallegos MD Work Phone: [facility] 08-02-2023 influenza virus vaccine, unspecified formulation Elmira Luna RN [facility] 06-10-2023 RSV, recombinant, protein subunit RSVpreF, adjuvant reconstitu, 120mcg/0.5mL, PF (Arexvy) Christi Gallegos MD Work Phone: [facility] 03-12-2023 zoster vaccine recombinant Christi Gallegos MD Work Phone: [facility] 10-08-2022 Influenza, High-dose Seasonal, Quadrivalent, Preservative Free Christi Gallegos MD Work Phone: [facility] 10-08-2022 Pneumococcal Conjuga te PCV 20 Christi Gallegos MD Work Phone: [facility] 10-08-2022 zoster vaccine recombinant Christi Gallegos MD Work Phone: [facility] 10-08-2022 influenza virus vaccine, unspecified formulation Neva Low LPN [facility] 10-08-2022 zoster vaccine, unspecified formulation Neva Low [facility] 11-17-2015 tetanus toxoid, redu rosana diphtheria toxoid, and acellular pertussis vaccine, adsorbed Christi Gallegos MD Work Phone: [facility] 07-04-2004 tetanus and diphther ia toxoids, adsorbed, preservative free, for adult use (2 Lf of tetanus toxoid and 2 Lf of diphtheria toxoid) Christi Gallegos MD Work Phone: [facility] Payers Date Payer Category Payer Medicare HMO [employer] [id number] 2024 Medicare [id number] 2023 Medicare (Managed Care) [id number]. [id number] 2023 Unknown [id number] 2023 Medicare [id number] 2021 Medicare [id number] 1956 Unknown [id number]. 1286 1956 Unknown [id number] [id number]. 1286 1956 Unknown [id number] [id number]. 1286 1956 Unknown [id number] [id number]. 1259 1956 Unknown [id number] [id number]. 1259 1956 Unknown [id number] [id number]. 9 1956 Unknown [id number] [id number]. 1259 1956 Unknown [id number] [id number]. 6 1956 Unknown [id number] [id number]. 1286 1956 Unknown [id number] [id number]. 128 1956 Unknown [id number] [id number]. 1286 Unknown [id number] Social History Date Type Detail Facility Start: 08-12-2022 End: 03-09-2023 Tobacco smoking status PAIS Never smoked tobacco [facility] Start: 08-12-2022 End: 03-09-2023 Tobacco use and exposure Smokeless tobacco non-user [facility] Start: 11-11-2023 End: 12-06-2024 Alcoholic beverage intake Lifetime non-drinker (finding) [facility] Start: 08-14-2020 End: 03-08-2023 History of Social function [facility] Start: 08-14-2020 End: 03-08-2023 Humiliation, Afraid, Rape, and Kick questionnaire [HARK] [facility] Within the last year , have you been afraid of your partner or ex-partner? No [facility] Do you belong to any clubs or organizations such as taoism groups, unions, fraternal or athletic groups, or school groups? Yes [facility] Are you now , , , , never or living with a partner? [facility] How often to you hav e a drink containing alcohol? Never [facility] How many standard drinks containing alcohol do you have on a typical day? Patient does not drink [facility] Do you feel stress - tense, restless, nervous, or anxious, or unable to sleep at night because your mind is troubled all the time - these days [OSQ] Only a little [facility] (I/We) worried wheth er (my/our) food would run out before (I/we) got money to buy more. Never true [facility] Start: 05-17-2023 Alcohol Comment Caffeine intak e: 3-4 cups per day [facility] Start: 1955 Sex assigned at Not on file N [facility] Do you feel stress - tense, restless, nervous, or anxious, or unable to sleep at night because your mind is troubled all the time - these days [OSQ] Not at all [facility] Start: 1955 Sex assigned at Female P [facility] Start: 08-26-2022 Gender identity Identifies as female gender (finding) [facility] Start: 08-26-2022 Sexual orientation Heterosexual (fin ding) [facility] Start: 02-06-2015 Sex Female (finding) [facility] NEGATED: Highlighted rowStart: IRAJ History of tobacco use Passive smoker [facility] Medical Equipment Procedure Code Equipment Code Equipment Origin al Text Equipment Identifier Dates Cement Bn Bio 40 gm Rpl [id number] - [id number] - [id number] Start: 09-15-2021 Cement Bn Bio 40 gm Rpl [id number] - [id number] Start: 08-26-2022 Cement Bn Bio 40 gm Rpl [id number] - [id number] Start: 08-26-2022 Component Ptlr 3 5mm Persona Alply Kn Strl - [id number] - [id number] Start: 09-15-2021 Component Fem 6 Std Kn Lt Post Stab Cmnt Persona Cocr Strl - [id number] - [id number] Start: 09-15-2021 Surface Artc 11m m Persona 6-9 Cd Kn Lt Pe Post Stab - [id number] - [id number] Start: 09-15-2021 Surface Artc 11m m Persona 6-9 Cd Kn Rt Vivacit-E Post Stab - [id number] Start: 08-26-2022 Component Fem 6 Std Kn Rt Post Stab Cmnt Persona Cocr Strl - [id number] Start: 08-26-2022 Component Ptlr 3 5mm Persona Alply Kn Strl Lf - [id number] Start: 08-26-2022 Stem Xtn 30+ Mm 14mm Persona Tpr Kn Tib - [id number] Start: 08-26-2022 Baseplate Tib 5d D Kn Lt Cmnt Stm Persona Tiv Strl - [id number] - [id number] Start: 09-15-2021 Baseplate Tib 5d D Kn Rt Cmnt Stm Persona Tiv Strl - [id number] Start: 08-26-2022 Goals Date Patient Goal Desired Activity /State Personal health goal Comment on above: Formatting of this n ote might be different from the original. Evaluation of progress towards goal: Current discharge plan is home with [facility] and support of spouse. - Mckenna Najera RN 09/15/21 12:29 PM Clinical Notes 07-18-2023 to 12-06-2024 Tuan Jane MD - 12/06/2024 2:30 PM EDTTelephone Encounter - Erna Banegas NP - 11/30/2024 4:14 PM EDTTelephone Encounter - Erna Banegas NP - 11/30/2024 4:14 PM EDT Note Date & Type Note Facility 12-06-2024 History of Present illness Narrative Meka Zavala Date of visit: 12/06/2024 Date of : [...] 1 tablet (500 mg total) before bedtime. [id number] OIL-L.CASEI ORAL Take 1 capsule by mouth [...] HCM. Not sure about genetic testing her echocardiogram as of last year did not have any [...] 08/26/2022 Performed by Sonido Prince MD at [facility] SURGERY REPLACEMENT TOTAL JOINT KNEE Left 09/15/2021 Performed by Sonido Prince MD at [facility] ROTATOR CUFF REPAIR Left 2011 SVT Ablation, CARTO EAM N/A 11/10/2023 Performed by Logan Hunter MD at [facility] () TUBAL LIGATION 1990 Family History Problem Relation [...] Resource Strain: Low Risk (06/12/2024) Received from [facility] Overall Financial Resource Strain (CARDIA) Difficulty of Paying Living Expenses: Not hard at all Food Insecurity: No Food Insecurity (12/06/2024) Hunger Screening Food Insecurity - Worry: Never True Food Insecurity - Inability: Never True Transportation Needs: No Transportation Needs (06/12/2024) Received from [facility] PRAPARE - Transportation Lack of Transportation (Medical): No Lack of Transportation (Non-Medical): No Physical Activity: Sufficiently Active (06/12/2024) Received from [facility] Exercise Vital Sign Days of Exercise per Week: 7 days Minutes of Exercise per Session: 60 min Stress: No Stress Concern Present (06/12/2024) Received from [facility] [place] [employer] [facility] - Occupational Stress Questionnaire Feeling of Stress : Not at all Social Connections: Socially Integrated (06/12/2024) Received from [facility] Social Connection and Isolation Panel [NHANES] Frequency of Communication with Friends and Family: More than three times a week Frequency of Social Gatherings with Friends and Family: Three times a week Attends Yazidism Services: More than 4 times per year Active Member of Clubs or Organizations: Yes Attends Club or Organization Meetings: More than 4 times per year Marital Status: Interpersonal Safety: Not At Risk (03/08/2023) Received from [facility] Humiliation, Afraid, Rape, and Kick questionnaire Fear of Current or Ex-Partner: No Emotionally Abused: No Physically Abused: No Sexually Abused: No Housing Instability: Unknown (06/12/2024) Received from [facility] Housing Stability Vital Sign Unable to Pay [...] kg (207 lb) SpO2 96% BMI 34.45 kg/m Orders Placed or Reconciled This Encounter Medications [...] UP No follow-ups on file. PCP: Christi Gallegos MD Referring Physician: Christi Gallegos MD [address] [place] [address] documented in this encounter [facility] 11-30-2024 Telephone encounter Note Rx sent [facility] 11-30-2024 Miscellaneous Notes Rx sent 90 day supply documented in this encounter [facility] 11-30-2024 Telephone encounter Note 90 day supply [facility] 11-16-2024 History of Present illness Narrative Images from the original note were not included. Meka Zavala is a 69 y.o. female presents with chief complaint of Nasal Congestion (Sinus pressure) and Cough HPI: Cough Associated symptoms include ear pain, headaches, postnasal drip, rhinorrhea and a sore throat. Pertinent negatives include no chest pain, chills, fever, rash, shortness of breath or wheezing. History of Present Illness Patient presents to the office today for sinus issues. Has been on going for the last couple of weeks. She has been doing sinus rinses but does not seem to help. Now feels like it's moving into her chest. Denies chest pain but admits tenderness when coughing. No fever, no body aches or chills. Admits headaches and sinus pressure. Had some right ear pain and left ear felt plugged, now better. Admits nasal congestion and green/yellow drainage. Admits sore throat, no difficulty swallowing. No dizziness. Cough is congested, coughing up yellow/green phlegm. No SOB. Was able to work out today. Does not feel like she is wheezing. No abd pain, no NVD. No appetite change. Took cough syrup last night. Sleeping ok at night. SUBJECTIVE: MEDICATIONS: Current Outpatient Medications Medication Instructions amoxicillin-clavulanate (Augmentin) 875-125 MG tablet 875 mg, Oral, 2 times daily calcium citrate 600 mg and vitamin D3 (Citrical & Minerals + Vit D) 600-200 MG-UNIT tablet Orally cyclobenzaprine (Flexeril) 10 MG tablet TAKE 1 TABLET BY MOUTH 2 TIMES A DAY NEEDED FOR MUSCLE SPASMS famotidine (PEPCID) 10 mg, Oral, Nightly gabapentin (NEURONTIN) 100 mg, Daily RT L-lysine 500 MG tablet Orally loratadine (Claritin) 10 MG tablet Take by mouth magnesium oxide 200 MG tablet 2 tablets, Daily RT nabumetone (RELAFEN) 500 mg, Oral, 2 times daily omega-3 (Fish Oil) 1000 MG capsule 1 capsule, Every 24 hours omeprazole (PRILOSEC) 20 mg, Oral, Daily before breakfast Potassium Gluconate 99 mg, Daily RT vitamin A 8,000 Units, Daily RT ALLERGIES: Allergies Allergen Reactions Sulfa Antibiotics Rash History: Past Medical History: Diagnosis Date Arthritis Cataract DJD (degenerative joint disease) GERD (gastroesophageal reflux disease) Obesity Osteoarthritis Palpitations Shortness of breath 02/27/2021 SVT (supraventricular tachycardia) (CMS/HCC) Vasovagal syncope Past Surgical History: Procedure Laterality Date SECTION, LOW TRANSVERSE x2 CYSTOSCOPY JOINT REPLACEMENT BL total knee replacement 08/2022 Right/08/2021 Left LAPAROSCOPY DIAGNOSTIC / BIOPSY / ASPIRATION / LYSIS laproscopy ROTATOR CUFF REPAIR Left TOTAL KNEE ARTHROPLASTY Left Family History Problem Relation Name Age of Onset Thyroid disease Mother Dementia Father Cuate Wu Hypertension Father Cuate Wu Stroke Father Cuate Wu Cancer Sister Deandar Richardson Heart disease Brother Johnathan Wu Social History Socioeconomic History Marital status: Spouse name: Not on file Number of children: Not on file Years of education: Not on file Highest education level: Not on file Occupational History Not on file Tobacco Use Smoking status: Never Passive exposure: Never Smokeless tobacco: Never Vaping Use Vaping status: Never Used Substance and Sexual Activity Alcohol use: Never Comment: Caffeine intake: 3-4 cups per day Drug use: Never Sexual activity: Never Other Topics Concern Not on file Social History Narrative Not on file Social Drivers of Health Financial Resource Strain: Low Risk (06/12/2024) Overall Financial Resource Strain (CARDIA) Difficulty of Paying Living Expenses: Not hard at all Food Insecurity: No Food Insecurity (06/12/2024) Hunger Vital Sign Worried About Running Out of Food in the Last Year: Never true Ran Out of Food in the Last Year: Never true Transportation Needs: No Transportation Needs (06/12/2024) PRAPARE - Transportation Lack of Transportation (Medical): No Lack of Transportation (Non-Medical): No Physical Activity: Sufficiently Active (06/12/2024) Exercise Vital Sign Days of Exercise per Week: 7 days Minutes of Exercise per Session: 60 min Stress: No Stress Concern Present (06/12/2024) [place] [employer] - Occupational Stress Questionnaire Feeling of Stress : Not at all Social Connections: Socially Integrated (06/12/2024) Social Connection and Isolation Panel [NHANES] Frequency of Communication with Friends and Family: More than three times a week Frequency of Social Gatherings with Friends and Family: Three times a week Attends Yazidism Services: More than 4 times per year Active Member of Clubs or Organizations: Yes Attends Club or Organization Meetings: More than 4 times per year Marital Status: Intimate Partner Violence: Not At Risk (03/08/2023) Humiliation, Afraid, Rape, and Kick questionnaire Fear of Current or Ex-Partner: No Emotionally Abused: No Physically Abused: No Sexually Abused: No Housing Stability: Unknown (06/12/2024) Housing Stability Vital Sign Unable to Pay for Housing in the Last Year: No Number of Times Moved in the Last Year: Not on file Homeless in the Last Year: No I have reviewed and reconciled the history and medication list with the patient today. REVIEW OF SYMPTOMS: Review of Systems Constitutional: Negative for activity change, appetite change, chills, fatigue and fever. HENT: Positive for congestion, ear pain, postnasal drip, rhinorrhea, sinus pressure, sinus pain and sore throat. Respiratory: Positive for cough. Negative for shortness of breath and wheezing. Cardiovascular: Negative for chest pain and palpitations. Gastrointestinal: Negative for abdominal pain, diarrhea, nausea and vomiting. Genitourinary: Negative. Musculoskeletal: Negative. Skin: Negative for color change, rash and wound. Neurological: Positive for headaches. Negative for dizziness. Psychiatric/Behavioral: Negative. OBJECTIVE: Results 08/02/2023 2:05 PM 09/01/2023 3:17 PM 11/11/2023 11:36 AM 06/15/2024 10:40 AM 09/20/2024 2:03 PM 10/26/2024 9:47 AM 11/16/2024 10:35 AM Vitals BMI 34.48 kg/m2 34.45 kg/m2 34.11 kg/m2 34.11 kg/m2 34.35 kg/m2 34.21 kg/m2 BSA (m2) 2.08 m2 2.08 m2 2.07 m2 2.07 m2 2.07 m2 2.07 m2 Systolic 132 152 132 126 132 Diastolic 82 84 78 64 80 Heart Rate 76 76 84 72 72 SpO2 99 % Temp 98.3 F Height (in) 5' 5 5' 5 5' 5 5' 5 Weight (lb) 207.2 207 205 205 206.4 205.6 Visit Report Report Report Report Report Report Report Report Physical Exam Vitals reviewed. Constitutional: General: She is not in acute distress. Appearance: Normal appearance. She is ill-appearing (slightly). HENT: Head: Normocephalic and atraumatic. Right Ear: Tympanic membrane, ear canal and external ear normal. Left Ear: Tympanic membrane, ear canal and external ear normal. Ears: Comments: Fluid to right TM. Nose: Congestion present. No rhinorrhea. Right Sinus: Maxillary sinus tenderness and frontal sinus tenderness present. Left Sinus: Maxillary sinus tenderness and frontal sinus tenderness present. Mouth/Throat: Mouth: Mucous membranes are moist. Pharynx: Oropharynx is clear. Posterior oropharyngeal erythema present. No oropharyngeal exudate. Cardiovascular: Rate and Rhythm: Normal rate and regular rhythm. Heart sounds: No murmur heard. Pulmonary: Effort: Pulmonary effort is normal. No respiratory distress. Breath sounds: Normal breath sounds. No wheezing or rhonchi. Comments: No cough. Abdominal: General: Bowel sounds are normal. There is no distension. Palpations: Abdomen is soft. Tenderness: There is no abdominal tenderness. Musculoskeletal: Cervical back: Normal range of motion. No rigidity or tenderness. Lymphadenopathy: Cervical: No cervical adenopathy. Skin: General: Skin is warm and dry. Findings: No rash. Neurological: Mental Status: She is alert. Mental status is at baseline. Psychiatric: Mood and Affect: Mood normal. Behavior: Behavior normal. Thought Content: Thought content normal. Judgment: Judgment normal. Physical Exam ASSESSMENT AND PLAN: Assessment/Plan Diagnoses and all orders for this visit: Acute non-recurrent pansinusitis - amoxicillin-clavulanate (Augmentin) 875-125 MG tablet; Take 1 tablet (875 mg) by mouth in the morning and 1 tablet (875 mg) before bedtime. Do all this for 10 days. Sinus pressure Rhinorrhea Acute cough Sore throat -Advised patient to take antibiotic with food to avoid GI upset and encouraged fluids. Follow up if not improving. -Recommend Flonase nasal spray OTC, 1 spray to each nare twice a day or 2 sprays to each nare once a day. Educated patient on importance of not overusing medication as it can cause rebound symptoms. PVU. -Continue claritin. -Recommend humdifier. -May take OTC cough syrup such as Robitussin or Delsym. Encourage throat lozagenes and warm fluids like warm tea with honey. -Recommend vicks chest rub. Follow up if not improving. Assessment & Plan 30 minutes spent reviewing chart, assessing patient and documenting. Follow up if symptoms worsen or fail to improve. documented in this encounter [facility] 11-01-2024 Telephone encounter Note Pt did call back, she will try to contact imani about it. [facility] 11-01-2024 Miscellaneous Notes Pt did call back, she will try to contact imani about it. Placed call to patient, l/m asking she call the office back. Colorectal screening documented in this encounter [facility] 11-01-2024 Telephone encounter Note Placed call to patient, l/m asking she call the office back. [facility] 11-01-2024 Telephone encounter Note Colorectal screening [facility] 10-30-2024 Telephone encounter Note Patient called back and confirmed her referrals. [facility] 10-30-2024 Miscellaneous Notes Patient called back and confirmed her referrals. Referral placed to pulmonology. Mammogram order faxed to [facility]. Colonoscopy from 2010 found in [place], scanned into [employer] and sent to [facility]. Referral, fax mammogram documented in this encounter [facility] 10-29-2024 Telephone encounter Note Referral placed to pulmonology. Mammogram order faxed to [facility]. Colonoscopy from 2010 found in [place], scanned into Epic and sent to [facility]. [facility] 10-28-2024 Telephone encounter Note Referral, fax mammogram [facility] 10-26-2024 History of Present illness Narrative Images from the original note were not included. Subjective Patient ID: Meka Zavala is a 69 y.o. female who presents for Medicare Annual Wellness Visit Subsequent. HPI: Overall feeling ok. Right ear not the best. Saw Gui Johnston for hearing for hearing. She may benefit from hearing aides, but does not need them yet. Sees Cardiology, had ablation and it worked for couple of months. Occ seems to get irregular feeling at times again. Plans to call Cardiology for appt. Has not chekced BP at home for awhile, was good last time she checked it Going to [place] pain management for injections-they did help. Last eye exam this week on Tuesday at [facility], Has cataracts, vision is blurrey, mainly right eye at times. Could be r/t dry eye also. They plan to send her to [place]. Sees Dentist every 6 months just went at [facility] in [place].Wears a government guard. Mom wants her to have a sleep apnea test. Snore horrible , says she stops breathing at times. 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 Noticed lately she chews and swallows and food almost stuck in back of throat, but does not. Occ has to cough to get it to move/bring it up. No vomiting. No GERD with meds. Pt had a fluoroscopy (thinks Barium swallow) in the past she thinks per Dr Sosa and it was ok. Pt states she thinks this happens r/t weather. She is taking Allergy pill and Famotidine 10mg daily. Doing kegals as much as she can, but some hesitancy/urgency pt feels it is r/t age. Has talked to Urology when went with her for his visit. He enc her to empty bladder well, and should go in for an appt is interested. She has not gone yet Over the past 2 weeks, how often have you been bothered by any of the following problems? Little interest or pleasure in doing things: (Patient-Rptd) (P) Not at all Feeling down, depressed, or hopeless: (Patient-Rptd) (P) Not at all Patient Health Questionnaire-2 Score: (Patient-Rptd) (P) 0 Bl[place] Fall Risk History of Falling, Immediate or Within 3 Months: (Patient-Rptd) (P) No Secondary Diagnosis: (Patient-Rptd) (P) No Ambulatory Aid: Walks without aid/bedrest/nurse assist Intravenous Therapy/Heparin Lock: (Patient-Rptd) (P) No Gait/Transferring: Normal/bedrest/immobile Mental Status: Oriented to own ability Health Risk Assessment Form Do you need help eating, bathing, using the toilet, dressing, or getting around your home?: (Patient-Rptd) (P) No Can you prepare your own meals?: (Patient-Rptd) (P) Yes Can you do your own housework without help?: (Patient-Rptd) (P) Yes Can you shop for groceries or clothes without help?: (Patient-Rptd) (P) Yes Do you exercise for about 20 minutes 3 or more days a week?: (Patient-Rptd) (P) Yes How confident are you that you can control and manage most of your health problems?: (Patient-Rptd) (P) Very confident Can you mange your money, credit cards and accounts, pay bills and taxes?: (Patient-Rptd) (P) Yes Cognitive Screening Three Word Registration: Daughter, Sarah, [place] Clock Drawing: Normal Clock - 2 Three Word Recall: All 3 words correct - 3 Total Score (0-5 Points): 5 Pain Assessment Pain Score: (Patient-Rptd) (P) 5 - Moderate pain Review of Systems Constitutional: Positive for fatigue. Negative for appetite change, chills and fever. Mild fatigue. Good appetite. Exercises routinely HENT: Sl stuffy-better with allergy pill Breasts: No breast changes Respiratory: Positive for cough. Negative for chest tightness. Sl r/t PND. Used sinus rinses last night, uses Bacitracin for some sore areas in nose and that got better. Snores-See HPI Cardiovascular: Negative for chest pain. Occ palpitations. See HPI Gastrointestinal: Negative for abdominal pain. No change in bowels. Starte probiotic BID and working well. No GERD-See HPI Genitourinary: Negative for difficulty urinating, dysuria and vaginal bleeding. Musculoskeletal: Usual Back discomfort. Has been taking Gapabentin BID per pain magagement in [place]. Taking 1 Tylenol TID PRN, and 1 Tylenol PM and 1 Reg at night Neurological: Negative for dizziness and headaches. Psychiatric/Behavioral: Sleeping ok, snores. See HPI. Mood is good 05/18/2023 2:16 PM 08/02/2023 2:05 PM 09/01/2023 3:17 PM 11/11/2023 11:36 AM 06/15/2024 10:40 AM 09/20/2024 2:03 PM 10/26/2024 9:47 AM Vitals BMI 35.02 kg/m2 34.48 kg/m2 34.45 kg/m2 34.11 kg/m2 34.11 kg/m2 34.35 kg/m2 BSA (m2) 2.04 m2 2.08 m2 2.08 m2 2.07 m2 2.07 m2 2.07 m2 Systolic 132 152 132 126 Diastolic 82 84 78 64 Heart Rate 76 76 84 72 SpO2 99 % Temp 98.3 F Height (in) 5' 4 5' 5 5' 5 5' 5 5' 5 Weight (lb) 204 207.2 207 205 205 206.4 Visit Report Report Report Report Report Report Report Objective Physical Exam Vitals and nursing note reviewed. Constitutional: General: She is not in acute distress. HENT: Ears: Comments: TM cloudy, no erythema Nose: No rhinorrhea. Comments: no edema and pink. Mouth/Throat: Mouth: Mucous membranes are moist. Pharynx: Oropharynx is clear. No posterior oropharyngeal erythema. Eyes: Extraocular Movements: Extraocular movements intact. Conjunctiva/sclera: Conjunctivae normal. Comments: Glasses on Neck: Vascular: No carotid bruit. Cardiovascular: Rate and Rhythm: Normal rate and regular rhythm. Comments: No edema Pulmonary: Effort: Pulmonary effort is normal. Breath sounds: Normal breath sounds. Comments: No cough during appt Abdominal: General: Bowel sounds are normal. Palpations: Abdomen is soft. Tenderness: There is no abdominal tenderness. There is no guarding or rebound. Musculoskeletal: Comments: Normal gait. PP palp. No edema Lymphadenopathy: Cervical: No cervical adenopathy. Skin: General: Skin is warm and dry. Neurological: Mental Status: She is alert and oriented to person, place, and time. Psychiatric: Comments: Calm and cooperative, well groomed Handout on GERD triggers given with review. Triggers identified include: frech fries occ, raw onion, occ spaghetti, occ ice cream, occ cottage cheese. Ground beef, sirloin-lean, potato chips, salad drsg, occ donut. Reg coffe 3 large cups a day, no cream. Discussed Nabumetone can bother stomach Also handout on bladder triggers given, mainly drinks coffee and rare green tea 05/18/2023 2:16 PM 08/02/2023 2:05 PM 09/01/2023 3:17 PM 11/11/2023 11:36 AM 06/15/2024 10:40 AM 09/20/2024 2:03 PM 10/26/2024 9:47 AM Vitals BMI 35.02 kg/m2 34.48 kg/m2 34.45 kg/m2 34.11 kg/m2 34.11 kg/m2 34.35 kg/m2 BSA (m2) 2.04 m2 2.08 m2 2.08 m2 2.07 m2 2.07 m2 2.07 m2 Systolic 132 152 132 126 Diastolic 82 84 78 64 Heart Rate 76 76 84 72 SpO2 99 % Temp 98.3 F Height (in) 5' 4 5' 5 5' 5 5' 5 5' 5 Weight (lb) 204 207.2 207 205 205 206.4 Visit Report Report Report Report Report Report Report I have reviewed and reconciled the history and medication list with the patient today. Assessment/Plan Diagnoses and all orders for this visit: Encounter for Medicare annual wellness exam Comments: Reviewed Medicare Wellness form. Immunizations: Pt did not get Flu vaccine this year-enc her to get it next yeat. Declined Covid vaccine. Pt got shingles, RSV and Prevnar vaccines. Last Tetanus 11/16. Pap 11/23. Mammogram 11/23-will put order in. Pt thinks states she thinks she had a Cologuard through her insurance company in the past couple of years. I do not see result in there chart. Discussed it could have been a FIT test. Pt will check at home to see if she has result and get copy to us. If not done enc Cologuard. Pt will let us know. She states she has had a colonoscopy in the past years ago and it was normal SVT (supraventricular tachycardia) ([facility]) Comments: Sees Cardiology. Had echo 03/27-EF 60-65% Tachycardia: As above Gastroesophageal reflux disease, unspecified whether esophagitis present Comments: Discussed GERD triggers at prior appt, and handout given again today. Pt does not thinks she has been taking Omeprazole 20mg in AM-can restart that. Pt will also increase Pepcid from 10mg to 20mg for 2-4 weeks, Watch triggers. Enc decaf or 1/2 caff coffee. Discussed swallowing can get inefficient as we get older, can also have stenosis issues. Discussed referral for EGD. Pt declined at this time. She will let us know if Sx's are not improving with watching riggers and increasing Pepcid. Left upper arm pain Comments: Saw Ortho go injection which helped Presence of right artificial knee joint Primary osteoarthritis of both knees - nabumetone (Relafen) 500 MG tablet; Take 1 tablet (500 mg) by mouth in the morning and 1 tablet (500 mg) before bedtime. Spondylosis without myelopathy or radiculopathy, lumbar region - nabumetone (Relafen) 500 MG tablet; Take 1 tablet (500 mg) by mouth in the morning and 1 tablet (500 mg) before bedtime. S/P total knee replacement, left Vasovagal syncope: No recent issues Post-menopausal: No vaginal bleeding Decreased hearing, unspecified laterality Comments: Saw Lyly Penn, then Marvin Johnston some decrease, but did not feel she neeeded hearing aides Urgency of urination Comments: Some stress incontinenece if cough sneezes. Bladder triggers handout given with review-mainly coffee and tea. Pt decline med to calm bladder. Pt will let me know if wants Urology consult Palpitations: Pt sees Cardiology Snoring: Will refer to [facility] Daytime sleepiness: As above Difficulty walking: Gait sl off r/t back, pt sees pain clinic Encounter for screening mammogram for breast cancer : Fax order to [facility] F/U yearly for Medicare wellness, sooner if concerns. PVU documented in this encounter [facility] 09-20-2024 History of Present illness Narrative Images from the original note [...] Mother Dementia Father Cuate Wu Hypertension Father uCate Wu Stroke Father Cuate uW Cancer Sister Deandra Lezamawick Heart disease Brother Johnathan Wu Objective General [...] or corrected. Thank you for your understanding. Susan Gay DPM documented in this encounter [facility] 09-20-2024 Instructions Susan Gay DPM - 09/20/2024 2:15 PM EDT Topical care measures as noted documented in this encounter [facility] 08-23-2024 Telephone encounter Note Patient scheduled her MAWV on October 22. Is she due for labwork? If so, she would like to do prior to this appt. Please advise pt. Thank you. [facility] 08-23-2024 Miscellaneous Notes Patient scheduled her MAWV on October 22. Is she due for labwork? If so, she would like to do prior to this appt. Please advise pt. Thank you. documented in this encounter [facility] 08-13-2024 Telephone encounter Note Rx sent [facility] 08-13-2024 Miscellaneous Notes Rx sent documented in this encounter [facility] 06-15-2024 History of Present illness Narrative Images from the original note [...] 135/85 P 81, and 151/92, P 70. Tu 126/81, P 74, Wed 152/90, P 76, 137/80, P 76, 141/74 [...] at 8-8:30. Takes OTC sleep aide from [employer] 1/2 tab. Snores per . Pt does not [...] couple of months per pain magagement in [place]. Has F/U appt in Jul. Taking 1 [...] Breath sounds: Normal breath sounds. 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 [...] orders for this visit: SVT (supraventricular tachycardia) (CMS/HCC): Pt sees Cardiology Palpitations Elevated blood pressure [...] if concerns. PVU documented in this encounter [facility] 05-10-2024 Telephone encounter Note I cancelled Amoxicillin Rx and sent Nabumetone Rx [facility] 05-10-2024 Miscellaneous Notes I cancelled Amoxicillin Rx and sent Nabumetone Rx I called pt. She states she did not request this refill for an antibiotic and didn't need it. Pt then said that she did need a refill on her nabumetone to be sent in. I told pt I would send the request. documented in this encounter [facility] 05-09-2024 Telephone encounter Note I called pt. She states she did not request this refill for an antibiotic and didn't need it. Pt then said that she did need a refill on her nabumetone to be sent in. I told pt I would send the request. [facility] 03-12-2024 Telephone encounter Note Rx sent [facility] 03-12-2024 Miscellaneous Notes Rx sent documented in this encounter [facility] 02-22-2024 History of Present illness Narrative Meka Zavala Date of visit: 02/22/2024 Date of : 1955 Age: 68 y.o. Patient Active Problem List Diagnosis Neurocardiogenic syncope Palpitations Tachycardia Shortness of breath Primary osteoarthritis of both knees Obesity (BMI 30-39.9) Preop testing SVT (supraventricular tachycardia) ([facility]) S/P total knee replacement, left Class 1 [...] tablet,chewable Chew 1 tablet and swallow daily. calcium carbonate/vitamin D3 (CALCIUM 500 + D ORAL) Take 1 tablet by mouth daily. cyclobenzaprine (FLEXERIL) 10 mg tablet Take 1 tablet (10 mg total) by mouth in the morning. famotidine (PEPCID) 10 mg tablet Take 1 tablet (10 mg total) by mouth nightly. gabapentin (NEURONTIN) 100 mg capsule Take 1 capsule (100 mg total) by mouth once daily. glucosamine-chondroitin 500-400 mg tablet Take 1 tablet by mouth in the morning. lysine 500 mg tablet Take 1 tablet (500 mg total) by mouth in the morning. magnesium oxide 200 mg magnesium tablet Take 2 tablets by mouth in the morning. multivitamin (MULTIPLE VITAMINS ORAL) Take 1 tablet by mouth daily. nabumetone (RELAFEN) 500 mg tablet Take 1 tablet (500 mg total) by mouth in the morning and 1 tablet (500 mg total) before bedtime. [id number]-FISH OIL-L.CASEI ORAL Take 1 capsule by mouth daily. omeprazole (PriLOSEC) 20 mg capsule Take 1 [...] visit. Chief Complaint Patient presents with Follow-up S/P ABLATION Shortness of Breath With and without exertion Palpitations History of Present Illness Ms. Zavala is a 68F w/ PMH obesity, neurocardiogenic syncope, and SVT who presents to EP clinic at [facility] for follow-up. She underwent EP study with nh 11/10/23 and was found to have an atrial tachycardia from the RA septum s/p ablation. Her prior flecainide 50 mg BID was discontinued after ablation. Shortly after ablation, she called our office to let us know that her brother had been diagnosed with HCM. Patient presented the appointment by herself today. EKG in clinic shows sinus rhythm, heart rate 86 beats per minute, IN interval 170 milliseconds QRS 96 milliseconds QTC 380 milliseconds. She is doing well after ablation. She stated that she had 1 5 minute episode of tachycardia consistent with her prior SVT, and may be to other short episodes but nothing sustained since. Occasional palpitations. Only new symptoms she has noticed is increased dyspnea when walking up stairs. Of note, her brother is currently undergoing VT ablation at [facility]. He did undergo genetic testing, but they were unable to identify the gene variant leading to his hypertrophic cardiomyopathy and thus there is no cascade testing available. Past Medical History: Diagnosis Date Arrhythmia palpitations [...] 08/26/2022 Performed by Sonido Prince MD at [facility] REPLACEMENT TOTAL JOINT KNEE Left 09/15/2021 Performed by Sonido Prince MD at [facility] SURGERY ROTATOR CUFF REPAIR Left 2011 SVT Ablation, CARTO EAM N/A 11/10/2023 Performed by Logan Hunter MD at [facility] (EP) TUBAL LIGATION 1990 Family History Problem [...] Social History Narrative Not on file Social Determinants of Health Financial Resource Strain: Low Risk (03/08/2023) Received from [facility] Overall Financial Resource Strain (CARDIA) Difficulty of Paying Living Expenses: Not hard at all Food Insecurity: No Food Insecurity (02/22/2024) Hunger Screening Food Insecurity - Worry: Never True Food Insecurity - Inability: Never True Transportation Needs: No Transportation Needs (03/08/2023) Received from [facility] PRAPARE - Transportation Lack of Transportation (Medical): No Lack of Transportation (Non-Medical): No Physical Activity: Sufficiently Active (03/08/2023) Received from [facility] Exercise Vital Sign Days of Exercise per Week: 6 days Minutes of Exercise per Session: 60 min Stress: No Stress Concern Present (03/08/2023) Received from [facility] [place] [facility] - Occupational Stress Questionnaire Feeling of Stress : Only a little Social Connections: Socially Integrated (03/08/2023) Received from [facility] [employer], [facility] Social Connection and Isolation Panel [NHANES] Frequency of Communication with Friends and Family: More than three times a week Frequency of Social Gatherings with Friends and Family: More than three times a week Attends Yazidism Services: More than 4 times per year Active Member of Clubs or Organizations: Yes Attends Club or Organization Meetings: More than 4 times per year Marital Status: Interpersonal Safety: Not At Risk (03/08/2023) Received from [facility] [employer], [facility] Humiliation, Afraid, Rape, and Kick questionnaire Fear of Current or Ex-Partner: No Emotionally Abused: No Physically Abused: No Sexually Abused: No Housing Instability: Unknown (03/08/2023) Received from [facility] [employer], [facility] Housing Stability Vital Sign Unable to Pay for Housing in the Last Year: No Number of Places Lived in the Last Year: Not on file Unstable Housing in the Last Year: No Review of Systems Review of Systems Constitutional: Negative. HENT: Negative. Eyes: Negative. Respiratory: Positive for shortness of breath. Hematologic/Lymphatic: Bruises/bleeds easily. Skin: Negative. Musculoskeletal: Positive for back pain. Gastrointestinal: Negative. Neurological: Positive for light-headedness and loss of balance. Psychiatric/Behavioral: Negative. Allergic/Immunologic: Positive for environmental allergies. CARDIOVASCULAR: Please review HPI. Physical Examination General [...] mood, memory and judgement. VITAL SIGNS: BP 114/70 (BP Site: Left Arm, BP Postition: Sitting) Pulse 86 Ht 165.1 cm (5' 5 ) Wt 92.5 kg (204 lb) SpO2 95% BMI 33.95 kg/m Orders Placed or Reconciled This Encounter Medications gabapentin (NEURONTIN) 100 mg capsule Sig: Take 1 capsule (100 mg total) by mouth once daily. There are no discontinued medications. IMPRESSIONS/PLAN 1. SVT (supraventricular tachycardia) (CMS-HCC) - POCT EKG 2. Tachycardia - POCT EKG 3. Palpitations - POCT EKG SVT: Status post atrial tachycardia ablation from the right atrial septum 11/10/2023, doing well post ablation without recurrent sustained palpitations. Conservative monitoring going forward. Not on AV south agents at this time. No need for routine EP follow-up, can be seen on an as-needed basis. Dyspnea with exertion: Relatively new for her over the last year, no significant weight gain, prior echo with no significant valvulopathy, preserved ejection fraction. No murmurs on exam today, given her brother's history with hypertrophic cardiomyopathy, wonder if she is now presenting with outflow tract obstruction and LVH, TTE ordered for evaluation will follow-up on results. Plan on general cardiology follow-up in 6 months. EP f/u PRN, general cardiology 6 months. TODAYS ORDERS Orders Placed This Encounter Procedures POCT EKG FOLLOW UP No follow-ups on file. PCP: Christi Gallegos MD Referring Physician: Ryan Sosa, [address] [address] documented in this encounter [facility] 02-21-2024 Miscellaneous Notes Left message for patient to remind them to bring their most current medication list with them to their appointment. documented in this encounter [facility] 02-21-2024 Telephone encounter Note Left message for patient to remind them to bring their most current medication list with them to their appointment. [facility] 11-17-2023 History of Present illness Narrative Patient presents to [place] office for post SVT ablation 11/10/23. Patient underwent ablation via Rt. Femoral Vein,Rt Femoral artery and Lt Femoral vein. Sites are clean dry and intact without any signs or symptoms of infection or hematoma. No eccyomosis noted. No pulsatile mass. No bruit. Distal pulses are palpable. Patient will follow up with provider as scheduled on 02/22/24. Patient will call the office sooner with any questions or concerns prior to that appointment. documented in this encounter [facility] 11-16-2023 Miscellaneous Notes Called patient to remind them to bring their most current copy of their medication list with them to their appt. Patient verbalizes understanding. documented in this encounter [facility] 11-16-2023 Miscellaneous Notes Left message for patient to remind them to bring their most current medication list with them to their appointment. documented in this encounter [facility] 11-16-2023 Telephone encounter Note Called patient to remind them to bring their most current copy of their medication list with them to their appt. Patient verbalizes understanding. [facility] 11-16-2023 Telephone encounter Note Left message for patient to remind them to bring their most current medication list with them to their appointment. [facility] 11-03-2023 Miscellaneous Notes Called and LM to pt providing pre op reminder call TTH Entrance C Arrive @ 1000 Fasting - NPo after mn Medications - holding flec x 3 days on 11/06, no SGLT LABS - adivsed pt to obtain Advised pt to call with any questions documented in this encounter [facility] 11-03-2023 Telephone encounter Note Called and LM to pt providing pre op reminder call TTH Entrance C Arrive @ 1000 Fasting - NPo after mn Medications - holding flec x 3 days on 11/06, no SGLT LABS - adivsed pt to obtain Advised pt to call with any questions [facility] 10-18-2023 Miscellaneous Notes Pt calls for flec refill. She says she has 1 week left. Ablation 11/10/23 she requests 1 month supply. Reminded to complete preop labs between 11/02-11/04. She also wanted to inquire if procedures schedulers have heard if Dr Hunter doesn't take her insurance. [employer] insurance that is in [employer]. She said she looked through the insurance book and he was covered but wanted to check with ep schedulers. Rx pended to mey pool to sign. And message to ep surgery nurses to address. documented in this encounter [facility] 10-18-2023 Telephone encounter Note Pt calls for flec refill. She says she has 1 week left. Ablation 11/10/23 she requests 1 month supply. Reminded to complete preop labs between 11/02-11/04. She also wanted to inquire if procedures schedulers have heard if Dr Hunter doesn't take her insurance. [employer] insurance that is in [employer]. She said she looked through the insurance book and he was covered but wanted to check with ep schedulers. Rx pended to mey pool to sign. And message to ep surgery nurses to address[facility] Miscellaneous Notes RO Received a call from pt and she would like to proceed with ablation you discussed. Please review and advise thank you Okay to schedule SVT ablation with me, next available. NPO after midnight, okay for clear 6 hours prior, MAC sedation, routine preoperative labs, CARTO EAM. Hold flecainide for 3 days prior to procedure. No other meds held. [facility] Tele[facility] encounter Note RO Received a call from pt and she would like to proceed with ablation you discussed. Please review and advise thank you [facility] 07-18-2023 Telephone encounter Note Okay to schedule SVT ablation with me, next available. NPO after midnight, okay for clear 6 hours prior, MAC sedation, routine preoperative labs, CARTO EAM. Hold flecainide for 3 days prior to procedure. No other meds held. [facility] Work Phone: Evaluation note Diagnosis Gastroesophageal reflux disease, unspecified whether esophagitis present documented in this encounter [facility]* Diagnosis Acute maxillary sinusitis, 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 Otalgia of left ear Primary osteoarthritis of both knees documented in this encounter [facility]* Diagnosis SVT (supraventricular tachycardia) ([facility]/HCC)- Primary Other specified cardiac dysrhythmias Palpitations Elevated blood pressure reading Elevated blood pressure reading without diagnosis of hypertension Gastroesophageal reflux disease, unspecified whether esophagitis present Spondylosis without myelopathy or radiculopathy, lumbar region Nasal congestion Other diseases of nasal cavity and sinuses documented in this encounter [facility]* Diagnosis Primary osteoarthritis of both knees documented in this encounter [facility]* Diagnosis Primary osteoarthritis of both knees documented in this encounter [facility]* Diagnosis SVT (supraventricular tachycardia) ([facility]-HCC)- Primary Other specified cardiac dysrhythmias [facility] Diagnosis SVT (supraventricular tachycardia) ([facility]-HCC)- Primary Other specified cardiac dysrhythmias Tachycardia Unspecified tachycardia Palpitations documented in this [facility]* Diagnosis SVT (supraventricular tachycardia) ([facility]-HCC)- Primary Other specified cardiac dysrhythmias SVT (supraventricular tachycardia) (CMS-HCC) Other specified cardiac dysrhythmias SVT (supraventricular tachycardia) ([facility]-HCC) Other specified cardiac dysrhythmias documented in this encounter [facility]* Diagnosis Dermatophytosis of nail- Primary Dystrophic nail Other specified disease of nail Pain around toenail documented in this encounter [facility]* Diagnosis Encounter for Medicare annual wellness exam SVT (supraventricular tachycardia) ([facility]/HCC) Other specified cardiac dysrhythmias Tachycardia Unspecified tachycardia Gastroesophageal reflux disease, unspecified whether esophagitis present Left upper arm pain Presence of right artificial knee joint Primary osteoarthritis of both knees Spondylosis without myelopathy or radiculopathy, lumbar region S/P total knee replacement, left Vasovagal syncope Syncope and collapse Post-menopausal Asymptomatic postmenopausal status (age-related) (natural) Decreased hearing, unspecified laterality Urgency of urination Palpitations Snoring Other dyspnea and respiratory abnormality Daytime sleepiness Difficulty walking Difficulty in walking Encounter for screening mammogram for breast cancer documented in this encounter [facility]* Diagnosis Snoring Other dyspnea and respiratory abnormality Daytime sleepiness documented in this encounter [facility]* Diagnosis Acute non-recurrent pansinusitis- Primary Sinus pressure Other diseases of nasal cavity and sinuses Rhinorrhea Other diseases of nasal cavity and sinuses Acute cough Sore throat Acute pharyngitis documented in this encounter [facility]* Diagnosis Gastroesophageal reflux disease, unspecified whether esophagitis present documented in this encounter [facility]* Diagnosis Primary osteoarthritis of both knees Spondylosis without myelopathy or radiculopathy, lumbar region Gastroesophageal reflux disease, unspecified whether esophagitis present documented in this encounter [facility]* Diagnosis SVT (supraventricular tachycardia)- Primary Other specified cardiac dysrhythmias Tachycardia Unspecified tachycardia Palpitations [facility] filedocument[facility] filedocumented [facility] filedocument[facility] in [facility] filedocument[facility] filedocumented in [facility] filedocumented [facility] this [facility] Summary Purpose Family History No Family History Records FoundNo Family History Records FoundNo Family History Records FoundNo Family History Records FoundNo Family History Records Found Advance Directives No Advanced Directives Records FoundNo Advanced Directives Records FoundNo Advanced Directives Records FoundNo Advanced Directives Records FoundNo Advanced Directives Records Found Reason for Referral Specialty Diagnoses / Procedures Referred By Contac t Referred To Contact Diagnoses Tachycardia Palpitations Procedures Echo complete W/ contrast Logan Hunter MD [address] [place] [address] [facility] [address] [place] [address] Phone: [phone] Referral ID Status Reason Start Date Expiration Date V isits Requested Visits Authorized [id number] Authorized 02/22/2024 02/21/2025 1 1 Additional Source Comments INFORMATION SOURCE (unrecogn ized section and content) DATE CREATED AUTHOR 04/17/2018 [facility] DATE CREATED AUTHOR AUTHOR'S ORGANIZ ATION 11/13/2022 [facility] DATE CREATED AUTHOR AUTHOR'S ORGANIZ ATION 11/12/2023 [facility] DATE CREATED AUTHOR AUTHOR'S ORGANIZ ATION 11/17/2024 [facility] EPIC DATE CREATED AUTHOR AUTHOR'S ORGANIZ ATION 12/07/[address] [facility] Care Teams (unrecognized sec tion and content) Editorial Director Relationship Specialty Start Date End Date Christi Gallegos MD [address] [place] [address] PCP - General Family Medicine 04/27/23 Christi Gallegos MD [address] [place] [address] PCP - [employer] 07/04/23 Editorial Director Relationship Specialty Start Date End Date Christi Gallegos MD [address] [place] [address] PCP - General Family Medicine 04/27/23 Christi Gallegos MD [address] [place] [address] PCP - [employer] 07/04/23 Editorial Director Relationship Specialty Start Date End Date Christi Gallegos MD [address] [place] [address] PCP - General Family Medicine 04/27/23 Christi Gallegos MD [address] [place] [address] PCP - [employer] 07/04/23 07/03/24 Editorial Director Relationship Specialty Start Date End Date Chrsiti Gallegos MD [address] [place] [address] PCP - General Family Medicine 04/27/23 Christi Gallegos MD [address] [place] [address] PCP - [employer] 07/04/23 07/03/24 Editorial Director Relationship Specialty Start Date End Date Christi Gallegos MD [address] [place] [address] PCP - General Family Medicine 04/27/23 Christi Gallegos MD [address] [place] [address] PCP - [employer] 07/04/23 Editorial Director Relationship Specialty Start Date End Date Christi Gallegos MD [address] [facility] [place] [address] PCP - General Family Medicine 10/07/23 Editorial Director Relationship Specialty Start Date End Date Ryan Sosa DO [address] [place] [address] PCP - General 05/02/18 Editorial Director Relationship Specialty Start Date End Date Christi Gallegos MD [address] [place] [address] PCP - General Family Medicine 04/27/23 Editorial Director Relationship Specialty Start Date End Date Christi Gallegos MD [address] [place] [place] [address] PCP - General Family Medicine 10/07/23 Editorial Director Relationship Specialty Start Date End Date Christi Gallegos MD [address] [place] [address] PCP - General Family Medicine 10/07/23 Editorial Director Relationship Specialty Start Date End Date WonderlyChristi MD [address] [place] [address] PCP - General Family Medicine 10/07/23 Editorial Director Relationship Specialty Start Date End Date WonderChristi angulo MD [address] [place] [address] PCP - General Family Medicine 10/07/23 Editorial Director Relationship Specialty Start Date End Date Wonderkev, Christi Brewer MD [address] [place] [address] PCP - General Family Medicine 10/07/23 Editorial Director Relationship Specialty Start Date End Date WonderChristi angulo MD [address] [place] [address] PCP - General Family Medicine 04/27/23 WonderChristi angulo MD [address] [place] [address] PCP - Medical [place] 07/04/2407/03 Editorial Director Relationship Specialty Start Date End Date WonderChristi angulo MD [address] [place] [address] PCP - General Family Medicine 04/27/23 WonderChristi angulo MD [address] [place] [address] PCP - Medical [place] 07/04/2407/03 Editorial Director Relationship Specialty Start Date End Date WonderChristi angulo MD [address] [place] [address] PCP - General Family Medicine 04/27/23 Christi Gallegos MD [address] [place] [address] PCP - Medical [place] 07/04/2407/03 Editorial Director Relationship Specialty Start Date End Date Christi Gallegos MD [address] [place] [address] PCP - General Family Medicine 04/27/23 Christi Gallegos MD [address] [place] [address] PCP - Medical [place] 07/04/2407/03 Editorial Director Relationship Specialty Start Date End Date Christi Gallegos MD [address] [place] [address] PCP - General Family Medicine 04/27/23 Christi Gallegos MD [address] [place] [address] PCP - Medical [place] 07/04/2407/03 Editorial Director Relationship Specialty Start Date End Date Christi Gallegos MD [address] [place] [address] PCP - General Family Medicine 04/27/23 Christi Gallegos MD [address] [place] [address] PCP - Medical [place] 07/04/2407/03 Editorial Director Relationship Specialty Start Date End Date Christi Gallegos MD [address] [place] [address] PCP - General Family Medicine 04/27/23 Christi Gallegos MD [address] [place] [address] PCP - Medical [place] 07/04/2407/03 Editorial Director Relationship Specialty Start Date End Date Christi Gallegos MD [address] [place] [address] PCP - General Family Medicine 04/27/23 Christi Gallegos MD [address] [place] [address] PCP - Medical [facility] 07/04/2407/03 Editorial Director Relationship Specialty Start Date End Date Christi Gallegos MD [address] [place] [address] PCP - General Family Medicine 10/07/23 Reason for Visit (unrecogniz ed section and [...] started about 2 weeks ago. Fatigue Reason Onset Date Comments PRE OP REMINDER CALL 11/03/2023 Reason Onset Date Comments EP Surgery 07/18/2023 Reason Comments Rapid Heart Rate Reason Comments Follow-up S/P ABLATION Shortness of Breath With and without exe rtion Palpitations Reason Onset Date Comments med refill/ insurance question 10/18/2023 Reason Comments Fungus Established pt prese nts today with concerns of fungal nails. Pt has been formula 7 which she got from our office at previous visit. Reason Comments Medicare Annual Wellness Visit Subsequen t Reason Comments Nasal Congestion Sinus pressure Cough Reason Comments Follow-up Tachycardia FOR RECORDS PERTAINING TO PATIENTS WHO ARE [...] BE BASED ON THE PRIMARY CLINICAL RECORDS. [facility]. provides no warranty or guarantee of the accuracy or completeness of information in this document.
[2024-12-17 12:09] VITALS: BP 162/77; PULSE 73; O2SAT 98
[2024-12-17 12:10] VITALS: BP 153/83; PULSE 71; O2SAT 98
[2024-12-17] MEDS: LIDOCAINE HCL 2% 400 MG/20 ML MDV INJ (12:13)
[2024-12-17] MEDS: BUPIVACAINE HCL 0.25% PF 25 MG/10 ML VIAL 4 ML INJ (12:13)
[2024-12-17] MEDS: IOHEXOL 240 MG/ML - 10 ML VIAL INJ (12:13)
[2024-12-17] MEDS: METHYLPREDNISOLONE ACETATE 40 MG/ML VIAL INJ ×2 (12:13→12:14)
--- NOTE | 2024-12-17 12:14 | W.PM.PROCNOT ---
Date of procedure: 12/17/24 Pre-op diagnosis: Pain due to bilateral sacroiliitis Post-op diagnosis: same as pre-op Procedure: Procedure: Bilateral sacroiliac joint injection Medications: Bupivacaine 0.25% 3cc, depomedrol 40mg x2 After informed consent was obtained, the patient was brought to the medical procedure unit and placed in the prone position, when a timeout was completed verifying correct patient, procedure, site, positioning, implant, and/or special equipment.? The skin overlying the area was prepped and draped in standard sterile fashion using alcohol.? A 25-gauge needle was inserted towards the left sacroiliac joint under direct fluoroscopic imaging.? Needle tip was advanced until the joint was encountered.? We instilled a total of 2 mL of solution.? The same procedure was then completed on the right side.? Postoperatively needles were removed.? The patient tolerated the procedure well without complication.? The patient reported reduction in pain symptoms postoperatively. Anesthesia: Local Surgeon: Javier Church Pathology: none sent Condition: stable Disposition: no change
== END 2024-12-17 12:17 | disposition home or self-care (01) ==
LOC: SURGOUT 11:11
PROVIDERS: Visit Provider Anesthesiology
DX: M46.1 Sacroiliitis, not elsewhere classified (principal); M53.3 Sacrococcygeal disorders, not elsewhere classified
CPT/HCPCS: 27096; J0665; J1010; Q9966

== ENCOUNTER 2024-12-26 10:36 | Outpatient (OUT) | payer MEDICARE, SELFPAY ==
--- OUTSIDE RECORDS SUMMARY | 2024-12-26 10:38 | XMS_ITS | Clinical Summary ---
Author Organization [employer] Address [id number] [address] [place] [address] Care Team Providers Care Lift Builder Whole Name Role Phone Christi Galvan MD Primary Care Provider Allergies Active Allergy Reactions Criticality Noted Date [...] tablets by mouth in the morning. Active [id number]-F GRECIA OIL-L.CASEI ORAL Take 1 capsule by [...] (04/12/2022): Added automatically from request for surgery [id number] Class 1 obesity in adult 11/23/2021 S/P total knee replacement, left 09/30/2021 SVT (supraventricular tachycardia) 05/01/2021 Preop testing 04/10/2021 Obesity (BMI 30-39.9) 04/09/2021 Primary osteoarthritis of both knees 03/03/2021 Overview (03/03/2021): Added automatically from request for surgery [id number] Neurocardiogenic syncope 02/27/2021 Palpitations 02/27/2021 Tachycardia 02/27/2021 Shortness of breath 02/27/2021 Encounters Date Type Department Care Team Description 12/06/2024 2:30 PM EDT Office Visit [facility] [address] [place] [address] Tuan Cotto MD SVT (supraventricular [...] Info) Description 12/27/2024 1:45 PM EDT Appointment [facility] - Mammography/DEXA Imaging [address] [place] [address] 06/07/2025 2:00 PM EST Office Visit [facility] [address] [place] [address] Tuan Cotto MD [address] [place] [address] Health Maintenance Due Date Last Done Comments [...] discharge plan is home with [facility] and support of spouse. - Mckenna Najera RN 09/15/21 12:29 PM Medical Devices Implanted Type Area Hearing Consultant Device Identifier Shelf Expiration Date Model / Serial / Lot Cement Bn Bio 40gm Rpl [id number] - [id number] - [id number] Implanted:Qt y: 2 on 09/15/2021 by Sonido Prince MD at [facility] Cement Left: Knee [employer] 02/01/2024 [id number] / [id number] / [id number] Cement Bn Bio 40gm Rpl [id number] - [id number] Implanted:Qt y: 1 on 08/26/2022 by Sonido Prince MD at [facility] Cement Right: Knee [employer] 12/01/2024 [id number] / / [id number] Cement Bn Bio 40gm Rpl [id number] - [id number] Implanted:Qt y: 1 on 08/26/2022 by Sonido Prince MD at [facility] Cement Right: Knee [employer] 12/01/2024 [id number] / / [id number] Component Ptlr 35mm Persona Alply Kn Strl Lf - [id number] - [id number] Implanted:Qt y: 1 on 09/15/2021 by Sonido Prince MD at [facility] Orthopedic Implant Left: Knee [employer] 08/02/2029 [id number] / [id number] / [id number] Component Fem 6 Std Kn Lt Post Stab Cmnt Persona Cocr Strl - [id number] - [id number] Implanted:Qt y: 1 on 09/15/2021 by Sonido Prince MD at [facility] Orthopedic Implant Left: Knee [employer] 10/19/2030 [id number] / [id number] / [id number] Surface Artc 11mm Persona 6-9 Cd Kn Lt Pe Post Stab - [id number] - [id number] Implanted:Qt y: 1 on 09/15/2021 by Sonido Prince MD at [facility] Orthopedic Implant Left: Knee [employer] 08/14/2028 [id number] / [id number] / [id number] Surface Artc 11mm Persona 6-9 Cd Kn Rt Vivacit-E Post Stab - [id number] Implanted:Qt y: 1 on 08/26/2022 by Sonido Prince MD at [facility] Orthopedic Implant Right: Knee [employer] 05/03/2027 [id number] / / [id number] Component Fem 6 Std Kn Rt Post Stab Cmnt Persona Cocr Strl - [id number] Implanted:Qt y: 1 on 08/26/2022 by Sonido Prince MD at [facility] Orthopedic Implant Right: Femur [employer] 05/17/2032 [id number] / / [id number] Component Ptlr 35mm Persona Alply Kn Strl Lf - [id number] Implanted:Qt y: 1 on 08/26/2022 by Sonido Prince MD at [facility] Orthopedic Implant Right: Patella [employer] 07/18/2027 [id number] / / [id number] Stem Xtn 30+ Mm 14mm Persona Tpr Kn Tib - [id number] Implanted:Qt y: 1 on 08/26/2022 by Sonido Prince MD at [facility] Orthopedic Implant Right: Tibia [employer] 06/27/2032 [id number] / / [id number] Baseplate Tib 5d D Kn Lt Cmnt Stm Persona Tiv Strl - [id number] - [id number] Implanted:Qt y: 1 on 09/15/2021 by Sonido Prince MD at [facility] Plate Left: Knee [employer] 05/01/2030 [id number] / [id number] / [id number] Baseplate Tib 5d D Kn Rt Cmnt Stm Persona Tiv Strl - [id number] Implanted:Qt y: 1 on 08/26/2022 by Sonido Prince MD at [facility] Plate Right: Tibia [employer] 05/08/2032 [id number] / / [id number] Insurance [employer] Care Teams Lift Builder Whole Relationship Specialty Start Date End Date Isakly, Christi Brewer MD [address] [place] [address] PCP - General Family Medicine 10/07/23
--- OUTSIDE RECORDS SUMMARY | 2024-12-26 10:38 | XMS_ITS | Encounter Summary ---
Author Organization [facility] Address [address] [facility] [place] [address] Care Team Providers Care Master Baker Name Role Phone Christi Galvan MD Primary Care Provider Christi Galvan MD Unavailable [phone] Encounter Details Date Type Department Care Team (Late Contact Info) Description 10/29/2024 Orders Only [facility] [address] [place] [phone] Be Lora MD [address] [place] [address] Social History Tobacco Use Types Packs/Day Years Used Date Smoking Tobacco: Never Passive Smoke Exposure: Never Smokeless Tobacco: Never Alcohol Use Standard Drinks/Week Comments Never 0 (1 standard drink = 0.6 oz pure alcohol) Caffeine intake: 3-4 cups per day B1300 Health Literacy Answer Date Recor ded How often do you need to hav e someone help you when you read instructions, pamphlets, or other written material from your doctor or pharmacy? Never 06/12/2024 Humiliation, Afraid, Rape, and Kick questionnair e Answer Date Recorded Within the last year, have y ou been afraid of your partner or ex-partner? No 03/08/2023 Within the last year, have y ou been humiliated or emotionally abused in other ways by your partner or ex-partner? No Within the last year, have y ou been kicked, hit, slapped, or otherwise physically hurt by your partner or ex-partner? No 03/08/2023 Within the last year, have y ou been raped or forced to have any kind of sexual activity by your partner or ex-partner? No 03/08/2023 Social Connection and Isolat ion Panel [NHANES] Answer Date Recorded In a typical week, how many times do you talk on the phone with family, friends, or neighbors? More than three times a week 06/12/2024 How often do you get togethe r with friends or relatives? Three times a week 06/12/2024 How often do you attend chur or yarsani services? More than 4 times per year 06/12/2024 Do you belong to any clubs o r organizations such as orthodoxy groups, unions, fraternal or athletic groups, or school groups? Yes 06/12/2024 How often do you attend meet ings of the clubs or organizations you belong to? More than 4 times per year 06/12/2024 Are you , , di vorced, , never , or living with a partner? 06/12/2024 AUDIT-C Answer Date Recorded Q1: How often do you have a drink containing alcohol? Never 06/12/2024 Q2: How many drinks containi ng alcohol do you have on a typical day when you are drinking? Patient does not drink Q3: How often do you have si x or more drinks on one occasion? Never 06/12/2024 Overall Financial Resource Strain (CARDIA) Answe r Date Recorded How hard is it for you to pa y for the very basics like food, housing, medical care, and heating? Not hard at all 06/12/2024 PHQ-2 Answer Date Recorded Patient Health Questionnaire-2 Score 0 10/22/2024 [facility] - Occupational Stress Questionnaire Answer Date Recorded Do you feel stress - tense, restless, nervous, or anxious, or unable to sleep at night because your mind is troubled all the time - these days? Not at all 06/12/2024 Exercise Vital Sign Answer Date Recorde d On average, how many days pe r week do you engage in moderate to strenuous exercise (like a brisk walk)? 7 days 06/12/2024 On average, how many minutes do you engage in exercise at this level? 60 min 06/12/2024 Hunger Vital Sign Answer Date Recorded Within the past 12 months, y ou worried that your food would run out before you got the money to buy more. Never true 06/12/20 24 Within the past 12 months, t he food you bought just didn't last and you didn't have money to get more. Never true 06/12/2024 PRAPARE - Transportation Answer Date Re corded In the past 12 months, has l ack of transportation kept you from medical appointments or from getting medications? No 06/03 In the past 12 months, has l ack of transportation kept you from meetings, work, or from getting things needed for daily living? No 06/12/2024 Housing Stability Vital Sign Answer Jim e Recorded In the last 12 months, was t here a time when you were not able to pay the mortgage or rent on time? No 03/08/2023 Number of Places Lived in the Last Year Not on f ile 03/08/2023 In the last 12 months, was t here a time when you did not have a steady place to sleep or slept in a fpc (including now)? No 03/08/2023 Housing Stability Vital Sign Answer Jim e Recorded In the last 12 months, was t here a time when you were not able to pay the mortgage or rent on time? No 06/12/2024 Number of Times Moved in the Last Year Not on fi le 06/12/2024 At any time in the past 12 m [facility], were you homeless or living in a fpc (including now)? No 06/12/2024 Comments Unknown Sex and Gender Information Value Date Recorded Sex Assigned at Not on file Legal Sex Female 7:13 PM EDT Gender Identity Not on file Sexual Orientation Not on file documented as of this encounter Plan of Treatment Not on file documented as of this encounter Procedures Procedure Name Priority Date/Time Associated Diagnosis Comments HM COLONOSCOPY Routine 06/24/2011 8:47 AM EST documented in this encounter Results * Hm Colonoscopy (06/24/2011 8:47 AM EST) Anatomical Region Laterality Modality Other us Be Lora MD HEALTH MAINTENANCE Final Res ult documented in this encounter Visit Diagnoses Not on filedocumented in this encounter Care Teams Master Baker Relationship Specialty Start Date End Date Christi Galvan MD PCP - General Family Medicine 04/27/23 WonderChristi angulo MD PCP - Medical [facility] 07/04/2407/03 documented as of this encounter
--- OUTSIDE RECORDS SUMMARY | 2024-12-26 10:38 | XMS_ITS | Encounter Summary ---
Author Organization [facility] Address [address] [facility] [place] [address] Care Team Providers Care Lead Installer Name Role Phone Christi Galvan MD Primary Care Provider [phone] Christi Galvan MD Unavailable [phone] Christi Galvan MD Unavailable [phone] Encounter Details Date Type Department Care Team (Late st Contact Info) Description 01/10/2024 External Result Encounter [facility] [address] [place] [phone] Erna Banegas NP Social History Tobacco Use Types Packs/Day Years Used Date Smoking Tobacco: Never Passive Smoke Exposure: Never Smokeless Tobacco: Never Alcohol Use Standard Drinks/Week Comments Never 0 (1 standard drink = 0.6 oz pure alcohol) Caffeine intake: 3-4 cups per day Humiliation, Afraid, Rape, and Kick questionnair e [...] neighbors? More than three times a week 03/08/2023 How often do you get togethe r with friends or relatives? More than three times a week 03/08/2023 How often do you attend chur ch or alevism services? More than 4 times per year 03/08/2023 Do you belong to any clubs o r organizations such as holiness groups, unions, fraternal or athletic groups, or school groups? Yes 03/08/2023 How often do you attend meet ings of the clubs or organizations you belong to? More than 4 times per year 03/08/2023 Are you , , di vorced, , never , or living with a partner? 03/08/2023 AUDIT-C Answer Date Recorded Q1: How often do you have a drink containing alcohol? Never 03/08/2023 Q2: How many drinks containi ng alcohol do you have on a typical day when you are drinking? Patient does not drink Q3: How often do you have si x or more drinks on one occasion? Never 03/08/2023 Overall Financial Resource Strain (CARDIA) Answe r Date Recorded How hard is it for you to pa y for the very basics like food, housing, medical care, and heating? Not hard at all 03/08/2023 PHQ-2 Answer Date Recorded Patient Health Questionnaire-2 Score 0 08/02/2023 [facility] - Occupational Stress Questionnaire Answer Date Recorded Do you feel stress - tense, restless, nervous, or anxious, or unable to sleep at night because your mind is troubled all the time - these days? Only a little 03/08/2023 Exercise Vital Sign Answer Date Recorde d On average, how many days pe r week do you engage in moderate to strenuous exercise (like a brisk walk)? 6 days 03/08/2023 On average, how many minutes do you engage in exercise at this level? 60 min 03/08/2023 Hunger Vital Sign Answer Date Recorded Within the past 12 months, y ou worried that your food would run out before you got the money to buy more. Never true 03/08/20 23 Within the past 12 months, t he food you bought just didn't last and you didn't have money to get more. Never true 03/08/2023 PRAPARE - Transportation Answer Date Re corded In the past 12 months, has l ack of transportation kept you from medical appointments or from getting medications? No 11/2022 In the past 12 months, has l ack of transportation kept you from meetings, work, or from getting things needed for daily living? No 03/08/2023 Housing Stability Vital Sign Answer [...] place to sleep or slept in a penitentiary (including now)? No 03/08/2023 Comments Unknown Sex and Gender Information Value Date Recorded Sex Assigned at Not on file Legal Sex Female 7:13 PM EDT Gender Identity Not on file Sexual Orientation Not on file documented as of this encounter Plan of Treatment Not on file documented as of this encounter Procedures Procedure Name Priority Date/Time Associated Diagnosis Comments DEXA BONE DENSITY 01/10/2024 1:3 6 PM EDT documented in this encounter Results * DEXA bone density (01/10/2024 1:36 PM EDT) Anatomical Region Laterality Modality Body Radiographic Dilia ging 01/10/2024 1:36 PM EDT Narrative 01/10/2024 1:35 PM EDT THIS EXAM WAS PERFORMED AT [facility] Bone densitometry: HISTORY: Postmenopausal osteoporosis screening. L1-L4 [...] Tio Peterson MD on 01/10/2024 1:35 PM Procedure Note Radiology, Radiologist, - 01/10/2024 THIS EXAM WAS PERFORMED AT [facility] Bone densitometry: HISTORY: Postmenopausal osteoporosis screening. L1-L4 T score is 0.3 and Z score is 1.0. Left femoral neck T score is-0.4 and Z score is 0.7. Right femoral neck T score is -0.1 and Z scoreis 0.9. 10 year probability of osteoid fractures 7%. 10 year probabilityhip fracture 0.3%. IMPRESSION: Negative exam. Finalized by Tio Peterson MD on 01/10/2024 1:35 PM Erna Banegas DAIRY FROZEN MANAGER IMG DXA PROCEDURES Final Re sult documented in this encounter Visit Diagnoses Not on filedocumented in this encounter Care Teams Lead Installer Relationship Specialty Start Date End Date Christi Galvan MD PCP - General Family Medicine 04/27/23 Christi Galvan MD PCP - [facility] 07/04/23 07/03/24 Christi Galvan MD PCP - Medical [place] 07/04/2407/03 documented as of this encounter
--- OUTSIDE RECORDS SUMMARY | 2024-12-26 10:38 | XMS_ITS | Encounter Summary ---
Author Organization [facility] Address [address] [facility] [place] [address] Care Team Providers Care Surface Ship Usw Supervisor Name Role Phone Christi Galvan MD Primary Care Provider [phone] Christi Galvan MD Unavailable [phone] Reason for Visit * Reason Onset Date Comments Results 12/24/2024 Lacey result s Encounter Details Date Type Department Care Team (Late Contact Info) Description 12/24/2024 Results Follow-Up [facility] [address] [place] [phone] Lidia Boyle NP [address] [place] [address] Social History Tobacco Use Types Packs/Day Years [...] How often do you attend chur or zoroastrianism services? More than 4 times per year 06/12/2024 Do you belong to any clubs o r organizations such as voodoo groups, unions, fraternal or athletic groups, or [...] Recorded Patient Health Questionnaire-2 Score 0 10/22/2024 [facility] - Occupational Stress Questionnaire Answer Date [...] place to sleep or slept in a mcfp (including now)? No 03/08/2023 Housing Stability Vital Sign Answer Jim e Recorded In the last 12 months, was t here a time when you were not able to pay the mortgage or rent on time? No 06/12/2024 Number of Times Moved in the Last Year Not on fi le 06/12/2024 At any time in the past 12 m [facility], were you homeless or living in a mcfp (including now)? No 06/12/2024 Comments Unknown Sex and Gender Information Value Date Recorded Sex Assigned at Not on file Legal Sex Female 7:13 PM EDT Gender Identity Not on file Sexual Orientation Not on file documented as of this encounter Miscellaneous Notes * Telephone Encounter - Miya Mckinnon MA - 12/25/2024 8:46 AM EDT I called and left a message notifying pt of results * Telephone Encounter - Miya Mckinnon MA - 12/25/2024 8:46 AM EDT ----- Message from Lidia Boyle sent at 12/24/2024 5:55 PM EDT ----- Cologuard is normal. ----- Message ----- From: [employer] Results In Sent: 12/24/2024 10:43 AM EDT To: Lidia Boyle NP * Result Encounter Note - Lidia Boyle NP - 12/24/2024 5:55 PM EDT Cologuard is normal. documented in this encounter Plan of Treatment Not on file documented as of this encounter Visit Diagnoses Not on filedocumented in this encounter Care Teams Surface Ship Usw Supervisor Relationship Specialty Start Date End Date Christi Galvan MD PCP - General Family Medicine 04/27/23 Christi Galvan MD PCP - Medical [facility] 07/04/2407/03 documented as of this encounter
--- OUTSIDE RECORDS SUMMARY | 2024-12-26 10:38 | XMS_ITS | Encounter Summary ---
Author Organization [facility] [employer] Sys tem Address [id number] [address] [place] [address] Care Team Providers Care Software Writer Name Role Phone Christi Galvan MD Primary Care Provider [phone] Encounter Details Date Type Department Care Team (Late Contact Info) Description 07/13/2022 Orders Only [facility] [address] [place] [phone] Radha Hollingsworth CMA SVT (supraventricular tachycardia) ([facility]) Social History Tobacco Use Types [...] Info) Description 12/27/2024 1:45 PM EDT Appointment [facility] - Mammography/DEXA Imaging [address] [place] [address] 06/07/2025 2:00 PM EST Office Visit [facility] [address] [place] [phone] Tuan Cotto MD [address] [place] [address] documented as of this encounter Goals Goal Patient Goal Type Associated Problems Recent Progress Patient-Stated? Author Home with HC General Yes Mckenna Najera, CHARLIE Note: Evaluation of progress towards goal: Current discharge plan is home with [facility] and support of spouse. - Mckenna Najera RN 09/15/21 12:29 PM documented as of this encounter Procedures Procedure Name Priority Date/Time Associated Diagnosis Comments BASIC METABOLIC PANEL Routine 07/09/2022 SVT (supraventricular tachycardia) (CMS-HCC) documented in this encounter Results * Basic Metabolic Panel (07/09/2022) 07/09/2022 Roopa Larsen AIRCRAFT ENGINE ASSEMBLER-SUPERVISOR [employer]ACING LAB BLOOD ORDERABLES F inal Result [employer] documented in this encounter Visit Diagnoses Diagnosis SVT (supraventricular tachycardia) Other specified cardiac dysrhythmias documented in this encounter Care Teams Software Writer Relationship Specialty Start Date End Date Wonderly, Christi Brewer MD [address] [place], [place] [phone] PCP - General Family Medicine 10/07/23 documented as of this encounter
--- OUTSIDE RECORDS SUMMARY | 2024-12-26 10:38 | XMS_ITS | Encounter Summary ---
Author Organization [facility] Outline s tem Address [id number] [address] [place] [address] Care Team Providers Care Fur Plucker Name Role Phone Christi Galvan MD Primary Care Provider [phone] Encounter Details Date Type Department Care Team (Late Contact Info) Description 07/12/2022 Orders Only [facility] [address] [place] [phone] Elisa Davis Tachycardia; SVT (supraventricular tachycardia) ([facility]) Social History Tobacco Use Types Packs/Day Years [...] Info) Description 12/27/2024 1:45 PM EDT Appointment [facility] - Mammography/DEXA Imaging [address] [place] [address] 06/07/2025 2:00 PM EST Office Visit [facility] [address] [facility] [address] [place] [address] Tuan Cotto MD [address] [place] [address] documented as of this encounter Goals Goal Patient Goal Type Associated Problems Recent Progress Patient-Stated? Author Home with HC General Yes Mckenna Najera RN Note: Evaluation of progress towards goal: Current discharge plan is home with [facility] and support of spouse. - Mckenna Najera RN 09/15/21 12:29 PM documented as of this encounter Procedures Procedure Name Priority Date/Time Associated Diagnosis Comments MAGNESIUM Routine 07/10/2022 Tachycardia SVT (supraventricular tachycardia) ([facility]) documented in this encounter Results * Magnesium (07/10/2022) 07/10/2022 us Stephenie Park RIBBON BLOCKER-AGRICULTURAL RESEARCHER LAB BLOOD ORDERABLES F inal Result [employer] documented in this encounter Visit Diagnoses Diagnosis Tachycardia Unspecified tachycardia SVT (supraventricular tachycardia) Other specified cardiac dysrhythmias documented in this encounter Care Teams Fur Plucker Relationship Specialty Start Date End Date Wonderly, Christi Brewer MD [address] [place] [address] PCP - General Family Medicine 10/07/23 documented as of this encounter
--- OUTSIDE RECORDS SUMMARY | 2024-12-26 10:38 | XMS_ITS | Encounter Summary ---
Author Organization [facility] [employer] Address [id number] [address] [place] [address] Care Team Providers Care Behavioral Psychologist Name Role Phone Christi Galvan MD Primary Care Provider [phone] Encounter Details Date Type Department Care Team (Late Contact Info) Description 02/25/2021 Orders Only [facility] [address] [place] [phone] External, Scanning Provider Social History Tobacco Use [...] Info) Description 12/27/2024 1:45 PM EDT Appointment [facility] - Mammography/DEXA Imaging [address] [place] [address] 06/07/2025 2:00 PM EST Office Visit [facility] [address] [place] [phone] Tuan Cotto MD [address] [place] [address] documented as of this encounter Procedures Procedure Name Priority Date/Time Associated Diagnosis Comments ECG 12-LEAD Routine 11/14/2013 ECHO DOPPLER Routine 10/02/2013 EVENT MONITOR Routine 09/21/2013 documented in this encounter Results * ECG 12 lead (11/14/2013) us Scanning Provider External ECG ORDERABLES Final Result [facility] EXTERNAL NON-INTERFACED REF LAB [address] [place] [address] * Echo Doppler (10/02/2013) Anatomical Region Laterality Modality Chest N/A Ultrasound us Scanning Provider External CV ECHO ORDERABLES Fi nal Result * Event monitor lead section supervisor and recording (09/21/2013) Anatomical Region Laterality Modality Chest N/A Other us Scanning Provider External CV CARDIAC SERVICES O RDERABLES Final Result documented in this encounter Visit Diagnoses Not on filedocumented in this encounter Care Teams Behavioral Psychologist Relationship Specialty Start Date End Date Wonderly, Christi Brewer MD [address] [place] [address] PCP - General Family Medicine 10/07/23 documented as of this encounter
--- OUTSIDE RECORDS SUMMARY | 2024-12-26 10:38 | XMS_ITS | Encounter Summary ---
Author Organization [facility] Address [address] [place] [address] Care Team Providers Care Restrike Hammer Operator Name Role Phone Ryan Betancourt MD Primary Care Provider WonderlyChristi MD Primary Care Provider [phone] WonderChristi angulo MD Unavailable [phone] WonderlyChristi MD Unavailable [phone] Encounter Details Date Type Department Care Team (Late st Contact Info) Description 01/16/2015 Abstract [facility] [address] [place] [address] Meka Penn, [facility] [address] [place] [address] Social History Tobacco Use Types Packs/Day Years Used Date Smoking Tobacco: Never Assessed Comments Unknown Sex and Gender Information Value Date Recorded Sex Assigned at Not on file Legal Sex Female 7:13 PM EDT Gender Identity Not on file Sexual Orientation Not on file documented as of this encounter Plan of Treatment Not on file documented as of this encounter Visit Diagnoses Not on filedocumented in this encounter Care Teams Restrike Hammer Operator Relationship Specialty Start Date End Date Ryan Betancourt MD [address] [place] [address] PCP - General Family Medicine 01/20/23 04/26/23 Christi Galvan MD [address] [place] [address] PCP - General Family Medicine 04/27/23 Christi Galvan MD PCP - [facility] 07/04/23 07/03/24 Christi Galvan MD PCP - Medical [place] 07/04/2407/03 documented as of this encounter
--- OUTSIDE RECORDS SUMMARY | 2024-12-26 10:38 | XMS_ITS | Encounter Summary ---
Author Organization [email or web address] Address [facility]-[id number] [address] [place] [address] Care Team Providers Care Geospatial Specialist Name Role Phone Christi Galvan MD Primary Care Provider [phone] Reason for Visit * Reason Onset Date Comments Cardiomyopathy 11/22/2023 Encounter Details Date Type Department Care Team (Late st Contact Info) Description 11/22/2023 Telephone [facility] Cardiology [address] [phone] Clarissa Rendon RN Cardiomyopathy Social History Tobacco [...] she has ever been tested for that. Senior Data Scientist will message Dr. Hunter to make aware [...] 12/27/2024 1:45 PM EDT Appointment [facility] - Mammography/DEXA Imaging [address] [place] [address] 06/07/2025 2:00 PM EST Office Visit [facility] Cardiology [address] [place] [address] Tuan Cotto MD [address] [place] [address] documented as of this encounter Goals Goal Patient Goal Type Associated Problems Recent Progress Patient-Stated? Author Home with General Yes Mckenna Najera RN Note: Evaluation of progress towards goal: Current discharge plan is home with [facility] and support of spouse. - Mckenna Najera RN 09/15/21 12:29 PM documented as of this encounter Visit Diagnoses Not on filedocumented in this encounter Care Teams Geospatial Specialist Relationship Specialty Start Date End Date Wonderly, Christi Brewer MD [address] [place] [address] PCP - General Family Medicine 10/07/23 documented as of this encounter
--- OUTSIDE RECORDS SUMMARY | 2024-12-26 10:38 | XMS_ITS | Encounter Summary ---
Author Organization [facility] Address [address] [place] [address] Care Team Providers Care High [employer] Business Teacher Name Role Phone Christi Galvan MD Primary Care Provider [phone] WonderChristi angulo MD Unavailable [phone] WonderChristi angulo MD Unavailable [phone] Encounter Details Date Type Department Care Team (Late st Contact Info) Description 10/27/2023 Orders Only [facility] [address] [place] [phone] Ryan Betancourt MD [address], [place] [id number] Social History Tobacco Use Types Packs/Day Years [...] 03/08/2023 How often do you attend chur or cheondoism services? More than 4 times per year 03/08/2023 Do you belong to any clubs o r organizations such as hinduism groups, unions, fraternal or athletic groups, or [...] Recorded Patient Health Questionnaire-2 Score 0 08/02/2023 [facility] Occupat ional Health - Occupational Stress [...] place to sleep or slept in a residential (including now)? No 03/08/2023 Comments Unknown Sex and Gender Information Value Date Recorded Sex Assigned at Not on file Legal Sex Female 7:13 PM EDT Gender Identity Not on file Sexual Orientation Not on file documented as of this encounter Plan of Treatment Not on file documented as of this encounter Procedures Procedure Name Priority Date/Time Associated Diagnosis Comments CBC WITH AUTO DIFFERENTIAL Routine 10/06/2022 3:46 PM EDT TSH Routine 10/06/2022 3:46 PM EDT T4 (THYROXINE), TOTAL Routine 10/06/2022 3:46 PM EDT BILIRUBIN, DIRECT Routine 10/06/2022 3:4 6 PM EDT COMPREHENSIVE METABOLIC PANEL Routine 10/06/2022 3:46 PM EDT MAMMOGRAM* Routine 03/21/2018 3:44 PM EDT documented in this encounter Results * Comprehensive metabolic panel (10/06/2022 3:46 PM EDT) Blood Venous blood specimen / Unknown us Ryan Betancourt MD LAB BLOOD ORDERABLES Final Re sult * CBC auto differential (10/06/2022 3:46 PM EDT) Blood Venous blood specimen / Unknown Result [facility] Ryan Betancourt MD LAB BLOOD ORDERABLES Final Re sult * Bilirubin, direct (10/06/2022 3:46 PM EDT) Blood Venous blood specimen / Unknown Result [facility] Ryan Betancourt MD LAB BLOOD ORDERABLES Final Re sult * T4 (10/06/2022 3:46 PM EDT) Blood Venous blood specimen / Unknown Result [facility] Ryan Betancourt MD LAB BLOOD ORDERABLES Final Re sult * TSH (10/06/2022 3:46 PM EDT) Blood Venous blood specimen / Unknown Result [facility] Ryan Betancourt MD LAB BLOOD ORDERABLES Final Re sult * MAMMOGRAM* (03/21/2018 3:44 PM EDT) Anatomical Region Laterality Modality Radiographic Dilia ging Result [facility] us Ryan Betancourt MD IMG XR PROCEDURES Final Resul t documented in this encounter Visit Diagnoses Not on filedocumented in this encounter Care Teams High [employer] Business Teacher Relationship Specialty Start Date End Date Christi Galvan MD PCP - General Family Medicine 04/27/23 Christi Galvan MD PCP - [facility] 07/04/23 07/03/24 Christi Galvan MD PCP - Medical [place] 07/04/2407/03 documented as of this encounter
--- OUTSIDE RECORDS SUMMARY | 2024-12-26 10:38 | XMS_ITS | Encounter Summary ---
Author Organization [facility] Address [id number] [address] [place] [address] Care Team Providers Care Diplomatic Interpreter Name Role Phone Christi Galvan MD Primary Care Provider [phone] Encounter Details Date Type Department Care Team (Late st Contact Info) Description 09/25/2021 Telephone [facility] [address] [place] [phone] Roopa Stephenson, SHANTA Social History Tobacco Use [...] She is fine with stepping down to [place]. Pharmacy confirmed in chart * Telephone Encounter [...] Info) Description 12/27/2024 1:[address] [facility] - Mammography/DEXA Imaging [address] [place] [phone] 06/07/2025 2:00 PM EST Office Visit [facility] Cardiology [address] [place] [address] Tuan Cotto MD [address] [place] [address] documented as of this encounter Goals Goal Patient Goal Type Associated Problems Recent Progress Patient-Stated? Author Home with General Yes Mckenna Najera RN Note: Evaluation of progress towards goal: Current discharge plan is home with [facility] and support of spouse. - Mckenna Najera RN 09/15/21 12:29 PM documented as of this encounter Visit Diagnoses Diagnosis Postoperative pain- Primary Other acute postoperative pain documented in this encounter Care Teams Diplomatic Interpreter Relationship Specialty Start Date End Date Christi Galvan MD [address] [place] [address] PCP - General Family Medicine 10/07/23 documented as of this encounter
--- OUTSIDE RECORDS SUMMARY | 2024-12-26 10:38 | XMS_ITS | Encounter Summary ---
Author Organization [facility] [employer] Address [id number] [address] [place] [address] Care Team Providers Care Street Contractor Name Role Phone Christi Galvan MD Primary Care Provider [phone] Encounter Details Date Type Department Care Team (Late st Contact Info) Description 11/07/2023 [facility] [address] [place] [phone] Sajan Vasquez, RN Social History Tobacco Use [...] Info) Description 12/27/2024 1:45 PM EDT Appointment [facility] - Mammography/DEXA Imaging [address] [place] [phone] 06/07/2025 2:00 PM EST Office Visit [facility] Physicians Cardiology [address] [place] [phone] Tuan Cotto MD [address] [place] [address] documented as of this encounter Goals Goal Patient Goal Type Associated Problems Recent Progress Patient-Stated? Author Home with General Yes Mckenna Najera, RN Note: Evaluation of progress towards goal: Current discharge plan is home with [facility] and support of spouse. - Mckenna Najera RN 09/15/21 12:29 PM documented as of this encounter Visit Diagnoses Not on filedocumented in this encounter Care Teams Street Contractor Relationship Specialty Start Date End Date Wonderly, Christi Brewer MD [address] [place] [address] PCP - General Family Medicine 10/07/23 documented as of this encounter
--- OUTSIDE RECORDS SUMMARY | 2024-12-26 10:38 | XMS_ITS | Encounter Summary ---
Author Organization [facility] Address [address] [facility] [place] [address] Care Team Providers Care Telephone Collector Name Role Phone House, Ryan Montalvo MD Primary Care Provider [phone] WonderlyChristi MD Primary Care Provider [phone] WonderChristi angulo MD Unavailable [phone] WonderlyChristi MD Unavailable [phone] Encounter Details Date Type Department Care Team (Late st Contact Info) Description 03/09/2023 Abstract [facility] [address] [place] [address] Erna Banegas NP Social History Tobacco Use Types Packs/Day Years Used Date Smoking Tobacco: Never Passive Smoke Exposure: Never Smokeless Tobacco: Never Alcohol Use Standard Drinks/Week Comments Never 0 (1 standard drink = 0.6 oz pur e alcohol) Humiliation, Afraid, Rape, and Kick questionnair e [...] How often do you attend chur or anglican services? More than 4 times per year 03/08/2023 Do you belong to any clubs o r organizations such as jain groups, unions, fraternal or athletic groups, or [...] and heating? Not hard at all 03/08/2023 [facility] of Occupat ional Health - Occupational Stress [...] the money to buy more. Never true 09/05/20 23 Within the past 12 months, t [...] place to sleep or slept in a intermediate (including now)? No 03/08/2023 Comments Unknown Sex and Gender Information Value Date Recorded Sex Assigned at Not on file Legal Sex Female 7:13 PM EDT Gender Identity Not on file Sexual Orientation Not on file COVID-19 Exposure Response Date Recorded In the last 10 days, have yo u been in contact with someone who was confirmed or suspected to have Coronavirus/COVID-19? No / Unsure 03/08/2023 3:39 PM EDT documented as of this encounter Plan of Treatment Not on file documented as of this encounter Visit Diagnoses Not on filedocumented in this encounter Care Teams Telephone Collector Relationship Specialty Start Date End Date Ryan Betancourt MD [address] [place] [address] PCP - General Family Medicine 01/20/23 04/26/23 Christi Galvan MD [address] [place] [address] PCP - General Family Medicine 04/27/23 Christi Galvan MD PCP - [facility] 07/04/23 07/03/24 Christi Galvan MD PCP - Medical [place] [facility] 07/04/2407/03 documented as of this encounter
--- OUTSIDE RECORDS SUMMARY | 2024-12-26 10:38 | XMS_ITS | Clinical Summary ---
Author Organization [facility] Healthcare Address [address] [place] [address] Care Team Providers Care Plate Filler Name Role Phone Christi Galvan MD Primary Care Provider [phone] Christi Galvan MD Unavailable [phone] Allergies Active Allergy Reactions Criticality Noted Date Comments Sulfa Antibiotics Rash Low 02/18/2021 Medications calcium citrate 600 mg and vitamin D3 (Citrical & Minerals + Vit D) 600-200 MG-UNIT tablet Orally Active L-lysine 500 MG tablet Orally Active magnesium oxide 200 MG tablet Take 2 tablets by mouth in the morning. Active omega-3 (Fish Oil) 1000 MG capsule 1 capsule 1 (one) time each day at the same time. Active Potassium Gluconate 2.5 MEQ tablet Take 99 mg by mouth in the morning. Active vitamin A 2400 MCG (8000 UT) capsule Take 8,000 Units by mouth in the morning. Active cyclobenzaprine (Flexeril) 10 MG tabletIndications: Muscle spasm TAKE 1 TABLET BY MOUTH 2 TIMES A DAY NEEDED FOR MUSCLE SPASMS 60 tablet 1 11/17/19 24 Active Additional Information Patient taking differently: Sometimes takes 3 times a day per pain management, Reported on 11/16/2024 gabapentin (Neurontin) 100 MG capsule Take 100 mg by mouth in the morning. 01/23/20 24 Active famotidine (Pepcid) 10 MG tabletIndications: Gastroesophageal reflux disease, unspecified whether esophagitis present Take 1 tablet (10 mg) by mouth at bedtime 90 tablet 1 06/15/20 24 Active loratadine (Claritin) 10 MG tablet Take by mouth Active omeprazole (PriLOSEC) [address] capsuleIndications :Gastroesophageal reflux disease, unspecified whether esophagitis present Take 1 capsule (20 mg) by mouth in the morning. Take before meals. 90 capsule 1 11/17/19 25 Active nabumetone (Relafen) 500 MG tabletIndications: Primary osteoarthritis of both knees,Spondylosis without myelopathy or radiculopathy, lumbar region Take 1 tablet (500 mg) by mouth in the morning and 1 tablet (500 mg) before bedtime. 180 tablet 1 12/01/19 25 Active nabumetone (Relafen) 500 MG tabletIndications: Primary osteoarthritis of both knees,Spondylosis without myelopathy or radiculopathy, lumbar region Take 1 tablet (500 mg) by mouth in the morning and 1 tablet (500 mg) before bedtime. 180 tablet 1 10/27/19 25 025 Discontinu ed(Reorder ) amoxicillin-clavul anate (Augmentin) 875-125 MG tabletIndications: Acute non-recurrent pansinusitis Take 1 tablet (875 mg) by mouth in the morning and 1 tablet (875 mg) before bedtime. Do all this for 10 days. 20 tablet 11/17/19 25 025 Active Problems Problem Noted Date Diagnosed Date Spondylosis without myelopat hy or radiculopathy, lumbar region 06/15/2024 Post-menopausal 08/02/2023 Left upper arm pain 08/02/2023 Decreased hearing 08/02/2023 Difficulty walking 03/04/2023 GERD (gastroesophageal reflux disease) 3 Presence of right artificial knee joint 08/26/19 23 Other abnormalities of gait and mobility 023 S/P total knee replacement, left 09/30/2021 SVT (supraventricular tachycardia) 05/01/2021 Primary osteoarthritis of both knees 03/03/2021 Overview (03/04/2023): Added automatically from request for surgery [id number] Palpitations 02/27/2021 Tachycardia 02/27/2021 Vasovagal syncope 02/27/2021 Resolved Problems Problem Noted Date Diagnosed Date Resolved Date Shortness of breath 02/27/2021 10/29/19 Encounters Date Type Department Care Team Description 12/24/2024 Results Follow-Up [facility] [address] [facility] [place] [address] Lidia Boyle NP 11/30/2024 Refill [facility] [address] [facility] [place] [id number] Christi Galvan MD Primary osteoarthritis of both knees; Spondylosis without myelopathy or radiculopathy, lumbar region; Gastroesophageal reflux disease, unspecified whether esophagitis present 11/16/2024 10:30 AM EDT Office Visit [facility] [address] [facility] [place] [address] Adrianna Chacon NP Acute non-recurrent pansinusitis (Primary Dx); Sinus pressure; Rhinorrhea; Acute cough; Sore throat 11/16/2024 Travel 11/16/2024 Refill [facility] [address] [facility] [place] [address] Christi Galvan MD Gastroesophageal reflux disease, unspecified whether esophagitis present 11/01/2024 Telephone [facility] [address] [facility] [place] [address] Erna Banegas NP 10/29/2024 Orders Only [facility] [address] [facility] [place] [address] Be Lora MD 10/28/2024 Telephone [facility] [address] [facility] [place] [address] Erna Banegas NP 10/26/2024 9:30 AM EDT Office Visit [facility] [address] [facility] [place] [address] Erna Banegas NP Encounter for Medicare annual wellness exam; SVT (supraventricular tachycardia) (HCC); Tachycardia; Gastroesophageal reflux disease, unspecified whether esophagitis present; Left upper arm pain; Presence of right artificial knee joint; Primary osteoarthritis of both knees; Spondylosis without myelopathy or radiculopathy, lumbar region; S/P total knee replacement, left; Vasovagal syncope; Post-menopausal; Decreased hearing, unspecified laterality; Urgency of urination; Palpitations; Snoring; Daytime sleepiness; Difficulty walking; Encounter for screening mammogram for breast cancer 10/26/2024 Daryl flowsheet [facility] [address] [place] [address] Erna Banegas NP 10/26/2024 Travel 10/22/2024 Travel 10/22/2024 Results Follow-Up [facility] [address] [place] [phone] Anel Jackson LPN from Last 3 Months Immunizations Immunization Administration Dates Next Due Influenza, High-dose Seasona l, Quadrivalent, Preservative Free 08/02/2023,10/08/2022 Pneumococcal Conjugate PCV 20 10/08/2022 RSV, recombinant, protein montes bunit RSVpreF, adjuvant reconstitu, 120mcg/0.5mL, PF (Arexvy) 06/10/2023 TD (adult), 2 Lf tetanus tox oid, preservative free, adsorbed 07/04/2004 Tdap 11/17/2015 Zoster, Recombinant 03/12/2023,10/08/2022 Family History Medical History Relation Name Comments Heart disease Brother Johnathan Wu Dementia Father Cuate Wu Hypertension Father Cuate Wu Stroke Father Cuate Wu Thyroid disease Mother Cancer Sister Deandra Richardson Relation Name Status Comments Brother Jonhathan Wu 2 Father Cuate Wu Alive Mother Alive Sister Deandra Richardson 2 Social History Tobacco Use Types Packs/Day Years Used Date Smoking Tobacco: Never Passive Smoke Exposure: Never Smokeless Tobacco: Never Tobacco Cessation:Counseling Given: [...] How often do you attend chur or gnosticism services? More than 4 times per year 06/12/2024 Do you belong to any clubs o r organizations such as roman catholic groups, unions, fraternal or athletic groups, or [...] Recorded Patient Health Questionnaire-2 Score 0 10/22/2024 [facility] - Occupational Stress Questionnaire Answer Date [...] time in the past [address] [facility], were you homeless or living in a [facility] (including now)? No 06/12/2024 Comments Unknown Sex and Gender Information Value Date Recorded Sex Assigned at Not on file Legal Sex Female 7:13 PM EDT Gender Identity Not on file Sexual Orientation Not on file Last Filed Vital Signs Vital Sign Reading Time Taken Comments Blood Pressure 132/80 11/16/2024 10:35 AM EDT Pulse 72 11/16/2024 10:35 AM EDT Temperature 36.8 C (98.3 F) 11/11/2023 11:36 AM EDT Respiratory Rate - - Oxygen Saturation 99% 11/11/2023 11: 36 AM EDT room air, resting Inhaled Oxygen Concentration - - Weight 93.3 kg (205 lb 9.6 oz) 11/16/2024 10:35 AM EDT Height 165.1 cm (5' 5 ) 10/26/2024 9:47 AM EDT Body Mass Index 34.21 10/26/2024 9:47 AM EDT Plan of Treatment Health Maintenance Due Date Last Done Comments CT Colonography 1956 FIT 1956 FOBT 1956 Sigmoidoscopy 1955 Colonoscopy 06/24/2021 06/24/2011 Mammogram 11/19/2023 11/18/2022, 03/04, 07/03/2015 Influenza Vaccine (Season Ended) 2025 08/02/19, 10/08/2022 Medicare Annual Wellness (AWV) 10/26/2025 0 10/26/2024, 10/26/2024, 08/02/2023 Colorectal Cancer Screening 12/19/2027 FIT-DNA 12/19/2027 12/18/2024 Pneumococcal Vaccine: 65+ Years Completed 3 Procedures Procedure Name Priority Date/Time Associated Diagnosis Comments LAB COLOGUARD COLON CANCER SCREEN Routine 12/18/2024 6:45 AM EDT Screening for colon cancer URINALYSIS, COMPLETE Routine 10/19/2024 8:27 AM EDT Stress incontinence in female COMPREHENSIVE METABOLIC PANEL Routine 10/19/2024 8:16 AM EDT Palpitations SVT (supraventricular tachycardia) (HCC) LIPID PANEL Routine 10/19/2024 8:16 AM EDT Palpitations SVT (supraventricular tachycardia) (HCC) Screening for cholesterol level T4, FREE Routine 10/19/2024 8:16 AM EDT Palpitations SVT (supraventricular tachycardia) (HCC) TSH Routine 10/19/2024 8:16 AM EDT Palpitations SVT (supraventricular tachycardia) (HCC) MAMMOGRAM* Routine 03/21/2018 3:44 PM EDT HM COLONOSCOPY Routine 06/24/2011 8:47 AM EST from Last 3 Months or Most Recently Relevant to Health Maintenance Results * Cologuard?? colon cancer screening (12/18/2024 6:45 AM EDT) NONINV COLON CA DNA+OCC BLD SCRN STL-IMP Negative Negative 12/24/2024 4:52 AM EDT [facility] (CLIA #:[id number]) Comment: The Cologuard (TM) test was performed on this specimen. NEGATIVE TEST RESULT. A negative Cologuard result indicates a low likelihood that a colorectal cancer (CRC) or advanced adenoma (adenomatous polyps with more advanced pre-malignant features) is present. The chance that a person with a negative Cologuard test has a colorectal cancer is less than 1 in 1500 (negative predictive value >99.9%) or has an advanced adenoma is less than 5.3% (negative predictive value 94.7%). These data are based on a prospective cross-sectional study of 10,000 individuals at average risk for colorectal cancer who were screened with both Cologuard and colonoscopy. (Jhon Horne al, N Engl J Med 2014;370(14):1286- 1297) The normal value (reference range) for this assay is negative. COLOGUARD RE-SCREENING RECOMMENDATION: Periodic colorectal cancer screening is an important part of preventive healthcare for asymptomatic individuals at average risk for colorectal cancer. Following a negative Cologuard result, the [place] Cancer Society and U.S. Multi-Society Task Force screening guidelines recommend a Cologuard re-screening interval of 3 years. References: [employer] Society Guideline for Colorectal Cancer Screening: https://www.cancer.org/cancer/hytei-squlrr-oxysfc/tszhvgdld-bcitshnwi-tbaxkur/ac s-rec ommendations.html.; Cam DK, Chelsea CR, Hui HOLBROOK, Colorectal Cancer Screening: Recommendations for Physicians and Patients from the U.S. Multi-Society Task Force on Colorectal Cancer Screening , Am J Gastroenterology 2017; 112:9006-2109. TEST DESCRIPTION: Composite algorithmic analysis of stool DNA-biomarkers with hemoglobin immunoassay. Quantitative values of individual biomarkers are not reportable and are not associated with individual biomarker result reference ranges. Cologuard is intended for colorectal cancer screening of adults of either sex, 45 years or older, who are at average-risk for colorectal cancer (CRC). Cologuard has been approved for use by the U.S. FDA. The performance of Cologuard was established in a cross sectional study of average-risk adults aged 50-84. Cologuard performance in patients ages 45 to 49 years was estimated by sub-group analysis of near-age groups. Colonoscopies performed for a positive result may find as the most clinically significant lesion: colorectal cancer [4.0%], advanced adenoma (including sessile serrated polyps greater than or equal to 1cm diameter) [20%] or non- advanced adenoma [31%]; or no colorectal neoplasia [45%]. These estimates are derived from a prospective cross-sectional screening study of 10,000 individuals at average risk for colorectal cancer who were screened with both Cologuard and colonoscopy. (Jhon Lagunas. et al, N Engl J Med 2014;370(14):4023-5254.) Cologuard may produce a false negative or false positive result (no colorectal cancer or precancerous polyp present at colonoscopy follow up). A negative Cologuard test result does not guarantee the absence of CRC or advanced adenoma (pre-cancer). The current Cologuard screening interval is every 3 years. ([place] Cancer Society and U.S. Multi-Society Task Force). Cologuard performance data in a 10,000 patient pivotal study using colonoscopy as the reference method can be accessed at the following location: www.[employer].com/results. Additional description of the Cologuard test process, warnings and precautions can be found at www.[employer] Media[employer]uard.com. Stool specimen (specimen) 12/18/2024 6:45 AM EDT 12/19/2024 12:36 PM EDT Erna A Makenzie MARINE STEAM FITTER HELPER LAB MOLECULAR DIAGNOSTICS O RDERABLES Final Result Performing Organization Address City/[facility]/ZIP Co de Phone Number .[facility] (CLIA #:[id number]) [address] [address], [facility] (CLIA #:[id number]) [address] [address] * Urinalysis with microscopic (10/19/2024 8:27 AM EDT) COLOR YELLOW YELLOW [facility] APPEARANCE CLEAR CLEAR [facility] SPECIFIC GRAVITY 1.010 1.001 - 1.035 [facility] PH 7.5 5.0 - 8.0 [facility] GLUCOSE NEGATIVE NEGATIVE [facility] BILIRUBIN NEGATIVE NEGATIVE [facility] KETONES NEGATIVE NEGATIVE [facility] OCCULT BLOOD NEGATIVE NEGATIVE [facility] PROTEIN NEGATIVE NEGATIVE [facility] NITRITE NEGATIVE NEGATIVE [facility] LEUKOCYTE ESTERASE NEGATIVE NEGATIVE [facility] WBC 0-5 < OR = 5 /HPF [facility] RBC 0-2 < OR = 2 /HPF [facility] SQUAMOUS EPITHELIAL CELLS 0-5 < OR = 5 /HPF [facility] TRANSITIONAL EPITHELIAL CELLS 0-5 < OR = 5 /HPF [facility] NOTE [facility] Comment: This urine was analyzed for the presence of WBC, RBC, bacteria, casts, and other formed elements. Only those elements seen were reported. Urine Urine specimen obtained by clean catch procedure / Unknown 10/19/2024 8:27 AM EDT 10/19/2024 3:00 PM EDT Narrative [facility] - 10/19/2024 4:19 PM EDT SPLIT 10/19/2024 FROM [id number] Resulting Agency Comment Performing Organization Information Site ID: QTW Name: [facility] Address: [address] [place] [phone] Director: Mary Kay Ratliff Erna Banegas MARINE STEAM FITTER HELPER LAB URINE ORDERABLES Final Result Performing Organization Address [facility] Co de Phone Number [facility] * TSH (10/19/2024 8:16 AM EDT) Pathologist [facility] TSH 1.07 0.40 - 4.50 mIU/L [facility] Blood Venous blood specimen / Unknown 10/19/2024 8:16 AM EDT 10/19/2024 3:26 PM EDT Narrative [facility] - 10/20/2024 8:28 AM EDT MULTIPLE COLLECTION TIMES FOR SAME TEST TYPE. Resulting Agency Comment Performing Organization Information Site ID: QPT Name: [facility] Address: [address] [place] [address], [address] [place] [phone] Director: Niko Dial MD Erna Banegas NP LAB BLOOD ORDERABLES Final Result Performing Organization Address [facility] de Phone Number [facility] * T4, free (10/19/2024 8:16 AM EDT) T4, FREE 1.3 0.8 - 1.8 ng/dL [facility] Blood Venous blood specimen / Unknown 10/19/2024 8:16 AM EDT 10/19/2024 3:26 PM EDT Narrative [facility] - 10/20/2024 8:28 AM EDT MULTIPLE COLLECTION TIMES FOR SAME TEST TYPE. Resulting Agency Comment Performing Organization Information Site ID: QPT Name: [facility] Address: [address] [place] [address], [address] [place] [phone] Director: Niko Dial MD Erna Banegas NP LAB BLOOD ORDERABLES Final Result Performing Organization Address [facility] de Phone Number [facility] * Lipid panel (10/19/2024 8:16 AM EDT) CHOLESTEROL, TOTAL 186 <200 mg/dL [facility] HDL CHOLESTEROL 78 > OR = 50 mg/dL [facility] TRIGLYCERIDES 83 <150 mg/dL [facility] LDL CHOLESTEROL 91 mg/dL (calc) [facility] Comment: Reference range: <100 Desirable range <100 mg/dL for primary prevention; <70 mg/dL for patients with CHD or diabetic patients with > or = 2 CHD risk factors. LDL-C is now calculated using the Haleigh calculation, which is a validated novel method providing better accuracy than the Friedewald equation in the estimation of LDL-C. Bryce SOOD et al. GELACIO. 2013;310(19): 2794-8681 (http://education.[employer].GeekChicDaily/faq/WKE120) CHOL/HDLC RATIO 2.4 <5.0 (calc) [facility] NON HDL CHOLESTEROL 108 <130 mg/dL (calc) [facility] Comment: For patients with diabetes plus 1 major ASCVD risk factor, treating to a non-HDL-C goal of <100 mg/dL (LDL-C of <70 mg/dL) is considered a therapeutic option. Blood Venous blood specimen / Unknown 10/19/2024 8:16 AM EDT 10/19/2024 3:26 PM EDT Narrative [facility] - 10/20/2024 8:28 AM EDT MULTIPLE COLLECTION TIMES FOR SAME TEST TYPE. Resulting Agency Comment Performing Organization Information Site ID: QPT Name: [facility] Address: [address] [place] [address], [address] [place] [phone] Director: Niko Dial MD Erna Banegas NP LAB BLOOD ORDERABLES Final Result [facility] * Comprehensive metabolic panel (10/19/2024 8:16 AM EDT) [facility] Glucose 87 65 - 99 mg/dL [facility] Comment: Fasting reference interval BUN 10 7 - 25 mg/dL [facility] Creatinine 0.76 0.50 - 1.05 mg/dL [facility] EGFR 85 > OR = 60 mL/min/1. 73m2 [facility] BUN/CREATININE RATIO SEE NOTE: 6 - 22 (calc) [facility] Comment: Not Reported: BUN and Creatinine are within reference range. Sodium 140 135 - 146 mmol/L [facility] Potassium, Bld 4.4 3.5 - 5.3 mmol/L [facility] Chloride 105 98 - 110 mmol/L [facility] Carbon Dioxide 29 20 - 32 mmol/L [facility] Calcium 9.3 8.6 - 10.4 mg/dL [facility] PROTEIN, TOTAL 6.6 6.1 - 8.1 g/dL [facility] ALBUMIN 4.2 3.6 - 5.1 g/dL [facility] GLOBULIN 2.4 1.9 - 3.7 g/dL (calc) [facility] ALBUMIN/GLOBULIN RATIO 1.8 1.0 - 2.5 (calc) [facility] BILIRUBIN, TOTAL 0.6 0.2 - 1.2 mg/dL [facility] ALKALINE PHOSPHATASE 57 37 - 153 U/L [facility] AST 24 10 - 35 U/L [facility] ALT 20 6 - 29 U/L [facility] Blood Venous blood specimen / Unknown 10/19/2024 8:16 AM EDT 10/19/2024 3:26 PM EDT Narrative [facility] - 10/20/2024 8:28 AM EDT MULTIPLE COLLECTION TIMES FOR SAME TEST TYPE. Resulting Agency Comment Performing Organization Information Site ID: QTW Name: [facility] Address: [address] [place] [phone] Director: Mary Kay Ratliff us Erna Banegas MARINE STEAM FITTER HELPER LAB BLOOD ORDERABLES Final Result [facility] * MAMMOGRAM* (03/21/2018 3:44 PM EDT) Anatomical Region Laterality Modality Radiographic Dilia ging us Ryan Betancourt MD IMG XR PROCEDURES Final Resul t * Hm Colonoscopy (06/24/2011 8:47 AM EST) Anatomical Region Laterality Modality Other us Be Lora MD HEALTH MAINTENANCE Final Res ult from Last 3 Months or Most Recently Relevant to Health Maintenance Insurance [employer] Care Teams Plate Filler Relationship Specialty Start Date End Date Christi Galvan MD PCP - General Family Medicine 04/27/23 Christi Galvan MD PCP - Medical [place] 07/04/2407/03
--- OUTSIDE RECORDS SUMMARY | 2024-12-26 10:38 | XMS_ITS | Clinical Summary ---
Author Organization [facility] Address [address] [place] [address] Care Team Providers Care Unit Supervisor Name Role Phone Erna Banegas APRN - SALES ACCOUNT ASSOCIATE Primary Care Provi kateryna Social History Tobacco Use Types Packs/Day Years Used Date Smoking Tobacco: Never Assessed Comments Unknown Sex and Gender Information Value Date Recorded Sex Assigned at Not on file Legal Sex Female 11:02 AM EDT Gender Identity Not on file Sexual Orientation Not on file Plan of Treatment Not on file Care Teams Unit Supervisor Relationship Specialty Start Date End Date Erna Banegas APRN - CNP [address] [place] [address] PCP - General Nurse Practitioner, Family 11/14/23
--- OUTSIDE RECORDS SUMMARY | 2024-12-26 10:38 | XMS_ITS | Encounter Summary ---
Author Organization [facility] [employer] [facility] tem Address [id number] [address] [place] [address] Care Team Providers Care Virtual Office Assistant Name Role Phone Christi Galvan MD Primary Care Provider [phone] Encounter Details Date Type Department Care Team (Late Contact Info) Description 03/26/2021 Orders Only [facility] [address] [facility] [address] [place] [address] Laura Sanchez, DENA Neurocardiogenic syncope; [...] Upcoming Encounters Date Type Department Care Team ([facility] Contact Info) Description 12/27/2024 1:45 PM EDT Appointment [facility] - Mammography/DEXA Imaging [address] [place] [phone] 06/07/2025 2:00 PM EST Office Visit [facility] [address] [place] [address] Tuan Cotto MD [address] [place] [address] documented as of this encounter Procedures Procedure Name Priority Date/Time Associated Diagnosis Comments EVENT MONITOR Routine 03/28/2021 Neurocardiogenic syncope Palpitations Tachycardia Shortness of breath EVENT MONITOR Routine 03/26/2021 documented in this encounter Results * Event monitor mattress and boxsprings supervisor and recording (03/28/2021) Anatomical Region Laterality Modality Chest N/A Other us Tariq Orosco MD [facility] ORDE SARA Final Result * Event monitor mattress and boxsprings supervisor and recording (03/26/2021) Anatomical Region Laterality Modality Chest N/A Other us Scanning Provider External [facility] O RDERABLES Edited Result - Final documented in this encounter Visit Diagnoses Diagnosis Neurocardiogenic syncope Palpitations Tachycardia Unspecified tachycardia Shortness of breath documented in this encounter Care Teams Virtual Office Assistant Relationship Specialty Start Date End Date Wonderly, Christi Brewer MD [address] [place] [address] PCP - General Family Medicine 10/07/23 documented as of this encounter
--- OUTSIDE RECORDS SUMMARY | 2024-12-26 10:38 | XMS_ITS | Encounter Summary ---
Author Organization [facility] Healthcare Address [address] [place] [address] Care Team Providers Care Rewinder Operator Helper Name Role Phone Christi Galvan MD Primary Care Provider [phone] Christi Galvan MD Unavailable Encounter Details Date Type Department Care Team ([facility] Contact Info) Description 10/22/2024 Results Follow-Up [facility] [address] [place] [id number] Anel Jackson LPN Social History Tobacco Use Types Packs/Day Years [...] How often do you attend chur or christianity services? More than 4 times per year 06/12/2024 Do you belong to any clubs o r organizations such as worship groups, unions, fraternal or athletic groups, or [...] Recorded Patient Health Questionnaire-2 Score 0 10/22/2024 [facility] - Occupational Stress [...] place to sleep or slept in a senior living (including now)? No 03/08/2023 Housing Stability Vital Sign Answer Jim e Recorded In the last 12 months, was t here a time when you were not able to pay the mortgage or rent on time? No 06/12/2024 Number of Times Moved in the Last Year Not on fi le 06/12/2024 At any time in the past 12 m [facility], were you homeless or living in a senior living (including now)? No 06/12/2024 Comments Unknown Sex and Gender Information Value Date Recorded Sex Assigned at Not on file Legal Sex Female 7:13 PM EDT Gender Identity Not on file Sexual Orientation Not on file documented as of this encounter Functional Status * Over the past 2 weeks, how often have you been bothered by any of the following problems? Question Answer Date of Assessment Author Patient Health Questionnaire-2 Score 0 10/03 1:33 PM EDT Mychart, Generic * Little interest or pleasure in doing things Answer Date of Assessment Author Not at all 10/22/2024 1:33 PM EDT Mychart, Generic * Feeling down, depressed, or hopeless Answer Date of Assessment Author Not at all 10/22/2024 1:33 PM EDT Mychart, Generic documented as of this encounter Miscellaneous Notes * Telephone Encounter - Anel Jackson LPN - 10/22/2024 9:43 AM EDT Printed * Telephone Encounter - Anel Jackson LPN - 10/22/2024 9:43 AM EDT ----- Message from Erna Banegas sent at 10/21/2024 1:35 PM EDT ----- Regarding: Lab results Please print results for upcoming appt. Thank you ----- Message ----- From: Tawana Corefino Lab Results In Sent: 10/19/2024 4:23 PM EDT To: Erna Banegas NP documented in this encounter Plan of Treatment Not on file documented as of this encounter Visit Diagnoses Not on filedocumented in this encounter Care Teams Rewinder Operator Helper Relationship Specialty Start Date End Date Christi Galvan MD PCP - General Family Medicine 04/27/23 Christi Galvan MD PCP - Medical [facility] 07/04/2407/03 documented as of this encounter
--- NOTE | 2024-12-26 10:46 | PM.CN ---
Consult Note: HPI Data of Consult Patient: known to practice within the last 3 years Requesting Physician: Guerda Reyes NP Primary Care Provider: Non-Staff Physician, MD Consult Narrative Reason for consult: f/u Narrative: Meka Dai a pleasant 69 year old female presents for evaluation of chronic low back and hip pain with intermittent radiculopathy. pain today 2/10 increasing to 4/10 with standing, walking, activity, and weather changes. pain improved with sitting, lying down. utilizing baclofen 10mg TID PRN pain/spasms, gabapentin 100mg BID, and tylenol PRN with benefit. recently underwent bilateral SIJ injection with >50% improvement ongoing. cc:: CC: Guerda Reyes NP Review of Systems ROS Status of ROS 10 or more systems reviewed and unremarkable except as noted in history and below Musculoskeletal Reports: back pain; Denies: extremity pain PFSH PFSH Medical History Acid reflux ?K21.9 - Gastro-esophageal reflux disease without esophagitis (ICD-10) Irregular heart beat ?I49.9 - Cardiac arrhythmia, unspecified (ICD-10) Surgical History History of repair of left rotator cuff ?Z98.890 - Other specified postprocedural states (ICD-10) History of total left knee replacement ?Z96.652 - Presence of left artificial knee joint (ICD-10) History of total right knee replacement ?Z96.651 - Presence of right artificial knee joint (ICD-10) History of section ?Z98.891 - History of uterine scar from previous surgery (ICD-10) Meds Home Medications and Allergies Home Medications ?Medication ?Instructions ?Recorded ?Confirmed ?Type multivitamin 1 tab PO DAILY 11/02/23 12/17/24 History nabumetone 500 mg tablet 500 mg PO BID 11/02/23 12/17/24 History omega-3 fatty acids 500 mg PO DAILY 11/02/23 12/17/24 History omeprazole 20 mg capsule,delayed 20 mg PO DAILY 11/02/23 12/17/24 History release glucosamine-chondroitin 500 mg-400 1 cap PO DAILY 12/01/23 12/17/24 History mg capsule biotin 1 mg capsule 1 mg PO DAILY 12/06/23 12/17/24 History lactobacillus combination no.4 3 3,000 mmu cells PO DAILY 12/06/23 12/17/24 History billion cell capsule (Probiotic) gabapentin 100 mg capsule 100 mg PO BID #30 caps 03/14/24 12/17/24 Rx baclofen 10 mg tablet 10 mg PO TID 07/19/24 12/17/24 History baclofen 10 mg tablet See Rx Instructions .Route 10/18/24 Rx .COMPLEX #90 tabs gabapentin 100 mg capsule 100 mg PO BID #60 caps 10/18/24 12/17/24 Rx gabapentin 100 mg capsule 100 mg PO BID #60 caps 12/03/24 12/17/24 Rx Allergies Allergy/AdvReac Type Severity Reaction Status Date / Time Sulfa (Sulfonamide Allergy Unknown Hives Verified 12/17/24 11:26 Antibiotics) Exam Constitutional Documenting provider has reviewed patient's vital signs: yes Common normals: no apparent distress, oriented x3, healthy appearing, alert and well nourished General appearance: cooperative HENMT Common normals: normocephalic, hearing grossly normal bilaterally and moist oral mucous membranes Head and scalp: normocephalic Eye Common normals: PERRL Pupil: PERRL Neck & C-Spine Common normals: full ROM General: normal visual inspection Chest Common normals: inspection of chest normal Respiratory Common normals: normal respiratory effort, no retractions and no use of accessory muscles Back & Pelvis Lumbar spine/lower back: pain with ROM, lumbar spinal tenderness Lumbar spinal tenderness location: L3, L4 and L5 and straight leg raise negative bilaterally Sacroiliac joints: SI joints normal Other: bilateral SIJ negative wilfredo(patricks), gaenslens, thigh thrust, compression test decreased sensation right L5/S1 strength 5/5 in BLE Neuro Common normals: oriented x3 Sensorium/orientation: alert Psych Common normals: mental status grossly normal, thought process normal, cooperative, affect normal, speech normal and activity/motor behavior normal Speech: normal speech Thought process: normal thought process Results Additional Findings Additional findings: If on a controlled substance or opioids, I have checked an [place] report on this patient and there are no aberrancies noted in the prescribing history.??If on a controlled substance or opioid a drug screen was completed and reviewed within the last year, and if there has not been a drug screen completed we ordered one today to monitor higher risk, state monitored pain medication use. As part of providing excellent, safe, comprehensive care, the following was completed at our patient's visit: 1. A medication reconciliation and review to ensure accurate knowledge of current/active medications, including asking our patients to inform us about any [id number] medications or herbal remedies/nutritional supplements/alternative remedies. 2. A review to specifically ensure our patients have had annual screening for screening for depression, screening for tobacco use, and screening for unhealthy alcohol use. For concerning screenings had a discussion with the patient, provided patient education, and recommended follow-up with primary care provider when appropriate. If patient noted with a risk of falling, they received education on strength, gait, and balance training to prevent future risk of falling. Portions of this note may have been carried over from the previous visit and updated as appropriate. Please note this office utilizes paper charting in addition to the electronic medical record. A list of current medications, vitals, and PMH is available there as the clinical staff outside of myself do not have access to [employer] charting during the clinic day operations. As part of providing quality comprehensive care the current medications, vitals, and PMH were reviewed in the paper chart. Assessment and Plan Assessment and Plan (1) Sacroiliitis: Assessment and Plan: The patient has had over 3 months of moderate to severe low back and left SIJ pain with functional impairment and inadequate response to conservative care including NSAIDS (unless there are contraindication such as concurrent blood thinners), multiple oral or topical pain medications, and home exercise program/physical therapy.? Patient has completed >6 weeks of guided home exercise program and/or formal physical therapy program without relief of their symptoms.? I have reviewed the imaging of the lumbosacral spine and no red flags were identified.? TIO 36% (2) Lumbar spondylosis: (3) Myofascial pain: (4) Lumbar radiculopathy: (5) Lumbar stenosis with neurogenic claudication: Plan increase gabapentin 100mg TID continue HEP as tolerated continue prn otc tylenol as well as baclofen 10mg TID PRN pain/spasms f/u 2 months, sooner if needed
--- OUTSIDE RECORDS SUMMARY | 2024-12-26 10:55 | XMS_ITS | CCD ---
Author Organization [facility] CliniSyn[facility] Care Team Providers Care Shake Loader Name Role Phone IAN RYAN Unavailable Unavailable [...] Referring Unavailable CHRISTI GALLEGOS Primary Care Unavailable hCristi Gallegos MD Primary Care Provider Allergies Allergy [...] before bedtime. 180 tablet 1 11/30/2024 Active [id number]-TCA-HPO-FI SH OIL-L.CASEI ORAL (9 sources) take 1 capsule by mouth in the morning PPUO2-WUR-OKI-FISH OIL-L.CASEI ORAL Take 1 capsule by mouth in the morning. Active take 1 capsule by mouth once anson ly YOYL3-DGE-AXS-FISH OIL-L.CASEI ORAL Take 1 capsule by mouth daily. Active take 1 capsule by mouth once anson ly IDYX6-QRH-DML-FISH OIL-L.CASEI ORAL Take 1 capsule by mouth [...] Peterson MD on 01/10/2024 1:35 PM Normal [facility] XR Hip Bilateral w/Pelvison 11-12-2022 XR Hip Bilateral w/Pelvis COMPARISON: NONE. PELVIS FINDINGS: There are no lytic or sclerotic bone lesions. The femoral heads are located. There is no acute fracture or subluxation. There are no radiopaque foreign bodies. IMPRESSION: There are no acute osseous changes. Report reported and signed by JOSE JUAN LEWIS on 11/12/2022 [id number] [facility] XR Spine Lumbar 4+ Views*on 11-12-2022 [...] JOSE JUAN LEWIS on 11/12/2022 [address] [facility] MG MAMM SCREEN NIEVES W CADon 0 03-21-2018 MG MAMM SCREEN NIEVES W CAD [address] [place] [address] Patient: MEKA ZAVALA Exam Date: 03/21/2018DOB: 1955 Gender:F : DR RYAN SOSA Admission #: [id number] : Order #: [id number] HERE TO VIEW EXAM RADIOLOGY REPORT PROCEDURE: [...] bile duct cancer at age 60. LOCATION: [facility] BREAST COMPOSITION: Scattered fibroglandular densities (25-50% [...] Reed M.D. on 03/21/2018 at 15:25 Normal [facility] Vital Signs Date Time Vital Sign Value Performing Clinician Facility 12-06-2024 14:17-0400 Body height 165.1 cm Tuan Jane MD Work Phone: [facility] 12-06-2024 14:17-0400 Body mass index (BMI) [Ratio] 34.45 kg/m2 Tuan Jane MD Work Phone: [facility] 12-06-2024 14:17-0400 Body weight 93.89 kg Tuan Jane MD Work Phone: [facility] 12-06-2024 14:17-0400 Diastolic blood pressure 68 mm[Hg] Tuan Jane MD Work Phone: [facility] 12-06-2024 14:17-0400 Heart rate 74 /min Tuan Jane MD Work Phone: [facility] 12-06-2024 14:17-0400 SaO2% (BldA) [Mass fraction] 96 % Tuan Jane MD Work Phone: [facility] 12-06-2024 14:17-0400 Systolic blood pressure 122 mm[Hg] Tuan Jane MD Work Phone: [facility] 11-16-2024 10:35-0400 Body mass index (BMI) [Ratio] 34.21 kg/m2 Adrianna Reddy NP Work Phone: [facility] 11-16-2024 10:35-0400 Body weight 93.26 kg Adrianna Reddy BUILDING CUSTODIAL SUPERVISOR Work Phone: [facility] 11-16-2024 10:35-0400 Diastolic blood pressure 80 mm[Hg] Adrianna Reddy BUILDING CUSTODIAL SUPERVISOR Work Phone: [facility] 11-16-2024 10:35-0400 Heart rate 72 /min Adrianna Reddy BUILDING CUSTODIAL SUPERVISOR Work Phone: [facility] 11-16-2024 10:35-0400 Systolic blood pressure 132 mm[Hg] Adrianna Reddy BUILDING CUSTODIAL SUPERVISOR Work Phone: [facility] 10-26-2024 09:47-0400 Body height 165.1 cm Erna Viverosel BUILDING CUSTODIAL SUPERVISOR Work Phone: [facility] 10-26-2024 09:47-0400 Body mass index (BMI) [Ratio] 34.35 kg/m2 Erna Makenzie BUILDING CUSTODIAL SUPERVISOR Work Phone: [facility] 10-26-2024 09:47-0400 Body weight 93.62 kg Erna Viverosel BUILDING CUSTODIAL SUPERVISOR Work Phone: [facility] 10-26-2024 09:47-0400 Diastolic blood pressure 64 mm[Hg] Ernacarmine Viverosel BUILDING CUSTODIAL SUPERVISOR Work Phone: [facility] 10-26-2024 09:47-0400 Heart rate 72 /min Erna Viverosel BUILDING CUSTODIAL SUPERVISOR Work Phone: [facility] 10-26-2024 09:47-0400 Systolic blood pressure 126 mm[Hg] Ernacarmine Viverosel BUILDING CUSTODIAL SUPERVISOR Work Phone: [facility] 09-20-2024 14:03-0400 Body height 165.1 cm Susan Gay DPM Work Phone: [facility] 09-20-2024 14:03-0400 Body mass index (BMI) [Ratio] 34.11 kg/m2 Susan Gay DPM Work Phone: [facility] 09-20-2024 14:03-0400 Body weight 92.99 kg Susan Gay DPM Work Phone: [facility] 06-15-2024 10:40-0500 Body mass index (BMI) [Ratio] 34.11 kg/m2 Erna Banegas BUILDING CUSTODIAL SUPERVISOR Work Phone: [facility] 06-15-2024 10:40-0500 Body weight 92.99 kg Erna Banegas BUILDING CUSTODIAL SUPERVISOR Work Phone: [facility] 06-15-2024 10:40-0500 Diastolic blood pressure 78 mm[Hg] Erna Banegas BUILDING CUSTODIAL SUPERVISOR Work Phone: [facility] Comment on above: Pt BP machine in off ice - 165/94 P 83 Lt arm 157/88 P 81 06-15-2024 10:40-0500 Heart rate 84 /min Erna Banegas BUILDING CUSTODIAL SUPERVISOR Work Phone: [facility] 06-15-2024 10:40-0500 Systolic blood pressure 132 mm[Hg] Erna Banegas BUILDING CUSTODIAL SUPERVISOR Work Phone: [facility] Comment on above: Pt BP machine in off ice - 165/94 P 83 Lt arm 157/88 P 81 02-22-2024 14:04-0400 Body height 165.1 cm Logan Hunter MD Work Phone: [facility] 02-22-2024 14:04-0400 Body mass index (BMI) [Ratio] 33.95 kg/m2 Logan Hunter MD Work Phone: [facility] [employer] [facility] 02-22-2024 14:04-0400 Body weight 92.53 kg Logan Hunter MD Work Phone: [facility] 02-22-2024 14:04-0400 Diastolic blood pressure 70 mm[Hg] Logan Hunter MD Work Phone: [facility] [employer] [facility] 02-22-2024 14:04-0400 Heart rate 86 /min Logan Hunter MD Work Phone: [facility] 02-22-2024 14:04-0400 SaO2% (BldA) [Mass fraction] 95 % Logan Hunter MD Work Phone: [facility] 02-22-2024 14:04-0400 Systolic blood pressure 114 mm[Hg] Logan Hunter MD Work Phone: [facility] 11-17-2023 14:35-0400 Diastolic blood pressure 84 mm[Hg] [facility] Nurse [facility] 11-17-2023 14:35-0400 Heart rate 84 /min [facility] Nurse [facility] 11-17-2023 14:35-0400 Systolic blood pressure 148 mm[Hg] [facility] Nurse [facility] Encounters Encounter Date Encounter Type Care Provider Facility Start: 12-06-2024 End: 12-06-2024 Office outpatient visit 25 minutes Tuan Jane MD Work Phone: [facility] Comment on above: SVT (supraventricula r tachycardia) (Primary Dx); Tachycardia; Palpitations Start: 12-06-2024 End: 12-06-2024 ambulatory [facility] Start: 11-30-2024 End: 11-30-2024 Refill Christi Gallegos [...] 11-01-2024 End: 11-09-2024 Telephone encounter Erna Banegas BUILDING CUSTODIAL SUPERVISOR Work Phone: [facility] Start: 10-28-2024 End: 10-30-2024 Telephone encounter Erna Banegas BUILDING CUSTODIAL SUPERVISOR Work Phone: [facility] Start: 10-26-2024 End: 10-26-2024 Bamboo flowsheet Erna Banegas BUILDING CUSTODIAL SUPERVISOR Work Phone: [facility] Start: 10-26-2024 End: 10-26-2024 Bamboo flowsheet Erna Banegas BUILDING CUSTODIAL SUPERVISOR Work Phone: [facility] Start: 10-26-2024 End: 10-26-2024 Patient encounter procedure Erna Banegas BUILDING CUSTODIAL SUPERVISOR Work Phone: [facility] Comment on above: Encounter for Medica re annual wellness exam; SVT (supraventricular tachycardia) ([facility]/HCC); Tachycardia; Gastroesophageal reflux disease, unspecified whether esophagitis [...] 15 minutes Susan Gay DPM Work Phone: [facility] Comment on above: Dermatophytosis of n ail (Primary Dx); Dystrophic nail; Pain around toenail Start: 09-20-2024 End: 09-20-2024 ambulatory SUSAN GAY Not Available Start: 09-20-2024 End: 09-20-2024 Bamboo flowsheet Susan Gay DPM Work Phone: [facility] Start: 09-20-2024 End: 09-20-2024 Bamboo flowsheet Susan Gay DPM Work Phone: [facility] Start: 08-23-2024 End: 08-23-2024 Telephone encounter Christi Gallegos MD Work Phone: [facility] Start: 08-13-2024 End: 08-13-2024 Refill Erna Banegas BUILDING CUSTODIAL SUPERVISOR Work Phone: [facility] Comment on above: Primary osteoarthrit is of both knees Start: 06-15-2024 End: 06-15-2024 Bamboo flowsheet Erna Banegas BUILDING CUSTODIAL SUPERVISOR Work Phone: [facility] Start: 06-15-2024 End: 06-15-2024 Bamboo flowsheet Erna Banegas BUILDING CUSTODIAL SUPERVISOR Work Phone: [facility] Start: 06-15-2024 End: 06-15-2024 Office outpatient visit 25 minutes Erna Banegas BUILDING CUSTODIAL SUPERVISOR Work Phone: [facility] Comment on above: SVT (supraventricula r tachycardia) (CMS/HCC) (Primary Dx); Palpitations; Elevated blood pressure reading; Gastroesophageal reflux disease, unspecified whether esophagitis present; Spondylosis without myelopathy or radiculopathy, lumbar region; Nasal congestion Start: 06-15-2024 End: 06-15-2024 ambulatory ERNA BANEGAS Not Available Start: 05-09-2024 End: 05-10-2024 Refill Erna Banegas BUILDING CUSTODIAL SUPERVISOR Work Phone: [facility] Comment on above: Acute maxillary sinu sitis, 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; Otalgia of left ear; Primary osteoarthritis of both knees Start: 05-08-2024 End: 05-09-2024 Refill Christi Gallegos MD Work Phone: [facility] Comment on above: Gastroesophageal ref lux disease, unspecified whether esophagitis present Start: 03-16-2024 End: 03-16-2024 ambulatory LOGAN Kraig [facility] Start: 03-12-2024 End: 03-12-2024 Refill Christi Gallegos MD Work Phone: [facility] Comment on above: Primary osteoarthrit is of both knees Start: 02-22-2024 End: 02-22-2024 Office outpatient visit 15 minutes Logan Hunter MD Work Phone: [facility] Comment on above: SVT (supraventricula r tachycardia) ([facility]) (Primary Dx); Tachycardia; Palpitations Start: 02-22-2024 End: 02-22-2024 ambulatory LOGAN HUNTER [facility] Start: 02-21-2024 End: 02-21-2024 Telephone encounter Laura Melton CMA [facility] Start: 01-09-2024 End: 01-09-2024 ambulatory CHRISTI GALLEGOS [facility] Start: 11-17-2023 End: 11-17-2023 Clinical Support [facility] Nurse [facility] Comment on above: SVT (supraventricula r tachycardia) ([facility]) (Primary Dx) Start: 11-16-2023 End: 11-16-2023 Telephone encounter Laura Melton CMA [facility] Start: 11-10-2023 End: 11-10-2023 ambulatory FEROZ Dang [facility] Start: 11-10-2023 End: 11-10-2023 ambulatory LOGAN HUNTER [facility] Start: 11-03-2023 End: 11-03-2023 Telephone encounter Norma Golden LPN [facility] Comment on above: PRE OP REMINDER CALL Start: 10-18-2023 End: 10-19-2023 Telephone encounter Elmira Luna RN [facility] Comment on above: med refill/ insuranc e question Start: 07-18-2023 Telephone encounter Neva Low LPN [facility] Comment on above: EP Surgery Start: 09-07-2021 Patient encounter status Neva torres LPN [facility] Work Phone: Start: 03-21-2018 End: 03-22-2018 Patient encounter [facility] Facility: Procedures Date Procedure Procedure Detail Performing Clinician Start: 02-22-2024 Ecg routine ecg w/le ast 12 lds w/i&r Logan Hunter MD Work Phone: Start: 02-22-2024 Follow-up visit Follow-up LOGAN HUNTER Start: 11-18-2022 Mammography Christi damico MD Work Phone: Start: 06-24-2011 Colonoscopy Erna Banegsa NP Work Phone: Plan of Treatment Date Care Activity Detail Author Start: 12-06-2025 Adult BMI Screening Adult BMI Screening [facility] Start: 12-06-2025 Tobacco Screening Tobacco Screening [facility] Start: 11-16-2025 DTaP,Tdap and Td Vaccines (2 - Td or Tdap) DTaP,Tdap and Td Vaccines (2 - Td or Tdap) [facility] Start: 11-16-2025 DTaP,Tdap and Td Vaccines (3 - Td or Tdap) DTaP,Tdap and Td Vaccines (3 - Td or Tdap) [facility] Start: 10-26-2025 Medicare Annual Wellness (AWV) Medicare Annual Wellness (AWV) [facility] Start: 06-07-2025 End: 06-07-2025 Patient encounter procedure 06/07/2025 2:00 PM EST Office Visit [facility] [address] [place] [address] Tuan Jane MD [address] [place] [address] [facility] Start: 03-04-2025 Influenza vaccination [facility] Start: 02-21-2025 Adult BMI Screening Adult BMI Screening [facility] Start: 02-21-2025 Tobacco Screening Tobacco Screening [facility] Start: 12-27-2024 End: 12-27-2024 Patient encounter procedure 12/27/2024 1:45 PM EDT Appointment [facility] - Mammography/DEXA Imaging [address] [place] [phone] [facility] - Mammography/DEXA Imaging Start: 12-06-2024 End: 12-06-2025 Event Monitor (In Office) Event Monitor (In Office) Cardiac Services Routine SVT (supraventricular tachycardia) ([facility]) Expected: 12/06/2024, Expires: 12/06/2025 [facility] Work Phone: Comment on above: Expected: 12/06/2024, Expires: Start: 11-09-2024 Adult BMI Screening Adult BMI Screening [facility] Start: 11-09-2024 Tobacco Screening Tobacco Screening [facility] Start: 10-28-2024 End: 12-28-2025 DBT Breast - bilateral screening Bilateral screening mammogram with tomosynthesis Imaging Routine Encounter for screening mammogram for breast cancer Expected: 10/28/2024, Expires: 12/28/2025 [facility] Work Phone: Comment on above: Expected: 10/28/2024, Expires: Start: 10-26-2024 End: 10-26-2024 Patient encounter procedure [facility] Comment on above: Encounter for Medicare annual wellness e xam (Primary Dx); SVT (supraventricular tachycardia) ([facility]); Tachycardia; Gastroesophageal reflux disease, unspecified whether esophagitis present; Left upper arm pain; Presence of right artificial knee joint; Primary osteoarthritis of both knees; Spondylosis without myelopathy or radiculopathy, lumbar region; S/P total knee replacement, left; Vasovagal syncope; Post-menopausal; Decreased hearing, unspecified laterality Start: 10-22-2024 End: 10-22-2024 Patient encounter procedure 10/22/2024 2:30 PM EDT Office Visit [facility] [address] [place] [phone] Erna Banegas NP [address] [place] [address] [facility] Start: 09-20-2024 End: 09-20-2024 Patient encounter procedure 09/20/2024 2:15 PM EDT Office Visit [facility] [address] [place] [phone] Susan Gay DPM [address] [place], [place] [id number] Arrived [facility] Comment on above: Arrived Start: 08-10-2024 Influenza vaccination Influenza Vaccine (#1) [facility] Comment on above: Postponed from 03/04/2024 (Patient Refus ed) Start: 08-02-2024 Medicare Annual Wellness (AWV) Medicare Annual Wellness (AWV) [facility] Start: 06-15-2024 End: 06-15-2024 Patient encounter procedure 06/15/2024 10:30 AM EST Office Visit [facility] [address] [place] [phone] Erna Banegas NP [address] [place], [place] [id number] SVT (supraventricular tachycardia) (CMS/HCC) (Primary Dx); Palpitations [facility] Comment on above: SVT (supraventricular tachycardia) (CMS/ HCC) (Primary Dx); Palpitations Start: 03-16-2024 End: 03-16-2024 Patient encounter procedure 03/16/2024 2:00 PM EDT Appointment [facility] - Cardiovascular [address] [place] [address] Logan Hunter MD [address] [place] [address] [facility] - Cardiovascular Start: 03-04-2024 COVID-19 Vaccine ( season) COVID-19 Vaccine ( season) [facility] Start: 03-04-2024 Influenza vaccination [facility] Start: 02-22-2024 End: 02-22-2024 Patient encounter procedure 02/22/2024 2:15 PM EDT Office Visit [facility] [address] [phone] Logan Hunter MD [address] [place] [phone] [facility] Start: 02-22-2024 End: 02-21-2025 Echo complete W/ contrast Echo complete W/ contrast Echocardiography Routine Tachycardia Palpitations Expected: 02/22/2024, Expires: 02/21/2025 [facility] Work Phone: Comment on above: Expected: 02/22/2024, Expires: Start: 02-05-2024 Adult BMI Screening Adult BMI Screening [facility] Start: 11-19-2023 Screening for malignant neoplasm of breast Mammogram [facility] Start: 11-17-2023 End: 11-17-2023 Clinical Support 11/17/2023 2:30 PM EDT Clinical Support [facility] [address] [place] [address] [facility] Start: 11-10-2023 End: 11-10-2023 Admission to same day surgery center 11/10/2023 11:30 AM EDT - 11/10/2023 3:30 PM EDT Surgery [facility] [address] [place] [phone] Logan Hunter MD [address] [place] [phone] SVT Ablation, CARTO EAM [facility] Comment on above: SVT Ablation, CARTO EAM Start: 11-10-2023 Subsequent hospital visit by physician 11/10/2023 11:30 AM EDT Hospital Encounter [facility] [address] [place] [phone] Logan uHnter MD [address] [place] [phone] SVT (supraventricular tachycardia) [facility] Comment on above: SVT (supraventricular tachycardia) Start: 10-26-2023 Tobacco Screening Tobacco Screening [facility] Start: 03-04-2023 COVID-19 Vaccine ( season) COVID-19 Vaccine ( season) [facility] Start: 03-04-2023 Influenza vaccination Influenza Vaccine [facility] Start: 12-03-2022 Administration of varicella zoster vaccine Zoster (Shingles) Vaccine (2 of 2) [facility] Start: 2021 Fall Risk Screening Fall Risk Screening [facility] Start: 06-24-2021 Screening for malignant neoplasm of colon [facility] Start: 1974 Adult BMI Follow Up Plan Adult BMI Follow Up Plan [facility] Start: 1968 Depression Screening Depression Screening [facility] Start: 1955 Medicare Annual Wellness Visit Medicare Annual Wellness Visit [facility] Start: 1955 Screening for malignant neoplasm of colon [facility] Immunizations Immunization Date Immunization Notes Care Provider Fa cili 08-02-2023 Influenza, High-dose Seasonal, Quadrivalent, Preservative Free Christi Gallegos MD Work Phone: [facility] 08-02-2023 influenza virus vaccine, unspecified formulation Elmira Luna RN [facility] 06-10-2023 RSV, recombinant, protein subunit RSVpreF, adjuvant reconstitu, 120mcg/0.5mL, PF (Arexvy) Christi Gallegos MD Work Phone: [facility] 03-12-2023 zoster vaccine recombinant Christi Gallegos MD Work Phone: [facility] 10-08-2022 Influenza, High-dose Seasonal, Quadrivalent, Preservative Free Christi Gallegos MD Work Phone: [facility] 10-08-2022 Pneumococcal Conjuga te PCV 20 Christi Gallegos MD Work Phone: [facility] 10-08-2022 zoster vaccine recombinant Christi Gallegos MD Work Phone: [facility] 10-08-2022 influenza virus vaccine, unspecified formulation Neva Low LPN [facility] 10-08-2022 zoster vaccine, unspecified formulation Neva Low [facility] 11-17-2015 tetanus toxoid, redu rosana diphtheria toxoid, and acellular pertussis vaccine, adsorbed Christi Gallegos MD Work Phone: [facility] 07-04-2004 tetanus and diphther ia toxoids, adsorbed, preservative free, for adult use (2 Lf of tetanus toxoid and 2 Lf of diphtheria toxoid) Christi Gallegos MD Work Phone: [facility] Payers Date Payer Category Payer Medicare HMO [employer] [id number] 2024 Medicare [id number] 2023 Medicare (Managed Care) 1.2. [id number] 2023 Unknown [id number] 2023 Medicare [id number] 2021 Medicare [id number] 1955 Unknown [id number] [id number]. 1286 1955 Unknown [id number] 2.16.840.1.208061.3.579.2. 1286 1955 Unknown [id number] 2.16.840.1.298067.3.579.2. 1286 1955 Unknown [id number] 2.16.840.1.199870.3.579.2. 1259 1956 Unknown [id number] 2.16.840.1.274141.3.579.2. 1259 1955 Unknown [id number] 2.16.840.1.370662.3.579.2. 9 1955 Unknown [id number] 2.16.840.1.586157.3.579.2. 1259 1955 Unknown [id number] 2.16.840.1.227232.3.579.2. 6 1955 Unknown [id number] 2.16.840.1.068994.3.579.2. 1286 1955 Unknown [id number] 2.16.840.1.426209.3.579.2. 128 1955 Unknown [id number] [id number]. 1286 Unknown [id number] Social History Date Type Detail Facility Start: 08-12-2022 End: 03-09-2023 Tobacco smoking status WAIS Never smoked tobacco [facility] Start: 08-12-2022 End: 03-09-2023 Tobacco use and exposure Smokeless tobacco non-user [facility] Start: 11-11-2023 End: 12-06-2024 Alcoholic beverage intake Lifetime non-drinker (finding) [facility] Start: 08-14-2020 End: 03-08-2023 History of Social function [facility] Start: 08-14-2020 End: 03-08-2023 Humiliation, Afraid, Rape, and Kick questionnaire [HARK] [facility] Within the last year , have you been afraid of your partner or ex-partner? No [facility] Do you belong to any clubs or organizations such as shinto groups, unions, fraternal or athletic groups, or [...] Caffeine intak e: 3-4 cups per day [facility] Start: 1955 Sex assigned at Not on file N [facility] Do you feel stress - tense, restless, nervous, or anxious, or unable to sleep at night because your mind is troubled all the time - these days [OSQ] Not at all [facility] Start: 1955 Sex assigned at Female P [facility] Start: 08-26-2022 Gender identity Identifies as female gender (finding) [facility] Start: 08-26-2022 Sexual orientation Heterosexual (fin ding) [facility] Start: 02-06-2015 Sex Female (finding) [facility] NEGATED: Highlighted rowStart: IRAJ History of tobacco use Passive smoker [facility] Medical Equipment Procedure Code Equipment Code Equipment Origin al Text Equipment Identifier Dates Cement Bn Bio 40 gm Rpl [id number] - [id number] - [id number] Start: 09-15-2021 Cement Bn Bio 40 gm Rpl [id number] - [id number] Start: 08-26-2022 Cement Bn Bio 40 gm Rpl [id number] - [id number] Start: 08-26-2022 Component Ptlr 3 5mm Persona Alply Kn Strl - [id number] - [id number] Start: 09-15-2021 Component Fem 6 Std Kn Lt Post Stab Cmnt Persona Cocr Strl - [id number] - [id number] Start: 09-15-2021 Surface Artc 11m m Persona 6-9 Cd Kn Lt Pe Post Stab - [id number] - [id number] Start: 09-15-2021 Surface Artc 11m m Persona 6-9 Cd Kn Rt Vivacit-E Post Stab - [id number] Start: 08-26-2022 Component Fem 6 Std Kn Rt Post Stab Cmnt Persona Cocr Strl - [id number] Start: 08-26-2022 Component Ptlr 3 5mm Persona Alply Kn Strl Lf - [id number] Start: 08-26-2022 Stem Xtn 30+ Mm 14mm Persona Tpr Kn Tib - [id number] Start: 08-26-2022 Baseplate Tib 5d D Kn Lt Cmnt Stm Persona Tiv Strl - [id number] - [id number] Start: 09-15-2021 Baseplate Tib 5d D Kn Rt Cmnt Stm Persona Tiv Strl - [id number] Start: 08-26-2022 Goals Date Patient Goal Desired Activity /State Personal health goal Comment on above: Formatting of this n ote might be different from the original. Evaluation of progress towards goal: Current discharge plan is home with [facility] and support of spouse. - [...] 1 tablet (500 mg total) before bedtime. [id number] OIL-L.CASEI ORAL Take 1 capsule by mouth [...] 08/26/2022 Performed by Sonido Prince MD at [facility] SURGERY REPLACEMENT TOTAL JOINT KNEE Left 09/15/2021 Performed by Sonido Prince MD at [facility] ROTATOR CUFF REPAIR Left 2011 SVT Ablation, CARTO EAM N/A 11/10/2023 Performed by Logan Hunter MD at [facility] () TUBAL LIGATION 1990 Family History Problem [...] Resource Strain: Low Risk (06/12/2024) Received from [facility] Overall Financial Resource Strain (CARDIA) Difficulty of Paying Living Expenses: Not hard at all Food Insecurity: No Food Insecurity (12/06/2024) Hunger Screening Food Insecurity - Worry: Never True Food Insecurity - Inability: Never True Transportation Needs: No Transportation Needs (06/12/2024) Received from [facility] PRAPARE - Transportation Lack of Transportation (Medical): No Lack of Transportation (Non-Medical): No Physical Activity: Sufficiently Active (06/12/2024) Received from [facility] Exercise Vital Sign Days of Exercise per Week: 7 days Minutes of Exercise per Session: 60 min Stress: No Stress Concern Present (06/12/2024) Received from [facility] [employer] [place] [employer] - Occupational Stress Questionnaire Feeling of Stress : Not at all Social Connections: Socially Integrated (06/12/2024) Received from [facility] Social Connection and Isolation Panel [NHANES] Frequency of Communication with Friends and Family: More than three times a week Frequency of Social Gatherings with Friends and Family: Three times a week Attends Jainism Services: More than 4 times per year Active Member of Clubs or Organizations: Yes Attends Club or Organization Meetings: More than 4 times per year Marital Status: Interpersonal Safety: Not At Risk (03/08/2023) Received from [facility] Humiliation, Afraid, Rape, and Kick questionnaire Fear of Current or Ex-Partner: No Emotionally Abused: No Physically Abused: No Sexually Abused: No Housing Instability: Unknown (06/12/2024) Received from [facility] Housing Stability Vital Sign Unable [...] Gallegos MD Referring Physician: Christi Gallegos MD [address] [place] [address] documented in this encounter [facility] 11-30-2024 Telephone encounter Note Rx sent [facility] 11-30-2024 Miscellaneous Notes Rx sent 90 day supply documented in this encounter [facility] 11-30-2024 Telephone encounter Note 90 day supply [facility] 11-16-2024 History of Present illness Narrative Images [...] Wu Stroke Father Cuate Wu Cancer Sister Deandra Richardson Heart disease Brother Johnathan Wu Social [...] min Stress: No Stress Concern Present (06/12/2024) [place] [employer] - Occupational Stress Questionnaire Feeling of Stress : Not at all Social Connections: Socially Integrated (06/12/2024) Social Connection and Isolation Panel [NHANES] Frequency of Communication with Friends and Family: More than three times a week Frequency of Social Gatherings with Friends and Family: Three times a week Attends Jainism Services: More than 4 times per year [...] fail to improve. documented in this encounter [facility] 11-01-2024 Telephone encounter Note Pt did call back, she will try to contact imani about it. [facility] 11-01-2024 Miscellaneous Notes Pt did call back, she will try to contact imani about it. Placed call to patient, l/m asking she call the office back. Colorectal screening documented in this encounter [facility] 11-01-2024 Telephone encounter Note Placed call to patient, l/m asking she call the office back. [facility] 11-01-2024 Telephone encounter Note Colorectal screening [facility] 10-30-2024 Telephone encounter Note Patient called back and confirmed her referrals. [facility] 10-30-2024 Miscellaneous Notes Patient called back and confirmed her referrals. Referral placed to pulmonology. Mammogram order faxed to [facility]. Colonoscopy from 2010 found in W, scanned into [employer] and sent to [facility]. Referral, fax mammogram documented in this encounter [facility] 10-29-2024 Telephone encounter Note Referral placed to pulmonology. Mammogram order faxed to [facility]. Colonoscopy from 2010 found in W, scanned into [employer] and sent to [facility]. [facility] 10-28-2024 Telephone encounter Note Referral, fax mammogram [facility] 10-26-2024 History of Present illness Narrative Images [...] last time she checked it Going to [place] pain management for injections-they did help. Last eye exam this week on Tuesday at [facility], Has cataracts, vision is blurrey, mainly right eye at times. Could be r/t dry eye also. They plan to send her to [place]. 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 Mom wants her to have a sleep [...] taking [place] BID per pain magagement in [place]. Taking 1 Tylenol TID PRN, and 1 [...] and it was normal SVT (supraventricular tachycardia) ([facility]) Comments: Sees Cardiology. Had echo 03/27-EF 60-65% [...] if concerns. PVU documented in this encounter [facility] 09-20-2024 History of Present illness Narrative Images [...] Wu Stroke Father Cuate Wu Cancer Sister Deandra Lezamawick Heart disease Brother [...] Susan Gay DPM documented in this encounter [facility] 09-20-2024 Instructions Susan Gay DPM - 09/20/2024 2:15 PM EDT Topical care measures as noted documented in this encounter [facility] 08-23-2024 Telephone encounter Note Patient scheduled her MAWV on October 22. Is she due for labwork? If so, she would like to do prior to this appt. Please advise pt. Thank you. [facility] 08-23-2024 Miscellaneous Notes Patient scheduled her MAWV on October 22. Is she due for labwork? If so, she would like to do prior to this appt. Please advise pt. Thank you. documented in this encounter [facility] 08-13-2024 Telephone encounter Note Rx sent [facility] 08-13-2024 Miscellaneous Notes Rx sent documented in this encounter [facility] 06-15-2024 History of Present illness Narrative Images [...] at 8-8:30. Takes OTC sleep aide from [employer] 1/2 tab. Snores per . Pt does [...] couple of months per pain magagement in [place]. Has F/U appt in Jul. Taking 1 [...] Breath sounds: Normal breath sounds. 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 [...] if concerns. PVU documented in this encounter [facility] 05-10-2024 Telephone encounter Note I cancelled Amoxicillin Rx and sent Nabumetone Rx [facility] 05-10-2024 Miscellaneous Notes I cancelled Amoxicillin Rx and sent Nabumetone Rx I called pt. She states she did not request this refill for an antibiotic and didn't need it. Pt then said that she did need a refill on her nabumetone to be sent in. I told pt I would send the request. documented in this encounter [facility] 05-09-2024 Telephone encounter Note I called pt. She states she did not request this refill for an antibiotic and didn't need it. Pt then said that she did need a refill on her nabumetone to be sent in. I told pt I would send the request. [facility] 03-12-2024 Telephone encounter Note Rx sent [facility] 03-12-2024 Miscellaneous Notes Rx sent documented in this encounter [facility] 02-22-2024 History of Present illness Narrative Meka Zavala Date of visit: 02/22/2024 Date of : 1955 Age: 68 y.o. Patient Active Problem List Diagnosis Neurocardiogenic syncope Palpitations Tachycardia Shortness of breath Primary osteoarthritis of both knees Obesity (BMI 30-39.9) Preop testing SVT (supraventricular tachycardia) ([facility]) S/P total knee replacement, left Class 1 [...] 1 tablet (500 mg total) before bedtime. [id number] OIL-L.CASEI ORAL Take 1 capsule by mouth [...] SVT who presents to EP clinic at [place] for follow-up. 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 Her prior flecainide 50 mg BID was discontinued after ablation. Shortly after ablation, she called our office to let us know that her brother had been diagnosed with HCM. Patient presented the appointment by herself today. EKG in clinic shows sinus rhythm, heart rate 86 beats per minute, NH interval 170 milliseconds QRS 96 milliseconds QTC [...] brother is currently undergoing VT ablation at [facility]. He did undergo genetic testing, but they [...] 08/26/2022 Performed by Sonido Prince MD at [facility] REPLACEMENT TOTAL JOINT KNEE Left 09/15/2021 Performed by Sonido Prince MD at [facility] SURGERY ROTATOR CUFF REPAIR Left 2011 SVT Ablation, CARTO EAM N/A 11/10/2023 Performed by Logan Hunter MD at [facility] (EP) TUBAL LIGATION 1990 Family History Problem [...] Resource Strain: Low Risk (03/08/2023) Received from [facility] Overall Financial Resource Strain (CARDIA) Difficulty of Paying Living Expenses: Not hard at all Food Insecurity: No Food Insecurity (02/22/2024) Hunger Screening Food Insecurity - Worry: Never True Food Insecurity - Inability: Never True Transportation Needs: No Transportation Needs (03/08/2023) Received from [facility] PRAPARE - Transportation Lack of Transportation (Medical): No Lack of Transportation (Non-Medical): No Physical Activity: Sufficiently Active (03/08/2023) Received from [facility] Exercise Vital Sign Days of Exercise per Week: 6 days Minutes of Exercise per Session: 60 min Stress: No Stress Concern Present (03/08/2023) Received from [facility] [place] [employer] - Occupational Stress Questionnaire Feeling of Stress : Only a little Social Connections: Socially Integrated (03/08/2023) Received from [facility] [employer], [facility] Social Connection and Isolation Panel [NHANES] Frequency of Communication with Friends and Family: More than three times a week Frequency of Social Gatherings with Friends and Family: More than three times a week Attends Jainism Services: More than 4 times per year Active Member of Clubs or Organizations: Yes Attends Club or Organization Meetings: More than 4 times per year Marital Status: Interpersonal Safety: Not At Risk (03/08/2023) Received from [facility] [employer], [facility] Humiliation, Afraid, Rape, and Kick questionnaire Fear of Current or Ex-Partner: No Emotionally Abused: No Physically Abused: No Sexually Abused: No Housing Instability: Unknown (03/08/2023) Received from [facility] [employer], [facility] Housing Stability Vital Sign Unable [...] Christi Gallegos MD Referring Physician: Ryan Sosa, [address] [address] documented in this encounter [facility] 02-21-2024 Miscellaneous Notes Left message for patient to remind them to bring their most current medication list with them to their appointment. documented in this encounter [facility] 02-21-2024 Telephone encounter Note Left message for patient to remind them to bring their most current medication list with them to their appointment. [facility] 11-17-2023 History of Present illness Narrative Patient presents to [place] office for post SVT ablation 11/10/23. Patient [...] to that appointment. documented in this encounter [facility] 11-16-2023 Miscellaneous Notes Called patient to remind them to bring their most current copy of their medication list with them to their appt. Patient verbalizes understanding. documented in this encounter [facility] 11-16-2023 Miscellaneous Notes Left message for patient to remind them to bring their most current medication list with them to their appointment. documented in this encounter [facility] 11-16-2023 Telephone encounter Note Called patient to remind them to bring their most current copy of their medication list with them to their appt. Patient verbalizes understanding. [facility] 11-16-2023 Telephone encounter Note Left message for patient to remind them to bring their most current medication list with them to their appointment. [facility] 11-03-2023 Miscellaneous Notes Called and LM to pt providing pre op reminder call TTH Entrance C Arrive @ 1000 Fasting - NPo after mn Medications - holding flec x 3 days on 11/06, no SGLT LABS - adivsed pt to obtain Advised pt to call with any questions documented in this encounter [facility] 11-03-2023 Telephone encounter Note Called and LM to pt providing pre op reminder call TTH Entrance C Arrive @ 1000 Fasting - NPo after mn Medications - holding flec x 3 days on 11/06, no SGLT LABS - adivsed pt to obtain Advised pt to call with any questions [facility] 10-18-2023 Miscellaneous Notes Pt calls for flec refill. She says she has 1 week left. Ablation 11/10/23 she requests 1 month supply. Reminded to complete preop labs between 11/02-11/04. She also wanted to inquire if procedures schedulers have heard if Dr Hunter doesn't take her insurance. [employer] insurance that is in [employer]. She said she looked through the insurance book and he was covered but wanted to check with ep schedulers. Rx pended to mey pool to sign. And message to ep surgery nurses to address. documented in this encounter [facility] 10-18-2023 Telephone encounter Note Pt calls for flec refill. She says she has 1 week left. Ablation 11/10/23 she requests 1 month supply. Reminded to complete preop labs between 11/02-11/04. She also wanted to inquire if procedures schedulers have heard if Dr Hunter doesn't take her insurance. [employer] insurance that is in [employer]. She said she looked through the insurance book and he was covered but wanted to check with ep schedulers. Rx pended to mey pool to sign. And message to ep surgery nurses [facility] address. [facility] Miscellaneous Notes RO Received a call [...] other meds held. [facility] Telephone encounter Note RO Received a call from pt and she would like to proceed with ablation you discussed. Please review and advise thank you [facility] 07-18-2023 Telephone encounter Note Okay to schedule SVT ablation with me, next available. NPO after midnight, okay for clear 6 hours prior, MAC sedation, routine preoperative labs, CARTO EAM. Hold flecainide for 3 days prior to procedure. No other meds held. [facility] Work Phone: Evaluation note Diagnosis Gastroesophageal reflux disease, unspecified whether esophagitis present documented in this encounter [facility] HealthcareEvaluation note* Diagnosis Acute maxillary sinusitis, 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 Otalgia of left ear Primary osteoarthritis of both knees documented in this encounter [facility] note* Diagnosis SVT (supraventricular tachycardia) ([facility])- Primary Other specified cardiac dysrhythmias Palpitations Elevated blood pressure reading Elevated blood pressure reading without diagnosis of hypertension Gastroesophageal reflux disease, unspecified whether esophagitis present Spondylosis without myelopathy or radiculopathy, lumbar region Nasal congestion Other diseases of nasal cavity and sinuses documented in this encounter [facility] HealthcareEvaluation note* Diagnosis Primary osteoarthritis of both knees documented in this encounter [facility]Evaluation note* Diagnosis Primary osteoarthritis of both knees documented in this encounter [facility] HealthcareEvaluation note* Diagnosis SVT (supraventricular tachycardia) ([facility])- Primary Other specified cardiac dysrhythmias [facility] Diagnosis SVT (supraventricular tachycardia) ([facility])- Primary Other specified cardiac dysrhythmias Tachycardia Unspecified tachycardia Palpitations [facility] Diagnosis SVT (supraventricular tachycardia) ([facility])- Primary Other specified cardiac dysrhythmias SVT (supraventricular tachycardia) (CMS-HCC) Other specified cardiac dysrhythmias SVT (supraventricular tachycardia) ([facility]) Other specified cardiac dysrhythmias [facility] Diagnosis Dermatophytosis of nail- Primary Dystrophic nail Other specified disease of nail Pain around toenail documented in this encounter [facility] HealthcareEvaluation note* Diagnosis Encounter for Medicare annual wellness exam SVT (supraventricular tachycardia) ([facility]) Other specified cardiac dysrhythmias Tachycardia Unspecified tachycardia [...] abnormality Daytime sleepiness documented in this encounter [facility] HealthcareEvaluation note* Diagnosis Acute non-recurrent pansinusitis- Primary Sinus pressure Other diseases of nasal cavity and sinuses Rhinorrhea Other diseases of nasal cavity and sinuses Acute cough Sore throat Acute pharyngitis documented in this encounter [facility] HealthcareEvaluation note* Diagnosis Gastroesophageal reflux disease, unspecified whether esophagitis present documented in this encounter [facility] HealthcareEvaluation note* Diagnosis Primary osteoarthritis of both knees Spondylosis without myelopathy or radiculopathy, lumbar region Gastroesophageal reflux disease, unspecified whether esophagitis present documented in this encounter [facility] HealthcareEvaluation note* Diagnosis SVT (supraventricular tachycardia)- [...] W/ contrast Logan Hunter MD [address] [place] [address] [facility] [address] [place] [address] Phone: [phone] Referral ID Status Reason Start Date Expiration Date V isits Requested Visits Authorized [id number] Authorized 02/22/2024 02/21/2025 1 1 Additional Source Comments INFORMATION SOURCE (unrecogn ized section and content) DATE CREATED AUTHOR 04/17/2018 [facility] DATE CREATED AUTHOR AUTHOR'S ORGANIZ ATION 11/13/2022 [facility] dical Specialist DATE CREATED AUTHOR AUTHOR'S ORGANIZ ATION 11/12/2023 [facility] DATE CREATED AUTHOR AUTHOR'S ORGANIZ ATION 11/17/2024 [facility] dical Specialists EPIC DATE CREATED AUTHOR AUTHOR'S ORGANIZ ATION 12/07/2024 [facility] Care Teams (unrecognized sec tion and content) Shake Loader Relationship Specialty Start Date End Date Christi Gallegos MD [address] [place] [address] PCP - General Family Medicine 04/27/23 Christi Gallegos MD [address] [place] [address] PCP - Devoted 07/04/23 Shake Loader Relationship Specialty Start Date End Date Christi Gallegos MD [address] [place] [address] PCP - General Family Medicine 04/27/23 Christi Gallegos MD [address] [place] [address] PCP - Devoted 07/04/23 Shake Loader Relationship Specialty Start Date End Date Christi Gallegos MD [address] [place] [address] PCP - General Family Medicine 04/27/23 Christi Gallegos MD [address] [place] [address] PCP - Devoted 07/04/23 07/03/24 Shake Loader Relationship Specialty Start Date End Date Christi Gallegos MD [address] [place] [address] PCP - General Family Medicine 04/27/23 Christi Gallegos MD [address] [place] [address] PCP - Devoted 07/04/23 07/03/24 Shake Loader Relationship Specialty Start Date End Date Christi Gallegos MD [address] [place] [address] PCP - General Family Medicine 04/27/23 Christi Gallegos MD [address] [place] [address] PCP - Devoted 07/04/23 Shake Loader Relationship Specialty Start Date End Date Christi Gallegos MD [address] [facility] [place] [address] PCP - General Family Medicine 10/07/23 Shake Loader Relationship Specialty Start Date End Date Ryan Sosa DO [address] [place] [address] PCP - General 05/02/18 Shake Loader Relationship Specialty Start Date End Date Christi Gallegos MD [address] [place] [address] PCP - General Family Medicine 04/27/23 Shake Loader Relationship Specialty Start Date End Date Christi Gallegos MD [address] [place] [address] PCP - General Family Medicine 10/07/23 Shake Loader Relationship Specialty Start Date End Date Christi Gallegos MD [address] [place] [address] PCP - General Family Medicine 10/07/23 Shake Loader Relationship Specialty Start Date End Date WonderlyChristi MD [address] [place] [address] PCP - General Family Medicine 10/07/23 Shake Loader Relationship Specialty Start Date End Date WonderChristi anuglo MD [address] [place] [address] PCP - General Family Medicine 10/07/23 Shake Loader Relationship Specialty Start Date End Date Wonderkev, Christi Brewer MD [address] [place] [address] PCP - General Family Medicine 10/07/23 Shake Loader Relationship Specialty Start Date End Date WonderChristi angulo MD [address] [place] [address] PCP - General Family Medicine 04/27/23 WonderChristi angulo MD [address] [place] [address] PCP - Medical Woodruff MA 07/04/2407/03 Shake Loader Relationship Specialty Start Date End Date WonderChristi angulo MD [address] [place] [address] PCP - General Family Medicine 04/27/23 WonderChristi angulo MD [address] [place] [address] PCP - Medical Woodruff MA 07/04/2407/03 Shake Loader Relationship Specialty Start Date End Date WonderChristi angulo MD [address] [place] [address] PCP - General Family Medicine 04/27/23 Christi Gallegos MD [address] [place] [address] PCP - Medical Woodruff MA 07/04/2407/03 Shake Loader Relationship Specialty Start Date End Date Christi Galleogs MD [address] [place] [place] [address] PCP - General Family Medicine 04/27/23 Christi Gallegos MD [address] [place] [address] PCP - Medical Woodruff MA 07/04/2407/03 Shake Loader Relationship Specialty Start Date End Date Christi Gallegos MD [address] [place] [address] PCP - General Family Medicine 04/27/23 Christi Gallegos MD [address] [place] [address] PCP - Medical Woodruff MA 07/04/2407/03 Shake Loader Relationship Specialty Start Date End Date Christi Gallegos MD [address] [place] [address] PCP - General Family Medicine 04/27/23 Christi Gallegos MD [address] [place] [address] PCP - Medical Woodruff MA 07/04/2407/03 Shake Loader Relationship Specialty Start Date End Date Christi Gallegos MD [address] [place] [address] PCP - General Family Medicine 04/27/23 Christi Gallegos MD [address] [place] [address] PCP - Medical [place] 07/04/2407/03 Shake Loader Relationship Specialty Start Date End Date Christi Gallegos MD [address] [place] [address] PCP - General Family Medicine 04/27/23 Christi Gallegos MD [address] [place] [address] PCP - Medical [facility] 07/04/2407/03 Shake Loader Relationship Specialty Start Date End Date Christi Gallegos MD [address] [place] [address] PCP - General Family Medicine 10/07/23 Reason [...] BE BASED ON THE PRIMARY CLINICAL RECORDS. [facility] provides no warranty or guarantee of the accuracy or completeness of information in this document.
== END 2024-12-26 10:37 | disposition home or self-care (01) ==
PROVIDERS: Visit Provider Nurse Practitioner
DX: M46.1 Sacroiliitis, not elsewhere classified (principal); M47.816 Spondylosis without myelopathy or radiculopathy, lumbar region; M79.18 Myalgia, other site; M54.16 Radiculopathy, lumbar region; M48.062 Spinal stenosis, lumbar region with neurogenic claudication
CPT/HCPCS: G0463

== ENCOUNTER 2025-02-27 13:58 | Outpatient (OUT) | payer MEDICARE, SELFPAY ==
--- OUTSIDE RECORDS SUMMARY | 2025-02-27 14:00 | XMS_ITS | Encounter Summary ---
Author Organization [employer] Sys [employer] Address [facility] [id number] [address] [place] [address] Care Team Providers Care Wood Stock Blank Handler Name Role Phone Christi Galvan MD Primary Care Provider [phone] Encounter Details Date Type Department Care Team (Late st Contact Info) Description 07/12/2022 Orders Only [facility] [address] [place] [address] Elisa Davis Tachycardia; SVT (supraventricular tachycardia) ([facility]) Social History Tobacco Use Types Packs/Day Years [...] Care Team (Late st Contact Info) Description 06/07/2025 2:00 PM EST Office Visit [facility] [address] [place] [phone] Tuan Cotto MD [address] [place] [address] documented as of this encounter Goals Goal Patient Goal Type Associated Problems Recent Progress Patient-Stated? Author Home with HC General Yes Mckenna Najera, RN Note: Evaluation of progress towards goal: Current discharge plan is home with [facility] and support of spouse. - Mckenna Najera RN 09/15/21 12:29 PM documented as of this encounter Procedures Procedure Name Priority Date/Time Associated Diagnosis Comments MAGNESIUM Routine 07/10/2022 Tachycardia SVT (supraventricular tachycardia) ([facility]) documented in this encounter Results * Magnesium (07/10/2022) 07/10/2022 us Stephenie Park ANIMAL CAREGIVER-VISION IMPAIRED TEACHER LAB BLOOD ORDERABLES F inal Result [facility] documented in this encounter Visit Diagnoses Diagnosis Tachycardia Unspecified tachycardia SVT (supraventricular tachycardia) Other specified cardiac dysrhythmias documented in this encounter Care Teams Wood Stock Blank Handler Relationship Specialty Start Date End Date Isakly, Christi Brewer MD [address] [place] [address] PCP - General Family Medicine 10/07/23 documented as of this encounter
--- OUTSIDE RECORDS SUMMARY | 2025-02-27 14:00 | XMS_ITS | Encounter Summary ---
Author Organization [facility] Healthcare Address [address] [facility] [place] [address] Care Team Providers Care Cigarette Making Machine Operator Name Role Phone Christi Galvan MD Primary Care Provider [phone] Adrianna Chacon SEAL EXTRUSION OPERATOR Unavailable [phone] Encounter Details Date Type Department Care Team (Late Contact Info) Description 02/13/2025 Telephone [facility] Family Medicine [address] [place] [phone] Christi Galvan MD Social History Tobacco Use Types Packs/Day Years [...] How often do you attend chur or confucianist services? More than 4 times per year 06/12/2024 Do you belong to any clubs o r organizations such as lutheran groups, unions, fraternal or athletic groups, or [...] Recorded Patient Health Questionnaire-2 Score 0 10/22/2024 [facility] - Occupational Stress [...] place to sleep or slept in a retirement (including now)? No 03/08/2023 Housing Stability Vital Sign Answer Jim e Recorded In the last 12 months, was t here a time when you were not able to pay the mortgage or rent on time? No 06/12/2024 Number of Times Moved in the Last Year Not on fi le 06/12/2024 At any time in the past 12 m [facility], were you homeless or living in a retirement (including now)? No 06/12/2024 Comments Unknown Sex and Gender Information Value Date Recorded Sex Assigned at Not on file Legal Sex Female 7:13 PM EDT Gender Identity Not on file Sexual Orientation Not on file documented as of this encounter Miscellaneous Notes * Telephone Encounter - Doroteo Weston - 02/13/2025 2:48 PM EDT Lab results were given ty documented in this encounter Plan of Treatment Not on file documented as of this encounter Visit Diagnoses Not on filedocumented in this encounter Care Teams Cigarette Making Machine Operator Relationship Specialty Start Date End Date Wonderly, Christi Brewer MD PCP - General Family Medicine 04/27/23 Adrianna Chacon NP [address] [place] [address] PCP - Medical [facility] 07/04/2407/03 documented as of this encounter
--- OUTSIDE RECORDS SUMMARY | 2025-02-27 14:00 | XMS_ITS | Encounter Summary ---
Author Organization [employer] Sys [employer] Address [facility] [id number] [address] [place] [address] Care Team Providers Care Metallurgical Analyst Name Role Phone Christi Galvan MD Primary Care Provider [phone] Encounter Details Date Type Department Care Team (Late Contact Info) Description 07/13/2022 Orders Only [facility] [address] [place] [address] Radha Hollingsworth CMA SVT (supraventricular tachycardia) ([facility]) Social History Tobacco Use Types Packs/Day Years [...] Department Care Team (Late Contact Info) Description 06/07/2025 2:00 PM EST Office Visit [facility] [address] [place] [address] Tuan Cotto MD [address] [place], [place] [address] documented as of this encounter Goals Goal Patient Goal Type Associated Problems Recent Progress Patient-Stated? Author Home with General Yes Mckenna Najera, RN Note: Evaluation of progress towards goal: Current discharge plan is home with [facility] and support of spouse. - Mckenna Najera RN 09/15/21 12:29 PM documented as of this encounter Procedures Procedure Name Priority Date/Time Associated Diagnosis Comments BASIC METABOLIC PANEL Routine 07/09/2022 SVT (supraventricular tachycardia) ([facility]-HCC) documented in this encounter Results * Basic Metabolic Panel (07/09/2022) 07/09/2022 us Roopa Larsen CLINIC DIRECTOR-BRAILLE OPERATOR LAB BLOOD ORDERABLES F inal Result [facility] documented in this encounter Visit Diagnoses Diagnosis SVT (supraventricular tachycardia) Other specified cardiac dysrhythmias documented in this encounter Care Teams Metallurgical Analyst Relationship Specialty Start Date End Date Isakly, Christi Brewer MD [address] [place] [address] PCP - General Family Medicine 10/07/23 documented as of this encounter
--- OUTSIDE RECORDS SUMMARY | 2025-02-27 14:00 | XMS_ITS | Encounter Summary ---
Author Organization [employer] Sys [employer] Address [facility] [id number] [address] [place] [address] Care Team Providers Care Chief Deputy Coroner Name Role Phone Christi Galvan MD Primary Care Provider [phone] Encounter Details Date Type Department Care Team (Late st Contact Info) Description 09/02/2022 [facility]phone [facility] [address] [place] [phone] Laura Dan CMA Social History Tobacco Use Types Packs/Day Years [...] have Coronavirus / COVID-19? No / Unsure 08/26/2022 6:16 AM EST documented as of this encounter Miscellaneous Notes * Telephone Encounter - Laura Dan CMA - 09/02/2022 9:22 AM EST Patient called in requesting refill on pain medication to be sent to her pharmacy[facility]KA 08/26/22 Please Advise. Laura * Telephone Encounter - DAVY Lopez - 09/02/2022 9:22 AM EST A refill of pain medication was [facility]. I did step her down from Percocet to [place] 5-325 mg. Patient's OARRS report was reviewed before prescribing narcotics. There are no signs of misuse or abuse of narcotic pain medication. Narcotic pain medication appropriate in this setting given patient's recent injury and/or surgery. documented in this encounter Plan of Treatment Upcoming Encounters Date Type Department Care Team (Late st Contact Info) Description 06/07/2025 2:00 PM EST Office Visit [facility] [address] [place] [address] Tuan Cotto MD [address] [place] [address] documented as of this encounter Goals Goal Patient Goal Type Associated Problems Recent Progress Patient-Stated? Author Home with General Yes Mckenna Najera RN Note: Evaluation of progress towards goal: Current discharge plan is home with [facility] and support of spouse. - Mckenna Najera RN 09/15/21 12:29 PM documented as of this encounter Visit Diagnoses Diagnosis Post-operative pain- Primary Other acute postoperative pain documented in this encounter Care Teams Chief Deputy Coroner Relationship Specialty Start Date End Date Isakly, Christi Brewer MD [address] [place] [address] PCP - General Family Medicine 10/07/23 documented as of this encounter
--- OUTSIDE RECORDS SUMMARY | 2025-02-27 14:00 | XMS_ITS | Clinical Summary ---
Author Organization [facility] Address [address] [place] [address] Care Team Providers Care Police Lieutenant Name Role Phone Erna Banegas APRN - GEOGRAPHY FACULTY MEMBER Primary Care Provi kateryna Social History Tobacco Use Types Packs/Day Years Used Date Smoking Tobacco: Never Assessed Comments Unknown Sex and Gender Information Value Date Recorded Sex Assigned at Not on file Legal Sex Female 11:02 AM EDT Gender Identity Not on file Sexual Orientation Not on file Plan of Treatment Not on file Care Teams Police Lieutenant Relationship Specialty Start Date End Date Erna Banegas APRN - CNP [address] [place] [address] PCP - General Nurse Practitioner, Family 11/14/23
--- OUTSIDE RECORDS SUMMARY | 2025-02-27 14:01 | XMS_ITS | Encounter Summary ---
Author Organization [employer] Address [facility] [place] [id number] [address] [place] [address] Care Team Providers Care Cell Manager Name Role Phone Christi Galvan MD Primary Care Provider [phone] Encounter Details Date Type Department Care Team (Late st Contact Info) Description 09/25/2021 Telephone [facility] [address] [place] [phone] Roopa Stephenson, SHANTA Social History Tobacco Use [...] She is fine with stepping down to [place]. Pharmacy confirmed in chart * Telephone Encounter [...] Cardiology [address] [place] [address] Tuan Cotto MD [address] [place] [address] documented as of this encounter Goals Goal Patient Goal Type Associated Problems Recent Progress Patient-Stated? Author Home with General Yes Mckenna Najera RN Note: Evaluation of progress towards goal: Current discharge plan is home with [facility] and support of spouse. - Mckenna Najera RN 09/15/21 12:29 PM documented as of this encounter Visit Diagnoses Diagnosis Postoperative pain- Primary Other acute postoperative pain documented in this encounter Care Teams Cell Manager Relationship Specialty Start Date End Date Christi Galvan MD [address] [place] [address] PCP - General Family Medicine 10/07/23 documented as of this encounter
--- OUTSIDE RECORDS SUMMARY | 2025-02-27 14:01 | XMS_ITS | Encounter Summary ---
Author Organization [employer] Address [id number] [address] [place] [address] Care Team Providers Care Lip Cutter And Scorer Name Role Phone Christi Galvan MD Primary Care Provider [phone] Encounter Details Date Type Department Care Team (Late st Contact Info) Description 11/07/2023 [facility]phone [facility] [address] [place] [address] Sajan Vasquez, RN Social History Tobacco Use [...] Cardiology [address] [place] [address] Tuan Cotto MD [address] [place] [address] documented as of this encounter Goals Goal Patient Goal Type Associated Problems Recent Progress Patient-Stated? Author Home with General Yes Mckenna Najera RN Note: Evaluation of progress towards goal: Current discharge plan is home with [facility] and support of spouse. - Mckenna Najera RN 09/15/21 12:29 PM documented as of this encounter Visit Diagnoses Not on filedocumented in this encounter Care Teams Lip Cutter And Scorer Relationship Specialty Start Date End Date Wonderly, Christi Brewer MD [address] [place] [address] PCP - General Family Medicine 10/07/23 documented as of this encounter
--- OUTSIDE RECORDS SUMMARY | 2025-02-27 14:01 | XMS_ITS | Encounter Summary ---
Author Organization [facility] Healthcare Address [address] [place] [address] Care Team Providers Care Financial Examiner Name Role Phone Ryan Betancourt MD Primary Care Provider [phone] Christi Galvan MD Primary Care Provider [phone] Christi Galvan MD Unavailable [phone] Adrianna Chacon NP Unavailable [phone] Encounter Details Date Type Department Care Team (Late st Contact Info) Description 03/09/2023 Abstract [facility] Family Medicine [address] [place] [address] Erna Banegas NP Social History [...] How often do you attend chur or buddhism services? More than 4 times per year 03/08/2023 Do you belong to any clubs o r organizations such as yazidi groups, unions, fraternal or athletic groups, or [...] and heating? Not hard at all 03/08/2023 [facility] - Occupational Stress Questionnaire [...] money to buy more. Never true 03/08/20 Within the past 12 months, t he [...] a senior living (including now)? No 03/08/2023 Comments Unknown Sex [...] on filedocumented in this encounter Care Teams Financial Examiner Relationship Specialty Start Date End Date Ryan Betancourt MD PCP - General Family Medicine 01/20/23 04/26/23 Christi Galvan MD PCP - General Family Medicine 04/27/23 Christi Galvan MD PCP - [facility] 07/04/23 07/03/24 Adrianna Chacon NP [address] [place] [address] PCP - Medical [place] [facility] 07/04/2407/03 documented as of this encounter
--- OUTSIDE RECORDS SUMMARY | 2025-02-27 14:01 | XMS_ITS | Encounter Summary ---
Author Organization [employer] Sys tem Address [id number] [address] [place] [address] Care Team Providers Care Regional Flatbed Truck Driver Name Role Phone Christi Galvan MD Primary Care Provider [phone] Encounter Details Date Type Department Care Team (Late Contact Info) Description 03/26/2021 Orders Only [facility] [address] [place] [address] Laura Sanchez MA Neurocardiogenic syncope; Palpitations; Tachycardia; Shortness of breath [...] Cardiology [address] [place] [address] Tuan Cotto MD [address] [place] [address] documented as of this encounter Procedures Procedure Name Priority Date/Time Associated Diagnosis Comments EVENT MONITOR Routine 03/28/2021 Neurocardiogenic syncope Palpitations Tachycardia Shortness of breath EVENT MONITOR Routine 03/26/2021 documented in this encounter Results * Event monitor traffic signal supervisor maintenance and recording (03/28/2021) Anatomical Region Laterality Modality Chest N/A Other us Tariq Orosco MD [facility] HARDEEP RUIZ Final Result * Event monitor traffic signal supervisor maintenance and recording (03/26/2021) Anatomical Region Laterality Modality Chest N/A Other us Scanning Provider External [facility] O RDERABLES Edited Result - Final documented in this encounter Visit Diagnoses Diagnosis Neurocardiogenic syncope Palpitations Tachycardia Unspecified tachycardia Shortness of breath documented in this encounter Care Teams Regional Flatbed Truck Driver Relationship Specialty Start Date End Date Wonderly, Christi Brewer MD [address] [place] [address] PCP - General Family Medicine 10/07/23 documented as of this encounter
--- OUTSIDE RECORDS SUMMARY | 2025-02-27 14:01 | XMS_ITS | Encounter Summary ---
Author Organization [facility] Healthcare Address [address] [place] [address] Care Team Providers Care Blasting Contract Miner Name Role Phone Christi Galvan MD Primary Care Provider [phone] Christi Galvan MD Unavailable [phone] Adrianna Chacon NP Unavailable [phone] Encounter Details Date Type Department Care Team (Late st Contact Info) Description 10/27/2023 Orders Only [facility] Family Medicine [address] [place] [address] Ryan Betancourt MD [address] [place] [address] Social History Tobacco Use Types Packs/Day Years [...] How often do you attend chur or spiritism services? More than 4 times per year 03/08/2023 Do you belong to any clubs o r organizations such as bahai groups, unions, fraternal or athletic groups, or [...] Recorded Patient Health Questionnaire-2 Score 0 08/02/2023 [facility] of Occupat ional Health - Occupational [...] to sleep or slept in a senior care (including now)? No 03/08/2023 Comments Unknown Sex [...] Blood Venous blood specimen / Unknown Result [facility] Ryan Betancourt MD LAB BLOOD ORDERABLES Final Re sult * Bilirubin, direct (10/06/2022 3:46 PM EDT) Blood Venous blood specimen / Unknown Result [facility] Ryan Betancourt MD LAB BLOOD ORDERABLES Final Re sult * T4 (10/06/2022 3:46 PM EDT) Blood Venous blood specimen / Unknown Result [facility] Ryan Betancourt MD LAB BLOOD ORDERABLES Final Re sult * TSH (10/06/2022 3:46 PM EDT) Blood Venous blood specimen / Unknown Result [facility] Ryan Betancourt MD LAB BLOOD ORDERABLES Final Re sult * MAMMOGRAM* (03/21/2018 3:44 PM EDT) Anatomical Region Laterality Modality Radiographic Dilia ging Result [facility] Ryan Betancourt MD IMG XR PROCEDURES Final Resul t documented in this encounter Visit Diagnoses Not on filedocumented in this encounter Care Teams Blasting Contract Miner Relationship Specialty Start Date End Date Christi Galvan MD PCP - General Family Medicine 04/27/23 Christi Galvan MD PCP - [facility]oted 07/04/23 07/03/24 Adrianna Chacon NP [address] [place] [address] PCP - Medical [place] MA 07/04/2407/03 documented as of this encounter
--- OUTSIDE RECORDS SUMMARY | 2025-02-27 14:01 | XMS_ITS | Encounter Summary ---
Author Organization [facility] Address [facility] [place]-[id number] [address] [place] [address] Care Team Providers Care Window Shade Ring Coverer Name Role Phone Christi Galvan MD Primary Care Provider [phone] Reason for Visit * Reason Onset Date Comments Cardiomyopathy 11/22/2023 Encounter Details Date Type Department Care Team (Late st Contact Info) Description 11/22/2023 Telephone [facility] Cardiology [address] [phone] Clarissa Rendon RN Cardiomyopathy Social History Tobacco [...] she has ever been tested for that. Lna will message Dr. Hunter to make aware [...] Cardiology [address] [place] [address] Tuan Cotto MD [address] [place] [address] documented as of this encounter Goals Goal Patient Goal Type Associated Problems Recent Progress Patient-Stated? Author Home with General Yes Mckenna Najera RN Note: Evaluation of progress towards goal: Current discharge plan is home with [facility] and support of spouse. - Mckenna Najera RN 09/15/21 12:29 PM documented as of this encounter Visit Diagnoses Not on filedocumented in this encounter Care Teams Window Shade Ring Coverer Relationship Specialty Start Date End Date Wonderly, Christi Brewer MD [address] [place] [address] PCP - General Family Medicine 10/07/23 documented as of this encounter
--- OUTSIDE RECORDS SUMMARY | 2025-02-27 14:01 | XMS_ITS | Encounter Summary ---
Author Organization [employer] Address [facility] [id number] [address] [place] [address] Care Team Providers Care Case Packer Name Role Phone Christi Galvan MD Primary Care Provider [phone] Encounter Details Date Type Department Care Team (Late Contact Info) Description 02/25/2021 Orders Only [facility] [address] [place] [address] External, Scanning Provider Social History Tobacco Use [...] Cardiology [address] [place] [address] Tuan Cotto MD [address] [place] [address] documented as of this encounter Procedures Procedure Name Priority Date/Time Associated Diagnosis Comments ECG 12-LEAD Routine 11/14/2013 ECHO DOPPLER Routine 10/02/2013 EVENT MONITOR Routine 09/21/2013 documented in this encounter Results * ECG 12 lead (11/14/2013) us Scanning Provider External ECG ORDERABLES Final Result [facility] EXTERNAL NON-INTERFACED REF LAB [address] [place] [address] * Echo Doppler (10/02/2013) Anatomical Region Laterality Modality Chest N/A Ultrasound us Scanning Provider External CV ECHO ORDERABLES Fi nal Result * Event monitor nurses supervisor and recording (09/21/2013) Anatomical Region Laterality Modality Chest N/A Other us Scanning Provider External [facility] O RDERABLES Final Result documented in this encounter Visit Diagnoses Not on filedocumented in this encounter Care Teams Case Packer Relationship Specialty Start Date End Date Wonderly, Christi Brewer MD [address] [place] [address] PCP - General Family Medicine 10/07/23 documented as of this encounter
--- OUTSIDE RECORDS SUMMARY | 2025-02-27 14:01 | XMS_ITS | Encounter Summary ---
Author Organization [facility] Healthcare Address [address] [facility] [place] [address] Care Team Providers Care Air Grinder Name Role Phone Christi Galvan MD Primary Care Provider [phone] Adrianna Chacon STUDIO OPERATIONS ENGINEER IN CHARGE Unavailable [phone] Encounter Details Date Type Department Care Team (Late Contact Info) Description 10/29/2024 Orders Only [facility] Family Medicine [address] [place] [id number] Be Lora MD [address] [place] [address] Social History Tobacco Use Types Packs/Day Years [...] any clubs o r organizations such as cheondoism groups, unions, fraternal or athletic groups, or [...] Recorded Patient Health Questionnaire-2 Score 0 10/22/2024 [facility] [place] of Occupat ional Health - Occupational Stress [...] in a intermediate (including now)? No 03/08/2023 Housing Stability Vital Sign Answer Jim e Recorded In the last 12 months, was t here a time when you were not able to pay the mortgage or rent on time? No 06/12/2024 Number of Times Moved in the Last Year Not on fi le 06/12/2024 At any time in the past 12 m [facility], were you homeless or living in a intermediate (including now)? No 06/12/2024 Comments Unknown Sex [...] on filedocumented in this encounter Care Teams Air Grinder Relationship Specialty Start Date End Date Wonderly, Christi Brewer MD PCP - General Family Medicine 04/27/23 Adrianna Chacon NP [address] [place] [address] PCP - Medical Sujatha FERNANDES 07/04/2407/03 documented as of this encounter
--- OUTSIDE RECORDS SUMMARY | 2025-02-27 14:01 | XMS_ITS | Clinical Summary ---
Author Organization [facility] Healthcare Address [address] [place] [address] Care Team Providers Care Oven Roaster Name Role Phone Christi Galvan MD Primary Care Provider [phone] Adrianna Chacon PATTERN CHANGER AND REPAIRER Unavailable [phone] Allergies Active Allergy Reactions Criticality Noted Date [...] a day per pain management, Reported on 02/05/2025 gabapentin (Neurontin) 100 MG capsule Take 100 [...] bedtime. 180 tablet 1 12/01/19 25 Active dilTIAZem CD (Cardizem CD) 120 MG 24 hr capsule Take 120 mg by mouth in the morning. 12/07/19 25 Active furosemide (Lasix) 20 MG tabletIndications: Edema, unspecified type Take 1 tablet (20 mg) by mouth Daily as needed (swelling) 30 tablet 11 02/06/20 25 026 Active meloxicam (Mobic) 15 MG tabletIndications: Primary osteoarthritis of both knees Take 1 tablet (15 mg) by mouth Daily 30 tablet 11 02/06/20 25 026 Active Active Problems Problem Noted Date Diagnosed Date Spondylosis without myelopat hy or radiculopathy, lumbar region 06/15/2024 Post-menopausal 08/02/2023 Left upper arm pain 08/02/2023 Decreased hearing 08/02/2023 Difficulty walking 03/04/2023 GERD (gastroesophageal reflux disease) Presence of right artificial knee joint 08/26/19 23 Other abnormalities of gait and mobility 023 S/P total knee replacement, left 09/30/2021 SVT (supraventricular tachycardia) 05/01/2021 Primary osteoarthritis of both knees 03/03/2021 Overview (03/04/2023): Added automatically from request for surgery [id number] Assessment & Plan (02/05/2025 12:37 PM EDT): Orders: meloxicam (Mobic) 15 MG tablet; Take 1 tablet (15 mg) by mouth Daily Palpitations 02/27/2021 Tachycardia 02/27/2021 Resolved Problems Problem Noted Date Diagnosed Date Resolved Date Shortness of breath 02/27/2021 10/29/19 Vasovagal syncope 02/27/2021 02/05/2025 Encounters Date Type Department Care Team Description 02/13/2025 Telephone [facility] [address] [facility] [place] [address] Christi Galvan MD 02/06/2025 Results Follow-Up [address] [place] [address] Christi Valentine MD CBC and differential 02/05/2025 10:40 AM EDT Office Visit [address] [place] [address] Christi Valentine MD Ecchymosis (Primary Dx); Edema, unspecified type; Primary osteoarthritis of both knees 02/05/2025 Bamboo flowsheet [address] [place] [address] Christi Valentine MD 02/05/2025 Travel 02/04/2025 Telephone [address] [place] [address] Christi Galvan MD 12/24/2024 Results Follow-Up [address] [place] [address] Pump, Lidia, PATTERN CHANGER AND REPAIRER Cologuard colon cancer screening 11/30/2024 [address]ill [address] [place] [address] Christi Galvan MD Primary osteoarthritis of both knees; Spondylosis without myelopathy or radiculopathy, lumbar region; Gastroesophageal reflux disease, unspecified whether esophagitis present from Last 3 Months Immunizations Immunization Administration [...] Deandra Richardson Relation Name Status Comments Brother Johnathan Wu 2 Father Cuate Wu Alive Mother [...] week 06/12/2024 How often do you attend [facility] or anabaptist services? More than 4 times per year 06/12/2024 Do you belong to any clubs o r organizations such as taoist groups, unions, fraternal or athletic groups, or [...] Recorded Patient Health Questionnaire-2 Score 0 10/22/2024 [facility] of Occupat ional Health - Occupational [...] place to sleep or slept in a longterm (including now)? No 03/08/2023 Housing Stability Vital [...] were you homeless or living in a longterm (including now)? No 06/12/2024 Comments Unknown Sex and Gender Information Value Date Recorded Sex Assigned at Not on file Legal Sex Female 7:13 PM EDT Gender Identity Not on file Sexual Orientation Not on file Last Filed Vital Signs Vital Sign Reading Time Taken Comments Blood Pressure 132/84 02/05/2025 10:43 AM EDT Pulse 68 02/05/2025 10:43 AM EDT Temperature 36.8 C (98.3 F) 11/11/2023 11:36 AM EDT Respiratory Rate 18 02/05/2025 10:43 AM EDT Oxygen Saturation 97% 02/05/2025 10:43 AM EDT Inhaled Oxygen Concentration - - Weight 92.8 kg (204 lb 9.6 oz) 02/05/2025 10:43 AM EDT Height 165.1 cm (5' 5 ) 02/05/2025 10:43 AM EDT Body Mass Index 34.05 02/05/2025 10:43 AM EDT Plan of Treatment Health Maintenance Due Date Last Done Comments CT Colonography 1955 FIT 1955 FOBT 1955 Sigmoidoscopy 1955 Colonoscopy 06/24/2021 06/24/2011 Influenza Vaccine (#1) 2025 08/02/2023, 2022 Medicare Annual Wellness (AWV) 10/26/2025 0 10/26/2024, 10/26/2024, 08/02/2023 Mammogram 12/27/2025 12/27/2024, 11/01, 03/21/2018, Additional history exists Colorectal Cancer Screening 12/19/2027 FIT-DNA 12/19/2027 12/18/2024 Pneumococcal Vaccine: 65+ Years Completed 3 Procedures Procedure Name Priority Date/Time Associated Diagnosis Comments CBC (INCLUDES DIFF/PLT) Routine 02/05/2025 11:29 AM EDT Ecchymosis LAB COLOGUARD COLON CANCER SCREEN Routine 12/18/2024 6:45 AM EDT Screening for colon cancer MAMMOGRAM* Routine 03/21/2018 3:44 PM EDT HM COLONOSCOPY Routine 06/24/2011 8:47 AM EST from Last 3 Months or Most Recently Relevant to Health Maintenance Results * CBC and differential (02/05/2025 11:29 AM EDT) WHITE BLOOD CELL COUNT 5.6 3.8 - 10.8 Thousand/u L [facility] RED BLOOD CELL COUNT 4.37 3.80 - 5.10 Million/uL [facility] HEMOGLOBIN 13.9 11.7 - 15.5 g/dL [facility] HEMATOCRIT 42.2 35.0 - 45.0 % [facility] MCV 96.6 80.0 - 100.0 fL [facility] MCH 31.8 27.0 - 33.0 pg [facility] MCHC 32.9 32.0 - 36.0 g/dL [facility] Comment: For adults, a slight decrease in the calculated MCHC value (in the range of 30 to 32 g/dL) is most likely not clinically significant; however, it should be interpreted with caution in correlation with other red cell parameters and the patient's clinical condition. RDW 12.9 11.0 - 15.0 % [facility] PLATELET COUNT 248 140 - 400 Thousand/u L [facility] MPV 9.6 7.5 - 12.5 fL [facility] ABSOLUTE NEUTROPHILS 3,254 1,500 - 7,800 cells/uL [facility] ABSOLUTE LYMPHOCYTES 1,602 850 - 3,900 cells/uL [facility] ABSOLUTE MONOCYTES 498 200 - 950 cells/uL [facility] ABSOLUTE EOSINOPHILS 218 15 - 500 cells/uL [facility] ABSOLUTE BASOPHILS 28 0 - 200 cells/uL [facility] NEUTROPHILS 58.1 % [facility] LYMPHOCYTES 28.6 % [facility] MONOCYTES 8.9 % [facility] EOSINOPHILS 3.9 % [facility] BASOPHILS 0.5 % [facility] Blood Venous blood specimen / Unknown 02/05/2025 11:29 AM EDT 02/05/2025 11:30 AM EDT Narrative Resulting Agency Comment Performing Organization Information Site ID: QPT Name: [facility] Address: [address] [place] [address], [address] [place] [id number] Director: Niko Dial MD Christi Valenitne MD LAB BLOOD ORDERABLES Final Resul t [facility] * Cologuard?? colon cancer screening (12/18/2024 6:45 AM EDT) NONINV COLON CA DNA+OCC BLD SCRN STL-IMP Negative Negative 12/24/2024 4:52 AM EDT [employer] (CLIA #:[id number]) Comment: The Cologuard (TM) test was performed [...] Lagunas. et al, N Engl J Med 2014;370(14):1286- 1297) The normal value (reference range) for this assay is negative. COLOGUARD RE-SCREENING RECOMMENDATION: Periodic colorectal cancer screening is an important part of preventive healthcare for asymptomatic individuals at average risk for colorectal cancer. Following a negative Cologuard result, the [place] Cancer Society and U.S. Multi-Society Task Force screening guidelines recommend a Cologuard re-screening interval of 3 years. References: [place] [employer] Guideline for Colorectal Cancer Screening: https://www.cancer.org/cancer/dlyzo-fjgqeo-trohfd/sloptmqoi-gbsftzjrv-kcmdvlp/ac s-rec ommendations.html.; Cam MURPHY, Chelsea HENNING, Hui HOLBROOK, Colorectal Cancer Screening: Recommendations for Physicians and Patients from the U.S. Multi-Society Task Force on Colorectal Cancer Screening , Am J Gastroenterology 2017; 112:3408-5267. TEST DESCRIPTION: Composite algorithmic analysis of stool [...] Lagunas. et al, N Engl J Med 2014;370(14):5533-6739.) Cologuard may produce a false negative or false positive result (no colorectal cancer or precancerous polyp present at colonoscopy follow up). A negative Cologuard test result does not guarantee the absence of CRC or advanced adenoma (pre-cancer). The current Cologuard screening interval is every 3 years. ([place] [employer] Society and U.S. Multi-Society Task Force). Cologuard performance data in a 10,000 patient pivotal study using colonoscopy as the reference method can be accessed at the following location: www.[employer]Eco-Site/results. Additional description of the Cologuard test process, warnings and precautions can be found at www.cologuard.com. Stool specimen (specimen) 12/18/2024 6:45 AM EDT 12/19/2024 12:36 PM EDT Erna Banegas PATTERN CHANGER AND REPAIRER LAB MOLECULAR DIAGNOSTICS O RDERABLES Final Result [facility] (CLIA #:[id number]) [address] [place] [address], [facility] (CLIA #:[id number]) [address] [place] [address] * Hm Colonoscopy (06/24/2011 8:47 AM EST) Anatomical Region Laterality Modality Other Be Lora MD HEALTH MAINTENANCE Final Res ult from Last 3 Months or Most Recently Relevant to Health Maintenance Insurance [employer]ICARE Care Teams Oven Roaster Relationship Specialty Start Date End Date Christi Galvan MD PCP - General Family Medicine 04/27/23 Adrianna Chacon NP [address] [place] [address] PCP - Medical Winslow MD 07/04/2407/03
--- OUTSIDE RECORDS SUMMARY | 2025-02-27 14:01 | XMS_ITS | Clinical Summary ---
Author Organization [employer] [facility] Address [id number] [address] [place] [address] Care Team Providers Care Relish Blender Name Role Phone Christi Galvan MD Primary Care Provider [phone] Allergies Active Allergy Reactions Criticality Noted Date [...] tablets by mouth in the morning. Active SEEX2-RLC-DUP-F GRECIA OIL-L.CASEI ORAL Take 1 capsule by [...] (04/12/2022): Added automatically from request for surgery [id number] Class 1 obesity in adult 11/23/2021 S/P total knee replacement, left 09/30/2021 SVT (supraventricular tachycardia) 05/01/2021 Preop testing 04/10/2021 Obesity (BMI 30-39.9) 04/09/2021 Primary osteoarthritis of both knees 03/03/2021 Overview (03/03/2021): Added automatically from request for surgery [id number] Neurocardiogenic syncope 02/27/2021 Palpitations 02/27/2021 Tachycardia 02/27/2021 Shortness of breath 02/27/2021 Encounters Date Type Department Care Team Description 12/27/2024 1:36 PM EDT - 12/27/2024 11:59 PM EDT Hospital Encounter [facility] - Mammography/DEXA Imaging [address] [place] [address] Visit for screening mammogram Discharge Disposition: Home 12/27/2024 Travel 12/06/2024 2:30 PM EDT Office Visit [facility] [address] [place] [phone] Tuan Cotto MD SVT (supraventricular tachycardia) (Primary Dx); Tachycardia; Palpitations 12/06/2024 Travel from Last 3 Months Family History Medical History Relation Name Comments Heart disease Brother 1 No Known Problems Brother 2 Dementia Father Vickie bodi Hypertension Father Other Father COVID Stroke Father [...] Description 06/07/2025 2:00 PM EST Office Visit [facility] [address] [place] [address] Tuan Cotto MD [address] [place] [address] Health Maintenance Due Date Last Done Comments Depression Screening 1967 Adult BMI Follow Up Plan 1974 Fall Risk Screening 2021 COVID-19 Vaccine ( season) 03/04/202405/2021, 02/19/2021 Influenza Vaccine 03/04/2025 08/02/2023, [...] goal: Current discharge plan is home with [facility] and support of spouse. - Mckenna Najera RN 09/15/21 12:29 PM Medical Devices Implanted Type Area Intelligence Agent Device Identifier Shelf Expiration Date Model / Serial / Lot Cement Bn Bio 40gm Rpl [id number] - [id number] - [id number] Implanted:Qt y: 2 on 09/15/2021 by Sonido Prince MD at [facility] Cement Left: Knee [employer] 02/01/2024 [id number] / [id number] / [id number] Cement Bn Bio 40gm Rpl [id number] - [id number] Implanted:Qt y: 1 on 08/26/2022 by Sonido Prince MD at [facility] Cement Right: Knee [employer] 12/01/2024 [id number] / / [id number] Cement Bn Bio 40gm Rpl [id number] - [id number] Implanted:Qt y: 1 on 08/26/2022 by Sonido Prince MD at [facility] Cement Right: Knee [employer] 12/01/2024 [id number] / / [id number] Component Ptlr 35mm Persona Alply Kn Strl Lf - [id number] - [id number] Implanted:Qt y: 1 on 09/15/2021 by Sonido Prince MD at [facility] Orthopedic Implant Left: Knee [employer] 08/02/2029 [id number] / [id number] / [id number] Component Fem 6 Std Kn Lt Post Stab Cmnt Persona Cocr Strl - [id number] - [id number] Implanted:Qt y: 1 on 09/15/2021 by Sonido Prince MD at [facility] Orthopedic Implant Left: Knee [employer] 10/19/2030 [id number] / [id number] / [id number] Surface Artc 11mm Persona 6-9 Cd Kn Lt Pe Post Stab - [id number] - [id number] Implanted:Qt y: 1 on 09/15/2021 by Sonido Prince MD at [facility] Orthopedic Implant Left: Knee [employer] 08/14/2028 [id number] / [id number] / [id number] Surface Artc 11mm Persona 6-9 Cd Kn Rt Vivacit-E Post Stab - [id number] Implanted:Qt y: 1 on 08/26/2022 by Sonido Prince MD at [facility] Orthopedic Implant Right: Knee [employer] 05/03/2027 [id number] / / [id number] Component Fem 6 Std Kn Rt Post Stab Cmnt Persona Cocr Strl - [id number] Implanted:Qt y: 1 on 08/26/2022 by Sonido Prince MD at [facility] Orthopedic Implant Right: Femur Vin [employer] 05/17/2032 [id number] / / [id number] Component Ptlr 35mm Persona Alply Kn Strl Lf - [id number] Implanted:Qt y: 1 on 08/26/2022 by Sonido Prince MD at [facility] Orthopedic Implant Right: Patella [employer] 07/18/2027 [id number] / / [id number] Stem Xtn 30+ Mm 14mm Persona Tpr Kn Tib - [id number] Implanted:Qt y: 1 on 08/26/2022 by Sonido Prince MD at [facility] Orthopedic Implant Right: Tibia [employer] 06/27/2032 [id number] / / [id number] Baseplate Tib 5d D Kn Lt Cmnt Stm Persona Tiv Strl - [id number] - [id number] Implanted:Qt y: 1 on 09/15/2021 by Sonido Prince MD at [facility] Plate Left: Knee [employer] 05/01/2030 [id number] / [id number] / [id number] Baseplate Tib 5d D Kn Rt Cmnt Stm Persona Tiv Strl - [id number] Implanted:Qt y: 1 on 08/26/2022 by Sonido Prince MD at [facility] Plate Right: Tibia [employer] 05/08/2032 [id number] / / [id number] Procedures Procedure Name Priority Date/Time Associated Diagnosis Comments MAMM SCREENING BILATERAL W CAD Routine 12/27/2024 1:55 PM EDT Visit for screening mammogram from Last 3 Months Results * Mammography screening bilateral with CAD (12/27/2024 1:55 PM EDT) Anatomical Region Laterality Modality Breast Bilateral Mammography 12/27/2024 2:21 PM EDT Narrative 12/27/2024 2:21 PM EDT MEKA Sandoval DAI 1955 [id number] EXAM: MAMM SCREENING BILATERAL W CAD, 12/27/2024 1:37 PM CLINICAL INDICATIONS: Screening, Visit for screening mammogram COMPARISON: 11/18/2022 TECHNIQUE: Bilateral digital tomosynthesis MLO and CC views of the breasts were obtained, with creation of synthetic 2D views. Computer aided detection was utilized. FINDINGS: The breasts are almost entirely fatty. There are no suspicious masses, calcifications, or areas of architectural distortion. IMPRESSION: No mammographic evidence of malignancy. BI-RADS: BI-RADS 1 - Negative RECOMMENDATION: Routine screening mammogram in 1 year. RISK ASSESSMENT: TC Lifetime risk: 4.5%. The patient's reported personal and family medical history was used calculate their Tyrer-Cuzick lifetime risk of malignancy. Scores less than 20% are not considered high risk per ACR guidelines and patient should continue with the above recommendation. Finalized by Denver Ga MD on 12/27/2024 2:21 PM 1 a MAMM 1 YR FDA Accredited Performing Facility: [facility] - Mammography/DEXA Imaging [address] [facility] [address] Procedure Note Denver Ga MD - 12/27/2024 MEKA Sandoval SALLY 1955 [id number] EXAM: MAMM SCREENING BILATERAL W CAD, 12/27/2024 1:37 PM CLINICAL INDICATIONS: Screening, Visit for screening mammogram COMPARISON: 11/18/2022 TECHNIQUE: Bilateral digital tomosynthesis MLO and CC views of the breastswere obtained, with creation of synthetic 2D views. Computer aideddetection was utilized. FINDINGS: The breasts are almost entirely fatty. There are no suspicious masses, calcifications, or areas of architecturaldistortion. IMPRESSION: No mammographic evidence of malignancy. BI-RADS: BI-RADS 1 - Negative RECOMMENDATION: Routine screening mammogram in 1 year. RISK ASSESSMENT: TC Lifetime risk: 4.5%. The patient's reported personal and family medical history was usedcalculate their Tyrer-Cuzick lifetime risk of malignancy. Scores less than20% are not considered high risk per ACR guidelines and patient shouldcontinue with the above recommendation. Finalized by Denver Ga MD on 12/27/2024 2:21 PM 1 a MAMM 1 YR FDA Accredited Performing Facility: [facility] - Mammography/DEXA Imaging [address] [facility] [address] Erna Banegas ORCHID WORKER-DIRECTOR STERILE PROCESSING IMG MAMMOGRAPHY ORDER ANDREWS Final Result from Last 3 Months Insurance [employer] MEDICARE Care Teams Relish Blender Relationship Specialty Start Date End Date Christi Galvan MD [address] [place] [address] PCP - General Family Medicine 10/07/23
--- OUTSIDE RECORDS SUMMARY | 2025-02-27 14:01 | XMS_ITS | Encounter Summary ---
Author Organization [facility] Healthcare Address [address] [place] [address] Care Team Providers Care Compo Caster Name Role Phone Christi Galvan MD Primary Care Provider [phone] Christi Galvan MD Unavailable [phone] Adrianna Chacon NP Unavailable [phone] Encounter Details Date Type Department Care Team (Late st Contact Info) Description 01/10/2024 External Result Encounter [facility] Family Medicine [address] [place] [phone] Erna Banegas NP Social History Tobacco Use [...] How often do you attend chur or buddhist services? More than 4 times per year 03/08/2023 Do you belong to any clubs o r organizations such as yarsanism groups, unions, fraternal or athletic groups, or [...] Recorded Patient Health Questionnaire-2 Score 0 08/02/2023 [facility] of Occupat ional Health - Occupational [...] PM EDT THIS EXAM WAS PERFORMED AT [facility] Bone densitometry: HISTORY: Postmenopausal osteoporosis screening. L1-L4 [...] - 01/10/2024 THIS EXAM WAS PERFORMED AT [facility] Bone densitometry: HISTORY: Postmenopausal osteoporosis screening. L1-L4 [...] MD on 01/10/2024 1:35 PM Erna Banegas MACHINE CEMENTER IMG DXA PROCEDURES Final Re sult documented in this encounter Visit Diagnoses Not on filedocumented in this encounter Care Teams Compo Caster Relationship Specialty Start Date End Date Christi Galvan MD PCP - General Family Medicine 04/27/23 Christi Galvan MD PCP - Devoted 07/04/23 07/03/24 Adrianna Chacon NP [address] [place] [address] PCP - Medical [facility] 07/04/2407/03 documented as of this encounter
--- OUTSIDE RECORDS SUMMARY | 2025-02-27 14:01 | XMS_ITS | Encounter Summary ---
Author Organization [facility] Address [address] [facility] [place] [address] Care Team Providers Care Press Tender Name Role Phone Christi Galvan MD Primary Care Provider [phone] Adrianna Chacon MARRIAGE AND FAMILY COUNSELOR Unavailable Encounter Details Date Type Department Care Team (Latest Contact Info) Description 02/06/2025 Results Follow-Up [facility] Family Medicine [address] [place] [phone] Christi Valentine MD [address] [place], [place] [phone] CBC and differential Social History Tobacco Use Types Packs/Day Years [...] any clubs o r organizations such as jainism groups, unions, fraternal or athletic groups, or [...] Recorded Patient Health Questionnaire-2 Score 0 10/22/2024 [facility] of Occupat ional Health - Occupational Stress [...] place to sleep or slept in a custodial (including now)? No 03/08/2023 Housing Stability Vital Sign Answer Jim e Recorded In the last 12 months, was t here a time when you were not able to pay the mortgage or rent on time? No 06/12/2024 Number of Times Moved in the Last Year Not on fi le 06/12/2024 At any time in the past 12 m [facility], were you homeless or living in a custodial (including now)? No 06/12/2024 Comments Unknown Sex and Gender Information Value Date Recorded Sex Assigned at Not on file Legal Sex Female 7:13 PM EDT Gender Identity Not on file Sexual Orientation Not on file documented as of this encounter Plan of Treatment Not on file documented as of this encounter Visit Diagnoses Not on filedocumented in this encounter Care Teams Press Tender Relationship Specialty Start Date End Date Wonderly, Christi Brewer MD PCP - General Family Medicine 04/27/23 Adrianna Chacon NP [address] [place] [address] PCP - Medical [place] 07/04/2407/03 documented as of this encounter
--- OUTSIDE RECORDS SUMMARY | 2025-02-27 14:01 | XMS_ITS | Encounter Summary ---
Author Organization [facility] Address [address] [facility] [address] Care Team Providers Care Finisher Brush Name Role Phone Ryan Betancourt MD Primary Care Provider Christi Galvan MD Primary Care Provider [phone] Christi Galvan MD Unavailable [phone] Adrianna Chacon FREIGHT TEAM ASSOCIATE Unavailable [phone] Encounter Details Date Type Department Care Team (Late st Contact Info) Description 01/16/2015 Abstract [facility] [address] [place] [id number] Meka Penn, [facility] [address] [place] [address] Social History Tobacco Use Types Packs/Day Years [...] on filedocumented in this encounter Care Teams Finisher Brush Relationship Specialty Start Date End Date Ryan Betancourt MD PCP - General Family Medicine 01/20/23 04/26/23 Christi Galvan MD PCP - General Family Medicine 04/27/23 Christi Galvan MD PCP - [facility] 07/04/23 07/03/24 Adrianna Chacon NP [address] [place] [address] PCP - [facility] 07/04/2407/03 documented as of this encounter
--- OUTSIDE RECORDS SUMMARY | 2025-02-27 14:01 | XMS_ITS | Encounter Summary ---
Author Organization [facility] Healthcare Address [address] [facility] [place] [address] Care Team Providers Care Technical Fellow Name Role Phone Christi Galvan MD Primary Care Provider [phone] Adrianna Chacon [employer] MANAGER Unavailable [phone] Encounter Details Date Type Department Care Team ([facility] [address] Contact Info) Description 10/22/2024 Results Follow-Up [facility] [address] [place] [id number] Anel Jackson LPN TSH, T4, free, Lipid panel, Additional followed-up results: 2 Social History Tobacco Use Types Packs/Day [...] How often do you attend chur or druze services? More than 4 times per year 06/12/2024 Do you belong to any clubs o r organizations such as scientologist groups, unions, fraternal or athletic groups, or [...] Recorded Patient Health Questionnaire-2 Score 0 10/22/2024 [facility] - Occupational Stress Questionnaire Answer [...] any time in the past [address] [facility], were you homeless or living in a [...] Questionnaire-2 Score 0 10/03 1:33 PM EDT [place], Generic * Little interest or pleasure in doing things Answer Date of Assessment Author Not at all 10/22/2024 1:33 PM EDT Brown, Generic * Feeling down, depressed, or hopeless [...] appt. Thank you ----- Message ----- From: [facility] Results In Sent: 10/19/2024 4:23 PM EDT To: Erna Banegas NP documented in this encounter Plan of Treatment Not on file documented as of this encounter Visit Diagnoses Not on filedocumented in this encounter Care Teams Technical Fellow Relationship Specialty Start Date End Date Wonderly, Christi Brewer MD PCP - General Family Medicine 04/27/23 Adrianna Chacon NP [address] [place] [address] PCP - [facility] [place] 07/04/2407/03 documented as of this encounter
--- OUTSIDE RECORDS SUMMARY | 2025-02-27 14:36 | XMS_ITS | CCD ---
Author Organization [facility] CliniSyme Care Team Providers Care Coal Cager Name Role Phone IAN, RYAN Unavailable Unavailable HOUSE, RYAN Unavailable Unavailable IAN, RYAN Unavailable Unavailable CATHIE REED V Unavailable Unavailable IAN, RYAN Unavailable Unavailable LOGAN HUNTER Admitting Unavailable LOGAN HUNTER Attending Unavailable RYAN SOSA P Primary Care Unavailable FEROZ COOK Attending Unavailable CHRISTI GALLEGOS Primary Care Unavailable Christi Gallegos MD Primary Care Provider Christi Gallegos MD Unavailable Christi Gallegos MD Unavailable Christi Gallegos MD Primary Care Provider Christi Gallegso MD Unavailable Christi Gallegos MD Primary Care Provider Ryan Sosa DO Primary Care Provider Christi Gallegos MD Unavailable Christi Gallegos MD Primary Care Provider Lynnette CORONADO, Javier May Attending Unavailable ROSY, CHRISTI B Referring Unavailable JALENLY, CHRISTI B Primary Care Unavailable LOGAN HUNTER Attending Unavailable RYAN SOSA Referring Unavailable ROSY, CHRISTI Brewer Primary Care Unavailable LOGAN HUNTER Attending Unavailable LOGAN HUNTER Referring Unavailable JALENLY, CHRISTI B Primary Care Unavailable TUAN JANE Attending Unavailable ROSY, CHRISTI B Referring Unavailable WONDERLY, CHRISTI B Primary Care Unavailable ERNA BANEGAS Referring Unavailable ROSY, CHRISTI B Primary Care Unavailable Christi Gallegos MD Primary Care Provider SUSAN GAY Attending Unavailable ERNA BANEGAS Attending Unavailable ADRIANNA REDDY Attending Unavailable CHRISTI VALENTINE Attending Unavailable ERNA BANEGAS Attending Unavailable Allergies Allergy Classification Reported Allergen(s) Allergy Type Date of Onset Reaction(s) Facility (11 sources) Sulfonamides (Antibiotic); Translations: [SULFA (SULFONAMIDE ANTIBIOTICS)] Propensity to adverse reactions to drug (disorder) 1 Rash [facility] (20 sources) Sulfonamides (Antibiotic) Drug Intolerance 1 Rash [...] mg / cholecalciferol 200 unt oral tablet (14 sources) Vitamin D calcium citrate 600 mg [...] Start: 02-01-2021 take 1 tablet by mouth twice daily as needed for muscle spasms cyclobenzaprine (Flexeril) 10 MG tablet Indications: Muscle spasm TAKE 1 TABLET BY MOUTH 2 TIMES A DAY NEEDED FOR MUSCLE SPASMS 60 tablet 1 11/17/2023 Active 24 hr dilTIAZem hydrochloride 120 mg extended release oral capsule (4 sources) Calcium Channel Mary Jo Start: 12-06-2024 take 1 capsule by mouth in the morning, then take 1 capsule by mouth every twenty-four hours dilTIAZem CD (Cardizem CD) 120 MG 24 hr capsule Take 120 mg by mouth in the morning. 12/06/2024 Active docosahexaenoic acid 120 mg / eicosapentaenoic acid 180 mg oral capsule (20 sources) omega-3 (Fish Oi l) 1000 MG [...] 180 tablet 1 03/02/2023 10/18/2023 Discontinued (Reorder) furosemide 20 mg oral tablet (3 sources) Loop Diuretic Start: 02-05-2025 End: 02-05-2026 take 1 tablet by mouth once daily as needed furosemide (Lasix) 20 MG tablet Indications: Edema, unspecified type Take 1 tablet (20 mg) by mouth Daily as needed (swelling) 30 tablet 11 02/05/2025 02/05/2026 Active gabapentin 100 mg oral capsule (20 sources) Anti-epileptic Agent Start: 01-23-2024 take 1 capsule by mouth in the morning gabapentin (Neurontin) 100 MG capsule Take 100 mg by mouth in the morning. 01/23/2024 Active loratadine 10 mg oral tablet (14 sources) loratadine (Claritin) 10 MG tablet Take by mouth Active lysine 500 mg oral tablet (20 sources) L-lysine 500 MG tablet Orally Active magnesium oxide 200 mg oral tablet (20 sources) take 2 tablets by mouth in the morning magnesium oxide 200 MG tablet Take 2 tablets by mouth in the morning. Active meloxicam 15 mg oral tablet (6 sources) Nonsteroidal Anti-inflammatory Drug Start: 02-05-2025 End: 02-05-2026 take 1 tablet by mouth once daily meloxicam (Mobic) 15 MG tablet Indications: Primary osteoarthritis of both knees Take 1 tablet (15 mg) by mouth Daily 30 tablet 11 02/05/2025 02/05/2026 Active Start: 08-29-2022 meloxicam (MOB IC) 15 mg tablet Indications: Primary osteoarthritis of [...] before bedtime. 180 tablet 1 11/30/2024 Active [id number] SH OIL-L.CASEI ORAL (9 sources) take 1 capsule by mouth in the morning [id number] OIL-L.CASEI ORAL Take 1 capsule by mouth in the morning. Active take 1 capsule by mouth once anson ly [id number] OIL-L.CASEI ORAL Take 1 capsule by mouth daily. Active take 1 capsule by mouth once anson ly [id number] OIL-L.CASEI ORAL Take 1 capsule by mouth [...] 90 capsule 1 11/16/2024 Active potassium gluconate 2.6 meq oral tablet (20 sources) Potassium Glucon ate 2.5 MEQ tablet Take 99 mg by mouth in the morning. Active take 1 tablet by mouth in the mo rning potassium 99 mg tablet Take 1 tablet (99 mg total) by mouth in the morning. Active psyllium [...] 0 Active vitamin a 2.4 mg oral capsul e (20 sources) Vitamin A vitamin A 2400 M CG (8000 UT) capsule Take 8,000 Units by mouth in the morning. Active Problems [...] without diagnosis of hypertension] 06-15-2024 Episodic Other circulatory disease (2 sources) Ecchymosis; Translations: [Hemorrhage, not elsewhere classified] 02-05-2025 Episodic Other connective tissue disease (20 sources) [...] sinusitis, unspecified] 05-10-2024 Episodic Residual codes; unclassified (2 sources) Edema; Translations: [Edema, unspecified] 02-05-2025 Episodic Spondylosis; intervertebral disc disorders; other back problems (20 sources) Lumbar spondylosis; Translations: [Spondylosis without myelopathy or radiculopathy, lumbar region] Onset: 06-15-2024 06-15-2024 Chronic Unclassified (7 sources) Encounter for screening [...] 10-28-2024 03-04-2023 Episodic Other nervous system disorders (20 sources) Finding related to ability to move; Translations: [Other abnormalities of gait and mobility] Onset: 08-26-2022 07-13-2023 Episodic Residual codes; unclassified (20 sources) Postmenopausal state; Translations: [Asymptomatic menopausal state] Onset: 08-02-2023 08-02-2023 Episodic Residual codes; unclassified (1 source) Asymptomatic menopausal state; Translations: [Asymptomatic menopausal state] Onset: 01-09-2024 Episodic Syncope (20 sources) Vasovagal syncope; Translations: [Syncope and collapse] Onset: 02-27-2021 Resolved: 02-05-2025 03-04-2023 Episodic Results Test Name Value Interpretation Reference Range Facil ity MAMM SCREENING BILATERAL W C clinical material handler 12-27-2024 MAMM SCREENING BILATERAL W CAD MAMM SCREENING BILATERAL W CAD MEKA KINGNER 1955 [id number] EXAM: MAMM SCREENING BILATERAL W CAD, 12/27/2024 [...] 2:21 PM 1 a MAMM 1 YR Normal [facility] POCT EKGon 02-22-2024 [facility] DEXA SCAN CENTRAL SKELETALon 01-10-2024 DEXA [...] Peterson MD on 01/10/2024 1:35 PM Normal [facility] XR Hip Bilateral w/Pelvison 11-12-2022 XR Hip Bilateral w/Pelvis COMPARISON: NONE. PELVIS FINDINGS: There are no lytic or sclerotic bone lesions. The femoral heads are located. There is no acute fracture or subluxation. There are no radiopaque foreign bodies. IMPRESSION: There are no acute osseous changes. Report reported and signed by JOSE JUAN LEWIS on 11/12/2022 0956 Normal [facility] Nurse XR Spine Lumbar 4+ Views*on 11-12-2022 XR [...] JOSE JUAN LEWIS on 11/12/2022 1023 Normal [facility] Nurse MG MAMM SCREEN NIEVES W CADon 0 03-21-2018 MG MAMM SCREEN NIEVES W CAD [address] [place] [address] Patient: MEKA ZAVALA Exam Date: 03/21/2018DOB: 1955 Gender:F : DR RYAN SOSA Admission #: [id number] : Order #: [id number] HERE TO VIEW EXAM RADIOLOGY REPORT PROCEDURE: [...] bile duct cancer at age 60. LOCATION: [facility] BREAST COMPOSITION: Scattered fibroglandular densities (25-50% [...] Reed M.D. on 03/21/2018 at 15:25 Normal [facility] Vital Signs Date Time Vital Sign Value Performing Clinician Facility 02-05-2025 10:43-0400 Body height 165.1 cm Christi Valentine MD Work Phone: [facility] 02-05-2025 10:43-0400 Body mass index (BMI) [Ratio] 34.05 kg/m2 Christi Valentine MD Work Phone: [facility] 02-05-2025 10:43-0400 Body weight 92.81 kg Christi Valentine MD Work Phone: [facility] 02-05-2025 10:43-0400 Diastolic blood pressure 84 mm[Hg] Christi Valentine MD Work Phone: [facility] 02-05-2025 10:43-0400 Heart rate 68 /min Christi Valentine MD Work Phone: [facility] 02-05-2025 10:43-0400 Respiratory rate 18 /min Christi Valentine MD Work Phone: [facility] 02-05-2025 10:43-0400 SaO2% (BldA) [Mass fraction] 97 % Christi Valentine MD Work Phone: [facility] 02-05-2025 10:43-0400 Systolic blood pressure 132 mm[Hg] Christi Valentine MD Work Phone: [facility] 12-06-2024 14:17-0400 Body height 165.1 cm Tuan Jane MD Work Phone: [facility] 12-06-2024 14:17-0400 Body mass index (BMI) [Ratio] 34.45 kg/m2 Tuan Jane MD Work Phone: [facility] 12-06-2024 14:17-0400 Body weight 93.89 kg Tuan Jane MD Work Phone: [facility] 12-06-2024 14:17-0400 Diastolic blood pressure 68 mm[Hg] Tuan Jane MD Work Phone: [facility] 12-06-2024 14:17-0400 Heart rate 74 /min Tuan Jane MD Work Phone: [facility] 12-06-2024 14:17-0400 SaO2% (BldA) [Mass fraction] 96 % Tuan Jane MD Work Phone: [facility] 12-06-2024 14:17-0400 Systolic blood pressure 122 mm[Hg] Tuan Jane MD Work Phone: [facility] 11-16-2024 10:35-0400 Body mass index (BMI) [Ratio] 34.21 kg/m2 Adrianna Reddy NP Work Phone: [facility] 11-16-2024 10:35-0400 Body weight 93.26 kg Adrianna Reddy NP Work Phone: [facility] 11-16-2024 10:35-0400 Diastolic blood pressure 80 mm[Hg] Adrianna Reddy NP Work Phone: [facility] 11-16-2024 10:35-0400 Heart rate 72 /min Adrianna Reddy NP Work Phone: [facility] 11-16-2024 10:35-0400 Systolic blood pressure 132 mm[Hg] Adrianna Reddy [employer] Work Phone: [facility] 10-26-2024 09:47-0400 Body height 165.1 cm Erna Banegas [employer] Work Phone: [facility] 10-26-2024 09:47-0400 Body mass index (BMI) [Ratio] 34.35 kg/m2 Erna Makenzie [employer] Work Phone: [facility] 10-26-2024 09:47-0400 Body weight 93.62 kg Erna Viverosel [employer] Work Phone: [facility] 10-26-2024 09:47-0400 Diastolic blood pressure 64 mm[Hg] Erna Banegas [employer] Work Phone: [facility] 10-26-2024 09:47-0400 Heart rate 72 /min Erna Makenzie [employer] Work Phone: [facility] 10-26-2024 09:47-0400 Systolic blood pressure 126 mm[Hg] Erna Makenzie [employer] Work Phone: [facility] 09-20-2024 14:03-0400 Body height 165.1 cm Susan Gay DPM Work Phone: [facility] 09-20-2024 14:03-0400 Body mass index (BMI) [Ratio] 34.11 kg/m2 Susan Vásquez DPM Work Phone: [facility] 09-20-2024 14:03-0400 Body weight 92.99 kg Susan Vásquez DPM Work Phone: [facility] 06-15-2024 10:40-0500 Body mass index (BMI) [Ratio] 34.11 kg/m2 Erna Makenzie [employer] Work Phone: [facility] 06-15-2024 10:40-0500 Body weight 92.99 kg Ernacarmine Viverosel [employer] Work Phone: [facility] 06-15-2024 10:40-0500 Diastolic blood pressure 78 mm[Hg] Erna Makenzie [employer] Work Phone: [facility] Comment on above: Pt BP machine in office - 165/94 P 83 Lt arm 157/88 P 81 06-15-2024 10:40-0500 Heart rate 84 /min Erna Banegas [employer] Work Phone: [facility] 06-15-2024 10:40-0500 Systolic blood pressure 132 mm[Hg] Erna Banegas [employer] Work Phone: [facility] Comment on above: Pt BP machine in office - 165/94 P 83 Lt arm 157/88 P 81 02-22-2024 14:04-0400 Body height 165.1 cm Logan Hunter MD Work Phone: [facility] 02-22-2024 14:04-0400 Body mass index (BMI) [Ratio] 33.95 kg/m2 Logan Hunter MD Work Phone: [facility] 02-22-2024 14:04-0400 Body weight 92.53 kg Logan Hunter MD Work Phone: [facility] 02-22-2024 14:04-0400 Diastolic blood pressure 70 mm[Hg] Logan Hunter MD Work Phone: [facility] 02-22-2024 14:04-0400 Heart rate 86 /min Logan Hunter MD Work Phone: [facility] 02-22-2024 14:04-0400 SaO2% (BldA) [Mass fraction] 95 % Logan Hunter MD Work Phone: [facility] 02-22-2024 14:04-0400 Systolic blood pressure 114 mm[Hg] Logan Hunter MD Work Phone: [facility] 11-17-2023 14:35-0400 Diastolic blood pressure 84 mm[Hg] [facility] Nurse [facility] 11-17-2023 14:35-0400 Heart rate 84 /min [facility] Nurse [facility] 11-17-2023 14:35-0400 Systolic blood pressure 148 mm[Hg] [facility] Nurse [facility] Encounters Encounter Date Encounter Type Care Provider Facility Start: 02-13-2025 End: 02-13-2025 Telephone encounter Christi Gallegos MD Other Phone: [facility] Start: 02-05-2025 End: 02-05-2025 Bamboo flowsheet Christi Valentine MD Work Phone: [facility] Start: 02-05-2025 End: 02-05-2025 Bamboo flowsheet Christi Valentine MD Work Phone: [facility] Start: 02-05-2025 End: 02-05-2025 ambulatory CHRISTI VALENTINE Not Available Start: 02-05-2025 End: 02-05-2025 Office outpatient visit 25 minutes Christi Valentine MD Work Phone: [facility] Comment on above: Ecchymosis (Primary Dx); Edema, unspecified type; Primary osteoarthritis of both knees Start: 02-04-2025 End: 02-04-2025 Telephone encounter Christi Gallegos MD Other Phone: [facility] Start: 12-27-2024 End: 12-27-2024 ambulatory [facility] Start: 12-17-2024 End: 12-17-2024 ambulatory Javier Church MD Facility:[facility] Start: 12-06-2024 End: 12-06-2024 Office outpatient visit 25 minutes Tuan Jane MD Work Phone: [facility] Comment on above: SVT (supraventricula r tachycardia) (Primary Dx); Tachycardia; Palpitations Start: 12-06-2024 End: 12-06-[address] [facility] Start: 11-30-2024 End: 11-30-2024 Refill Christi Gallegos [...] Office outpatient visit 25 minutes Adrianna Reddy [employer] Work Phone: [facility] Comment on above: Acute non-recurrent pansinusitis (Primary Dx); Sinus pressure; Rhinorrhea; Acute cough; Sore throat Start: 11-01-2024 End: 11-09-2024 Telephone encounter Erna Banegas [employer] Work Phone: [facility] Start: 10-28-2024 End: 10-30-2024 Telephone encounter Erna Banegas [employer] Work Phone: [facility] Start: 10-26-2024 End: 10-26-2024 Bamboo flowsheet Erna Banegas [employer] Work Phone: [facility] Start: 10-26-2024 End: 10-26-2024 Bamboo flowsheet Erna Banegas [employer] Work Phone: [facility] Start: 10-26-2024 End: 10-26-2024 Patient encounter procedure Erna Banegas [employer] Work Phone: [facility] Comment on above: Encounter for Medica re annual wellness exam; SVT (supraventricular tachycardia) ([facility]/HCC); Tachycardia; Gastroesophageal reflux disease, unspecified whether esophagitis [...] 09-20-2024 Office outpatient visit 15 minutes Susan MONTEZM Work Phone: [facility] Comment on above: Dermatophytosis of n ail (Primary Dx); Dystrophic nail; Pain around toenail Start: 09-20-2024 End: 09-20-2024 ambulatory SUSAN GAY Not Available Start: 09-20-2024 End: 09-20-2024 Bamboo flowsheet Susan Gay DPM Work Phone: [facility] Start: 09-20-2024 End: 09-20-2024 Bamboo flowsheet Susan Gay DPM Work Phone: [facility] Start: 08-23-2024 End: 08-23-2024 Telephone encounter Christi Gallegos MD Work Phone: [facility] Start: 08-13-2024 End: 08-13-2024 Refill Erna Banegas [employer] Work Phone: [facility] Comment on above: Primary osteoarthrit is of both knees Start: 06-15-2024 End: 06-15-2024 Bamboo flowsheet Erna Banegas [employer] Work Phone: [facility] Start: 06-15-2024 End: 06-15-2024 Bamboo flowsheet Erna Banegas [employer] Work Phone: [facility] Start: 06-15-2024 End: 06-15-2024 Office outpatient visit 25 minutes Erna Banegas [employer] Work Phone: [facility] Comment on above: SVT (supraventricula r tachycardia) (CMS/HCC) (Primary Dx); Palpitations; Elevated blood pressure reading; Gastroesophageal reflux disease, unspecified whether esophagitis present; Spondylosis without myelopathy or radiculopathy, lumbar region; Nasal congestion Start: 06-15-2024 End: 06-15-2024 ambulatory ERNA BANEGAS Not Available Start: 05-09-2024 End: 05-10-2024 Refill Erna Banegas [employer] Work Phone: [facility] Comment on above: Acute maxillary sinu sitis, 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; Otalgia of left ear; Primary osteoarthritis of both knees Start: 05-08-2024 End: 05-09-2024 Refill Christi Gallegos MD Work Phone: [facility] Comment on above: Gastroesophageal ref lux disease, unspecified whether esophagitis present Start: 03-16-2024 End: 03-16-2024 ambulatory LOGAN HUNTER [facility] Start: 03-12-2024 End: 03-12-2024 Refill Christi Gallegos MD Work Phone: [facility] Comment on above: Primary osteoarthrit is of both knees Start: 02-22-2024 End: 02-22-2024 Office outpatient visit 15 minutes Logan Hunter MD Work Phone: [facility] Comment on above: SVT (supraventricula r tachycardia) (CMS-HCC) (Primary Dx); Tachycardia; Palpitations Start: 02-22-2024 End: 02-22-2024 ambulatory LOGAN HUNTER [facility] Start: 02-21-2024 End: 02-21-2024 Telephone encounter Laura Melton CMA [facility] Start: 01-09-2024 End: 01-09-2024 ambulatory CHRISTI Brewer [facility] Start: 11-17-2023 End: 11-17-2023 Clinical Support Pm Ppc Nurse [facility] Comment on above: SVT (supraventricula r tachycardia) (CMS-HCC) (Primary Dx) Start: 11-16-2023 End: 11-16-2023 Telephone encounter Laura Melton CMA [facility] Start: 11-10-2023 End: 11-10-2023 ambulatory FEROZ Dang [facility] Start: 11-10-2023 End: 11-10-2023 ambulatory LOGAN [facility] Start: 11-03-2023 End: 11-03-2023 Telephone encounter Norma Golden LPN [facility] Comment on above: PRE OP REMINDER CALL Start: 10-18-2023 End: 10-19-2023 Telephone encounter Elmira Luna RN [facility] Comment on above: med refill/ insuranc e question Start: 07-18-2023 Telephone encounter Neva Low MARIXA [facility] Comment on above: EP Surgery Start: 09-07-2021 Patient encounter status Neva torres MARIXA [facility] Work Phone: Start: 03-21-2018 End: 03-22-2018 Patient encounter [facility] Facility:H1 Procedures Date Procedure Procedure Detail Performing Clinician Start: 12-27-2024 Mammography Christi damico MD Other Phone: Start: 02-22-2024 Ecg routine ecg w/le ast 12 lds w/i&r Logan Hunter MD Work Phone: Start: 02-22-2024 Follow-up visit Follow-up LOGAN HUNTER Start: 11-18-2022 Mammography Christi damico MD Work Phone: Start: 06-24-2011 Colonoscopy Erna Banegas NP Work Phone: Plan of Treatment Date Care Activity Detail Author Start: 12-19-2027 Screening for malignant neoplasm of colon [facility] Start: 12-27-2025 Screening for malignant neoplasm of breast Mammogram [facility] Start: 12-06-2025 Adult BMI Screening Adult BMI Screening [facility] Start: 12-06-2025 Tobacco Screening Tobacco Screening [facility] Start: 11-16-2025 DTaP,Tdap and Td Vaccines (2 - Td or Tdap) DTaP,Tdap and Td Vaccines (2 - Td or Tdap) [facility] Start: 11-16-2025 DTaP,Tdap and Td Vaccines (3 - Td or Tdap) DTaP,Tdap and Td Vaccines (3 - Td or Tdap) [facility] Start: 10-26-2025 Medicare Annual Wellness (AWV) Medicare Annual Wellness (AWV) [facility] Start: 06-07-2025 End: 06-07-2025 Patient encounter procedure 06/07/2025 2:00 PM EST Office Visit [facility] [address] [place] [address] Tuan Jane MD [address] [place] [address] [facility] Start: 03-04-2025 Influenza vaccination [facility] Start: 02-21-2025 Adult BMI Screening Adult BMI Screening [facility] Start: 02-21-2025 Tobacco Screening Tobacco Screening [facility] Start: 02-05-2025 End: 02-05-2026 CBC W Auto Differential panel - Blood CBC and differential Lab Routine Ecchymosis Expected: 02/05/2025 (Approximate), Expires: 02/05/2026 [facility] Work Phone: Comment on above: Expected: 02/05/2025 (Approximate), Expi res: 02/05/2026 Start: 12-27-2024 End: 12-27-2024 Patient encounter procedure 12/27/2024 1:45 PM EDT Appointment [facility] - Mammography/DEXA Imaging [address] [place] [address] [facility] - [facility]amm[facility]A [facility] Start: 12-06-2024 End: 12-06-2025 Event Monitor (In Office) Event Monitor (In Office) Cardiac Services Routine SVT (supraventricular tachycardia) ([facility]-HCC) Expected: 12/06/2024, Expires: 12/06/2025 [facility] Work Phone: Comment on above: Expected: 12/06/2024, Expires: Start: 11-09-2024 Adult BMI Screening Adult BMI Screening [facility] Start: 11-09-2024 Tobacco Screening Tobacco Screening [facility] Start: 10-28-2024 End: 12-28-2025 DBT Breast - bilateral screening Bilateral screening mammogram with tomosynthesis Imaging Routine Encounter for screening mammogram for breast cancer Expected: 10/28/2024, Expires: 12/28/2025 [facility] Work Phone: Comment on above: Expected: 10/28/2024, Expires: Start: 10-26-2024 End: 10-26-2024 [facility] Comment on above: Encounter for Medicare annual wellness e xam (Primary Dx); SVT (supraventricular tachycardia) ([facility]); Tachycardia; Gastroesophageal reflux disease, unspecified whether esophagitis present; Left upper arm pain; Presence of right artificial knee joint; Primary osteoarthritis of both knees; Spondylosis without myelopathy or radiculopathy, lumbar region; S/P total knee replacement, left; Vasovagal syncope; Post-menopausal; Decreased hearing, unspecified laterality Start: 10-22-2024 End: 10-22-2024 Patient encounter procedure 10/22/2024 2:30 PM EDT Office Visit [facility] [address] [place] [phone] Erna Banegas NP [address] [place] [address] [facility] Start: 09-20-2024 End: 09-20-2024 Patient encounter procedure 09/20/2024 2:15 PM EDT Office Visit [facility] [address] [place] [place] [id number] Susan Gay, DP [address] [place] [address] Arrived [facility] Comment on above: Arrived Start: 08-10-2024 Influenza vaccination Influenza Vaccine (#1) [facility] Comment on above: Postponed from 03/04/2024 (Patient Refus ed) Start: 08-02-2024 Medicare Annual Wellness (AWV) Medicare Annual Wellness (AWV) [facility] Start: 06-15-2024 End: 06-15-2024 Patient encounter procedure 06/15/2024 10:30 AM EST Office Visit [facility] [address] [place] [phone] Erna Banegas NP [address] [place] [address] SVT (supraventricular tachycardia) (CMS/HCC) (Primary Dx); Palpitations [facility] Comment on above: SVT (supraventricular tachycardia) (CMS/ HCC) (Primary Dx); Palpitations Start: 03-16-2024 End: 03-16-2024 Patient encounter procedure 03/16/2024 2:00 PM EDT Appointment [facility] [address] [place] [address] Logan Hunter MD [address] [place] [address] [facility] Start: 03-04-2024 COVID-19 Vaccine ( season) COVID-19 Vaccine ( season) [facility] Start: 03-04-2024 Influenza vaccination [facility] Start: 02-22-2024 End: 02-22-2024 Patient encounter procedure 02/22/2024 2:15 PM EDT Office Visit [facility] [address] [place] [address] Logan Hunter MD [address] [place] [address] [facility] Start: 02-22-2024 End: 02-21-2025 Echo complete W/ contrast Echo complete W/ contrast Echocardiography Routine Tachycardia Palpitations Expected: 02/22/2024, Expires: [facility] Comment on above: Expected: 02/22/2024, Expires: Start: 02-05-2024 Adult BMI Screening Adult BMI Screening [facility] Start: 11-19-2023 Screening for malignant neoplasm of breast Mammogram [facility] Start: 11-17-2023 End: 11-17-2023 Clinical Support 11/17/2023 2:30 PM EDT Clinical Support [facility] [address] [place] [address] [facility] Start: 11-10-2023 End: 11-10-2023 Admission to same day surgery center 11/10/2023 11:30 AM EDT - 11/10/2023 3:30 PM EDT Surgery [facility] [address] [place] [phone] Logan Hunter MD [address] [place] [phone] SVT Ablation, CARTO EAM [facility] Comment on above: SVT Ablation, CARTO EAM Start: 11-10-2023 Subsequent hospital visit by physician 11/10/2023 11:30 AM EDT Hospital Encounter [facility] [address] [place] [phone] Logan Hunter MD [address] [place] [phone] SVT (supraventricular tachycardia) [facility] Comment on above: SVT (supraventricular tachycardia) Start: 10-26-2023 Tobacco Screening Tobacco Screening [facility] Start: 03-04-2023 COVID-19 Vaccine ( season) COVID-19 Vaccine () [facility] Start: 03-04-2023 Influenza vaccination Influenza Vaccine [facility] Start: 12-03-2022 Administration of varicella zoster vaccine Zoster (Shingles) Vaccine (2 of 2) [facility] Start: 2021 Fall Risk Screening Fall Risk Screening [facility] Start: 06-24-2021 Screening for malignant neoplasm of colon [facility] Start: 1974 Adult BMI Follow Up Plan Adult BMI Follow Up Plan [facility] Start: 1968 Depression Screening Depression Screening [facility] Start: 1955 Medicare Annual Wellness Visit Medicare Annual Wellness Visit [facility] Start: 1955 Screening for malignant neoplasm of colon [facility] Immunizations Immunization Date Immunization Notes Care Provider Fa cility 08-02-2023 Influenza, High-dose Seasonal, Quadrivalent, Preservative Free Christi Gallegos MD Work Phone: [facility] 08-02-2023 influenza virus vaccine, unspecified formulation Elmira Luna RN [facility] 06-10-2023 RSV, recombinant, protein subunit RSVpreF, adjuvant reconstitu, 120mcg/0.5mL, PF (Arexvy) Christi Gallegos MD Work Phone: [facility] 03-12-2023 zoster vaccine recombinant Christi Gallegos MD Work Phone: [facility] 10-08-2022 Influenza, High-dose Seasonal, Quadrivalent, Preservative Free Christi Gallegos MD Work Phone: [facility] 10-08-2022 Pneumococcal Conjuga te PCV 20 Christi Gallegos MD Work Phone: [facility] 10-08-2022 zoster vaccine recombinant Christi Gallegos MD Work Phone: [facility] 10-08-2022 influenza virus vaccine, unspecified formulation Neva Low [facility] 10-08-2022 zoster vaccine, unspecified formulation Neva Low [facility] 11-17-2015 tetanus toxoid, redu rosana diphtheria toxoid, and acellular pertussis vaccine, adsorbed Christi Gallegos MD Work Phone: [facility] 07-04-2004 tetanus and diphther ia toxoids, adsorbed, preservative free, for adult use (2 Lf of tetanus toxoid and 2 Lf of diphtheria toxoid) Christi Gallegos MD Work Phone: [facility] Payers Date Payer Category Payer Medicare HMO [employer] [id number] 2024 Medicare [id number] 2023 Medicare (Managed Care) 1.2. [id number] 2023 Unknown [id number]. [id number] 2023 Medicare [id number] 2021 Medicare [id number]. [id number] 1955 Unknown [id number] 2.16.840.1.527063.3.579.2. 1286 1956 Unknown [id number] 2.16.840.1.072007.3.579.2. 1286 1956 Unknown [id number] 2.16.840.1.337949.3.579.2. 1286 1956 Unknown [id number] 2.16.840.1.491717.3.579.2. 196 1956 Unknown [id number] 2.16.840.1.740390.3.579.2. 1286 1956 Unknown [id number] 2.16.840.1.978155.3.579.2. 1286 1956 Unknown [id number] 2.16.840.1.172642.3.579.2. 1286 1956 Unknown [id number] 2.16.840.1.585523.3.579.2. 1286 1956 Unknown [id number] 2.16.840.1.601086.3.579.2. 128 1956 Unknown [id number] 2.16.840.1.529527.3.579.2. 1259 1956 Unknown [id number] 2.16.840.1.522169.3.579.2. 9 1956 Unknown [id number] 2.16.840.1.965780.3.579.2. 9 1956 Unknown [id number] 2.16.840.1.907366.3.579.2. 9 1956 Unknown [id number] 2.16.840.1.016096.3.579.2. 1258 Unknown [id number] Social History Date Type Detail Facility Start: 08-12-2022 End: 03-09-2023 Tobacco smoking status RIIS Never smoked tobacco [facility] Start: 08-12-2022 End: 03-09-2023 Tobacco use and exposure Smokeless tobacco non-user [facility] Start: 11-11-2023 End: 02-05-2025 Alcoholic beverage intake Lifetime non-drinker (finding) [facility] Start: 03-08-2023 End: 06-12-2024 History of Social function [facility] Start: 03-08-2023 End: 06-12-2024 Humiliation, Afraid, Rape, and Kick questionnaire [HARK] [facility] Within the last year , have you been afraid of your partner or ex-partner? No [facility] Do you belong to any clubs or organizations such as methodist groups, unions, fraternal or athletic groups, or [...] got money to buy more. Never true [facility] Start: 05-17-2023 Alcohol Comment Caffeine intak e: 3-4 cups per day [facility] Start: 1955 Sex assigned at Not on file [facility] Do you feel stress - tense, restless, nervous, or anxious, or unable to sleep at night because your mind is troubled all the time - these days [OSQ] Not at all [facility] Start: 1955 Sex assigned at Female P [facility] Start: 08-26-2022 Gender identity Identifies as female gender (finding) [facility] Start: 08-26-2022 Sexual orientation Heterosexual (fin ding) [facility] Start: 02-06-2015 Sex Female (finding) [facility] NEGATED: Highlighted rowStart: NINF History of tobacco use Passive smoker [facility] Medical Equipment Procedure Code Equipment Code Equipment Origin al Text Equipment Identifier Dates Cement Bn Bio 40 gm Rpl [id number] - [id number] - [id number] Start: 09-15-2021 Cement Bn Bio 40 gm Rpl [id number] - [id number] Start: 08-26-2022 Cement Bn Bio 40 gm Rpl [id number] - [id number] Start: 08-26-2022 Component Ptlr 3 5mm Persona Alply Kn Strl Lf - [id number] - [id number] Start: 09-15-2021 Component Fem 6 Std Kn Lt Post Stab Cmnt Persona Cocr Strl - [id number] - [id number] Start: 09-15-2021 Surface Artc 11m m Persona 6-9 Cd Kn Lt Pe Post Stab - [id number] - [id number] Start: 09-15-2021 Surface Artc 11m m Persona 6-9 Cd Kn Rt Vivacit-E Post Stab - [id number] Start: 08-26-2022 Component Fem 6 Std Kn Rt Post Stab Cmnt Persona Cocr Strl - [id number] Start: 08-26-2022 Component Ptlr 3 5mm Persona Alply Kn Strl Lf - [id number] Start: 08-26-2022 Stem Xtn 30+ Mm 14mm Persona Tpr Kn Tib - [id number] Start: 08-26-2022 Baseplate Tib 5d D Kn Lt Cmnt Stm Persona Tiv Strl - [id number] - [id number] Start: 09-15-2021 Baseplate Tib 5d D Kn Rt Cmnt Stm Persona Tiv Strl - [id number] Start: 08-26-2022 Goals Date Patient Goal Desired Activity /State Personal health goal Comment on above: Formatting of this n ote might be different from the original. Evaluation of progress towards goal: Current discharge plan is home with [facility] and support of spouse. - Mckenna Najera RN 09/15/21 12:29 PM Clinical Notes 07-18-2023 to 02-13-2025 Telephone Encounter - Doroteo Weston - 02/13/2025 2:48 PM EDTTelephone Encounter - Doroteo Weston - 02/13/2025 2:48 PM Payton Valentine MD - 02/05/2025 10:40 AM EDToby Valentine MD - 02/05/2025 10:40 AM EDT Note Date & Type Note Facility 02-13-2025 Telephone encounter Note Lab results were given ty [facility] 02-13-2025 Miscellaneous Notes Lab results were given ty documented in this encounter [facility] 02-05-2025 History of Present illness Narrative Associated Problem(s): Primary osteoarthritis of both knees Orders: meloxicam (Mobic) 15 MG tablet; Take 1 tablet (15 mg) by mouth Daily Images from the original note were not included. Subjective Patient ID: Meka Zavala is a 69 y.o. female who presents for Edema. HPI History of Present Illness The patient presents for evaluation of bruising, swelling, and weight management. She reports frequent bruising, with one bruise starting to bleed yesterday, prompting this visit. She attributes the bruising to her age and notes that her arms appear thinner than usual. She has been taking nabumetone daily, which she finds effective, but recalls being prescribed meloxicam after her knee replacement surgery and is considering switching back to it. She is currently taking muscle relaxers and gabapentin and is curious if these could help with her arthritis. She has a history of back issues and underwent nerve ablation last year. She has noticed swelling in her feet, which she initially dismissed as a normal part of aging. However, her son pointed out the swelling during a recent visit, leading to her concern. She reports no significant pain associated with the swelling. She has been spending more time sitting than usual and has not been diagnosed with sleep apnea, although she suspects she may have it due to severe snoring. She reports no shortness of breath or chest pain. She maintains an active lifestyle, exercising daily, and walking regularly. She has previously used support stockings and found them beneficial. She has experienced weight fluctuations, with a significant loss followed by a regain of approximately 20 pounds over the past decade. She is interested in exploring new injectable medications for weight loss but is concerned about potential insurance coverage issues. She experiences leg cramps and is on a potassium supplement. She has to be cautious even while stretching in the morning to avoid cramps. She maintains good hydration, primarily drinking water, and has reduced her coffee intake. She occasionally drinks tea but avoids soda. She also takes ldia-cos-wpvlzsm magnesium supplements. Coffee/Tea/Caffeine-containing Drinks: She has reduced her coffee intake and occasionally drinks tea. Sleep: Suspects sleep apnea due to severe snoring. PAST SURGICAL HISTORY: - Knee replacement surgery - Nerve ablation procedure Objective BP 132/84 (BP Location: Left arm, Patient Position: Sitting, BP Cuff Size: Large adult) Pulse 68 Resp 18 Ht 5' 5 Wt 204 lb 9.6 oz SpO2 97% BMI 34.05 kg/m Physical Exam Constitutional: Appearance: Normal appearance. She is normal weight. HENT: Head: Normocephalic and atraumatic. Nose: Nose normal. Mouth/Throat: Mouth: Mucous membranes are moist. Eyes: Pupils: Pupils are equal, round, and reactive to light. Cardiovascular: Rate and Rhythm: Normal rate and regular rhythm. Heart sounds: Murmur heard. Pulmonary: Effort: Pulmonary effort is normal. Breath sounds: Normal breath sounds. No wheezing or rhonchi. Musculoskeletal: General: No swelling. Cervical back: Normal range of motion and neck supple. Right lower leg: Edema present. Left lower leg: Edema present. Skin: General: Skin is warm and dry. Findings: Bruising present. No rash. Neurological: Mental Status: She is alert and oriented to person, place, and time. Sensory: No sensory deficit. Gait: Gait normal. Psychiatric: Mood and Affect: Mood normal. Thought Content: Thought content normal. Judgment: Judgment normal. Physical Exam Cardiovascular: Heart exhibits a slight murmur. Extremities: Mild swelling noted in the feet. Assessment & Plan Ecchymosis Orders: CBC and differential; Future Edema, unspecified type Orders: furosemide (Lasix) 20 MG tablet; Take 1 tablet (20 mg) by mouth Daily as needed (swelling) Primary osteoarthritis of both knees Orders: meloxicam (Mobic) 15 MG tablet; Take 1 tablet (15 mg) by mouth Daily Assessment & Plan 1. Bruising. - Bruising is likely due to age-related skin thinning and the use of nabumetone, which increases susceptibility to bruising and broken blood vessels. - Swelling may contribute to bruising by exerting additional pressure on blood vessels. - A complete blood count (CBC) will be ordered to assess platelet levels. - Advised to discontinue nabumetone and take Tylenol 500 mg up to four times daily as needed; prescription for meloxicam provided, to be taken only when necessary. 2. Swelling. - Swelling could be exacerbated by sedentary lifestyle and potential sleep apnea. - Advised to elevate feet while sitting and monitor salt intake. - Diuretic prescribed for use on days with severe swelling. - Advised to wear support stockings and incorporate foods high in potassium into diet. 3. Sleep Apnea. - Reported snoring and previous recommendation for sleep study, which was not followed up. - Clinic will contact sleep study provider to arrange an appointment. - If diagnosed with sleep apnea, prescription for Zepbound may be considered. 4. Weight Management. - Counseled on importance of maintaining healthy diet and regular exercise regimen. - Potential use of Ozempic or Zepbound discussed, contingent on insurance approval and sleep apnea diagnosis outcome. 5. Acid Reflux. - Anti-inflammatory medications likely contributing to reflux symptoms. - Advised that discontinuing these medications may alleviate symptoms. - Use of meloxicam discussed as potentially safer alternative, although it may still cause some reflux. 6. Leg Cramps. - Advised to continue potassium supplement and take an additional dose on days when using diuretic. - Emphasized importance of adequate hydration. Follow-up: Next scheduled visit in 6 months for Medicare wellness. documented in this encounter [facility] 02-04-2025 Telephone encounter Note Pt feels like she's holding water And her leg is bleeding due to her thin skin, just touching something is really bad, started this am. Pt is off work this week and last saw [facility] one time. [facility] 02-04-2025 Miscellaneous Notes Pt feels like she's holding water And her leg is bleeding due to her thin skin, just touching something is really bad, started this am. Pt is off work this week and last saw [facility] one time. documented in this encounter [facility] 12-06-2024 History of Present illness Narrative Meka [...] 1 tablet (500 mg total) before bedtime. [id number] OIL-L.CASEI ORAL Take 1 capsule by mouth [...] 08/26/2022 Performed by Sonido Prince MD at [facility] SURGERY REPLACEMENT TOTAL JOINT KNEE Left 09/15/2021 Performed by Sonido Prince MD at [facility] SURGERY ROTATOR CUFF REPAIR Left 2011 SVT Ablation, CARTO EAM N/A 11/10/2023 Performed by Logan Hunter MD at [facility] () TUBAL LIGATION 1990 Family [...] Resource Strain: Low Risk (06/12/2024) Received from [facility] Overall Financial Resource Strain (CARDIA) Difficulty of Paying Living Expenses: Not hard at all Food Insecurity: No Food Insecurity (12/06/2024) Hunger Screening Food Insecurity - Worry: Never True Food Insecurity - Inability: Never True Transportation Needs: No Transportation Needs (06/12/2024) Received from [facility] PRAPARE - Transportation Lack of Transportation (Medical): No Lack of Transportation (Non-Medical): No Physical Activity: Sufficiently Active (06/12/2024) Received from [facility] Exercise Vital Sign Days of Exercise per Week: 7 days Minutes of Exercise per Session: 60 min Stress: No Stress Concern Present (06/12/2024) Received from [facility] [employer] - Occupational Stress Questionnaire Feeling of Stress : Not at all Social Connections: Socially Integrated (06/12/2024) Received from [facility] Social Connection and Isolation Panel [NHANES] Frequency of Communication with Friends and Family: More than three times a week Frequency of Social Gatherings with Friends and Family: Three times a week Attends [employer] Services: More than 4 times per year Active Member of Clubs or Organizations: Yes Attends Club or Organization Meetings: More than 4 times per year Marital Status: Interpersonal Safety: Not At Risk (03/08/2023) Received from [facility] Humiliation, Afraid, Rape, and Kick questionnaire Fear of Current or Ex-Partner: No Emotionally Abused: No Physically Abused: No Sexually Abused: No Housing Instability: Unknown (06/12/2024) Received from [facility] Housing Stability Vital Sign Unable [...] Gallegos MD Referring Physician: Christi Gallegos MD [address] [place] [address] documented in this encounter [facility] 11-30-2024 Telephone encounter Note Rx sent [facility] 11-30-2024 Miscellaneous Notes Rx sent 90 day supply documented in this encounter [facility] 11-30-2024 Telephone encounter Note 90 day supply [facility] 11-16-2024 History of Present illness [...] min Stress: No Stress Concern Present (06/12/2024) [employer] - Occupational Stress Questionnaire Feeling of Stress : Not at all Social Connections: Socially Integrated (06/12/2024) Social Connection and Isolation Panel [NHANES] Frequency of Communication with Friends and Family: More than three times a week Frequency of Social Gatherings with Friends and Family: Three times a week Attends [employer] Services: More than 4 times per year [...] fail to improve. documented in this encounter [facility] 11-01-2024 Telephone encounter Note Pt did call back, she will try to contact [facility] about it. [facility] 11-01-2024 Miscellaneous Notes Pt did call back, she will try to contact imani about it. Placed call to patient, l/m asking she call the office back. Colorectal screening documented in this encounter [facility] 11-01-2024 Telephone encounter Note Placed call to patient, l/m asking she call the office back. [facility] 11-01-2024 Telephone encounter Note Colorectal screening [facility] 10-30-2024 Telephone encounter Note Patient called back and confirmed her referrals. [facility] 10-30-2024 Miscellaneous Notes Patient called back and confirmed her referrals. Referral placed to pulmonology. Mammogram order faxed to [facility] [employer] Colonoscopy from 2010 found in [facility], scanned into [employer] and sent to [facility]. Referral, fax mammogram documented in this encounter [facility] 10-29-2024 Telephone encounter Note Referral placed to pulmonology. Mammogram order faxed to [facility]. Colonoscopy from 2010 found in [facility], scanned into [employer] and sent to [facility]. T [facility] 10-28-2024 Telephone encounter Note Referral, fax mammogram [facility] 10-26-2024 History of Present illness [...] last time she checked it Going to [place] pain management for injections-they did help. Last eye exam this week on Tuesday at [facility], Has cataracts, vision is blurrey, mainly right eye at times. Could be r/t dry eye also. They plan to send her to [place]. Sees Dentist every 6 months just went at [facility] in [place].Wears a guard immigration. Mom wants her to have a sleep [...] (P) Yes Cognitive Screening Three Word Registration: DaughterSarah Mountain Clock Drawing: Normal Clock - 2 [...] taking Gapabentin BID per pain magagement in [place]. Taking 1 Tylenol TID PRN, and 1 [...] and it was normal SVT (supraventricular tachycardia) ([facility]) Comments: Sees Cardiology. Had echo 03/27-EF 60-65% [...] if concerns. PVU documented in this encounter [facility] 09-20-2024 History of Present illness [...] Susan Gay DPM documented in this encounter [facility] 09-20-2024 Instructions Susan Gay DPM - 09/20/2024 2:15 PM EDT Topical care measures as noted documented in this encounter [facility] 08-23-2024 Telephone encounter Note Patient scheduled her MAWV on October 22. Is she due for labwork? If so, she would like to do prior to this appt. Please advise pt. Thank you. [facility] 08-23-2024 Miscellaneous Notes Patient scheduled her MAWV on October 22. Is she due for labwork? If so, she would like to do prior to this appt. Please advise pt. Thank you. documented in this encounter [facility] 08-13-2024 Telephone encounter Note Rx sent [facility] 08-13-2024 Miscellaneous Notes Rx sent documented in this encounter [facility] 06-15-2024 History of Present illness [...] 135/85 P 81, and 151/92, P 70. 126/81, P 74, 152/90, P 76, 137/80, P 76, 141/74 [...] at 8-8:30. Takes OTC sleep aide from [employer] /2 tab. Snores per . Pt does not [...] couple of months per pain magagement in [place]. Has F/U appt in Jul. Taking 1 [...] Breath sounds: Normal breath sounds. 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 [...] if concerns. PVU documented in this encounter [facility] 05-10-2024 Telephone encounter Note I cancelled Amoxicillin Rx and sent Nabumetone Rx [facility] 05-10-2024 Miscellaneous Notes I cancelled Amoxicillin Rx and sent Nabumetone Rx I called pt. She states she did not request this refill for an antibiotic and didn't need it. Pt then said that she did need a refill on her nabumetone to be sent in. I told pt I would send the request. documented in this encounter [facility] 05-09-2024 Telephone encounter Note I called pt. She states she did not request this refill for an antibiotic and didn't need it. Pt then said that she did need a refill on her nabumetone to be sent in. I told pt I would send the request. [facility] 03-12-2024 Telephone encounter Note Rx sent [facility] 03-12-2024 Miscellaneous Notes Rx sent documented in this encounter [facility] 02-22-2024 History of Present illness Narrative Meka Lori Zavala Date of visit: 02/22/2024 Date of : 1955 Age: 68 y.o. Patient Active Problem List Diagnosis Neurocardiogenic syncope Palpitations Tachycardia Shortness of breath Primary osteoarthritis of both knees Obesity (BMI 30-39.9) Preop testing SVT (supraventricular tachycardia) ([facility]) S/P total knee replacement, left Class 1 [...] 1 tablet (500 mg total) before bedtime. [id number] OIL-L.CASEI ORAL Take 1 capsule by mouth [...] SVT who presents to EP clinic at [place] for follow-up. 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 Her prior flecainide 50 mg BID was discontinued after ablation. Shortly after ablation, she called our office to let us know that her brother had been diagnosed with HCM. Patient presented the appointment by herself today. EKG in clinic shows sinus rhythm, heart rate 86 beats per minute, PA interval 170 milliseconds QRS 96 milliseconds QTC [...] brother is currently undergoing VT ablation at [facility]. He did undergo genetic testing, but they [...] 08/26/2022 Performed by Sonido Prince MD at [facility] JOINT KNEE Left 09/15/2021 Performed by Sonido Prince MD at [facility] CUFF REPAIR Left 2012 SVT Ablation, CARTO EAM N/A 11/10/2023 Performed by Logan Hunter MD at [facility] () TUBAL LIGATION 1990 Family [...] Resource Strain: Low Risk (03/08/2023) Received from [facility] Overall Financial Resource Strain (CARDIA) Difficulty of Paying Living Expenses: Not hard at all Food Insecurity: No Food Insecurity (02/22/2024) Hunger Screening Food Insecurity - Worry: Never True Food Insecurity - Inability: Never True Transportation Needs: No Transportation Needs (03/08/2023) Received from [facility] PRAPARE - Transportation Lack of Transportation (Medical): No Lack of Transportation (Non-Medical): No Physical Activity: Sufficiently Active (03/08/2023) Received from [facility] Exercise Vital Sign Days of Exercise per Week: 6 days Minutes of Exercise per Session: 60 min Stress: No Stress Concern Present (03/08/2023) Received from [facility] [employer] - Occupational Stress Questionnaire Feeling of Stress : Only a little Social Connections: Socially Integrated (03/08/2023) Received from [facility] Social Connection and Isolation Panel [NHANES] Frequency of Communication with Friends and Family: More than three times a week Frequency of Social Gatherings with Friends and Family: More than three times a week Attends [employer] Services: More than 4 times per year Active Member of Clubs or Organizations: Yes Attends Club or Organization Meetings: More than 4 times per year Marital Status: Interpersonal Safety: Not At Risk (03/08/2023) [facility] Humiliation, Afraid, Rape, and Kick questionnaire Fear of Current or Ex-Partner: No Emotionally Abused: No Physically Abused: No Sexually Abused: No Housing Instability: Unknown (03/08/2023) [facility] Housing Stability Vital Sign Unable [...] Christi Gallegos MD Referring Physician: Ryan Sosa, DO [address] [place] [address] documented in this encounter [facility] 02-21-2024 Miscellaneous Notes Left message for patient to remind them to bring their most current medication list with them to their appointment. documented in this encounter [facility] 02-21-2024 Telephone encounter Note Left message for patient to remind them to bring their most current medication list with them to their appointment. [facility] 11-17-2023 History of Present illness Narrative Patient presents to [place] office for post SVT ablation 11/10/23. Patient [...] to that appointment. documented in this encounter [facility] 11-16-2023 Miscellaneous Notes Called patient to remind them to bring their most current copy of their medication list with them to their appt. Patient verbalizes understanding. documented in this encounter [facility] 11-16-2023 Miscellaneous Notes Left message for patient to remind them to bring their most current medication list with them to their appointment. documented in this encounter [facility] 11-16-2023 Telephone encounter Note Called patient to remind them to bring their most current copy of their medication list with them to their appt. Patient verbalizes understanding. [facility] 11-16-2023 Telephone encounter Note Left message for patient to remind them to bring their most current medication list with them to their appointment. [facility] 11-03-2023 Miscellaneous Notes Called and LM to pt providing pre op reminder call TTH Entrance C Arrive @ 1000 Fasting - NPo after mn Medications - holding flec x 3 days on 11/06, no SGLT LABS - adivsed pt to obtain Advised pt to call with any questions documented in this encounter [facility] 11-03-2023 Telephone encounter Note Called and LM to pt providing pre op reminder call TTH Entrance C Arrive @ 1000 Fasting - NPo after mn Medications - holding flec x 3 days on 11/06, no SGLT LABS - adivsed pt to obtain Advised pt to call with any questions [facility] 10-18-2023 Miscellaneous Notes Pt calls for flec refill. She says she has 1 week left. Ablation 11/10/23 she requests 1 month supply. Reminded to complete preop labs between 11/02-11/04. She also wanted to inquire if procedures schedulers have heard if Dr Hunter doesn't take her insurance. [employer] insurance that is in [place]. She said she looked through the insurance book and he was covered but wanted to check with ep schedulers. Rx pended to mey luverne to sign. And message to ep surgery nurses to address. documented in this encounter [facility] 10-18-2023 Telephone encounter Note Pt calls for flec refill. She says she has 1 week left. Ablation 11/10/23 she requests 1 month supply. Reminded to complete preop labs between 11/02-11/04. She also wanted to inquire if procedures schedulers have heard if Dr Hunter doesn't take her insurance. [employer] insurance that is in [place]. She said she looked through the insurance book and he was covered but wanted to check with ep schedulers. Rx pended to mey pool to sign. And message to ep surgery nurses [facility] address[facility] Miscellaneous Notes RO Received a call [...] other meds held. [facility] RO Received a call from pt and she would like to proceed with ablation you discussed. Please review and advise thank you [facility] 07-18-2023 Telephone encounter Note Okay to schedule SVT ablation with me, next available. NPO after midnight, okay for clear 6 hours prior, MAC sedation, routine preoperative labs, CARTO EAM. Hold flecainide for 3 days prior to procedure. No other meds held. [facility] Work Phone: Evaluation note Diagnosis Gastroesophageal reflux disease, unspecified whether esophagitis present [facility] Diagnosis Acute maxillary sinusitis, 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 Otalgia of left ear Primary osteoarthritis of both knees [facility] Diagnosis SVT (supraventricular tachycardia) ([facility])- Primary Other specified cardiac dysrhythmias Palpitations Elevated blood pressure reading Elevated blood pressure reading without diagnosis of hypertension Gastroesophageal reflux disease, unspecified whether esophagitis present Spondylosis without myelopathy or radiculopathy, lumbar region Nasal congestion Other diseases of nasal cavity and sinuses [facility]* Diagnosis Primary osteoarthritis of both knees documented [facility]* Diagnosis Primary osteoarthritis of both knees documented [facility]* Diagnosis SVT (supraventricular tachycardia) ([facility])- Primary Other specified cardiac dysrhythmias [facility]supraventricular tachycardia) ([facility])- Primary Other specified cardiac dysrhythmias Tachycardia Unspecified tachycardia Palpitations [facility]T (supraventricular tachycardia) ([facility])- Primary Other specified cardiac dysrhythmias SVT (supraventricular tachycardia) ([facility]) Other specified cardiac dysrhythmias SVT (supraventricular tachycardia) ([facility]) Other specified cardiac dysrhythmias [facility] Diagnosis Dermatophytosis of nail- Primary Dystrophic nail Other specified disease of nail Pain around toenail documented [facility]* Diagnosis Encounter for Medicare annual wellness exam SVT (supraventricular tachycardia) ([facility]) Other specified cardiac dysrhythmias Tachycardia Unspecified tachycardia [...] for breast cancer documented in this encounter [facility]* Diagnosis Snoring Other dyspnea and respiratory abnormality Daytime sleepiness documented in this encounter [facility]* Diagnosis Acute non-recurrent pansinusitis- Primary Sinus pressure Other diseases of nasal cavity and sinuses Rhinorrhea Other diseases of nasal cavity and sinuses Acute cough Sore throat Acute pharyngitis documented in this encounter [facility]* Diagnosis Gastroesophageal reflux disease, unspecified whether esophagitis present documented in this encounter [facility]* Diagnosis Primary osteoarthritis of both knees Spondylosis without myelopathy or radiculopathy, lumbar region Gastroesophageal reflux disease, unspecified whether esophagitis present documented in this encounter [facility]* Diagnosis SVT (supraventricular tachycardia)- Primary Other specified cardiac dysrhythmias Tachycardia Unspecified tachycardia Palpitations [facility] Diagnosis Ecchymosis- Primary Other specified circulatory system disorders Edema, unspecified type Primary osteoarthritis of both knees documented in this encounter [facility] HealthcareInstructionsNot on filedocumented in this encounterProN[facility] SystemInstructionsNot on filedocumented in this encounterWilson Health SystemInstructionsNot on filedocumented in this encounterProNoland Hospital [facility] SystemInstructionsNot on filedocumented in this encounterWilson Health System InstructionsNot on filedocumented in this encounterMer[facility] InstructionsNot on filedocumented in this encounterWilson Health System InstructionsNot on filedocumented in this encounterWilson Health System Summary Purpose Family History No [...] Referral Specialty Diagnoses / Procedures Referred By Mee t Referred To Contact Diagnoses Tachycardia Palpitations Procedures Echo complete W/ contrast Logan Hutner MD [address] [place] [address] [facility] [address] [place] [address] Phone: [phone] Referral ID Status Reason Start Date Expiration Date V isits Requested Visits Authorized [id number] Authorized 02/22/2024 02/21/2025 1 1 Additional Source Comments INFORMATION SOURCE (unrecogn ized section and content) DATE CREATED AUTHOR 04/17/2018 [facility] DATE CREATED AUTHOR AUTHOR'S ORGANIZ ATION 11/13/2022 [facility] DATE CREATED AUTHOR AUTHOR'S ORGANIZ ATION 11/12/2023 [facility] DATE CREATED AUTHOR AUTHOR'S ORGANIZ ATION 12/26/2024 [facility] DATE CREATED AUTHOR AUTHOR'S ORGANIZ ATION 12/28/2024 [facility] DATE CREATED AUTHOR AUTHOR'S ORGANIZ ATION 02/08/2025 [facility]ists EPIC Care Teams (unrecognized sec tion and content) Coal Cager Relationship Specialty Start Date End Date Christi Gallegos MD [address] [place] [address] PCP - General Family Medicine 04/27/23 Christi Gallegos MD [address] [place] [address] PCP - Devoted 07/04/23 Coal Cager Relationship Specialty Start Date End Date Christi Gallegos MD [address] [place] [address] PCP - General Family Medicine 04/27/23 Christi Gallegos MD [address] [place] [address] PCP - Devoted 07/04/23 Coal Cager Relationship Specialty Start Date End Date Christi Gallegos MD [address] [place] [address] PCP - General Family Medicine 04/27/23 Christi Gallegos MD [address] [place] [address] PCP - Devoted 07/04/23 07/03/24 Coal Cager Relationship Specialty Start Date End Date Christi Gallegos MD [address] [place] [address] PCP - General Family Medicine 04/27/23 Christi Gallegos MD [address] [place] [address] PCP - Devoted 07/04/23 07/03/24 Coal Cager Relationship Specialty Start Date End Date Christi Gallegos MD [address] [facility] [place] [address] PCP - General Family Medicine 04/27/23 Christi Gallegos MD [address] [place] [address] PCP - Devoted 07/04/23 Coal Cager Relationship Specialty Start Date End Date Christi Gallegos MD [address] [facility] [place] [address] PCP - General Family Medicine 10/07/23 Coal Cager Relationship Specialty Start Date End Date Ryan Sosa DO [address] [place] [id number] PCP - General 05/02/18 Coal Cager Relationship Specialty Start Date End Date Christi Gallegos MD [address] [facility] [place] [address] PCP - General Family Medicine 04/27/23 Coal Cager Relationship Specialty Start Date End Date Christi Gallegos MD [address] [place] [address] PCP - General Family Medicine 10/07/23 Coal Cager Relationship Specialty Start Date End Date Christi Gallegos MD [address] [place] [address] PCP - General Family Medicine 10/07/23 Coal Cager Relationship Specialty Start Date End Date Christi Gallegos MD [address] [place] [address] PCP - General Family Medicine 10/07/23 Coal Cager Relationship Specialty Start Date End Date Christi Gallegos MD [address] [place] [address] PCP - General Family Medicine 10/07/23 Coal Cager Relationship Specialty Start Date End Date Christi Gallegos MD [address] [place] [address] PCP - General Family Medicine 10/07/23 Coal Cager Relationship Specialty Start Date End Date Christi Gallegos MD [address] [place] [address] PCP - General Family Medicine 04/27/23 Christi Gallegos MD [address] [place] [address] PCP - Medical [place] 07/04/2407/03 Coal Cager Relationship Specialty Start Date End Date Christi Gallegos MD [address] [place] [address] PCP - General Family Medicine 04/27/23 Christi Gallegos MD [address] [place] [address] PCP - Medical [place] 07/04/2407/03 Coal Cager Relationship Specialty Start Date End Date Christi Gallegos MD [address] [place] [address] PCP - General Family Medicine 04/27/23 Christi Gallegos MD [address] [place] [address] PCP - Medical [place] 07/04/2407/03 Coal Cager Relationship Specialty Start Date End Date Christi Gallegos MD [address] [place] [address] PCP - General Family Medicine 04/27/23 Christi Gallegos MD [address] [place] [address] PCP - Medical [place] 07/04/2407/03 Coal Cager Relationship Specialty Start Date End Date Christi Gallegos MD [address] [place] [address] PCP - General Family Medicine 04/27/23 Christi Gallegos MD [address] [place] [address] PCP - Medical [place] 07/04/2407/03 Coal Cager Relationship Specialty Start Date End Date Christi Gallegos MD [address] [place] [address] PCP - General Family Medicine 04/27/23 Christi Gallegos MD [address] [place] [address] PCP - Medical [place] 07/04/2407/03 Coal Cager Relationship Specialty Start Date End Date Christi Gallegos MD [address] [place] [address] PCP - General Family Medicine 04/27/23 WonderChristi angulo MD [address] [place] [address] PCP - Medical [place] 07/04/2407/03 Coal Cager Relationship Specialty Start Date End Date WonderChristi angulo MD [address] [place] [address] PCP - General Family Medicine 04/27/23 WonderChristi angulo MD [address] [place] [address] PCP - Medical [facility] 07/04/2407/03 Coal Cager Relationship Specialty Start Date End Date Christi Gallegos MD [address] [place] [address] PCP - General Family Medicine 10/07/23 Coal Cager Relationship Specialty Start Date End Date Christi Gallegos MD PCP - General Family Medicine 04/27/23 Coal Cager Relationship Specialty Start Date End Date WonderChristi angulo MD PCP - General Family Medicine 04/27/23 Coal Cager Relationship Specialty Start Date End Date Christi Gallegos MD PCP - General Family Medicine 04/27/23 Coal Cager Relationship Specialty Start Date End Date WonderChristi angulo MD PCP - General Family Medicine 04/27/23 Reason for Visit (unrecogniz ed section and [...] Sinus pressure Cough Reason Comments Follow-up Tachycardia Reason Comments Edema FOR RECORDS PERTAINING TO PATIENTS WHO ARE [...] BE BASED ON THE PRIMARY CLINICAL RECORDS. [email or web address] provides no warranty or guarantee of the accuracy or completeness of information in this document.
--- NOTE | 2025-02-27 14:43 | PM.CN ---
Consult Note: HPI Data of Consult Patient: known to practice within the last 3 years Consult date: 02/27/25 Requesting Physician: Guerda Reyes NP Primary Care Provider: Non-Staff Physician, MD Consult Narrative Reason for consult: f/u Narrative: Meka Dai a pleasant 69 year old female presents for evaluation of chronic low back and hip pain with intermittent radiculopathy. pain today 7/10 increasing to 10/10 with sitting, housework, adls, activity, and weather changes. notes improvement with lying, heat/ice, and sleep. utilizing baclofen 10mg TID PRN pain/spasms, gabapentin 100mg BID, and tylenol PRN with benefit. cc:: CC: Guerda Reyes NP Review of Systems ROS Musculoskeletal Reports: back pain, extremity pain and joint pain PFSH PFSH Medical History Acid reflux ?K21.9 - Gastro-esophageal reflux disease without esophagitis (ICD-10) Irregular heart beat ?I49.9 - Cardiac arrhythmia, unspecified (ICD-10) Surgical History History of repair of left rotator cuff ?Z98.890 - Other specified postprocedural states (ICD-10) History of total left knee replacement ?Z96.652 - Presence of left artificial knee joint (ICD-10) History of total right knee replacement ?Z96.651 - Presence of right artificial knee joint (ICD-10) History of section ?Z98.891 - History of uterine scar from previous surgery (ICD-10) Meds Home Medications and Allergies Home Medications ?Medication ?Instructions ?Recorded ?Confirmed ?Type multivitamin 1 tab PO DAILY 11/02/23 12/17/24 History nabumetone 500 mg tablet 500 mg PO BID 11/02/23 12/17/24 History omega-3 fatty acids 500 mg PO DAILY 11/02/23 12/17/24 History omeprazole 20 mg capsule,delayed 20 mg PO DAILY 11/02/23 12/17/24 History release glucosamine-chondroitin 500 mg-400 1 cap PO DAILY 12/01/23 12/17/24 History mg capsule biotin 1 mg capsule 1 mg PO DAILY 12/06/23 12/17/24 History lactobacillus combination no.4 3 3,000 mmu cells PO DAILY 12/06/23 12/17/24 History billion cell capsule (Probiotic) baclofen 10 mg tablet See Rx Instructions .Route 10/18/24 Rx .COMPLEX #90 tabs gabapentin 100 mg capsule 100 mg PO BID #60 caps 12/03/24 12/17/24 Rx gabapentin 100 mg capsule 100 mg PO TID #270 caps 01/02/25 Rx Allergies Allergy/AdvReac Type Severity Reaction Status Date / Time Sulfa (Sulfonamide Allergy Unknown Hives Verified 12/17/24 11:26 Antibiotics) Exam Constitutional Documenting provider has reviewed patient's vital signs: yes Common normals: no apparent distress, oriented x3, healthy appearing, alert and well nourished General appearance: cooperative HENMT Common normals: normocephalic, hearing grossly normal bilaterally and moist oral mucous membranes Head and scalp: normocephalic Eye Common normals: PERRL Pupil: PERRL Neck & C-Spine Common normals: full ROM General: normal visual inspection Chest Common normals: inspection of chest normal Respiratory Common normals: normal respiratory effort, no retractions and no use of accessory muscles Back & Pelvis Lumbar spine/lower back: pain with ROM, lumbar spinal tenderness Lumbar spinal tenderness location: L3, L4 and L5, straight leg raise positive right and straight leg raise positive left Sacroiliac joints: SI joint(s) abnormal Other: bilateral SIJ positive wilfredo(patricks), gaenslens, thigh thrust, compression test decreased sensation bilateral L5/S1 strength 5/5 in BLE Neuro Common normals: oriented x3 Sensorium/orientation: alert Psych Common normals: mental status grossly normal, thought process normal, cooperative, affect normal, speech normal and activity/motor behavior normal Speech: normal speech Thought process: normal thought process Results Additional Findings Additional findings: If on a controlled substance or opioids, I have checked an [place]AR[place] report on this patient and there are no aberrancies noted in the prescribing history.??If on a controlled substance or opioid a drug screen was completed and reviewed within the last year, and if there has not been a drug screen completed we ordered one today to monitor higher risk, state monitored pain medication use. As part of providing excellent, safe, comprehensive care, the following was completed at our patient's visit: 1. A medication reconciliation and review to ensure accurate knowledge of current/active medications, including asking our patients to inform us about any [id number] medications or herbal remedies/nutritional supplements/alternative remedies. 2. A review to specifically ensure our patients have had annual screening for screening for depression, screening for tobacco use, and screening for unhealthy alcohol use. For concerning screenings had a discussion with the patient, provided patient education, and recommended follow-up with primary care provider when appropriate. If patient noted with a risk of falling, they received education on strength, gait, and balance training to prevent future risk of falling. Portions of this note may have been carried over from the previous visit and updated as appropriate. Please note this office utilizes paper charting in addition to the electronic medical record. A list of current medications, vitals, and PMH is available there as the clinical staff outside of myself do not have access to [email or web address] charting during the clinic day operations. As part of providing quality comprehensive care the current medications, vitals, and PMH were reviewed in the paper chart. Assessment and Plan Assessment and Plan (1) Sacroiliitis: Assessment and Plan: The patient has had over 3 months of moderate to severe low back and left SIJ pain with functional impairment and inadequate response to conservative care including NSAIDS (unless there are contraindication such as concurrent blood thinners), multiple oral or topical pain medications, and home exercise program/physical therapy.? Patient has completed >6 weeks of guided home exercise program and/or formal physical therapy program without relief of their symptoms.? I have reviewed the imaging of the lumbosacral spine and no red flags were identified.? 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 Patient has completed >6 weeks of guided home exercise program and/or formal physical therapy program without relief of their symptoms.? I have reviewed the imaging of the lumbar spine and no red flags were identified.? The imaging reveals radiographic findings consistent with lumbar DDD The Oswestry Disability Index was completed, and the patient scored a 36%.? The patient noted the following:?? moderate to severe pain impacting ADLs, standing, walking, sitting, sleeping, social life, travel proceed with bilateral L5-S1 TFESI under fluoroscopy renew handicap placard due to significant difficulty ambulating further distances due to low back pain and DDD with LE pain continue current medications f/u after procedure
== END 2025-02-27 13:59 | disposition home or self-care (01) ==
LOC: PM 13:58
PROVIDERS: Visit Provider Nurse Practitioner
DX: M46.1 Sacroiliitis, not elsewhere classified (principal); M79.18 Myalgia, other site; M51.369 Other intervertebral disc degeneration, lumbar region without mention of lumbar back pain or lower extremity pain
CPT/HCPCS: G0463

== ENCOUNTER 2025-04-08 08:37 | Day surgery (SDC) | payer MEDICARE, SELFPAY ==
--- OUTSIDE RECORDS SUMMARY | 2025-04-08 08:42 | XMS_ITS | CCD ---
Author Organization [facility] CliniSysd Care Team Providers Care Long Term Care Social Worker Name Role Phone IAN, RYAN Unavailable Unavailable HOUSE, RYAN Unavailable Unavailable IAN, RYAN Unavailable Unavailable CATHIE REED V Unavailable Unavailable IAN, RYAN Unavailable Unavailable LOGAN HUNTER Admitting Unavailable LOGAN HUNTER Attending Unavailable RYAN SOSA P Primary Care Unavailable FEROZ COOK Attending Unavailable CHRISTI GALLEGOS Primary Care Unavailable Christi Gallegos MD Primary Care Provider Christi Gallegos MD Unavailable Christi Gallegos MD Unavailable [phone] Christi Gallegos MD Primary Care Provider Christi Gallegos MD Unavailable Christi Gallegos MD Primary Care Provider Ryan Sosa DO Primary Care Provider Christi Gallegos MD Unavailable Christi Gallegos MD Primary Care Provider Lynnette CORONADO, Javier May Attending Unavailable ROSY, CHRISTI B Referring Unavailable JALENLY, CHRISTI B Primary Care Unavailable LOGAN HUNTER Attending Unavailable RYAN SOSA Referring Unavailable ROSY, CHRISTI B Primary Care Unavailable LOGAN HUNTER [...] before bedtime. 180 tablet 1 11/30/2024 Active [id number] SH OIL-L.CASEI ORAL (9 sources) take 1 capsule by mouth in the morning [id number]-EGD-ZTJ-FISH OIL-L.CASEI ORAL Take 1 capsule by mouth in the morning. Active take 1 capsule by mouth once anson ly WRGH9-CMV-LAH-FISH OIL-L.CASEI ORAL Take 1 capsule by mouth daily. Active take 1 capsule by mouth once anson ly XCPK2-PCM-EUB-FISH OIL-L.CASEI ORAL Take 1 capsule by mouth [...] Facil ity MAMM SCREENING BILATERAL W C buying intern 12-27-2024 MAMM SCREENING BILATERAL W CAD MAMM SCREENING BILATERAL W CAD MEKA KINGNER 1955 [id number] EXAM: MAMM SCREENING BILATERAL W CAD, 12/27/2024 [...] PM 1 a MAMM 1 YR Normal [facility] POCT EKGon 02-22-2024 [facility] DEXA SCAN CENTRAL SKELETALon 01-10-2024 DEXA [...] Peterson MD on 01/10/2024 1:35 PM Normal [facility] XR Hip Bilateral w/Pelvison 11-12-2022 XR Hip Bilateral w/Pelvis COMPARISON: NONE. PELVIS FINDINGS: There are no lytic or sclerotic bone lesions. The femoral heads are located. There is no acute fracture or subluxation. There are no radiopaque foreign bodies. IMPRESSION: There are no acute osseous changes. Report reported and signed by JOSE JUAN LEWIS on 11/12/2022 [id number] Normal [facility] [employer] Operator XR Spine Lumbar 4+ Views*on 11-12-2022 XR [...] JUAN LEWIS on 11/12/2022 1023 Normal [facility] [employer] Rol[employer] Operator MG MAMM SCREEN NIEVES W CADon 0 03-21-2018 MG MAMM SCREEN NIEVES W CAD [address] [place] [address] Patient: MEKA ZAVALA Exam Date: 03/21/2018DOB: 1955 Gender:F : DR RYAN SOSA Admission #: [id number] : Order #: [id number] HERE TO VIEW EXAM RADIOLOGY REPORT PROCEDURE: [...] bile duct cancer at age 60. LOCATION: [facility] BREAST COMPOSITION: Scattered fibroglandular densities (25-50% [...] Reed M.D. on 03/21/2018 at 15:25 Normal [facility] Vital Signs Date Time Vital Sign Value Performing Clinician Facility 02-05-2025 10:43-0400 Body height 165.1 cm Christi Valentine MD Work Phone: [facility] 02-05-2025 10:43-0400 Body mass index (BMI) [Ratio] 34.05 kg/m2 Christi Valentine MD Work Phone: [facility] 02-05-2025 10:43-0400 Body weight 92.81 kg Christi Valentine MD Work Phone: [facility] 02-05-2025 10:43-0400 Diastolic blood pressure 84 mm[Hg] Christi Valentine MD Work Phone: [facility] 02-05-2025 10:43-0400 Heart rate 68 /min Christi Valentine MD Work Phone: [facility] 02-05-2025 10:43-0400 Respiratory rate 18 /min Christi Valentine MD Work Phone: [facility] 02-05-2025 10:43-0400 SaO2% (BldA) [Mass fraction] 97 % Christi Valentine MD Work Phone: [facility] 02-05-2025 10:43-0400 Systolic blood pressure 132 mm[Hg] Christi Valentine MD Work Phone: [facility] 12-06-2024 14:17-0400 Body height 165.1 cm Tuan Jane MD Work Phone: [facility] 12-06-2024 14:17-0400 Body mass index (BMI) [Ratio] 34.45 kg/m2 Tuan Jane MD Work Phone: [facility] 12-06-2024 14:17-0400 Body weight 93.89 kg Tuan Jane MD Work Phone: [facility] 12-06-2024 14:17-0400 Diastolic blood pressure 68 mm[Hg] Tuan Jane MD Work Phone: [facility] 12-06-2024 14:17-0400 Heart rate 74 /min Tuan Jane MD Work Phone: [facility] 12-06-2024 14:17-0400 SaO2% (BldA) [Mass fraction] 96 % Tuan Jane MD Work Phone: [facility] 12-06-2024 14:17-0400 Systolic blood pressure 122 mm[Hg] Tuan Jane MD Work Phone: [facility] 11-16-2024 10:35-0400 Body mass index (BMI) [Ratio] 34.21 kg/m2 Adrianna Reddy NP Work Phone: [facility] 11-16-2024 10:35-0400 Body weight 93.26 kg Adrianna Reddy NP Work Phone: [facility] 11-16-2024 10:35-0400 Diastolic blood pressure 80 mm[Hg] Adrianna Reddy NP Work Phone: [facility] 11-16-2024 10:35-0400 Heart rate 72 /min Adrianna Reddy NP Work Phone: [facility] 11-16-2024 10:35-0400 Systolic blood pressure 132 mm[Hg] Adrianna Reddy [employer] Work Phone: [facility] 10-26-2024 09:47-0400 Body height 165.1 cm Erna Banegas [employer] Work Phone: [facility] 10-26-2024 09:47-0400 Body mass index (BMI) [Ratio] 34.35 kg/m2 Erna Makenzie [employer] Work Phone: [facility] 10-26-2024 09:47-0400 Body weight 93.62 kg Erna Viverosel [employer] Work Phone: [facility] 10-26-2024 09:47-0400 Diastolic blood pressure 64 mm[Hg] Erna Banegas [employer] Work Phone: [facility] 10-26-2024 09:47-0400 Heart rate 72 /min Erna Makenzie [employer] Work Phone: [facility] 10-26-2024 09:47-0400 Systolic blood pressure 126 mm[Hg] Erna Makenzie [employer] Work Phone: [facility] 09-20-2024 14:03-0400 Body height 165.1 cm Susan Gay DPM Work Phone: [facility] 09-20-2024 14:03-0400 Body mass index (BMI) [Ratio] 34.11 kg/m2 Susan Vásquez DPM Work Phone: [facility] 09-20-2024 14:03-0400 Body weight 92.99 kg Susan Vásquez DPM Work Phone: [facility] 06-15-2024 10:40-0500 Body mass index (BMI) [Ratio] 34.11 kg/m2 Erna Makenzie [employer] Work Phone: [facility] 06-15-2024 10:40-0500 Body weight 92.99 kg Ernacarmine Viverosel [employer] Work Phone: [facility] 06-15-2024 10:40-0500 Diastolic blood pressure 78 mm[Hg] Erna Makenzie [employer] Work Phone: [facility] Comment on above: Pt BP machine in office - 165/94 P 83 Lt arm 157/88 P 81 06-15-2024 10:40-0500 Heart rate 84 /min Erna Banegas [employer] Work Phone: [facility] 06-15-2024 10:40-0500 Systolic blood pressure 132 mm[Hg] Erna Banegas [employer] Work Phone: [facility] Comment on above: Pt BP machine in office - 165/94 P 83 Lt arm 157/88 P 81 02-22-2024 14:04-0400 Body height 165.1 cm Logan Hunter MD Work Phone: [facility] 02-22-2024 14:04-0400 Body mass index (BMI) [Ratio] 33.95 kg/m2 Logan Hunter MD Work Phone: [facility] 02-22-2024 14:04-0400 Body weight 92.53 kg Logan Hunter MD Work Phone: [facility] 02-22-2024 14:04-0400 Diastolic blood pressure 70 mm[Hg] Logan Hunter MD Work Phone: [facility] 02-22-2024 14:04-0400 Heart rate 86 /min Logan Hunter MD Work Phone: [facility] 02-22-2024 14:04-0400 SaO2% (BldA) [Mass fraction] 95 % Logan Hunter MD Work Phone: [facility] 02-22-2024 14:04-0400 Systolic blood pressure 114 mm[Hg] Logan Hunter MD Work Phone: [facility] 11-17-2023 14:35-0400 Diastolic blood pressure 84 mm[Hg] [facility] Nurse [facility] 11-17-2023 14:35-0400 Heart rate 84 /min [facility] Nurse [facility] 11-17-2023 14:35-0400 Systolic blood pressure 148 mm[Hg] [facility] Nurse [facility] Encounters Encounter Date Encounter Type Care Provider Facility Start: 02-13-2025 End: 02-13-2025 Telephone encounter Christi Gallegos MD Other Phone: [facility] Start: 02-05-2025 End: 02-05-2025 Bamboo flowsheet Christi Valentine MD Work Phone: [facility] Start: 02-05-2025 End: 02-05-2025 Bamboo flowsheet Christi Valentine MD Work Phone: [facility] Start: 02-05-2025 End: 02-05-2025 ambulatory CHRISTI VALENTINE Not Available Start: 02-05-2025 End: 02-05-2025 Office outpatient visit 25 minutes Christi Valentine MD Work Phone: [facility] Comment on above: Ecchymosis (Primary Dx); Edema, unspecified type; Primary osteoarthritis of both knees Start: 02-04-2025 End: 02-04-2025 Telephone encounter Christi Gallegos MD Other Phone: [facility] Start: 12-27-2024 End: 12-27-2024 ambulatory [facility] Start: 12-17-2024 End: 12-17-2024 ambulatory Javier Church MD Facility:[facility] Start: 12-06-2024 End: 12-06-2024 Office outpatient visit 25 minutes Tuan Jane MD Work Phone: [facility] Comment on above: SVT (supraventricula r tachycardia) (Primary Dx); Tachycardia; Palpitations Start: 12-06-2024 End: 12-06-2024 ambulatory [facility] Start: 11-30-2024 End: 11-30-2024 Refill Christi [...] Office outpatient visit 25 minutes Adrianna Reddy [employer] Work Phone: [facility] Comment on above: Acute non-recurrent pansinusitis (Primary Dx); Sinus pressure; Rhinorrhea; Acute cough; Sore throat Start: 11-01-2024 End: 11-09-2024 Telephone encounter Erna Banegas [employer] Work Phone: [facility] Start: 10-28-2024 End: 10-30-2024 Telephone encounter Erna Banegas [employer] Work Phone: [facility] Start: 10-26-2024 End: 10-26-2024 Bamboo flowsheet Erna Banegas [employer] Work Phone: [facility] Start: 10-26-2024 End: 10-26-2024 Bamboo flowsheet Erna Banegas [employer] Work Phone: [facility] Start: 10-26-2024 End: 10-26-2024 Patient encounter procedure Erna Banegas [employer] Work Phone: [facility] Comment on above: Encounter for Medica re annual wellness exam; SVT (supraventricular tachycardia) ([facility]/HCC); Tachycardia; Gastroesophageal reflux disease, unspecified whether esophagitis [...] visit 15 minutes Susan MONTEZM Work Phone: [facility] Comment on above: Dermatophytosis of n ail (Primary Dx); Dystrophic nail; Pain around toenail Start: 09-20-2024 End: 09-20-2024 ambulatory SUSAN GAY Not Available Start: 09-20-2024 End: 09-20-2024 Bamboo flowsheet Susan Gay DPM Work Phone: [facility] Start: 09-20-2024 End: 09-20-2024 Bamboo flowsheet Susan Gay DPM Work Phone: [facility] Start: 08-23-2024 End: 08-23-2024 Telephone encounter Christi Gallegos MD Work Phone: [facility] Start: 08-13-2024 End: 08-13-2024 Refill Erna Banegas [employer] Work Phone: [facility] Comment on above: Primary osteoarthrit is of both knees Start: 06-15-2024 End: 06-15-2024 Bamboo flowsheet Erna Banegas [employer] Work Phone: [facility] Start: 06-15-2024 End: 06-15-2024 Bamboo flowsheet Erna Banegas [employer] Work Phone: [facility] Start: 06-15-2024 End: 06-15-2024 Office outpatient visit 25 minutes Erna Banegas [employer] Work Phone: [facility] Comment on above: SVT (supraventricula r tachycardia) (CMS/HCC) (Primary Dx); Palpitations; Elevated blood pressure reading; Gastroesophageal reflux disease, unspecified whether esophagitis present; Spondylosis without myelopathy or radiculopathy, lumbar region; Nasal congestion Start: 06-15-2024 End: 06-15-2024 ambulatory ERNA BANEGAS Not Available Start: 05-09-2024 End: 05-10-2024 Refill Erna Banegas [employer] Work Phone: [facility] Comment on above: Acute maxillary sinu sitis, 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; Otalgia of left ear; Primary osteoarthritis of both knees Start: 05-08-2024 End: 05-09-2024 Refill Christi Gallegos MD Work Phone: [facility] Comment on above: Gastroesophageal ref lux disease, unspecified whether esophagitis present Start: 03-16-2024 End: 03-16-2024 ambulatory LOGAN HUNTER [facility] Start: 03-12-2024 End: 03-12-2024 Refill Christi Gallegos MD Work Phone: [facility] Comment on above: Primary osteoarthrit is of both knees Start: 02-22-2024 End: 02-22-2024 Office outpatient visit 15 minutes Logan Hunter MD Work Phone: [facility] Comment on above: SVT (supraventricula r tachycardia) (CMS-HCC) (Primary Dx); Tachycardia; Palpitations Start: 02-22-2024 End: 02-22-2024 ambulatory LOGAN HUNTER [facility] Start: 02-21-2024 End: 02-21-2024 Telephone encounter Laura Melton CMA [facility] Start: 01-09-2024 End: 01-09-2024 ambulatory CHRISTI Brewer [facility] Start: 11-17-2023 End: 11-17-2023 Clinical Support Pm Ppc Nurse [facility] Comment on above: SVT (supraventricula r tachycardia) (CMS-HCC) (Primary Dx) Start: 11-16-2023 End: 11-16-2023 Telephone encounter Laura Melton CMA [facility] Start: 11-10-2023 End: 11-10-2023 ambulatory FEROZ [facility] Start: 11-10-2023 End: 11-10-2023 ambulatory LOGAN [facility] Start: 11-03-2023 End: 11-03-2023 Telephone encounter [...] 09-07-2021 Patient encounter status Neva torres MARIXA [facility] Work Phone: Start: 03-21-2018 End: 03-22-2018 Patient encounter [facility] Facility:H1 Procedures Date Procedure Procedure Detail Performing [...] 12-19-2027 Screening for malignant neoplasm of colon [facility] Start: 12-27-2025 Screening for malignant neoplasm of breast Mammogram [facility] Start: 12-06-2025 Adult BMI Screening Adult BMI Screening [facility] Start: 12-06-2025 Tobacco Screening Tobacco Screening [facility] Start: 11-16-2025 DTaP,Tdap and Td Vaccines (2 - Td or Tdap) DTaP,Tdap and Td Vaccines (2 - Td or Tdap) [facility] Start: 11-16-2025 DTaP,Tdap and Td Vaccines (3 - Td or Tdap) DTaP,Tdap and Td Vaccines (3 - Td or Tdap) [facility] Start: 10-26-2025 Medicare Annual Wellness (AWV) Medicare Annual Wellness (AWV) [facility] Start: 06-07-2025 End: 06-07-2025 Patient encounter procedure 06/07/2025 2:00 PM EST Office Visit [facility] [address] [place] [address] Tuan Jane MD [address] [place] [address] [facility] Start: 03-04-2025 Influenza vaccination [facility] Start: 02-21-2025 Adult BMI Screening Adult BMI Screening [facility] Start: 02-21-2025 Tobacco Screening Tobacco Screening [facility] Start: 02-05-2025 End: 02-05-2026 CBC W Auto Differential panel - Blood CBC and differential Lab Routine Ecchymosis Expected: 02/05/2025 (Approximate), Expires: 02/05/2026 [facility] Work Phone: Comment on above: Expected: 02/05/2025 (Approximate), Expi res: 02/05/2026 Start: 12-27-2024 End: 12-27-2024 Patient encounter procedure 12/27/2024 1:45 PM EDT Appointment [facility] [address] [place] [address] [facility] Start: 12-06-2024 End: 12-06-2025 Event Monitor (In Office) Event Monitor (In Office) Cardiac Services Routine SVT (supraventricular tachycardia) ([facility]-HCC) Expected: 12/06/2024, Expires: 12/06/2025 [facility] Work Phone: Comment on above: Expected: 12/06/2024, Expires: Start: 11-09-2024 Adult BMI Screening Adult BMI Screening [facility] Start: 11-09-2024 Tobacco Screening Tobacco Screening [facility] Start: 10-28-2024 End: 12-28-2025 DBT Breast - bilateral screening Bilateral screening mammogram with tomosynthesis Imaging Routine Encounter for screening mammogram for breast cancer Expected: 10/28/2024, Expires: 12/28/2025 [facility] Work Phone: Comment on above: Expected: 10/28/2024, Expires: Start: 10-26-2024 End: 10-26-2024 Patient encounter procedure [facility] Comment on above: Encounter for Medicare annual wellness e xam (Primary Dx); SVT (supraventricular tachycardia) ([facility]); Tachycardia; Gastroesophageal reflux disease, unspecified whether esophagitis present; Left upper arm pain; Presence of right artificial knee joint; Primary osteoarthritis of both knees; Spondylosis without myelopathy or radiculopathy, lumbar region; S/P total knee replacement, left; Vasovagal syncope; Post-menopausal; Decreased hearing, unspecified laterality Start: 10-22-2024 End: 10-22-2024 Patient encounter procedure 10/22/2024 2:30 PM EDT Office Visit [facility] [address] [place] [phone] Erna Banegas NP [address] [place] [address] [facility] Start: 09-20-2024 End: 09-20-2024 Patient encounter procedure 09/20/2024 2:15 PM EDT Office Visit [facility] [address] [place] [phone] Susan Gay, DP [address] [place] [address] Arrived [facility] Comment on above: Arrived Start: 08-10-2024 Influenza vaccination Influenza Vaccine (#1) [facility] Comment on above: Postponed from 03/04/2024 (Patient Refus ed) Start: 08-02-2024 Medicare Annual Wellness (AWV) Medicare Annual Wellness (AWV) [facility] Start: 06-15-2024 End: 06-15-2024 Patient encounter procedure 06/15/2024 10:30 AM EST Office Visit [facility] [address] [facility] [phone] Erna Banegas NP [address] [place] [address] SVT (supraventricular tachycardia) (CMS/HCC) (Primary Dx); Palpitations [facility] Comment on above: SVT (supraventricular tachycardia) (CMS/ HCC) (Primary Dx); Palpitations Start: 03-16-2024 End: 03-16-2024 Patient encounter procedure 03/16/2024 2:00 PM EDT Appointment [facility] [address] [place] [address] Logan Hunter MD [address] [place] [address] [facility] Start: 03-04-2024 COVID-19 Vaccine ( season) COVID-19 Vaccine ( season) [facility] Start: 03-04-2024 Influenza vaccination [facility] Start: 02-22-2024 End: 02-22-2024 Patient encounter procedure 02/22/2024 2:15 PM EDT Office Visit [facility] [address] [place] [address] Logan Hunter MD [address] [place] [address] [facility] Start: 02-22-2024 End: 02-21-2025 Echo complete W/ contrast Echo complete W/ contrast Echocardiography Routine Tachycardia Palpitations Expected: 02/22/2024, Expires: 02/21/2025 [facility] Work [facility]: Comment on above: Expected: 02/22/2024, Expires: Start: 02-05-2024 Adult BMI Screening Adult BMI Screening [facility] Start: 11-19-2023 Screening for malignant neoplasm of breast Mammogram [facility] Start: 11-17-2023 End: 11-17-2023 Clinical Support 11/17/2023 2:30 PM EDT Clinical Support [facility] [address] [place] [address] [facility] Start: 11-10-2023 End: 11-10-2023 Admission to same day surgery center 11/10/2023 11:30 AM EDT - 11/10/2023 3:30 PM EDT Surgery [facility] [address] [place] [phone] Logan Hunter MD [address] [place] [phone] SVT Ablation, CARTO EAM [facility] Comment on above: SVT Ablation, CARTO EAM Start: 11-10-2023 Subsequent hospital visit by physician 11/10/2023 11:30 AM EDT Hospital Encounter [facility] [address] [place] [phone] Logan Hunter MD [address] [place] [phone] SVT (supraventricular tachycardia) [facility] Comment on above: SVT (supraventricular tachycardia) Start: 10-26-2023 Tobacco Screening Tobacco Screening [facility] Start: 03-04-2023 COVID-19 Vaccine ( season) COVID-19 Vaccine () [facility] Start: 03-04-2023 Influenza vaccination Influenza Vaccine [facility] Start: 12-03-2022 Administration of varicella zoster vaccine Zoster (Shingles) Vaccine (2 of 2) [facility] Start: 2021 Fall Risk Screening Fall Risk Screening [facility] Start: 06-24-2021 Screening for malignant neoplasm of colon [facility] Start: 1974 Adult BMI Follow Up Plan Adult BMI Follow Up Plan [facility] Start: 1968 Depression Screening Depression Screening [facility] Start: 1955 Medicare Annual Wellness Visit Medicare Annual Wellness Visit [facility] Start: 1955 Screening for malignant neoplasm of colon [facility] Immunizations Immunization Date Immunization Notes Care Provider Fa cility 08-02-2023 Influenza, High-dose Seasonal, Quadrivalent, Preservative Free Christi Gallegos MD Work Phone: [facility] 08-02-2023 influenza virus vaccine, unspecified formulation Elmira Luna RN [facility] 06-10-2023 RSV, recombinant, protein subunit RSVpreF, adjuvant reconstitu, 120mcg/0.5mL, PF (Arexvy) Christi Gallegos MD Work Phone: [facility] 03-12-2023 zoster vaccine recombinant Christi Gallegos MD Work Phone: [facility] 10-08-2022 Influenza, High-dose Seasonal, Quadrivalent, Preservative Free Christi Gallegos MD Work Phone: [facility] 10-08-2022 Pneumococcal Conjuga te PCV 20 Christi Gallegos MD Work Phone: [facility] 10-08-2022 zoster vaccine recombinant Christi Gallegos MD Work Phone: [facility] 10-08-2022 influenza virus vaccine, unspecified formulation Neva Low [facility] 10-08-2022 zoster vaccine, unspecified formulation Neva Low [facility] 11-17-2015 tetanus toxoid, redu rosana diphtheria toxoid, and acellular pertussis vaccine, adsorbed Christi Gallegos MD Work Phone: [facility] 07-04-2004 tetanus and diphther ia toxoids, adsorbed, preservative free, for adult use (2 Lf of tetanus toxoid and 2 Lf of diphtheria toxoid) Christi Gallegos MD Work Phone: [facility] Payers Date Payer Category Payer Medicare HMO [employer] [place] [facility] [employer] [id number] 2024 Medicare [id number] 2023 Medicare (Managed Care) 1.2. [id number] 2023 Unknown [id number] [id number]. [id number] 2023 Medicare [id number] 2021 Medicare [id number]. [id number] 1955 Unknown [id number] 2.16.840.1.856632.3.579.2. 1286 1955 Unknown [id number] 2.16.840.1.565053.3.579.2. 1286 1955 Unknown [id number] 2.16.840.1.104812.3.579.2. 1286 1955 Unknown [id number] 2.16.840.1.335375.3.579.2. 196 1955 Unknown [id number] 2.16.840.1.608557.3.579.2. 1286 1955 Unknown [id number] 2.16.840.1.973362.3.579.2. 1286 1955 Unknown [id number] 2.16.840.1.946598.3.579.2. 1286 1955 Unknown [id number] 2.16.840.1.115691.3.579.2. 1286 1955 Unknown [id number] 2.16.840.1.243586.3.579.2. 128 1955 Unknown [id number] 2.16.840.1.717431.3.579.2. 1259 1955 Unknown [id number] 2.16.840.1.067568.3.579.2. 9 1955 Unknown [id number] 2.16.840.1.578458.3.579.2. 9 1955 Unknown [id number] 2.16.840.1.396167.3.579.2. 9 1955 Unknown [id number] 2.16.840.1.690892.3.579.2. 1258 Unknown [id number] Social History Date Type [facility] Start: 08-12-2022 End: 03-09-2023 Tobacco smoking status TNIS Never smoked tobacco [facility] Start: 08-12-2022 End: 03-09-2023 Tobacco use and exposure Smokeless tobacco non-user [facility] Start: 11-11-2023 End: 02-05-2025 Alcoholic beverage intake Lifetime non-drinker (finding) [facility] Start: 03-08-2023 End: 06-12-2024 History of Social function [facility] Start: 03-08-2023 End: 06-12-2024 Humiliation, Afraid, Rape, and Kick questionnaire [HARK] [facility] Within the last year , have you been afraid of your partner or ex-partner? No [facility] Do you belong to any clubs or organizations such as confucianism groups, unions, fraternal or athletic groups, or [...] got money to buy more. Never true [facility] Start: 05-17-2023 Alcohol Comment Caffeine intak e: 3-4 cups per day [facility] Start: 1955 Sex assigned at Not on file [facility] Do you feel stress - tense, restless, nervous, or anxious, or unable to sleep at night because your mind is troubled all the time - these days [OSQ] Not at all [facility] Start: 1955 Sex assigned at Female [facility] Start: 08-26-2022 Gender identity Identifies as female gender (finding) [facility] Start: 08-26-2022 Sexual orientation Heterosexual (fin ding) [facility] Start: 02-06-2015 Sex Female (finding) [facility] NEGATED: Highlighted rowStart: NINF History of tobacco use Passive smoker [facility] Medical Equipment Procedure Code Equipment Code Equipment Origin al Text Equipment Identifier Dates Cement Bn Bio 40 gm Rpl [id number] - [id number] - [id number] Start: 09-15-2021 Cement Bn Bio 40 gm Rpl [id number] - [id number] Start: 08-26-2022 Cement Bn Bio 40 gm Rpl [id number] - [id number] Start: 08-26-2022 Component Ptlr 3 5mm Persona Alply Kn Strl Lf - [id number] - [id number] Start: 09-15-2021 Component Fem 6 Std Kn Lt Post Stab Cmnt Persona Cocr Strl - [id number] - [id number] Start: 09-15-2021 Surface Artc 11m m Persona 6-9 Cd Kn Lt Pe Post Stab - [id number] - [id number] Start: 09-15-2021 Surface Artc 11m m Persona 6-9 Cd Kn Rt Vivacit-E Post Stab - [id number] Start: 08-26-2022 Component Fem 6 Std Kn Rt Post Stab Cmnt Persona Cocr Strl - [id number] Start: 08-26-2022 Component Ptlr 3 5mm Persona Alply Kn Strl Lf - [id number] Start: 08-26-2022 Stem Xtn 30+ Mm 14mm Persona Tpr Kn Tib - [id number] Start: 08-26-2022 Baseplate Tib 5d D Kn Lt Cmnt Stm Persona Tiv Strl - [id number] - [id number] Start: 09-15-2021 Baseplate Tib 5d D Kn Rt Cmnt Stm Persona Tiv Strl - [id number] Start: 08-26-2022 Goals Date Patient Goal Desired Activity /State Personal health goal Comment on above: Formatting of this n ote might be different from the original. Evaluation of progress towards goal: Current discharge plan is home with [facility] and support of spouse. - Mckenna [...] encounter Note Lab results were given ty [facility] 02-13-2025 Miscellaneous Notes Lab results were given ty documented in this encounter [facility] 02-05-2025 History of Present illness Narrative Associated [...] tea but avoids soda. She also takes ptij-ghh-dmirihw magnesium supplements. Coffee/Tea/Caffeine-containing Drinks: She has reduced [...] for Medicare wellness. documented in this encounter [facility] 02-04-2025 Telephone encounter Note Pt feels like she's holding water And her leg is bleeding due to her thin skin, just touching something is really bad, started this am. Pt is off work this week and last saw [facility] one time. [facility] 02-04-2025 Miscellaneous Notes Pt feels like she's holding water And her leg is bleeding due to her thin skin, just touching something is really bad, started this am. Pt is off work this week and last saw [facility] one time. documented in this encounter [facility] 12-06-2024 History of Present illness Narrative Meka [...] 1 tablet (500 mg total) before bedtime. [id number] OIL-L.CASEI ORAL Take 1 capsule by mouth [...] 08/26/2022 Performed by Sonido Prince MD at [facility]ERY REPLACEMENT TOTAL JOINT KNEE Left 09/15/2021 Performed by Sonido Prince MD at [facility] ROTATOR CUFF REPAIR Left 2011 SVT Ablation, CARTO EAM N/A 11/10/2023 Performed by Logan Hunter MD at [facility] () TUBAL LIGATION 1990 Family History Problem [...] Resource Strain: Low Risk (06/12/2024) Received from [facility] Overall Financial Resource Strain (CARDIA) Difficulty of Paying Living Expenses: Not hard at all Food Insecurity: No Food Insecurity (12/06/2024) Hunger Screening Food Insecurity - Worry: Never True Food Insecurity - Inability: Never True Transportation Needs: No Transportation Needs (06/12/2024) Received from [facility] PRAPARE - Transportation Lack of Transportation (Medical): No Lack of Transportation (Non-Medical): No Physical Activity: Sufficiently Active (06/12/2024) Received from [facility] Exercise Vital Sign Days of Exercise per Week: 7 days Minutes of Exercise per Session: 60 min Stress: No Stress Concern Present (06/12/2024) Received from [facility] [place] [facility] [employer] - Occupational Stress Questionnaire Feeling of Stress : Not at all Social Connections: Socially Integrated (06/12/2024) Received from [facility] Social Connection and Isolation Panel [NHANES] Frequency of Communication with Friends and Family: More than three times a week Frequency of Social Gatherings with Friends and Family: Three times a week Attends Hindu Services: More than 4 times per year Active Member of Clubs or Organizations: Yes Attends Club or Organization Meetings: More than 4 times per year Marital Status: Interpersonal Safety: Not At Risk (03/08/2023) Received from [facility] Humiliation, Afraid, Rape, and Kick questionnaire Fear of Current or Ex-Partner: No Emotionally Abused: No Physically Abused: No Sexually Abused: No Housing Instability: Unknown (06/12/2024) Received from [facility] Housing Stability Vital Sign Unable to Pay [...] Referring Physician: Christi Gallegos MD [address] [place] [address] documented in this encounter [facility] 11-30-2024 Telephone encounter Note Rx sent [facility] 11-30-2024 Miscellaneous Notes Rx sent 90 day supply documented in this encounter [facility] 11-30-2024 Telephone encounter Note 90 day supply [facility] 11-16-2024 History of Present illness Narrative Images [...] min Stress: No Stress Concern Present (06/12/2024) [place] [facility] [employer] - Occupational Stress Questionnaire Feeling of Stress : Not at all Social Connections: Socially Integrated (06/12/2024) Social Connection and Isolation Panel [NHANES] Frequency of Communication with Friends and Family: More than three times a week Frequency of Social Gatherings with Friends and Family: Three times a week Attends Hindu Services: More than 4 times per year [...] fail to improve. documented in this encounter [facility] 11-01-2024 Telephone encounter Note Pt did call back, she will try to contact anthem about it. [facility] 11-01-2024 Miscellaneous Notes Pt did call back, she will try to contact imani about it. Placed call to patient, l/m asking she call the office back. Colorectal screening documented in this encounter [facility] 11-01-2024 Telephone encounter Note Placed call to patient, l/m asking she call the office back. [facility] 11-01-2024 Telephone encounter Note Colorectal screening [facility] 10-30-2024 Telephone encounter Note Patient called back and confirmed her referrals. [facility] 10-30-2024 Miscellaneous Notes Patient called back and confirmed her referrals. Referral placed to pulmonology. Mammogram order faxed to [facility]. Colonoscopy from 2010 found in [facility], scanned into [employer] and sent to [facility]. Referral, fax mammogram documented in this encounter [facility] 10-29-2024 Telephone encounter Note Referral placed to pulmonology. Mammogram order faxed to [facility]. Colonoscopy from 2010 found in [facility], scanned into [employer] and sent to [facility]. T [facility] 10-28-2024 Telephone encounter Note Referral, fax mammogram [facility] 10-26-2024 History of Present illness Narrative Images [...] last time she checked it Going to [place] pain [facility] for injections-they did help. Last eye exam this week on Tuesday at [facility], Has cataracts, vision is blurrey, mainly right eye at times. Could be r/t dry eye also. They plan to send her to [place]. 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 Mom wants her to have a sleep [...] taking Gapabentin BID per pain magagement in [place]. Taking 1 Tylenol TID PRN, and 1 [...] and it was normal SVT (supraventricular tachycardia) ([facility]) Comments: Sees Cardiology. Had echo 03/27-EF 60-65% [...] concerns. PVU documented in this encounter [facility] 09-20-2024 History of Present illness Narrative Images [...] Susan Gay DPM documented in this encounter [facility] 09-20-2024 Instructions Susan Gay DPM - 09/20/2024 2:15 PM EDT Topical care measures as noted documented in this encounter [facility] 08-23-2024 Telephone encounter Note Patient scheduled her MAWV on October 22. Is she due for labwork? If so, she would like to do prior to this appt. Please advise pt. Thank you. [facility] 08-23-2024 Miscellaneous Notes Patient scheduled her MAWV on October 22. Is she due for labwork? If so, she would like to do prior to this appt. Please advise pt. Thank you. documented in this encounter [facility] 08-13-2024 Telephone encounter Note Rx sent [facility] 08-13-2024 Miscellaneous Notes Rx sent documented in this encounter [facility] 06-15-2024 History of Present illness Narrative Images [...] at 8-8:30. Takes OTC sleep aide from [employer] /2 tab. Snores per . Pt does [...] couple of months per pain magagement in [place]. Has F/U appt in Jul. Taking 1 [...] Breath sounds: Normal breath sounds. Comments: Rare [place] cough Abdominal: General: Bowel sounds are normal. [...] concerns. PVU documented in this encounter [facility] 05-10-2024 Telephone encounter Note I cancelled Amoxicillin Rx and sent Nabumetone Rx [facility] 05-10-2024 Miscellaneous Notes I cancelled Amoxicillin Rx and sent Nabumetone Rx I called pt. She states she did not request this refill for an antibiotic and didn't need it. Pt then said that she did need a refill on her nabumetone to be sent in. I told pt I would send the request. documented in this encounter [facility] 05-09-2024 Telephone encounter Note I called pt. She states she did not request this refill for an antibiotic and didn't need it. Pt then said that she did need a refill on her nabumetone to be sent in. I told pt I would send the request. [facility] 03-12-2024 Telephone encounter Note Rx sent [facility] 03-12-2024 Miscellaneous Notes Rx sent documented in this encounter [facility] 02-22-2024 History of Present illness Narrative Meka Lori Zavala Date of visit: 02/22/2024 Date of : 1955 Age: 68 y.o. Patient Active Problem List Diagnosis Neurocardiogenic syncope Palpitations Tachycardia Shortness of breath Primary osteoarthritis of both knees Obesity (BMI 30-39.9) Preop testing SVT (supraventricular tachycardia) ([facility]) S/P total knee replacement, left Class 1 [...] 1 tablet (500 mg total) before bedtime. [id number] OIL-L.CASEI ORAL Take 1 capsule by mouth [...] SVT who presents to EP clinic at [place] for follow-up. 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 Her prior flecainide 50 mg BID was discontinued after ablation. Shortly after ablation, she called our office to let us know that her brother had been diagnosed with HCM. Patient presented the appointment by herself today. EKG in clinic shows sinus rhythm, heart rate 86 beats per minute, AL interval 170 milliseconds QRS 96 milliseconds QTC [...] brother is currently undergoing VT ablation at [facility]. He did undergo genetic testing, but [...] 08/26/2022 Performed by Sonido Prince MD at [facility] REPLACEMENT TOTAL JOINT KNEE Left 09/15/2021 Performed by Sonido Prince MD at [facility] ROTATOR CUFF REPAIR Left 2012 SVT Ablation, CARTO EAM N/A 11/10/2023 Performed by Logan Hunter MD at [facility] () TUBAL LIGATION 1990 Family History Problem [...] Resource Strain: Low Risk (03/08/2023) Received from [facility] Overall Financial Resource Strain (CARDIA) Difficulty of Paying Living Expenses: Not hard at all Food Insecurity: No Food Insecurity (02/22/2024) Hunger Screening Food Insecurity - Worry: Never True Food Insecurity - Inability: Never True Transportation Needs: No Transportation Needs (03/08/2023) Received from [facility] PRAPARE - Transportation Lack of Transportation (Medical): No Lack of Transportation (Non-Medical): No Physical Activity: Sufficiently Active (03/08/2023) Received from [facility] Exercise Vital Sign Days of Exercise per Week: 6 days Minutes of Exercise per Session: 60 min Stress: No Stress Concern Present (03/08/2023) Received from [facility] [place] [employer] - Occupational Stress Questionnaire Feeling of Stress : Only a little Social Connections: Socially Integrated (03/08/2023) Received from [facility] Social Connection and Isolation Panel [NHANES] Frequency of Communication with Friends and Family: More than three times a week Frequency of Social Gatherings with Friends and Family: More than three times a week Attends Hindu Services: More than 4 times per year Active Member of Clubs or Organizations: Yes Attends Club or Organization Meetings: More than 4 times per year Marital Status: Interpersonal Safety: Not At Risk (03/08/2023) Received from [facility], [facility] Humiliation, Afraid, Rape, and Kick questionnaire Fear of Current or Ex-Partner: No Emotionally Abused: No Physically Abused: No Sexually Abused: No Housing Instability: Unknown (03/08/2023) Received from [facility], [facility] Housing Stability Vital Sign Unable to Pay [...] Gallegos MD Referring Physician: Ryan Sosa, DO [address] [place] [address] documented in this encounter [employer] 02-21-2024 Miscellaneous Notes Left message for patient to remind them to bring their most current medication list with them to their appointment. documented in this encounter [facility] 02-21-2024 Telephone encounter Note Left message for patient to remind them to bring their most current medication list with them to their appointment. [facility] 11-17-2023 History of Present illness Narrative Patient presents to [place] office for post SVT ablation 11/10/23. Patient [...] to that appointment. documented in this encounter [facility] 11-16-2023 Miscellaneous Notes Called patient to remind them to bring their most current copy of their medication list with them to their appt. Patient verbalizes understanding. documented in this encounter [facility] 11-16-2023 Miscellaneous Notes Left message for patient to remind them to bring their most current medication list with them to their appointment. documented in this encounter [facility] 11-16-2023 Telephone encounter Note Called patient to remind them to bring their most current copy of their medication list with them to their appt. Patient verbalizes understanding. [facility] 11-16-2023 Telephone encounter Note Left message for patient to remind them to bring their most current medication list with them to their appointment. [facility] 11-03-2023 Miscellaneous Notes Called and LM to pt providing pre op reminder call TTH Entrance C Arrive @ 1000 Fasting - NPo after mn Medications - holding flec x 3 days on 11/06, no SGLT LABS - adivsed pt to obtain Advised pt to call with any questions documented in this encounter [facility] 11-03-2023 Telephone encounter Note Called and LM to pt providing pre op reminder call TTH Entrance C Arrive @ 1000 Fasting - NPo after mn Medications - holding flec x 3 days on 11/06, no SGLT LABS - adivsed pt to obtain Advised pt to call with any questions [facility] 10-18-2023 Miscellaneous Notes Pt calls for flec refill. She says she has 1 week left. Ablation 11/10/23 she requests 1 month supply. Reminded to complete preop labs between 11/02-11/04. She also wanted to inquire if procedures schedulers have heard if Dr Hunter doesn't take her insurance. [employer] insurance that is in [place]. She said she looked through the insurance book and he was covered but wanted to check with ep schedulers. Rx pended to [place] to sign. And message to ep surgery nurses to address. documented in this encounter [facility] 10-18-2023 Telephone encounter Note Pt calls for flec refill. She says she has 1 week left. Ablation 11/10/23 she requests 1 month supply. Reminded to complete preop labs between 11/02-11/04. She also wanted to inquire if procedures schedulers have heard if Dr Hunter doesn't take her insurance. [employer] insurance that is in [place]. She said she looked through the insurance book and he was covered but wanted to check with ep schedulers. Rx pended to [facility] to sign. And message to ep surgery nurses to address[facility] Miscellaneous Notes RO Received a call [...] other meds held. [facility] Tele[facility] encounter Note RO Received a call from pt and she would like to proceed with ablation you discussed. Please review and advise thank you [employer] 07-18-2023 Telephone encounter Note Okay to schedule SVT ablation with me, next available. NPO after midnight, okay for clear 6 hours prior, MAC sedation, routine preoperative labs, CARTO EAM. Hold flecainide for 3 days prior to procedure. No other meds held. [employer] Work Phone: Evaluation note Diagnosis Gastroesophageal reflux disease, unspecified whether esophagitis present [facility] Diagnosis Acute maxillary sinusitis, 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 Otalgia of left ear Primary osteoarthritis of both knees [facility] Diagnosis SVT (supraventricular tachycardia) ([facility])- Primary Other specified cardiac dysrhythmias Palpitations Elevated blood pressure reading Elevated blood pressure reading without diagnosis of hypertension Gastroesophageal reflux disease, unspecified whether esophagitis present Spondylosis without myelopathy or radiculopathy, lumbar region Nasal congestion Other diseases of nasal cavity and sinuses documented in this encounter [facility]* Diagnosis Primary osteoarthritis of both knees documented in this encounter [facility]* Diagnosis Primary osteoarthritis of both knees documented in this encounter [facility]* Diagnosis SVT (supraventricular tachycardia) ([facility])- Primary Other specified cardiac dysrhythmias [facility] Diagnosis SVT (supraventricular tachycardia) ([facility])- Primary Other specified cardiac dysrhythmias Tachycardia Unspecified tachycardia Palpitations [facility] Diagnosis SVT (supraventricular tachycardia) ([facility])- Primary Other specified cardiac dysrhythmias SVT (supraventricular tachycardia) ([facility]) Other specified cardiac dysrhythmias SVT (supraventricular tachycardia) ([facility]) Other specified cardiac dysrhythmias [facility] Diagnosis Dermatophytosis of nail- Primary Dystrophic nail Other specified disease of nail Pain around toenail documented in this encounter [facility]* Diagnosis Encounter for Medicare annual wellness exam SVT (supraventricular tachycardia) ([facility]) Other specified cardiac dysrhythmias Tachycardia Unspecified tachycardia [...] for breast cancer documented in this encounter [facility]* Diagnosis Snoring Other dyspnea and respiratory abnormality Daytime sleepiness documented in this encounter [facility]* Diagnosis Acute non-recurrent pansinusitis- Primary Sinus pressure Other diseases of nasal cavity and sinuses Rhinorrhea Other diseases of nasal cavity and sinuses Acute cough Sore throat Acute pharyngitis documented in this encounter [facility]* Diagnosis Gastroesophageal reflux disease, unspecified whether esophagitis present documented in this encounter [facility]* Diagnosis Primary osteoarthritis of both knees Spondylosis without myelopathy or radiculopathy, lumbar region Gastroesophageal reflux disease, unspecified whether esophagitis present documented in this encounter [facility] note* Diagnosis SVT (supraventricular tachycardia)- Primary Other specified cardiac dysrhythmias Tachycardia Unspecified tachycardia Palpitations [facility] this [facility] Diagnosis Ecchymosis- Primary Other specified circulatory system disorders Edema, unspecified type Primary osteoarthritis of both knees documented in this encounter [facility] HealthcareInstructionsNot on filedocumented in this [facility]Pro[facility] SystemInstructionsNot on filedocumented in this encounterSt. [facility] SystemInstructionsNot on filedocumented in this encounterProThomas Hospital Health SystemInstructionsNot on filedocumented in this encounterSt. [facility] InstructionsNot on filedocumented in this encounterM[facility] InstructionsNot on filedocumented in this encounterSt. [facility] InstructionsNot on filedocumented in this encounterSt. [facility] Summary Purpose Family History No Family [...] W/ contrast Logan Hunter MD [address] [place] [address] [facility] [address] [place] [address] Phone: [phone] Referral ID Status Reason Start Date Expiration Date V isits Requested Visits Authorized [id number] Authorized 02/22/2024 02/21/2025 1 1 Additional Source Comments INFORMATION SOURCE (unrecogn ized section and content) DATE CREATED AUTHOR 04/17/2018 [facility] DATE CREATED AUTHOR AUTHOR'S ORGANIZ ATION 11/13/2022 [facility]ical Specialist DATE CREATED AUTHOR AUTHOR'S ORGANIZ ATION 11/12/2023 [facility] DATE CREATED AUTHOR AUTHOR'S ORGANIZ ATION 12/26/2024 [facility] DATE CREATED AUTHOR AUTHOR'S ORGANIZ ATION 12/28/2024 [facility] DATE CREATED AUTHOR AUTHOR'S ORGANIZ ATION 02/08/2025 [facility] EPIC Care Teams (unrecognized sec tion and content) Long Term Care Social Worker Relationship Specialty Start Date End Date Christi Gallegos MD [address] [place] [address] PCP - General Family Medicine 04/27/23 Christi Gallegos MD [address] [place] [address] PCP - Devoted 07/04/23 Long Term Care Social Worker Relationship Specialty Start Date End Date Christi Gallegos MD [address] [place] [address] PCP - General Family Medicine 04/27/23 Christi Gallegos MD [address] [place] [address] PCP - Devoted 07/04/23 Long Term Care Social Worker Relationship Specialty Start Date End Date Christi Gallegos MD [address] [place] [address] PCP - General Family Medicine 04/27/23 Christi Gallegos MD [address] [place] [address] PCP - Devoted 07/04/23 07/03/24 Long Term Care Social Worker Relationship Specialty Start Date End Date Christi Gallegos MD [address] [place] [address] PCP - General Family Medicine 04/27/23 Christi Gallegos MD [address] [place] [address] PCP - Devoted 07/04/23 07/03/24 Long Term Care Social Worker Relationship Specialty Start Date End Date Christi Gallegos MD [address] [facility] [place] [address] PCP - General Family Medicine 04/27/23 Christi Gallegos MD [address] [place] [address] PCP - Devoted 07/04/23 Long Term Care Social Worker Relationship Specialty Start Date End Date Christi Gallegos MD [address] [facility] [place] [address] PCP - General Family Medicine 10/07/23 Long Term Care Social Worker Relationship Specialty Start Date End Date Ryan Sosa DO [address] [place] [id number] PCP - General 05/02/18 Long Term Care Social Worker Relationship Specialty Start Date End Date Christi Gallegos MD [address] [facility] [place] [address] PCP - General Family Medicine 04/27/23 Long Term Care Social Worker Relationship Specialty Start Date End Date Christi Gallegos MD [address] [place] [address] PCP - General Family Medicine 10/07/23 Long Term Care Social Worker Relationship Specialty Start Date End Date Christi Gallegos MD [address] [place] [address] PCP - General Family Medicine 10/07/23 Long Term Care Social Worker Relationship Specialty Start Date End Date Christi Gallegos MD [address] [place] [address] PCP - General Family Medicine 10/07/23 Long Term Care Social Worker Relationship Specialty Start Date End Date Christi Gallegos MD [address] [place] [address] PCP - General Family Medicine 10/07/23 Long Term Care Social Worker Relationship Specialty Start Date End Date Christi Gallegos MD [address] [place] [address] PCP - General Family Medicine 10/07/23 Long Term Care Social Worker Relationship Specialty Start Date End Date Christi Gallegos MD [address] [place] [address] PCP - General Family Medicine 04/27/23 Christi Gallegos MD [address] [place] [address] PCP - Medical Waka [place] 07/04/2407/03 Long Term Care Social Worker Relationship Specialty Start Date End Date Christi Gallegos MD [address] [place] [address] PCP - General Family Medicine 04/27/23 Christi Gallegos MD [address] [place] [address] PCP - Medical Waka [place] 07/04/2407/03 Long Term Care Social Worker Relationship Specialty Start Date End Date Christi Gallegos MD [address] [place] [address] PCP - General Family Medicine 04/27/23 Christi Gallegos MD [address] [place] [address] PCP - Medical Waka [place] 07/04/2407/03 Long Term Care Social Worker Relationship Specialty Start Date End Date Christi Gallegos MD [address] [place] [address] PCP - General Family Medicine 04/27/23 Christi Gallegos MD [address] [place] [address] PCP - Medical Waka [place] 07/04/2407/03 Long Term Care Social Worker Relationship Specialty Start Date End Date Christi Gallegos MD [address] [place] [address] PCP - General Family Medicine 04/27/23 Christi Gallegos MD [address] [place] [address] PCP - Medical Waka [place] 07/04/2407/03 Long Term Care Social Worker Relationship Specialty Start Date End Date Christi Gallegos MD [address] [place] [address] PCP - General Family Medicine 04/27/23 Christi Gallegos MD [address] [place] [address] PCP - Medical Waka [place] 07/04/2407/03 Long Term Care Social Worker Relationship Specialty Start Date End Date Christi Gallegos MD [address] [place] [address] PCP - General Family Medicine 04/27/23 WonderChristi angulo MD [address] [place] [address] PCP - Medical [place] 07/04/2407/03 Long Term Care Social Worker Relationship Specialty Start Date End Date WonderChristi angulo MD [address] [place] [address] PCP - General Family Medicine 04/27/23 WonderChristi angulo MD [address] [place] [address] PCP - Medical [facility] 07/04/2407/03 Long Term Care Social Worker Relationship Specialty Start Date End Date Christi Gallegos MD [address] [place] [address] PCP - General Family Medicine 10/07/23 Long Term Care Social Worker Relationship Specialty Start Date End Date Christi Gallegos MD PCP - General Family Medicine 04/27/23 Long Term Care Social Worker Relationship Specialty Start Date End Date WonderChristi angulo MD PCP - General Family Medicine 04/27/23 Long Term Care Social Worker Relationship Specialty Start Date End Date Christi Gallegos MD PCP - General Family Medicine 04/27/23 Long Term Care Social Worker Relationship Specialty Start Date End Date WonderChristi [...] BE BASED ON THE PRIMARY CLINICAL RECORDS. [employer] provides no warranty or guarantee of the accuracy or completeness of information in this document.
[2025-04-08 09:01] VITALS: BP 140/81; PULSE 67; TEMP 36.6; O2SAT 100
[2025-04-08 09:48] VITALS: BP 156/75; PULSE 79; O2SAT 96
[2025-04-08] MEDS: 0.9 % SODIUM CHLORIDE 10 ML SYRINGE - SALINE FLUSH INJ (09:48)
[2025-04-08] MEDS: BUPIVACAINE HCL 0.25% PF 25 MG/10 ML VIAL INJ (09:49)
[2025-04-08] MEDS: IOHEXOL 240 MG/ML - 10 ML VIAL INJ (09:49)
[2025-04-08] MEDS: LIDOCAINE HCL 2% 400 MG/20 ML MDV 3 ML INJ (09:50)
[2025-04-08] MEDS: METHYLPREDNISOLONE ACETATE 80 MG/ML VIAL INJ (09:50)
[2025-04-08 09:51] VITALS: BP 143/71; PULSE 68; O2SAT 98
--- NOTE | 2025-04-08 09:55 | W.PM.PROCNOT ---
Date of procedure: 04/08/25 Pre-op diagnosis: Pain due to lumbar stenosis with neurogenic claudication Post-op diagnosis: same as pre-op Procedure: Procedure: Bilateral L5-S1 transforaminal epidural steroid injection Medications: Bupivacaine 0.25% 2cc, lidocaine 2% 1cc, depomedrol 80mg The patient was seen and examined in the preoperative holding area.? Informed consent was obtained and placed on the chart.? Patient was brought to the medical procedure unit and placed in the prone position where a timeout was completed verifying the correct patient, procedure site, position, and planned special equipment using sterile aseptic technique.? Under direct fluoroscopic visualization a 25-gauge Quincke tipped spinal needle was advanced at level left L5-S1 to the designated neural foramen where contrast dye was injected to show adequate spread.? There was no evidence of vascular or adverse uptake.? Epidural spread was appreciated.? The above-mentioned injectate was then placed in a 1.5 mL aliquot preceded by negative aspiration.? The needle was removed. The same procedure, at the same level, was completed on the opposite side. ? Patient was taken to the postprocedural recovery area and monitored for an appropriate length of time before found suitable for discharge in the accompaniment of a responsible adult. Anesthesia: Local Surgeon: Javier Church Pathology: none sent Condition: stable Disposition: no change
== END 2025-04-08 09:55 | disposition home or self-care (01) ==
PROVIDERS: Visit Provider Anesthesiology
DX: M48.062 Spinal stenosis, lumbar region with neurogenic claudication (principal); M54.50 Low back pain, unspecified
CPT/HCPCS: 64483; J0665; J1010; Q9966

== ENCOUNTER 2025-04-18 13:57 | Outpatient (OUT) | payer MEDICARE, SELFPAY ==
--- OUTSIDE RECORDS SUMMARY | 2025-04-18 14:01 | XMS_ITS | CCD ---
Author Organization [facility] [employer] Care Team Providers Care Desk Director Name Role Phone IAN, RYAN Unavailable Unavailable [...] Primary Care Provider Christi Gallegos MD Unavailable [phone] Christi Gallegos MD Primary Care Provider Ryan Sosa DO Primary Care Provider Christi Gallegos MD Unavailable Christi Gallegos MD Primary Care Provider CHRISTI GALLEGOS Referring Unavailable CHRISTI GALLEGOS Primary Care Unavailable LOGAN HUNTER Attending Unavailable RYAN SOSA Referring Unavailable CHRISTI GALLEGOS Primary Care Unavailable LOGAN HUNTER Attending Unavailable LOGAN HUNTER Referring Unavailable CHRISTI GALLEGOS Primary Care Unavailable TUAN JANE Attending Unavailable CHRISTI GALLEGOS Referring Unavailable CHRISTI GALLEGOS Primary Care Unavailable ERNA BANEGAS Referring Unavailable CHRISTI GALLEGOS Primary Care Unavailable Christi Gallegos MD Primary Care Provider SUSAN GAY Attending Unavailable ERNA BANEGAS Attending Unavailable ADRIANNA REDDY Attending Unavailable CHRISTI VALENTINE Attending Unavailable ERNA BANEGAS Attending Unavailable Christi Valentine MD Unavailable Lynnette CORONADO, Javier aMy Attending Unavailable Lynnette CORONADO, Javier May Attending Unavailable Allergies Allergy Classification Reported Allergen(s) [...] mg / cholecalciferol 200 unt oral tablet (15 sources) Vitamin D calcium citrate 600 mg [...] hydrochloride 120 mg extended release oral capsule (5 sources) Calcium Channel Mary Jo Start: 12-06-2024 [...] Discontinued (Reorder) furosemide 20 mg oral tablet (4 sources) Loop Diuretic Start: 02-05-2025 End: 02-05-2026 [...] 01/23/2024 Active loratadine 10 mg oral tablet (15 sources) loratadine (Claritin) 10 MG tablet Take by mouth Active lysine 500 mg oral tablet (20 sources) L-lysine 500 MG tablet Orally Active magnesium oxide 200 mg oral tablet (20 sources) take 2 tablets by mouth in the morning magnesium oxide 200 MG tablet Take 2 tablets by mouth in the morning. Active meloxicam 15 mg oral tablet (7 sources) Nonsteroidal Anti-inflammatory Drug Start: 02-05-2025 End: [...] before bedtime. 180 tablet 1 11/30/2024 Active [id number]-[id number]-FI SH OIL-L.CASEI ORAL (9 sources) take 1 capsule by mouth in the morning [id number]-NRL-HQX-FISH OIL-L.CASEI ORAL Take 1 capsule by mouth in the morning. Active take 1 capsule by mouth once anson ly RCOL2-BLE-CRD-FISH OIL-L.CASEI ORAL Take 1 capsule by mouth daily. Active take 1 capsule by mouth once anson ly OVPZ8-JEJ-BVG-FISH OIL-L.CASEI ORAL Take 1 capsule by mouth [...] Facil ity MAMM SCREENING BILATERAL W C manager market development 12-27-2024 MAMM SCREENING BILATERAL W CAD MAMM SCREENING BILATERAL W CAD MEKA ZAVALA 1955 [id number] EXAM: MAMM SCREENING BILATERAL W CAD, 12/27/2024 [...] PM 1 a MAMM 1 YR Normal [facility] POCT EKGon 02-22-2024 [facility] DEXA SCAN CENTRAL SKELETALon 01-10-2024 DEXA [...] Peterson MD on 01/10/2024 1:35 PM Normal [facility] XR Hip Bilateral w/Pelvison 11-12-2022 XR Hip Bilateral w/Pelvis COMPARISON: NONE. PELVIS FINDINGS: There are no lytic or sclerotic bone lesions. The femoral heads are located. There is no acute fracture or subluxation. There are no radiopaque foreign bodies. IMPRESSION: There are no acute osseous changes. Report reported and signed by JOSE JUAN LEWIS on 11/12/2022 0956 Normal [facility] XR Spine Lumbar 4+ Views*on 11-12-2022 XR [...] JOSE JUAN LEWIS on 11/12/2022 1023 Normal [facility] Cornice Maker MG MAMM SCREEN NIEVES W CADon 0 03-21-2018 MG MAMM SCREEN NIEVES W CAD [address] [place] [address] Patient: MEKA ZAVALA Exam Date: 03/21/2018DOB: 1955 Gender:F : DR RYAN SOSA Admission #: [id number] : Order #: [id number] HERE TO VIEW EXAM RADIOLOGY REPORT PROCEDURE: [...] bile duct cancer at age 60. LOCATION: [facility] BREAST COMPOSITION: Scattered fibroglandular densities (25-50% [...] Reed M.D. on 03/21/2018 at 15:25 Normal [facility] Vital Signs Date Time Vital Sign Value Performing Clinician Facility 02-05-2025 10:43-0400 Body height 165.1 cm Christi Valentine MD Work Phone: [facility] 02-05-2025 10:43-0400 Body mass index (BMI) [Ratio] 34.05 kg/m2 Christi Valentine MD Work Phone: [facility] 02-05-2025 10:43-0400 Body weight 92.81 kg Christi Valentine MD Work Phone: [facility] 02-05-2025 10:43-0400 Diastolic blood pressure 84 mm[Hg] Christi Valentine MD Work Phone: [facility] 02-05-2025 10:43-0400 Heart rate 68 /min Christi Valentine MD Work Phone: [facility] 02-05-2025 10:43-0400 Respiratory rate 18 /min Christi Valentine MD Work Phone: [facility] 02-05-2025 10:43-0400 SaO2% (BldA) [Mass fraction] 97 % Christi Valentine MD Work Phone: [facility] 02-05-2025 10:43-0400 Systolic blood pressure 132 mm[Hg] Christi Valentine MD Work Phone: [facility] 12-06-2024 14:17-0400 Body height 165.1 cm Tuan Jane MD Work Phone: [facility] 12-06-2024 14:17-0400 Body mass index (BMI) [Ratio] 34.45 kg/m2 Tuan Jane MD Work Phone: [facility] 12-06-2024 14:17-0400 Body weight 93.89 kg Tuan Jane MD Work Phone: [facility] 12-06-2024 14:17-0400 Diastolic blood pressure 68 mm[Hg] Tuan Jane MD Work Phone: [facility] 12-06-2024 14:17-0400 Heart rate 74 /min Tuan Jane MD Work Phone: [facility] 12-06-2024 14:17-0400 SaO2% (BldA) [Mass fraction] 96 % Tuan Jane MD Work Phone: [facility] 12-06-2024 14:17-0400 Systolic blood pressure 122 mm[Hg] Tuan Jane MD Work Phone: [facility] 11-16-2024 10:35-0400 Body mass index (BMI) [Ratio] 34.21 kg/m2 Adrianna Reddy NP Work Phone: [facility] 11-16-2024 10:35-0400 Body weight 93.26 kg Adrianna Reddy NP Work Phone: [facility] 11-16-2024 10:35-0400 Diastolic blood pressure 80 mm[Hg] Adrianna Reddy NP Work Phone: [facility] 11-16-2024 10:35-0400 Heart rate 72 /min Adrianna Reddy NP Work Phone: [facility] 11-16-2024 10:35-0400 Systolic blood pressure 132 mm[Hg] Adrianna Reddy NP Work Phone: [facility] 10-26-2024 09:47-0400 Body height 165.1 cm Erna Banegas SECURITY ENGINEER Work Phone: [facility] 10-26-2024 09:47-0400 Body mass index (BMI) [Ratio] 34.35 kg/m2 Erna Banegas SECURITY ENGINEER Work Phone: [facility] 10-26-2024 09:47-0400 Body weight 93.62 kg Erna Banegas SECURITY ENGINEER Work Phone: [facility] 10-26-2024 09:47-0400 Diastolic blood pressure 64 mm[Hg] Erna Viverosel SECURITY ENGINEER Work Phone: [facility] 10-26-2024 09:47-0400 Heart rate 72 /min Erna Banegas SECURITY ENGINEER Work Phone: [facility] 10-26-2024 09:47-0400 Systolic blood pressure 126 mm[Hg] Erna Viverosel SECURITY ENGINEER Work Phone: [facility] 09-20-2024 14:03-0400 Body height 165.1 cm Susan Vásquez DPM Work Phone: [facility] 09-20-2024 14:03-0400 Body mass index (BMI) [Ratio] 34.11 kg/m2 Susan Gay DPM Work Phone: [facility] 09-20-2024 14:03-0400 Body weight 92.99 kg Susan Vásquez DPM Work Phone: [facility] 06-15-2024 10:40-0500 Body mass index (BMI) [Ratio] 34.11 kg/m2 Erna Banegas SECURITY ENGINEER Work Phone: [facility] 06-15-2024 10:40-0500 Body weight 92.99 kg Erna Viverosel SECURITY ENGINEER Work Phone: [facility] 06-15-2024 10:40-0500 Diastolic blood pressure 78 mm[Hg] Erna Makenzie SECURITY ENGINEER Work Phone: [facility] Comment on above: Pt BP machine in office - 165/94 P 83 Lt arm 157/88 P 81 06-15-2024 10:40-0500 Heart rate 84 /min Erna Banegas SECURITY ENGINEER Work Phone: [facility] 06-15-2024 10:40-0500 Systolic blood pressure 132 mm[Hg] Erna Banegas SECURITY ENGINEER Work Phone: [facility] Comment on above: Pt BP machine in office - 165/94 P 83 Lt arm 157/88 P 81 02-22-2024 14:04-0400 Body height 165.1 cm Logan Hunter MD Work Phone: [employer] 02-22-2024 14:04-0400 Body mass index (BMI) [Ratio] 33.95 kg/m2 Logan Hunter MD Work Phone: [employer] 02-22-2024 14:04-0400 Body weight 92.53 kg Logan Hunter MD Work Phone: [employer] 02-22-2024 14:04-0400 Diastolic blood pressure 70 mm[Hg] Logan Hunter MD Work Phone: [employer] 02-22-2024 14:04-0400 Heart rate 86 /min Logan Hunter MD Work Phone: [employer] 02-22-2024 14:04-0400 SaO2% (BldA) [Mass fraction] 95 % Logan Hunter MD Work Phone: [employer] 02-22-2024 14:04-0400 Systolic blood pressure 114 mm[Hg] Logan Hunter MD Work Phone: [employer] 11-17-2023 14:35-0400 Diastolic blood pressure 84 mm[Hg] [facility] Nurse [facility] [facility] 11-17-2023 14:35-0400 Heart rate 84 /min [facility] Nurse [facility] [employer] [facility] 11-17-2023 14:35-0400 Systolic blood pressure 148 mm[Hg] [facility] Nurse [facility] Encounters Encounter Date Encounter Type Care Provider Facility Start: 04-10-2025 End: 04-10-2025 Telephone encounter Christi Gallegos MD Other Phone: [facility] Comment on above: pulmonology referral Start: 04-08-2025 End: 04-08-2025 ambulatory Javier Church MD Facility:[facility] Start: 02-13-2025 End: 02-13-2025 Telephone encounter Christi Gallegos MD Other Phone: [facility] Start: 02-05-2025 End: 02-05-2025 Bamboo flowsheet Christi Valentine MD Work Phone: [facility] Start: 02-05-2025 End: 02-05-2025 Bamboo flowsheet Christi Valentine MD Work Phone: [facility] Start: 02-05-2025 End: 02-05-2025 ambulatory CHRISTI VALENTINE Not Available Start: 02-05-2025 End: 02-05-2025 Office outpatient visit 25 minutes Christi Valentine MD Work Phone: [facility] Comment on above: Ecchymosis (Primary Dx); Edema, unspecified type; Primary osteoarthritis of both knees Start: 02-04-2025 End: 02-04-2025 Telephone encounter Christi Gallegos MD Other Phone: [facility] Start: 12-27-2024 End: 12-27-2024 ambulatory [facility] Start: 12-17-2024 End: 12-17-2024 ambulatory Javier Church MD Facility:[facility] Start: 12-06-2024 End: 12-06-2024 Office outpatient visit 25 minutes Tuan Jane MD Work Phone: [facility] Comment on above: SVT (supraventricula r tachycardia) (Primary Dx); Tachycardia; Palpitations Start: 12-06-2024 End: 12-06-2024 ambulatory [facility] Start: 11-30-2024 End: 11-30-2024 Refill Christi [...] Office outpatient visit 25 minutes Adrianna Reddy SECURITY ENGINEER Work Phone: [facility] Comment on above: Acute non-recurrent pansinusitis (Primary Dx); Sinus pressure; Rhinorrhea; Acute cough; Sore throat Start: 11-01-2024 End: 11-09-2024 Telephone encounter Erna Banegas NP Work Phone: [facility] Start: 10-28-2024 End: 10-30-2024 Telephone encounter Erna Banegas NP Work Phone: [facility] Start: 10-26-2024 End: 10-26-2024 Bamboo flowsheet Erna Banegas SECURITY ENGINEER Work Phone: [facility] Start: 10-26-2024 End: 10-26-2024 Bamboo flowsheet Erna Banegas SECURITY ENGINEER Work Phone: [facility] Start: 10-26-2024 End: 10-26-2024 Patient encounter procedure Erna Banegas SECURITY ENGINEER Work Phone: [facility] Comment on above: Encounter for Medica re annual wellness exam; SVT (supraventricular tachycardia) (CMS/HCC); Tachycardia; Gastroesophageal reflux disease, unspecified whether esophagitis [...] 15 minutes Susan Gay DPM Work Phone: [facility] Comment on above: Dermatophytosis of n ail (Primary Dx); Dystrophic nail; Pain around toenail Start: 09-20-2024 End: 09-20-2024 ambulatory SUSAN GAY Not Available Start: 09-20-2024 End: 09-20-2024 Bamboo flowsheet Susan Gay DPM Work Phone: [facility] Start: 09-20-2024 End: 09-20-2024 Bamboo flowsheet Susan Gay DPM Work Phone: [facility] Start: 08-23-2024 End: 08-23-2024 Telephone encounter Christi Gallegos MD Work Phone: [facility] Start: 08-13-2024 End: 08-13-2024 Refill Erna Banegas SECURITY ENGINEER Work Phone: [facility] Comment on above: Primary osteoarthrit is of both knees Start: 06-15-2024 End: 06-15-2024 Bamboo flowsheet Erna Banegas SECURITY ENGINEER Work Phone: [facility] Start: 06-15-2024 End: 06-15-2024 Bamboo flowsheet Erna Banegas SECURITY ENGINEER Work Phone: [facility] Start: 06-15-2024 End: 06-15-2024 Office outpatient visit 25 minutes Erna Banegas SECURITY ENGINEER Work Phone: [facility] Comment on above: SVT (supraventricula r tachycardia) (CMS/HCC) (Primary Dx); Palpitations; Elevated blood pressure reading; Gastroesophageal reflux disease, unspecified whether esophagitis present; Spondylosis without myelopathy or radiculopathy, lumbar region; Nasal congestion Start: 06-15-2024 End: 06-15-2024 ambulatory ERNA BANEGAS Not Available Start: 05-09-2024 End: 05-10-2024 Refill Erna Banegas SECURITY ENGINEER Work Phone: [facility] Comment on above: Acute maxillary sinu sitis, 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; Otalgia of left ear; Primary osteoarthritis of both knees Start: 05-08-2024 End: 05-09-2024 Refill Christi Gallegos MD Work Phone: [facility] Comment on above: Gastroesophageal ref lux disease, unspecified whether esophagitis present Start: 03-16-2024 End: 03-16-2024 ambulatory LOGAN [facility] Start: 03-12-2024 End: 03-12-2024 Refill Christi Gallegos MD Work Phone: [facility] Comment on above: Primary osteoarthrit is of both knees Start: 02-22-2024 End: 02-22-2024 Office outpatient visit 15 minutes Logan Hunter MD Work Phone: [facility] Comment on above: SVT (supraventricula r tachycardia) ([facility]-HCC) (Primary Dx); Tachycardia; Palpitations Start: 02-22-2024 End: 02-22-2024 ambulatory LOGAN [facility] Start: 02-21-2024 End: 02-21-2024 Telephone encounter Laura Melton CMA [facility] Start: 01-09-2024 End: 01-09-2024 ambulatory CHRISTI Brewer [facility] Start: 11-17-2023 End: 11-17-2023 Clinical Support [facility] Nurse [facility] Comment on above: SVT (supraventricula r tachycardia) ([facility]-H[facility]) (Primary Dx) Start: 11-16-2023 End: 11-16-2023 Telephone encounter Laura Melton CMA [facility] Start: 11-10-2023 End: 11-10-2023 ambulatory FEROZ COOK [facility] Start: 11-10-2023 End: 11-10-2023 ambulatory LOGAN HUNTER [facility] Start: 11-03-2023 End: 11-03-2023 Telephone encounter Norma Golden LPN [facility] Comment on above: PRE OP REMINDER CALL Start: 10-18-2023 End: 10-19-2023 Telephone encounter Elmira Luna RN [facility] Comment on above: med refill/ insuranc e question Start: 07-18-2023 Telephone encounter Neva Devante MARIXA [facility] Comment on above: EP Surgery Start: 09-07-2021 Patient encounter status [facility] Start: 03-21-2018 End: 03-22-2018 Patient encounter [facility] Facility: Procedures Date Procedure Procedure Detail Performing [...] 12-19-2027 Screening for malignant neoplasm of colon [facility] Start: 12-27-2025 Screening for malignant neoplasm of breast Mammogram [facility] Start: 12-06-2025 Adult BMI Screening Adult BMI Screening [facility] Start: 12-06-2025 Tobacco Screening Tobacco Screening [facility] Start: 11-16-2025 DTaP,Tdap and Td Vaccines (2 - Td or Tdap) DTaP,Tdap and Td Vaccines (2 - Td or Tdap) [facility] Start: 11-16-2025 DTaP,Tdap and Td Vaccines (3 - Td or Tdap) DTaP,Tdap and Td Vaccines (3 - Td or Tdap) [facility] Start: 10-26-2025 Medicare Annual Wellness (AWV) Medicare Annual Wellness (AWV) [facility] Start: 06-07-2025 End: 06-07-2025 Patient encounter procedure 06/07/2025 2:00 PM EST Office Visit [facility] [address] [place] [address] Tuan Jane MD [address] [place] [address] [facility] Start: 03-04-2025 Influenza vaccination [facility] Start: 02-21-2025 Adult BMI Screening Adult BMI Screening [facility] Start: 02-21-2025 Tobacco Screening Tobacco Screening [facility] Start: 02-05-2025 End: 02-05-2026 CBC W Auto Differential panel - Blood CBC and differential Lab Routine Ecchymosis Expected: 02/05/2025 (Approximate), Expires: 02/05/2026 [facility] Work Phone: Comment on above: Expected: 02/05/2025 (Approximate), Expi res: 02/05/2026 Start: 12-27-2024 End: 12-27-2024 Patient encounter procedure 12/27/2024 1:45 PM EDT Appointment [facility] [address] [place] [address] [facility] Start: 12-06-2024 End: 12-06-2025 Event Monitor (In Office) Event Monitor (In Office) Cardiac Services Routine SVT (supraventricular tachycardia) ([facility]) Expected: 12/06/2024, Expires: 12/06/2025 [facility] Work Phone: Comment on above: Expected: 12/06/2024, Expires: Start: 11-09-2024 Adult BMI Screening Adult BMI Screening [facility] Start: 11-09-2024 Tobacco Screening Tobacco Screening [facility] Start: 10-28-2024 End: 12-28-2025 DBT Breast - bilateral screening Bilateral screening mammogram with tomosynthesis Imaging Routine Encounter for screening mammogram for breast cancer Expected: 10/28/2024, Expires: 12/28/2025 [facility] Work Phone: Comment on above: Expected: 10/28/2024, Expires: Start: 10-26-2024 End: 10-26-2024 Patient encounter procedure [facility] Comment on above: Encounter for Medicare annual wellness e xam (Primary Dx); SVT (supraventricular tachycardia) ([facility]/HCC); Tachycardia; Gastroesophageal reflux disease, unspecified whether esophagitis present; Left upper arm pain; Presence of right artificial knee joint; Primary osteoarthritis of both knees; Spondylosis without myelopathy or radiculopathy, lumbar region; S/P total knee replacement, left; Vasovagal syncope; Post-menopausal; Decreased hearing, unspecified laterality Start: 10-22-2024 End: 10-22-2024 Patient encounter procedure 10/22/2024 2:30 PM EDT [facility] [address] [place] [phone] Erna Banegas NP [address] [place] [address] [facility] Start: 09-20-2024 End: 09-20-2024 Patient encounter procedure 09/20/2024 2:15 PM EDT Office Visit [facility] [address] [place] [phone] Susan Gay DPM [address] [place] [address] Arrived [facility] Comment on above: Arrived Start: 08-10-2024 Influenza vaccination Influenza Vaccine (#1) [facility] Comment on above: Postponed from 03/04/2024 (Patient Refus ed) Start: 08-02-2024 Medicare Annual Wellness (AWV) Medicare Annual Wellness (AWV) [facility] Start: 06-15-2024 End: 06-15-2024 Patient encounter procedure 06/15/2024 10:30 AM EST Office Visit [facility] [address] [place] [facility] [place] [phone] Erna Banegas NP [address] [place], [place] [phone] SVT (supraventricular tachycardia) (CMS/HCC) (Primary Dx); Palpitations [facility] Comment on above: SVT (supraventricular tachycardia) (CMS/ HCC) (Primary Dx); Palpitations Start: 03-16-2024 End: 03-16-2024 Patient encounter procedure 03/16/2024 2:00 PM EDT Appointment [facility] [address] [place] [phone] Logan Hunter MD [address] [place] [address] [facility] Start: 03-04-2024 COVID-19 Vaccine ( season) COVID-19 Vaccine ( season) [facility] Start: 03-04-2024 Influenza vaccination [facility] Start: 02-22-2024 End: 02-22-2024 Patient encounter procedure 02/22/2024 2:15 PM EDT Office Visit [facility] [address] [phone] Logan Hunter MD [address] [place] [address] [facility] Start: 02-22-2024 End: 02-21-2025 Echo complete W/ contrast Echo complete W/ contrast Echocardiography Routine Tachycardia Palpitations Expected: 02/22/2024, Expires: 02/21/2025 [facility] Work Phone: Comment on above: Expected: 02/22/2024, Expires: Start: 02-05-2024 Adult BMI Screening Adult BMI Screening [facility] Start: 11-19-2023 Screening for malignant neoplasm of breast Mammogram [facility] Start: 11-17-2023 End: 11-17-2023 Clinical Support 11/17/2023 2:30 PM EDT Clinical Support [facility] [address] [place] [address] [facility] Start: 11-10-2023 End: 11-10-2023 Admission to same day surgery center 11/10/2023 11:30 AM EDT - 11/10/2023 3:30 PM EDT Surgery [facility] [address] [place] [address] Logan Hunter MD [address] [place] [phone] SVT Ablation, CARTO EAM [facility] Comment on above: SVT Ablation, CARTO EAM Start: 11-10-2023 Subsequent hospital visit by physician 11/10/2023 11:30 AM EDT Hospital Encounter [facility] [address] [place] [phone] Logan Hunter MD [address] [place] [phone] SVT (supraventricular tachycardia) [facility] Comment on above: SVT (supraventricular tachycardia) Start: 10-26-2023 Tobacco Screening Tobacco Screening [facility] Start: 03-04-2023 COVID-19 Vaccine ( season) COVID-19 Vaccine () [facility] Start: 03-04-2023 Influenza vaccination Influenza Vaccine [facility] Start: 12-03-2022 Administration of varicella zoster vaccine Zoster (Shingles) Vaccine (2 of 2) [facility] Start: 2021 Fall Risk Screening Fall Risk Screening [facility] Start: 06-24-2021 Screening for malignant neoplasm of colon [facility] Start: 1974 Adult BMI Follow Up Plan Adult BMI Follow Up Plan [facility] Start: 1968 Depression Screening Depression Screening [facility] Start: 1955 Medicare Annual Wellness Visit Medicare Annual Wellness Visit [facility] Start: 1955 Screening for malignant neoplasm of colon [facility] Immunizations Immunization Date Immunization Notes Care Provider Fa cili 08-02-2023 Influenza, High-dose Seasonal, Quadrivalent, Preservative Free Christi Gallegos MD Work Phone: [facility] 08-02-2023 influenza virus vaccine, unspecified formulation Elmira Luna RN [facility] 06-10-2023 RSV, recombinant, protein subunit RSVpreF, adjuvant reconstitu, 120mcg/0.5mL, PF (Arexvy) Christi Gallegos MD Work Phone: [facility] 03-12-2023 zoster vaccine recombinant Christi Gallegos MD Work Phone: [facility] 10-08-2022 Influenza, High-dose Seasonal, Quadrivalent, Preservative Free Christi Gallegos MD Work Phone: [facility] 10-08-2022 Pneumococcal Conjuga te PCV 20 Christi Gallegos MD Work Phone: [facility] 10-08-2022 zoster vaccine recombinant Christi Gallegos MD Work Phone: [facility] 10-08-2022 influenza virus vaccine, unspecified formulation Neva Low LPN [facility] 10-08-2022 zoster vaccine, unspecified formulation Neva Low LPN [facility] 11-17-2015 tetanus toxoid, redu rosana diphtheria toxoid, and acellular pertussis vaccine, adsorbed Christi Gallegos MD Work Phone: [facility] 07-04-2004 tetanus and diphther ia toxoids, adsorbed, preservative free, for adult use (2 Lf of tetanus toxoid and 2 Lf of diphtheria toxoid) Christi Gallegos MD Work Phone: [facility] Payers Date Payer Category Payer Medicare HMO [employer] [id number] 2024 Medicare [id number] 2023 Medicare (Managed Care) 1.2. [id number] 2023 Unknown [id number] [id number]. [id number] 2023 Medicare [id number] 2021 Medicare [id number] [id number]. [id number] 1955 Unknown [id number] 2.16.840.1.982309.3.579.2. 1286 1955 Unknown [id number] 2.16.840.1.670888.3.579.2. 1286 1955 Unknown [id number] 2.16.840.1.682572.3.579.2. 128 1955 Unknown [id number] 2.16.840.1.464773.3.579.2. 128 1955 Unknown [id number] 2.16.840.1.266179.3.579.2. 128 1955 Unknown [id number] 2.16.840.1.256484.3.579.2. 1286 1955 Unknown [id number] 2.16.840.1.980856.3.579.2. 1286 1955 Unknown [id number] 2.16.840.1.107717.3.579.2. 1286 1955 Unknown [id number] 2.16.840.1.925580.3.579.2. 9 1955 Unknown [id number] 2.16.840.1.002368.3.579.2. 1259 1955 Unknown [id number] 2.16.840.1.024060.3.579.2. 1258 1955 Unknown [id number] 2.16.840.1.566834.3.579.2. 9 1955 Unknown [id number] 2.16.840.1.495926.3.579.2. 9 1955 Unknown [id number] 2.16.840.1.890915.3.579.2. 196 1955 Unknown [id number] 2.16.840.1.135189.3.579.2. 196 Unknown [id number] Social History Date Type Detail Facility Start: 08-12-2022 End: 03-09-2023 Tobacco smoking status ARIS Never smoked tobacco [facility] Start: 08-12-2022 End: 03-09-2023 Tobacco use and exposure Smokeless tobacco non-user [facility] Start: 11-11-2023 End: 02-05-2025 Alcoholic beverage intake Lifetime non-drinker (finding) [facility] Start: 03-08-2023 End: 06-12-2024 History of Social function [facility] Start: 03-08-2023 End: 06-12-2024 Humiliation, Afraid, Rape, and Kick questionnaire [HARK] [facility] Within the last year , have you been afraid of your partner or ex-partner? No [facility] Do you belong to any clubs or organizations such as catholic groups, unions, fraternal or athletic groups, [...] a little [facility] (I/We) worried partha er (my/our) food would run out before (I/we) got money to buy more. Never true [facility] Start: 05-17-2023 Alcohol Comment Caffeine intak e: 3-4 cups per day [facility] Start: 1955 Sex assigned at Not on file [facility] Do you feel stress - tense, restless, nervous, or anxious, or unable to sleep at night because your mind is troubled all the time - these days [OSQ] Not at all [facility] Start: 1955 Sex assigned at Female P [facility] Start: 08-26-2022 Gender identity Identifies as female gender (finding) [facility] Start: 08-26-2022 Sexual orientation Heterosexual (fin ding) [facility] Start: 02-06-2015 Sex Female (finding) [facility] NEGATED: Highlighted rowStart: NINF History of tobacco use Passive smoker [facility] Medical Equipment Procedure Code Equipment Code Equipment Origin al Text Equipment Identifier Dates Cement Bn Bio 40 gm Rpl [id number] - [id number] - [id number] Start: 09-15-2021 Cement Bn Bio 40 gm Rpl [id number] - [id number] Start: 08-26-2022 Cement Bn Bio 40 gm Rpl [id number] - [id number] Start: 08-26-2022 Component Ptlr 3 [facility] [id number] - [id number] Start: 09-15-2021 Component Fem 6 Std Kn Lt Post Stab Cmnt Persona Cocr Strl - [id number] - [id number] Start: 09-15-2021 Surface Artc 11m m Persona 6-9 Cd Kn Lt Pe Post Stab - [id number] - [id number] Start: 09-15-2021 Surface Artc 11m m Persona 6-9 Cd Kn Rt Vivacit-E Post Stab - [id number] Start: 08-26-2022 Component Fem 6 Std Kn Rt Post Stab Cmnt Persona Cocr Strl - [id number] Start: 08-26-2022 Component Ptlr 3 5mm Persona Alply Kn Strl Lf - [id number] Start: 08-26-2022 Stem Xtn 30+ Mm 14mm Persona Tpr Kn Tib - [id number] Start: 08-26-2022 Baseplate Tib 5d D Kn Lt Cmnt Stm Persona Tiv Strl - [id number] - [id number] Start: 09-15-2021 Baseplate Tib 5d D Kn Rt Cmnt Stm Persona Tiv Strl - [id number] Start: 08-26-2022 Goals Date Patient Goal Desired Activity /State Personal health goal Comment on above: Formatting of this n ote might be different from the original. Evaluation of progress towards goal: Current discharge plan is home with [facility] and support of spouse. - Mckenna Najera RN 09/15/21 12:29 PM Clinical Notes 07-18-2023 to 04-10-2025 Telephone Encounter - Alyce Flores - 04/10/2025 11:28 AM EDTTelephone Encounter - Alyce Flores - 04/10/2025 11:28 AM EDTTelephone Encounter - YOBANY HUMMEL - 04/10/2025 11:07 AM EDTPatient Instructions Note Date & Type Note Facility 04-10-2025 Telephone encounter Note Pt returned call and was given the number for Dr. Broussard office to call and schedule. [facility] 04-10-2025 Miscellaneous Notes Pt returned call and was given the number for Dr. Broussard office to call and schedule. Pt was referred to pulmonology in October. Placed call to [facility], pt has not been seen and no appts scheduled. Pt should call them to schedule, P#[phone]. I placed call to pt, l/m asking she call the office back. Please provide p# for pt to call to schedule with pulmonology, if pt is no longer interested in referral please let me know. documented in this encounter [facility] 04-10-2025 Telephone encounter Note Pt was referred to pulmonology in October. Placed call to [facility], pt has not been seen and no appts scheduled. Pt should call them to schedule, P#[phone]. I placed call to pt, l/m asking she call the office back. Please provide p# for pt to call to schedule with pulmonology, if pt is no longer interested in referral please let me know. [facility] 02-13-2025 Telephone encounter Note Lab results were given ty [facility] 02-13-2025 Miscellaneous Notes Lab results were given ty documented in this encounter [facility] 02-05-2025 History of Present illness Narrative Associated [...] tea but avoids soda. She also takes movz-zcp-sufxhko magnesium supplements. Coffee/Tea/Caffeine-containing Drinks: She has reduced [...] for Medicare wellness. documented in this encounter [facility] 02-04-2025 Telephone encounter Note Pt feels like she's holding water And her leg is bleeding due to her thin skin, just touching something is really bad, started this am. Pt is off work this week and last saw Chase one time. [facility] 02-04-2025 Miscellaneous Notes Pt feels like she's holding water And her leg is bleeding due to her thin skin, just touching something is really bad, started this am. Pt is off work this week and last saw Chase one time. documented in this encounter [facility] 12-06-2024 History of Present illness Narrative Meka [...] 1 tablet (500 mg total) before bedtime. [id number]-FISH OIL-L.CASEI ORAL Take 1 capsule by mouth [...] 11/10/2023 Performed by Logan Hunter MD at [facility] () TUBAL LIGATION 1990 Family History Problem [...] Resource Strain: Low Risk (06/12/2024) Received from [facility] Overall Financial Resource Strain (CARDIA) Difficulty of Paying Living Expenses: Not hard at all Food Insecurity: No Food Insecurity (12/06/2024) Hunger Screening Food Insecurity - Worry: Never True Food Insecurity - Inability: Never True Transportation Needs: No Transportation Needs (06/12/2024) Received from [facility] PRAPARE - Transportation Lack of Transportation (Medical): No Lack of Transportation (Non-Medical): No Physical Activity: Sufficiently Active (06/12/2024) Received from [facility] Exercise Vital Sign Days of Exercise per Week: 7 days Minutes of Exercise per Session: 60 min Stress: No Stress Concern Present (06/12/2024) Received from [facility] [place] [employer] - Occupational Stress Questionnaire Feeling of Stress : Not at all Social Connections: Socially Integrated (06/12/2024) Received from [facility] Social Connection and Isolation Panel [NHANES] Frequency of Communication with Friends and Family: More than three times a week Frequency of Social Gatherings with Friends and Family: Three times a week Attends Baptism Services: More than 4 times per year Active Member of Clubs or Organizations: Yes Attends Club or Organization Meetings: More than 4 times per year Marital Status: Interpersonal Safety: Not At Risk (03/08/2023) Received from [facility] Humiliation, Afraid, Rape, and Kick questionnaire Fear of Current or Ex-Partner: No Emotionally Abused: No Physically Abused: No Sexually Abused: No Housing Instability: Unknown (06/12/2024) Received from [facility] Housing Stability Vital Sign Unable to Pay [...] Gallegos MD [place]: [place] [address] [place] [id number] documented in this encounter [facility] 11-30-2024 Telephone encounter Note Rx sent [facility] 11-30-2024 Miscellaneous Notes Rx sent 90 day supply documented in this encounter [facility] 11-30-2024 Telephone encounter Note 90 day supply [facility] 11-16-2024 History of Present illness Narrative Images [...] min Stress: No Stress Concern Present (06/12/2024) [place] [employer] - Occupational Stress Questionnaire Feeling of Stress : Not at all Social Connections: Socially Integrated (06/12/2024) Social Connection and Isolation Panel [NHANES] Frequency of Communication with Friends and Family: More than three times a week Frequency of Social Gatherings with Friends and Family: Three times a week Attends Baptism Services: More than 4 times per year [...] fail to improve. documented in this encounter [facility] 11-01-2024 Telephone encounter Note Pt did call back, she will try to contact imani about it. [facility] 11-01-2024 Miscellaneous Notes Pt did call back, she will try to contact anthem about it. Placed call to patient, l/m asking she call the office back. Colorectal screening documented in this encounter [facility] 11-01-2024 Telephone encounter Note Placed call to patient, l/m asking she call the office back. [facility] 11-01-2024 Telephone encounter Note Colorectal screening [facility] 10-30-2024 Telephone encounter Note Patient called back and confirmed her referrals. [facility] 10-30-2024 Miscellaneous Notes Patient called back and confirmed her referrals. Referral placed to pulmonology. [facility] from [facility] found in [facility], scanned into [facility] and sent to [facility]. Referral, fax mammogram documented in this encounter [facility] 10-29-2024 Telephone encounter Note Referral placed to pulmonology. Mammogram order faxed to [facility]. Colonoscopy from 2010 found in [place], scanned into [facility] and sent to [facility]. [facility] 10-28-2024 Telephone encounter Note Referral, fax mammogram [facility] 10-26-2024 History of Present illness Narrative Images [...] last time she checked it Going to [place] [facility] for injections-they did help. Last eye exam this week on Tuesday at [facility], Has cataracts, vision is blurrey, mainly right eye at times. Could be r/t dry eye also. They plan to send her to [place]. 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 Mom wants her to have a sleep [...] (P) Yes Cognitive Screening Three Word Registration: DaughterSarah, Ilda Clock Drawing: Normal Clock - 2 Three [...] taking Gapabentin BID per pain magagement in [place]. Taking 1 Tylenol TID PRN, and 1 [...] and it was normal SVT (supraventricular tachycardia) ([facility]) Comments: Sees Cardiology. Had echo 03/27-EF [...] if concerns. PVU documented in this encounter [facility] 09-20-2024 History of Present illness Narrative Images [...] Susan Gay DPM documented in this encounter [facility] 09-20-2024 Instructions Susan Gay DPM - 09/20/2024 2:15 PM EDT Topical care measures as noted documented in this encounter [facility] 08-23-2024 Telephone encounter Note Patient scheduled her MAWV on October 22. Is she due for labwork? If so, she would like to do prior to this appt. Please advise pt. Thank you. [facility] 08-23-2024 Miscellaneous Notes Patient scheduled her MAWV on October 22. Is she due for labwork? If so, she would like to do prior to this appt. Please advise pt. Thank you. documented in this encounter [facility] 08-13-2024 Telephone encounter Note Rx sent [facility] 08-13-2024 Miscellaneous Notes Rx sent documented in this encounter [facility] 06-15-2024 History of Present illness Narrative Images [...] 151/92, P 70. Tu 126/81, P 74, 152/90, P 76, 137/80, [...] at 8-8:30. Takes OTC sleep aide from [employer] 1/2 tab. Snores per . Pt does [...] couple of months per pain magagement in [place]. Has F/U appt in Jul. Taking 1 [...] Breath sounds: Normal breath sounds. 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 [...] if concerns. PVU documented in this encounter [facility] 05-10-2024 Telephone encounter Note I cancelled Amoxicillin Rx and sent Nabumetone Rx [facility] 05-10-2024 Miscellaneous Notes I cancelled Amoxicillin Rx and sent Nabumetone Rx I called pt. She states she did not request this refill for an antibiotic and didn't need it. Pt then said that she did need a refill on her nabumetone to be sent in. I told pt I would send the request. documented in this encounter [facility] 05-09-2024 Telephone encounter Note I called pt. She states she did not request this refill for an antibiotic and didn't need it. Pt then said that she did need a refill on her nabumetone to be sent in. I told pt I would send the request. [facility] 03-12-2024 Telephone encounter Note Rx sent [facility] 03-12-2024 Miscellaneous Notes Rx sent documented in this encounter [facility] 02-22-2024 History of Present illness Narrative Meka Zavala Date of visit: 02/22/2024 Date of : 1955 Age: 68 y.o. Patient Active Problem List Diagnosis Neurocardiogenic syncope Palpitations Tachycardia Shortness of breath Primary osteoarthritis of both knees Obesity (BMI 30-39.9) Preop testing SVT (supraventricular tachycardia) ([facility]) S/P total knee replacement, left Class [...] 1 tablet (500 mg total) before bedtime. [id number]-FISH OIL-L.CASEI ORAL Take 1 capsule by mouth [...] SVT who presents to EP clinic at [facility] for follow-up. 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 Her prior flecainide 50 mg BID was discontinued after ablation. Shortly after ablation, she called our office to let us know that her brother had been diagnosed with HCM. Patient presented the appointment by herself today. EKG in clinic shows sinus rhythm, heart rate 86 beats per minute, AR interval 170 milliseconds QRS 96 milliseconds QTC [...] brother is currently undergoing VT ablation at [facility]. He did undergo genetic testing, but [...] 11/10/2023 Performed by Logan Hunter MD at [facility] (EP) TUBAL LIGATION 1990 Family History Problem [...] Resource Strain: Low Risk (03/08/2023) [facility] Overall Financial Resource Strain (CARDIA) Difficulty of Paying Living Expenses: Not hard at all Food Insecurity: No Food Insecurity (02/22/2024) Hunger Screening Food Insecurity - Worry: Never True Food Insecurity - Inability: Never True Transportation Needs: No Transportation Needs (03/08/2023) Received from [facility] PRAPARE - Transportation Lack of Transportation (Medical): No Lack of Transportation (Non-Medical): No Physical Activity: Sufficiently Active (03/08/2023) Received from [facility] Exercise Vital Sign Days of Exercise per Week: 6 days Minutes of Exercise per Session: 60 min Stress: No Stress Concern Present (03/08/2023) Received from [facility] [place] [employer] - Occupational Stress Questionnaire Feeling of Stress : Only a little Social Connections: Socially Integrated (03/08/2023) Received from [facility] Social Connection and Isolation Panel [NHANES] Frequency of Communication with Friends and Family: More than three times a week Frequency of Social Gatherings with Friends and Family: More than three times a week Attends Baptism Services: More than 4 times per year Active Member of Clubs or Organizations: Yes Attends Club or Organization Meetings: More than 4 times per year Marital Status: Interpersonal Safety: Not At Risk (03/08/2023) Re[facility] from [facility], [facility] Humiliation, Afraid, Rape, and Kick questionnaire Fear of Current or Ex-Partner: No Emotionally Abused: No Physically Abused: No Sexually Abused: No Housing Instability: Unknown (03/08/2023) Received from [facility], [facility] Housing Stability Vital Sign Unable to Pay [...] discontinued medications. IMPRESSIONS/PLAN 1. SVT (supraventricular tachycardia) ([facility]) - POCT EKG 2. Tachycardia - POCT [...] Christi Gallegos MD Referring Physician: Ryan Sosa, [address] [address] documented in this encounter [employer] 02-21-2024 Miscellaneous Notes Left message for patient to remind them to bring their most current medication list with them to their appointment. documented in this encounter [facility] 02-21-2024 Telephone encounter Note Left message for patient to remind them to bring their most current medication list with them to their appointment. [facility] 11-17-2023 History of Present illness Narrative Patient presents to [facility] office for post SVT ablation 11/10/23. Patient [...] to that appointment. documented in this encounter [facility] 11-16-2023 Miscellaneous Notes Called patient to remind them to bring their most current copy of their medication list with them to their appt. Patient verbalizes understanding. documented in this encounter [facility] 11-16-2023 Miscellaneous Notes Left message for patient to remind them to bring their most current medication list with them to their appointment. documented in this encounter [facility] 11-16-2023 Telephone encounter Note Called patient to remind them to bring their most current copy of their medication list with them to their appt. Patient verbalizes understanding. [facility] 11-16-2023 Telephone encounter Note Left message for patient to remind them to bring their most current medication list with them to their appointment. [facility] 11-03-2023 Miscellaneous Notes Called and LM to pt providing pre op reminder call TTH Entrance C Arrive @ 1000 Fasting - NPo after mn Medications - holding flec x 3 days on 11/06, no SGLT LABS - adivsed pt to obtain Advised pt to call with any questions documented in this encounter [facility] 11-03-2023 Telephone encounter Note Called and LM to pt providing pre op reminder call TTH Entrance C Arrive @ 1000 Fasting - NPo after mn Medications - holding flec x 3 days on 11/06, no SGLT LABS - adivsed pt to obtain Advised pt to call with any questions [facility] 10-18-2023 Miscellaneous Notes Pt calls for flec refill. She says she has 1 week left. Ablation 11/10/23 she requests 1 month supply. Reminded to complete preop labs between 11/02-11/04. She also wanted to inquire if procedures schedulers have heard if Dr Hunter doesn't take her insurance. [employer] insurance that is in [employer]. She said she looked through the insurance book and he was covered but wanted to check with ep schedulers. Rx pended to mey gallion to sign. And message to ep surgery nurses to address. documented in this encounter [facility] 10-18-2023 Telephone encounter Note Pt calls for flec refill. She says she has 1 week left. Ablation 11/10/23 she requests 1 month supply. Reminded to complete preop labs between 11/02-11/04. She also wanted to inquire if procedures schedulers have heard if Dr Hunter doesn't take her insurance. [employer] insurance that is in [employer]. She said she looked through the insurance book and he was covered but wanted to check with ep schedulers. Rx pended to mey pool to sign. And message to ep surgery nurses to address. [email or web address] 07-18-2023 Miscellaneous Notes RO Received a call [...] other meds held. documented [facility] this encounter [facility]2023 Telephone encounter Note RO Received a call from pt and she would like to proceed with ablation you discussed. Please review and advise thank you [facility] 07-18-2023 Telephone encounter Note Okay to schedule SVT ablation with me, next available. NPO after midnight, okay for clear 6 hours prior, MAC sedation, routine preoperative labs, CARTO EAM. Hold flecainide for 3 days prior to procedure. No other meds held. [employer] Work Phone: Evaluation note Diagnosis Gastroesophageal reflux disease, unspecified whether esophagitis present documented in this encounter [facility] Healthcare[facility] note* Diagnosis Acute maxillary sinusitis, 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 Otalgia of left ear Primary osteoarthritis of both knees documented in this encounter [facility] HealthcareEvaluation note* Diagnosis SVT (supraventricular tachycardia) ([facility])- Primary Other specified cardiac dysrhythmias Palpitations Elevated blood pressure reading Elevated blood pressure reading without diagnosis of hypertension Gastroesophageal reflux disease, unspecified whether esophagitis present Spondylosis without myelopathy or radiculopathy, lumbar region Nasal congestion Other diseases of nasal cavity and sinuses documented in this encounter [facility] HealthcareEvaluation note* Diagnosis Primary osteoarthritis of both knees documented in this encounter [facility] HealthcareEvaluation note* Diagnosis Primary osteoarthritis of both knees documented in this encounter [facility] HealthcareEvaluation note* Diagnosis SVT (supraventricular tachycardia) ([facility])- Primary Other specified cardiac dysrhythmias documented in this encounter [facility] SystemEvaluation [facility]* Diagnosis SVT (supraventricular tachycardia) ([facility])- Primary Other specified cardiac dysrhythmias Tachycardia Unspecified tachycardia Palpitations documented in this encounter [facility] SystemEvaluation note* Diagnosis SVT (supraventricular tachycardia) ([facility])- Primary Other specified cardiac dysrhythmias SVT (supraventricular tachycardia) ([facility]) Other specified cardiac dysrhythmias SVT (supraventricular tachycardia) ([facility]) Other specified cardiac dysrhythmias documented in this encounter [facility] SystemEvaluation note* Diagnosis Dermatophytosis of nail- Primary Dystrophic nail Other specified disease of nail Pain around toenail documented in this encounter [facility] HealthcareEvaluation note* Diagnosis Encounter for Medicare annual wellness exam SVT (supraventricular tachycardia) ([facility]) Other specified cardiac dysrhythmias Tachycardia Unspecified [...] for breast cancer documented in this encounter [facility] HealthcareEvaluation note* Diagnosis Snoring Other dyspnea and respiratory abnormality Daytime sleepiness documented in this encounter [facility] HealthcareEvaluation note* Diagnosis Acute non-recurrent pansinusitis- Primary Sinus pressure Other diseases of nasal cavity and sinuses Rhinorrhea Other diseases of nasal cavity and sinuses Acute cough Sore throat Acute pharyngitis documented in this encounter [facility] HealthcareEvaluation note* Diagnosis Gastroesophageal reflux disease, unspecified whether esophagitis present documented in this encounter [facility] HealthcareEvaluation note* Diagnosis Primary osteoarthritis of both knees Spondylosis without myelopathy or radiculopathy, lumbar region Gastroesophageal reflux disease, unspecified whether esophagitis present documented in this encounter [facility] HealthcareEvaluation note* Diagnosis SVT (supraventricular tachycardia)- Primary Other specified cardiac dysrhythmias Tachycardia Unspecified tachycardia Palpitations documented in this encounter [facility] System[facility]* Diagnosis Ecchymosis- Primary Other specified circulatory system disorders Edema, unspecified type Primary osteoarthritis of both knees documented in this encounter [facility] HealthcareInstructionsNot on filedocumented in this encounterPro[facility] SystemInstructionsNot on filedocumented in this encounterMer[facility] SystemInstructionsNot on filedocumented in this encounterProCarraway [facility] Health SystemInstructionsNot on filedocumented in this encounterMer[facility] InstructionsNot on filedocumented in this encounterMer[facility] InstructionsNot on filedocumented in this encounterMercy [facility] InstructionsNot on filedocumented in this encounterJoint [facility] Summary Purpose Family History No [...] W/ contrast Logan Hunter MD [address] [place] [address] [facility] [address] [place] [address] Phone: [phone] Referral ID Status Reason Start Date Expiration Date V isits Requested Visits Authorized [id number] Authorized 02/22/2024 02/21/2025 1 1 Additional Source Comments INFORMATION SOURCE (unrecogn ized section and content) DATE CREATED AUTHOR 04/17/2018 [facility] DATE CREATED AUTHOR AUTHOR'S ORGANIZ ATION 11/13/2022 [facility] dical Specialist DATE CREATED AUTHOR AUTHOR'S ORGANIZ ATION 11/12/2023 [facility] DATE CREATED AUTHOR AUTHOR'S ORGANIZ ATION 12/28/2024 [facility] DATE CREATED AUTHOR AUTHOR'S ORGANIZ ATION 02/08/2025 [facility] dical Specialists EPIC DATE CREATED AUTHOR AUTHOR'S ORGANIZ ATION 04/13/2025 [facility] Care Teams (unrecognized sec tion and content) Desk Director Relationship Specialty Start Date End Date Christi Gallegos MD [address] [place] [address] PCP - General Family Medicine 04/27/23 Christi Gallegos MD [address] [place] [address] PCP - Devoted 07/04/23 Desk Director Relationship Specialty Start Date End Date Christi Gallegos MD [address] [place] [address] PCP - General Family Medicine 04/27/23 Christi Gallegos MD [address] [place] [address] PCP - Devoted 07/04/23 Desk Director Relationship Specialty Start Date End Date Christi Gallegos MD [address] [place] [address] PCP - General Family Medicine 04/27/23 Christi Gallegos MD [address] [place] [address] PCP - Devoted 07/04/23 07/03/24 Desk Director Relationship Specialty Start Date End Date Christi Gallegos MD [address] [place] [address] PCP - General Family Medicine 04/27/23 Christi Gallegos MD [address] [place] [address] PCP - Devoted 07/04/23 07/03/24 Desk Director Relationship Specialty Start Date End Date Christi Gallegos MD [address] [place] [address] PCP - General Family Medicine 04/27/23 Christi Gallegos MD [address] [facility] [place] [address] PCP - Devoted 07/04/23 Desk Director Relationship Specialty Start Date End Date Christi Gallegos MD [address] [place] [address] PCP - General Family Medicine 10/07/23 Desk Director Relationship Specialty Start Date End Date Ryan Sosa DO [address] [place] [address] PCP - General 05/02/18 Desk Director Relationship Specialty Start Date End Date Christi Gallegos MD [address] [facility] [place] [address] PCP - General Family Medicine 04/27/23 Desk Director Relationship Specialty Start Date End Date Christi Gallegos MD [address] [facility] [place] [address] PCP - General Family Medicine 10/07/23 Desk Director Relationship Specialty Start Date End Date Christi Gallegos MD [address] [place] [address] PCP - General Family Medicine 10/07/23 Desk Director Relationship Specialty Start Date End Date Christi Gallegos MD [address] [place] [address] PCP - General Family Medicine 10/07/23 Desk Director Relationship Specialty Start Date End Date Christi Gallegos MD [address] [place] [address] PCP - General Family Medicine 10/07/23 Desk Director Relationship Specialty Start Date End Date Christi Gallegos MD [address] [place] [address] PCP - General Family Medicine 10/07/23 Desk Director Relationship Specialty Start Date End Date Christi Gallegos MD [address] [place] [address] PCP - General Family Medicine 04/27/23 Christi Gallegos MD [address] [facility] [place] [address] PCP - Medical [place] 07/04/2407/03 Desk Director Relationship Specialty Start Date End Date Christi Gallegos MD [address] [place] [address] PCP - General Family Medicine 04/27/23 Christi Gallegos MD [address] [facility] [place] [address] PCP - Medical [place] MA 07/04/2407/03 Desk Director Relationship Specialty Start Date End Date Wonderly, Christi B, MD [address] [place] [address] PCP - General Family Medicine 04/27/23 Christi Gallegos MD [address] [place] [address] PCP - Medical [place] MA 07/04/2407/03 Desk Director Relationship Specialty Start Date End Date Christi Gallegos MD [address] [place] [address] PCP - General Family Medicine 04/27/23 Christi Gallegos MD [address] [place] [address] PCP - Medical [place] MA 07/04/2407/03 Desk Director Relationship Specialty Start Date End Date Christi Gallegos MD [address] [place] [address] PCP - General Family Medicine 04/27/23 Christi Gallegos MD [address] [place] [address] PCP - Medical [place] MA 07/04/2407/03 Desk Director Relationship Specialty Start Date End Date Christi Gallegos MD [address] [place] [address] PCP - General Family Medicine 04/27/23 Christi Gallegos MD [address] [place] [address] PCP - Medical [place] MA 07/04/2407/03 Desk Director Relationship Specialty Start Date End Date Christi Gallegos MD [address] [facility] [place] [address] PCP - General Family Medicine 04/27/23 Christi Gallegos MD [address] [facility] [place] [address] PCP - Medical [place] MA 07/04/2407/03 Desk Director Relationship Specialty Start Date End Date WonderChristi angulo MD [address] [facility] [place] [address] PCP - General Family Medicine 04/27/23 Christi Gallegos MD [address] [facility] [place] [address] PCP - Medical [place] MA 07/04/2407/03 Desk Director Relationship Specialty Start Date End Date Christi Gallegos MD [address] [facility] [place] [address] PCP - General Family Medicine 10/07/23 Desk Director Relationship Specialty Start Date End Date Christi Gallegos MD PCP - General Family Medicine 04/27/23 Desk Director Relationship Specialty Start Date End Date Christi Gallegos MD PCP - General Family Medicine 04/27/23 Desk Director Relationship Specialty Start Date End Date Christi Gallegos MD PCP - General Family Medicine 04/27/23 Desk Director Relationship Specialty Start Date End Date Christi Gallegos MD PCP - General Family Medicine 04/27/23 Desk Director Relationship Specialty Start Date End Date Christi Gallegos MD PCP - General Family Medicine 04/27/23 Christi Valentine MD [address] [place] [address] PCP - Medical [place] DENA 07/04/2407/03 Reason for Visit (unrecogniz ed section [...] Reason Comments Follow-up Tachycardia Reason Comments Edema Reason Onset Date Comments pulmonology referral 04/10/2025 FOR RECORDS PERTAINING TO PATIENTS WHO ARE [...] BE BASED ON THE PRIMARY CLINICAL RECORDS. [employer] provides no warranty or guarantee of the accuracy or completeness of information in this document.
--- NOTE | 2025-04-18 14:29 | PM.CN ---
Consult Note: HPI Data of Consult Patient: known to practice within the last 3 years Consult date: 04/18/25 Requesting Physician: Guerda Reyes NP Primary Care Provider: Non-Staff Physician, MD Consult Narrative Reason for consult: f/u Narrative: Meka Dai a pleasant 69 year old female presents for evaluation of chronic low back and hip pain with intermittent radiculopathy. pain today 3/10 increasing to 5/10 with sitting, housework, adls, activity, and weather changes. notes improvement with lying, heat/ice, and sleep. utilizing baclofen 10mg TID PRN pain/spasms, gabapentin 100mg BID, and tylenol PRN with benefit. pt noting >50% improvement ongoing from recent bilateral L5-S1 TFESI. She is having acute thoracic myofascial pain today, reports she threw her back out at work today. pending chiropractic evaluation. since last visit her PCP stopped nabumetone and started her on meloxicam 15 mg daily. cc:: CC: Guerda Reyes NP Review of Systems ROS Musculoskeletal Reports: back pain; Denies: extremity pain or joint pain [facility] Medical History Acid reflux ?K21.9 - Gastro-esophageal reflux disease without esophagitis (ICD-10) Irregular heart beat ?I49.9 - Cardiac arrhythmia, unspecified (ICD-10) Surgical History History of repair of left rotator cuff ?Z98.890 - Other specified postprocedural states (ICD-10) History of total left knee replacement ?Z96.652 - Presence of left artificial knee joint (ICD-10) History of total right knee replacement ?Z96.651 - Presence of right artificial knee joint (ICD-10) History of section ?Z98.891 - History of uterine scar from previous surgery (ICD-10) Meds Home Medications and Allergies Home Medications ?Medication ?Instructions ?Recorded ?Confirmed ?Type multivitamin 1 tab PO DAILY 11/02/23 04/08/25 History omega-3 fatty acids 500 mg PO DAILY 11/02/23 04/08/25 History omeprazole 20 mg capsule,delayed 20 mg PO DAILY 11/02/23 04/08/25 History release biotin 1 mg capsule 1 mg PO DAILY 12/06/23 04/08/25 History lactobacillus combination no.4 3 3,000 mmu cells PO DAILY 12/06/23 04/08/25 History billion cell capsule (Probiotic) baclofen 10 mg tablet See Rx Instructions .Route 10/18/24 04/08/25 Rx .COMPLEX #90 tabs gabapentin 100 mg capsule 100 mg PO BID #60 caps 12/03/24 04/08/25 Rx diazepam 10 mg tablet (Valium) 10 mg PO ONCE 24 hours #1 tab 03/08/25 04/08/25 Rx meloxicam 15 mg tablet mg 04/08/25 History Allergies Allergy/AdvReac Type Severity Reaction Status Date / Time Sulfa (Sulfonamide Allergy Unknown Hives Verified 12/17/24 11:26 Antibiotics) Exam Constitutional Documenting provider has reviewed patient's vital signs: yes Common normals: no apparent distress, oriented x3, healthy appearing, alert and well nourished General appearance: cooperative HENMT Common normals: normocephalic, hearing grossly normal bilaterally and moist oral mucous membranes Head and scalp: normocephalic Eye Common normals: PERRL Pupil: PERRL Neck & C-Spine Common normals: full ROM General: normal visual inspection Chest Common normals: inspection of chest normal Respiratory Common normals: normal respiratory effort, no retractions and no use of accessory muscles Back & Pelvis Thoracic spine/upper back: ROM limited, pain with ROM, thoracic spinal tenderness and paraspinal muscle tenderness Lumbar spine/lower back: ROM limited, pain with ROM and straight leg raise negative bilaterally; no lumbar spinal tenderness Other: sensation intact BLE strength 5/5 in BLE mild pain over bilateral PSIS Neuro Common normals: oriented x3 Sensorium/orientation: alert Psych Common normals: mental status grossly normal, thought process normal, cooperative, affect normal, speech normal and activity/motor behavior normal Speech: normal speech Thought process: normal thought process Results Additional Findings Additional findings: If on a controlled substance or opioids, I have checked an [place] report on this patient and there are no aberrancies noted in the prescribing history.??If on a controlled substance or opioid a drug screen was completed and reviewed within the last year, and if there has not been a drug screen completed we ordered one today to monitor higher risk, state monitored pain medication use. As part of providing excellent, safe, comprehensive care, the following was completed at our patient's visit: 1. A medication reconciliation and review to ensure accurate knowledge of current/active medications, including asking our patients to inform us about any [id number] medications or herbal remedies/nutritional supplements/alternative remedies. 2. A review to specifically ensure our patients have had annual screening for screening for depression, screening for tobacco use, and screening for unhealthy alcohol use. For concerning screenings had a discussion with the patient, provided patient education, and recommended follow-up with primary care provider when appropriate. If patient noted with a risk of falling, they received education on strength, gait, and balance training to prevent future risk of falling. Portions of this note may have been carried over from the previous visit and updated as appropriate. Please note this office utilizes paper charting in addition to the electronic medical record. A list of current medications, vitals, and PMH is available there as the clinical staff outside of myself do not have access to [employer] charting during the clinic day operations. As part of providing quality comprehensive care the current medications, vitals, and PMH were reviewed in the paper chart. 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
== END 2025-04-18 13:58 | disposition home or self-care (01) ==
LOC: PM 13:58
PROVIDERS: Visit Provider Nurse Practitioner
DX: M48.062 Spinal stenosis, lumbar region with neurogenic claudication (principal); M51.362 Other intervertebral disc degeneration, lumbar region with discogenic back pain and lower extremity pain; M46.1 Sacroiliitis, not elsewhere classified; M79.18 Myalgia, other site; M47.816 Spondylosis without myelopathy or radiculopathy, lumbar region
CPT/HCPCS: G0463